=== PATIENT | female | born 2005 | race Caucasian/White ===

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

== ENCOUNTER 2023-06-29 08:00 | Outpatient (RCR) | payer OTHER, SELFPAY | END 2023-08-31 12:08 | disposition home or self-care (01) | LOC: HO.PT 08:00 | PROVIDERS: PCP Registered Nurse; Visit Provider Advanced Practice Midwife | DX: M99.05 Segmental and somatic dysfunction of pelvic region (principal) | CPT/HCPCS: 97112; 97140; 97161 ==

== ENCOUNTER 2023-06-29 10:30 | Outpatient (REF) | payer OTHER, SELFPAY ==
[2023-06-29 16:03] LABS: Appearance Urine Turbid; Color Urine Yellow; Glucose Urine UA Negative (Negative); Leukocyte Esterase Urine Small (1+) (Negative); Nitrite Urine Negative (Negative); PH 5.5 (5.0-9.0); Specific Gravity - Urine 1.025 (1.005-1.025); UMIC TRIGGER UA YES; Urine Blood Small (1+) (Negative); Urine Ketones Negative (Negative); Urine Protein Negative (Neg-Trace)
[2023-06-29 16:06] LABS: Bacteria Urine None Seen (None Seen); RBC Urine >20 /HPF (0-2); Squamous Epithelial Cell Urine 0-2 /HPF (0-2); WBC Urine 21-50 /HPF (0-5)
== END 2023-06-29 10:31 | disposition home or self-care (01) ==
LOC: HO.HMGCLDS 10:30
PROVIDERS: Visit Provider Registered Nurse
DX: R31.29 Other microscopic hematuria (principal)
CPT/HCPCS: 81001; 81003; 87086

== ENCOUNTER 2023-07-21 07:59 | Outpatient (AMB) | payer OTHER, SELFPAY ==
[2023-07-21 08:02] VITALS: BP 100/60; BMI 16.4
--- NOTE | 2023-07-21 08:02 | MHC.OFFVIS ---
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 Doing well with no concerns. Early withdrawal bleed in March. Has BV and yeast at times, used inserts and bled with the use Rx from PCP. She eats out daily. No regular exercise, walks at work. Doing well on Depo, wants to continue. She denies any contraindications to control such as: migraines with aura, history of DVT or pulmonary emboli, high blood pressure, liver disease, thrombolic disorders, Lupus, +ROD, breast cancer, or smoking. Currently is sexually active. She denies vaginal itching and irritation. STI screening offered; she accepts. Denies family history of ovarian or colon cancer. FH breast cancer. [facility] Medical History Spontaneous Surgical History Hx of dilation and curettage Family History (Updated 07/21/23 @ 08:06 by SANTANA Calix) Paternal Aunt History of breast cancer Mother Ovarian cancer Social History Household Members: Family Both parents involved: Yes Housing: House Are you a primary care management specialist to a significant other at home: No Do you presently have visiting nurse or other home services: No 75 years or older and lives alone: No Alcohol intake: never Patient Tobacco Use Status: Never used Tobacco Sexual orientation: Straight/Heterosexual Gender identity: Female Female Reproductive History Menstrual Age of Menarche: 13 control method: progesterone injection Total pregnancies: 3 Full term: 1 Number of Living Children: 1 Ab spontaneous: 2 Review of Systems Const All systems reviewed & are unremarkable except as noted in HPI and below Reports as per HPI Eyes Reports no additional complaints ENT Reports no additional complaints Card Reports no additional complaints Resp Reports no additional complaints GI Reports as per HPI and Reports no additional complaints Reports as per HPI Musc Reports no additional complaints Skin/Breast Reports as per HPI Neuro Reports no additional complaints Psych Reports no additional complaints Endo Reports no additional complaints Norberto/Lymph Reports no additional complaints Aller/Immun Reports no additional complaints Physical Exam Vital Signs: Last Vital Signs BP 100/60 07/21/23 08:02 BMI result Body Mass Index 16.4 Const General: cooperative, healthy appearing, no acute distress, well developed and alert Orientation/consciousness: patient oriented x3 HEENT Head: Yes normal to inspection Eyes General: appearance normal, both eyes and all related structures Neck Neck: Yes normal visual inspection Thyroid: Thyroid normal Chest Chest palpation & inspection: normal inspection of the chest and other (no puckering, dimpling, peau de orange, retraction, discharge, masses) Breast/axilla inspection: normal inspection of the breasts Breast/axilla palpation: normal palpation of the breasts Resp Effort & Inspection: normal respiratory effort GI Inspection: Yes normal to inspection Palpation (GI): Soft to palpation Rectal Exam - Female: deferred General: Yes bladder normal to palpation External Female Exam: normal external appearance and normal appearance of the urethra Speculum Exam - Vagina: normal appearance of the vagina, normal palpation and normal vaginal discharge Speculum Exam - Cervix: normal appearance of the cervix and normal palpation Bimanual exam- vagina & uterus: normal bimanual exam, normal palpation, uterine size normal, bladder normal to palpation, normal palpation and non-tender Bimanual Exam- Adnexa, other: no masses Skin General skin exam: no rashes or lesions noted Rashes: no rashes Neuro General: patient oriented x3 Cognition (Neuro): normal cognition Extrem General: Yes normal to inspection Psych Attitude: cooperative Thought process: Normal thought process present Results AMB Test Urine AMB Test Urine Negative Last Edit by SANTANA Calix on 07/21/23 08:18 Results Reviewed Results Reviewed: Laboratory Last Values Tst Clinic Negative 07/21/23 08:14 Assessment & Plan Assessment & Plan (1) Encounter for well woman exam with routine gynecological exam: Code(s): Z01.419 - Encounter for gynecological examination (general) (routine) without abnormal findings Plan Discussed: Current recommendations for pap smears per ASCCP guidelines. Breast awareness and periodic breast exams. Maintain a healthy lifestyle including a well balanced diet and routine exercise. Use condoms for STI and prevention. control hormone use warnings: go to ER if and loss of vision, blindness, severe headache, chest pain or difficulty breathing, severe abdominal pain, or any pain or swelling in an extremity. Patient verbalizes understanding and agrees to the plan of care. She was given opportunity to ask questions and all questions were answered to the best of my ability. RTO in one year for annual record keeper examination. This note is constructed using voice recognition software. While every effort has been made to ensure accuracy, lead enterprise architect errors may have been included. Orders: Orders CT NG by PCR Today Z20.2 - Contact with and (suspected) exposure to infections with a predominantly sexual mode of transmission AMB HCG Urine Test Today N92.6 - Irregular menstruation, unspecified Bacterial Vaginosis Panel Today Z20.2 - Contact with and (suspected) exposure to infections with a predominantly sexual mode of transmission Medications: New medroxyprogesterone (Depo-Provera) 150 mg IM [id number] 1 mL 4RF 90 days Coding Level of Care Code Est Pt Prev Care 18-39y(56014) Diagnoses Encounter for well woman exam with routine gynecological exam Z01.419
== END 2023-07-21 08:47 | disposition home or self-care (01) ==
PROVIDERS: Visit Provider Advanced Practice Midwife
DX: Z01.419 Encounter for gynecological examination (general) (routine) without abnormal findings (principal); N92.6 Irregular menstruation, unspecified
CPT/HCPCS: 99395

== ENCOUNTER 2023-07-21 07:59 | Outpatient (REF) | payer OTHER, SELFPAY | END 2023-07-21 08:00 | disposition home or self-care (01) | LOC: HO.LNP 07:59 | PROVIDERS: Visit Provider Advanced Practice Midwife | DX: Z01.419 Encounter for gynecological examination (general) (routine) without abnormal findings (principal); N92.6 Irregular menstruation, unspecified; Z20.2 Contact with and (suspected) exposure to infections with a predominantly sexual mode of transmission | CPT/HCPCS: 81025; 99395 ==

== ENCOUNTER 2023-07-21 08:45 | Outpatient (REF) | payer OTHER, SELFPAY ==
[2023-07-21 15:36] LABS: CT PCR NOT DETECTED (Not Detect.); NG PCR NOT DETECTED (Not Detect.)
[2023-07-22 16:13] LABS: BV Int Neg Control Negative (Negative); BV Int Pos Control Positive (Positive)
== END 2023-07-21 08:46 | disposition home or self-care (01) ==
LOC: HO.LAB 08:45
PROVIDERS: Visit Provider Advanced Practice Midwife
DX: N92.6 Irregular menstruation, unspecified (principal); Z20.2 Contact with and (suspected) exposure to infections with a predominantly sexual mode of transmission
CPT/HCPCS: 0353U; 87480; 87510; 87660

== ENCOUNTER 2023-12-21 16:38 | Outpatient (REF) | payer OTHER, SELFPAY ==
[2023-12-21 16:51] LABS: MANUAL DIFF FLAG NO
[2023-12-21 17:07] LABS: Basophils Percent Auto 0.2 % (0-2); Eosinophils Absolute Auto 0.1 X10*3/uL (0.0-0.4); Eosinophils Percent Auto 0.9 % (0-4); Hematocrit 41.1 % (37.0-47.0); Hemoglobin 14.4 g/dl (12.0-16.0); Imm Gran Abs Auto 0.01 X10*3/uL (0.00-0.03); Imm Gran Pct Auto 0.2 % (0.0-0.4); Lymphocytes Absolute Auto 2.6 X10*3/uL (1.2-4.9); Lymphocytes Percent Auto 40.3 % (20-40); Mean Corpuscular Volume 82.7 fL (80.0-98.0); Mean Platelet Volume 9.1 fL (9.4-12.3); Monocytes Absolute Auto 0.4 X10*3/uL (0.1-1.2); Monocytes Percent Auto 6.5 % (2-11); Neutrophils Absolute Auto 3.4 x10*3/uL (2.0-8.3); Neutrophils Percent Auto 51.9 % (45-73); Platelet Count 253 X10*3/uL (160-400); Red Blood Count 4.97 X10*6/uL (4.20-5.50); Red Cell Distribution Width 11.9 % (11.0-16.0); White Blood Count 6.5 X10*3/uL (4.8-10.8)
[2023-12-21 17:42] LABS: Alanine Aminotransferase 15 U/L (0-31); Albumin Level 4.6 g/dL (3.5-5.0); Alkaline Phosphatase 47 U/L (39-117); Anion Gap 8 (12-20); Aspartate Amino Transferase 16 U/L (5-31); Bilirubin Total 0.4 mg/dL (0.0-1.0); Blood Urea Nitrogen 7 mg/dL (9-16); Carbon Dioxide 28 mmol/L (22-29); Chloride 106 mmol/L (96-108); Estimated Glomerular Filt Rate > 60; Glucose Random 101 mg/dL (60-115); Iron 93 mcg/dL (30-160); Percent Iron Saturation 28 % (15-50); Potassium 3.8 mmol/L (3.3-5.1); Sodium 138 mmol/L (135-145); Total Iron Binding Capacity 336 mcg/dL (228-428); Total Protein 7.9 g/dL (6.5-8.0); Unsaturated Iron Binding 243 ug/dL
[2023-12-21 17:58] LABS: Vitamin D 25-OH Total 35.9 ng/mL (>30)
[2023-12-21 18:13] LABS: Folate 6.9 ng/mL (> or = 4.0); Vitamin B12 555 pg/mL (200-900)
== END 2023-12-21 16:39 | disposition home or self-care (01) ==
LOC: HO.LAB 16:38
PROVIDERS: PCP Registered Nurse; Visit Provider Registered Nurse
DX: R42 Dizziness and giddiness (principal)
CPT/HCPCS: 36415; 80053; 82306; 82607; 82746; 83540; 84443; 85025

== ENCOUNTER 2024-09-11 07:51 | Outpatient (AMB) | payer OTHER, SELFPAY ==
--- NOTE | 2024-09-11 07:51 | A.OFFVIS_ITS ---
Vital Signs 09/11/24 07:52 Height 5 ft 8 in Weight 108 lb BMI 16.4 Intake Visit Reasons: Breast issues Intake Note: pt has been noticing leaking from both breasts Professor Of Biochemistry: Professor Of Biochemistry Present (Keyanna) Allergies cats Allergy (Mild, Uncoded 09/11/24 07:52) itchy HPI Comments Details: Patient is here today due to milky discharge from her breasts in the shower, and when squeezed it out. Also noted slight bilateral breast soreness, now resolved. No previous breast surgeries or injuries. She does not report any breast stimulation herself or partner other than when she is cleaning the area. Current Depo-Provera user. She reports concerns that she had BV occurrences with her former partner but not with the 1st has a few questions regarding BV. [facility] Medical History Spontaneous Surgical History Hx of dilation and curettage Family History Paternal Aunt History of breast cancer Mother Ovarian cancer Social History Household Members: Family Both parents involved: Yes Housing: House Are you a primary director of primary care to a significant other at home: No Do you presently have visiting nurse or other home services: No 75 years or older and lives alone: No Alcohol intake: never Patient Tobacco Use Status: Never used Tobacco Sexual orientation: Straight/Heterosexual Gender identity: Female Female Reproductive History Menstrual Age of Menarche: 13 Review of Systems Const All systems reviewed & are unremarkable except as noted in HPI and below Reports no additional complaints Skin/Breast Reports system reviewed and no additional complaints, except as documented and Reports as per HPI Physical Exam Vital Signs: BMI result Body Mass Index 16.4 Const General: cooperative, healthy appearing and no acute distress Chest Other: No nipple discharge elicited Breast/axilla inspection: normal inspection of the breasts and normal inspection of the axillae Breast/axilla palpation: normal palpation of the breasts Skin General skin exam: no rashes or lesions noted Assessment & Plan Assessment & Plan (1) Nipple discharge: Code(s): N64.52 - Nipple discharge Category: Medical Plan Advised not to stimulate the breast. Await for for a few weeks to check the prolactin level, follow up pending the prolactin level results. Discussed the nature of bacterial vaginosis, pH shifts, vaginal teresa, role of women's health probiotics, use of condoms. Annual exam scheduled February 2025. The patient expressed understanding and agreement with the plan of care. All of her questions and concerns were addressed to the best of my ability. This note is constructed using voice recognition software. While every effort has been made to ensure accuracy, private mortgage banker safe errors may have been included. Orders: Orders Prolactin Today N64.52 - Nipple discharge Coding Level of Care Code Est Pt Level 3 (89885) Diagnoses Nipple discharge N64.52
[2024-09-11 07:52] VITALS: BMI 16.4
--- OUTSIDE RECORDS SUMMARY | 2024-09-11 07:55 | XMS_ITS | Data Portability ---
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 Plan of Treatment Reminders Order Date Submit Date Provider Last Modified By Organization Details Last Modified Time Details Appointments None recorded. Lab rapid influenza virus A + B and SARS CoV + SARS CoV 2 Ag panel, IA, upper respiratory specimen 2024 025 CHERYL In-Office Order, Internal Use Only DO Not Attach Compendium DO Not Attach Compendium, Do Not Delete/merge, [id number] 14:06:58 urinalysis, complete 2024 025 CHERYL [facility], [address], [place], [address], 5 08:06:54 culture, urine 2024 025 CHERYL [facility], [address], [address], [place], [address], 5 08:06:54 urinalysis, dipstick 2024 025 [email or web address] In-Office Order, Internal Use Only DO Not Attach Compendium DO Not Attach Compendium, Do Not Delete/merge, [id number] 5 13:52:54 bacterial vaginosis + vaginitis panel, vaginal 2024 025 CHERYL [facility] (Centralized Electronic Ordering - All Locations), Patient Can Go To The Location Of Their Choice, [id number] 5 08:06:53 CMP, serum or plasma 2024 025 CHERYL [facility] (Centralized Electronic Ordering - All Locations), Patient Can Go To The Location Of Their Choice, [id number] 5 14:06:18 CBC w/ auto diff 2024 025 CHERYL [facility] (Centralized Electronic Ordering - All Locations), Patient Can Go To The Location Of Their Choice, [id number] 5 14:06:17 amylase + lipase, serum 2024 025 CHERYL [facility] (Centralized Electronic Ordering - All Locations), Patient Can Go To The Location Of Their Choice, [id number] 5 14:06:19 H pylori urea breath test, co2 infrared 2024 025 CHERYL [facility] (Centralized Electronic Ordering - All Locations), Patient Can Go To The Location Of Their Choice, [id number] 5 14:06:20 test, urine 2023 024 [email or web address] In-Office Order, Internal Use Only DO Not Attach Compendium DO Not Attach Compendium, Do Not Delete/merge, [id number] 4 14:29:01 test, urine 2023 024 [email or web address] In-Office Order, Internal Use Only DO Not Attach Compendium DO Not Attach Compendium, Do Not Delete/merge, [id number] 4 12:37:05 Referral None recorded. Procedures None recorded. Surgeries None recorded. Imaging US, gallbladder - RUQ pain, worse when hungry, nausea r/o gallstones 2024 025 [email or web address] [facility], [address] , [place], [address], 5 15:12:14 Medication Orders medroxyprog esterone 150 mg/mL intramuscul ar suspension 2023 024 [email or web address] Not available 14:29:01 cetirizine 10 mg tablet 2023 024 [id number], [address] [place], [address], 4 10:52:13 triamcinolo ne acetonide 0.025 % topical ointment 2023 024 [id number], [address] [place], [address], 4 10:51:53 medroxyprog esterone 150 mg/mL intramuscul ar suspension 2023 024 [email or web address] [facility] #[id number], [address] [place], [address], 4 10:41:15 medroxyprog esterone 150 mg/mL intramuscul ar suspension 2023 024 [email or web address] Not available 12:37:05 Patient TargetsNo targets recorded. Patient Instructions Encounter Date Encounter Id Patient Instructions Last Modified By Organization Details Last Modified Time 03/27/2024 [id number] call or return for worsening or concerns. [email or web address] Not available 03/27/2024 10:36:09 06/14/2024 [id number] call or return for worsening or concerns. [email or web address] Not available 06/14/2024 14:06:46 Reason for Referral None Reported. Results Created Date Observation Date Name Description Value Unit Range Abnormal Flag Note LastModifiedBy Organization Detail LastModifiedTime 01/11/2001/11/2024 pregn april test, urine HCG negati ve Not Available In-Office Order Internal Use Only DO Not Attach Compendium DO Not Attach Compendium, Do Not Delete/merge, [id number] 01/11/2024 09:41:08 04/13/20 24 04/13/2024 pregn april test, urine HCG negati ve Not Available In-Office Order Internal Use Only DO Not Attach Compendium DO Not Attach Compendium, Do Not Delete/merge, [id number] 04/13/2024 14:10:03 06/14/19 25 06/15/2024 CBC WITH DIFFE RENTI AL/PL ATELE T WBC 7.6 x10e3 /uL 3.4-10 .8 normal Not Available [facility] ([facility]) [address], [place], [address], 06/15/2024 14:06:17 06/14/19 25 06/15/2024 CBC WITH DIFFE RENTI AL/PL ATELE T RBC 5.11 x10e6 /uL 3.77-5 .28 normal Not Available [facility] ([facility]) [address] [place], [address], 06/15/2024 14:06:17 06/14/19 25 06/15/2024 CBC WITH DIFFE RENTI AL/PL ATELE T hemoglobin 14.9 g/dL 11.1-1 5.9 normal Not Available [facility] ([facility]) [address] [facility], [place], [address], 06/15/2024 14:06:17 06/14/19 25 06/15/2024 CBC WITH DIFFE RENTI AL/PL ATELE T hematocrit 44.0 % 34.0-4 6.6 normal Not Available [facility] ([facility]) [address] [place], [address], 06/15/2024 14:06:17 06/14/1906/15/2024 CBC WITH DIFFE RENTI AL/PL ATELE T MCV 86 fL 79-97 normal Not Available [facility] ([facility]) [address] [place], [address], 06/15/2024 14:06:17 06/14/19 25 06/15/2024 CBC WITH DIFFE RENTI AL/PL ATELE T MCH 29.2 pg 26.6-3 3.0 normal Not Available [facility] ([facility]) [address] [place], [address], 06/15/2024 14:06:17 06/14/19 25 06/15/2024 CBC WITH DIFFE RENTI AL/PL ATELE T MCHC 33.9 g/dL 31.5-3 5.7 normal Not Available [facility] ([facility]) [address] [facility], [place], [address], 06/15/2024 14:06:17 06/14/19 25 06/15/2024 CBC WITH DIFFE RENTI AL/PL ATELE T RDW 12.1 % 11.7-1 5.4 Not Available [facility] ([facility]) [address] [facility], [place], [address], 06/15/2024 14:06:17 06/14/19 25 06/15/2024 CBC WITH DIFFE RENTI AL/PL ATELE T platelets 302 x10e3 /uL 150-45 0 normal Not Available [facility] ([facility]) [address] [facility], [place], [address], 06/15/2024 14:06:17 06/14/19 25 06/15/2024 CBC WITH DIFFE RENTI AL/PL ATELE T neutrophils 61 % not estab. normal Not Available [facility] ([facility]) [address] [facility], [place], [address], 06/15/2024 14:06:17 06/14/19 25 06/15/2024 CBC WITH DIFFE RENTI AL/PL ATELE T lymphs 32 % not estab. normal Not Available [facility] ([facility]) [address] [facility], [place], [address], 06/15/2024 14:06:17 06/14/19 25 06/15/2024 CBC WITH DIFFE RENTI AL/PL ATELE T monocytes 6 % not estab. normal Not Available [facility] ([facility]) [address] [facility], [place], [address], 06/15/2024 14:06:17 06/14/19 25 06/15/2024 CBC WITH DIFFE RENTI AL/PL ATELE T eos 1 % not estab. normal Not Available [facility] ([facility]) [address] [facility], [place], [address], 06/15/2024 14:06:17 06/14/19 25 06/15/2024 CBC WITH DIFFE RENTI AL/PL ATELE T basos 0 % not estab. normal Not Available [facility] ([facility]) [address] [facility], [place], [address], 06/15/2024 14:06:17 06/14/1906/15/2024 CBC WITH DIFFE RENTI AL/PL ATELE T immature cells FILER AND SANDER Not Available [facility] ([facility]) [address] [place], [address], 06/15/2024 14:06:17 06/14/19 25 06/15/2024 CBC WITH DIFFE RENTI AL/PL ATELE T neutrophils (absolute) 4.6 x10e3 /uL 1.4-7. 0 normal Not Available [facility] ([facility]) [address] [place], [address], 06/15/2024 14:06:17 06/14/19 25 06/15/2024 CBC WITH DIFFE RENTI AL/PL ATELE T lymphs (absolute) 2.4 x10e3 /uL 0.7-3. 1 normal Not Available [facility] ([facility]) [address] [place], [address], 06/15/2024 14:06:17 06/14/1906/15/2024 CBC WITH DIFFE RENTI AL/PL ATELE T monocytes(ab solute) 0.5 x10e3 /uL 0.1-0. 9 normal Not Available [facility] ([facility]) [address] [place], [address], 06/15/2024 14:06:17 06/14/19 25 06/15/2024 CBC WITH DIFFE RENTI AL/PL ATELE T eos (absolute) 0.1 x10e3 /uL 0.0-0. 4 normal Not Available [facility] ([facility]) [address] [facility], [place], [address], 06/15/2024 14:06:17 06/14/19 25 06/15/2024 CBC WITH DIFFE RENTI AL/PL ATELE T baso (absolute) 0.0 x10e3 /uL 0.0-0. 2 normal Not Available [facility] ([facility]) [address] [facility] [facility], [place], [address], 06/15/2024 14:06:17 06/14/19 25 06/15/2024 CBC WITH DIFFE RENTI AL/PL ATELE T immature granulocytes 0 % not estab. Not Available [facility] ([facility]) [address] [facility] [facility], [place], [address], 06/15/2024 14:06:17 06/14/19 25 06/15/2024 CBC WITH DIFFE RENTI AL/PL ATELE T immature grans (abs) 0.0 x10e3 /uL 0.0-0. 1 Not Available [facility] ([facility]) [address] [facility] [facility], [place], [address], 06/15/2024 14:06:17 06/14/19 25 06/15/2024 CBC WITH DIFFE RENTI AL/PL ATELE T NRBC FILER AND SANDER Not Available [facility] ([facility]) [address] [facility], [place], [address], 06/15/2024 14:06:17 06/14/19 25 06/15/2024 CBC WITH DIFFE RENTI AL/PL ATELE T hematology comments: FILER AND SANDER Not Available [facility] ([facility]) [address] [facility], [place], [address], 06/15/2024 14:06:17 06/14/19 25 06/15/2024 COMP. METAB OLIC PANEL (14) glucose 93 mg/dL 70-99 normal Not Available [facility] ([facility]) [address] [place], [address], 06/15/2024 14:06:18 06/14/19 25 06/15/2024 COMP. METAB OLIC PANEL (14) BUN 12 mg/dL 6-20 normal Not Available [facility] ([facility]) [address] [place], [address], 06/15/2024 14:06:18 06/14/19 25 06/15/2024 COMP. METAB OLIC PANEL (14) creatinine 0.78 mg/dL 0.57-1 .00 normal Not Available [facility] ([facility]) [address] [place], [address], 06/15/2024 14:06:18 06/14/19 25 06/15/2024 COMP. METAB OLIC PANEL (14) eGFR 111 mL/mi n/1.7 3 >59 normal Not Available [facility] ([facility]) [address] [place], [address], 06/15/2024 14:06:18 06/14/19 25 06/15/2024 COMP. METAB OLIC PANEL (14) BUN/creatini ne ratio 15 9-23 normal Not Available [facility] ([facility]) [address] [place], [address], 06/15/2024 14:06:18 06/14/19 25 06/15/2024 COMP. METAB OLIC PANEL (14) sodium 140 mmol/ L 134-14 4 normal Not Available [facility] ([facility]) [address] [place], [address], 06/15/2024 14:06:18 06/14/19 25 06/15/2024 COMP. METAB OLIC PANEL (14) potassium 4.1 mmol/ L 3.5-5. 2 normal Not Available [facility] ([facility]) [address] [place], [address], 06/15/2024 14:06:18 06/14/19 25 06/15/2024 COMP. METAB OLIC PANEL (14) chloride 103 mmol/ L 96-106 normal Not Available [facility] ([facility]) [address] [place], [address], 06/15/2024 14:06:18 06/14/19 25 06/15/2024 COMP. METAB OLIC PANEL (14) carbon dioxide, total 22 mmol/ L 20-29 normal Not Available [facility] ([facility]) [address] [place], [address], 06/15/2024 14:06:18 06/14/19 25 06/15/2024 COMP. METAB OLIC PANEL (14) calcium 9.6 mg/dL 8.7-10 .2 normal Not Available [facility] ([facility]) [address] [place], [address], 06/15/2024 14:06:18 06/14/19 25 06/15/2024 COMP. METAB OLIC PANEL (14) protein, total 7.9 g/dL 6.0-8. 5 normal Not Available [facility] ([facility]) [address] [place], [address], 06/15/2024 14:06:18 06/14/19 25 06/15/2024 COMP. METAB OLIC PANEL (14) albumin 4.7 g/dL 4.0-5. 0 normal Not Available [facility] ([facility]) [address] [place], [address], 06/15/2024 14:06:18 06/14/19 25 06/15/2024 COMP. METAB OLIC PANEL (14) globulin, total 3.2 g/dL 1.5-4. 5 Not Available [facility] ([facility]) [address], [place], [address], 06/15/2024 14:06:18 06/14/19 25 06/15/2024 COMP. METAB OLIC PANEL (14) bilirubin, total <0.2 mg/dL 0.0-1. 2 Not Available [facility] ([facility]) [address] [facility], [place], [address], 06/15/2024 14:06:18 06/14/19 25 06/15/2024 COMP. METAB OLIC PANEL (14) alkaline phosphatase 62 IU/L 44-121 normal Not Available [facility] ([facility]) [address], [place], [address], 06/15/2024 14:06:18 06/14/19 25 06/15/2024 COMP. METAB OLIC PANEL (14) AST (SGOT) 20 IU/L 0-40 normal Not Available [facility] ([facility]) [address] [facility], [place], [address], 06/15/2024 14:06:18 06/14/19 25 06/15/2024 COMP. METAB OLIC PANEL (14) ALT (SGPT) 14 IU/L 0-32 normal Not Available [facility] ([facility]) [address] [facility], [place], [address], 06/15/2024 14:06:18 06/14/19 25 06/15/2024 KENNETH+L IPASE amylase 79 U/L 31-110 normal Not Available [facility] ([facility]) [address] [facility], [place], [address], 06/15/2024 14:06:19 06/14/19 25 06/15/2024 KENNETH+L IPASE lipase 47 U/L 14-72 normal Not Available [facility] ([facility]) [address] [facility], [place], [address], 06/15/2024 14:06:19 06/14/19 25 06/15/2024 H PYLOR I BREAT H TEST H pylori breath test Negati ve negati ve Not Available [facility] ([facility]) [address] [facility], [place], [address], 06/15/2024 14:06:20 06/14/19 25 06/15/2024 NUSWA B BV KEYON+C AND6+ CT/GC /T... atopobium vaginae Modera te - 1 score Not Available [facility] ([facility]) [address] [facility], [place], [address], 06/17/2024 08:06:53 06/14/19 25 06/15/2024 NUSWA B BV KEYON+C AND6+ CT/GC /T... bvab 2 Low - 0 score Not Available [facility] ([facility]) [address] [facility], [place], [address], 06/17/2024 08:06:53 06/14/19 25 06/15/2024 NUSWA B BV KEYON+C AND6+ CT/GC /T... megasphaera 1 High - 2 score abnormal Calcu late total score by patricia rashid the 3 indiv idual bacte rial vagin osis (BV) marke r score s toget her. Total score is inter prete d as follo ws: Total score 0-1: Indic ates the absen ce of BV. Total score 2: Indet ermin ate for BV. Addit ional clini hair data shoul d be evalu ated to estab ann a diagn osis. Total score 3-6: Indic ates the prese nce of BV. Not Available [facility] ([facility]) [address] [facility], [place], [address], 06/17/2024 08:06:53 06/14/19 25 06/15/2024 NUSWA B BV KEYON+C AND6+ CT/GC /T... monserrat albicans, KEYON Negati ve negati ve Not Available [facility] ([facility]) [address] [place], [address], 06/17/2024 08:06:53 06/14/19 25 06/15/2024 NUSWA B BV KEYON+C AND6+ CT/GC /T... monserrat glabrata, KEYON Negati ve negati ve Not Available [facility] ([facility]) [address] [place], [address], 06/17/2024 08:06:53 06/14/19 25 06/15/2024 NUSWA B BV KEYON+C AND6+ CT/GC /T... C parapsilosis /tropicalis Negati ve negati ve This assay does not diffe renti ate C. tropi calis and C. parap el is. Not Available [facility] ([facility]) [address] [place], [address], 06/17/2024 08:06:53 06/14/19 25 06/15/2024 NUSWA B BV KEYON+C AND6+ CT/GC /T... monserrat lusitaniae, KEYON Negati ve negati ve Not Available [facility] ([facility]) [address] [place], [address], 06/17/2024 08:06:53 06/14/19 25 06/15/2024 NUSWA B BV KEYON+C AND6+ CT/GC /T... monserrat krusei, KEYON Negati ve negati ve Not Available [facility] ([facility]) [address] [place], [address], 06/17/2024 08:06:53 06/14/19 25 06/16/2024 NUSWA B BV KEYON+C AND6+ CT/GC /T... hsv 1 KEYON Negati ve negati ve Not Available [facility] ([facility]) [address] [place], [address], 06/17/2024 08:06:53 06/14/19 25 06/16/2024 NUSWA B BV KEYON+C AND6+ CT/GC /T... hsv 2 KEYON Negati ve negati ve Not Available [facility] ([facility]) [address] [place], [address], 06/17/2024 08:06:53 06/14/1906/17/2024 NUSWA B BV KEYON+C AND6+ CT/GC /T... trich vag by KEYON Negati ve negati ve Not Available [facility] ([facility]) [address] [place], [address], 06/17/2024 08:06:53 06/14/1906/17/2024 NUSWA B BV KEYON+C AND6+ CT/GC /T... chlamydia trachomatis, KEYON Negati ve negati ve Not Available [facility] ([facility]) [address] [place], [address], 06/17/2024 08:06:53 06/14/1906/17/2024 NUSWA B BV KEYON+C AND6+ CT/GC /T... neisseria gonorrhoeae, KEYON Negati ve negati ve Not Available [facility] ([facility]) [address] [place], [address], 06/17/2024 08:06:53 06/14/1906/15/2024 URINA LYSIS , COMPL ETE specific gravity 1.024 1.005- 1.030 normal Not Available [facility] ([facility]) [address] [place], [address], 06/17/2024 08:06:54 06/14/1906/15/2024 URINA LYSIS , COMPL ETE pH 7.0 5.0-7. 5 normal Not Available [facility] ([facility]) [address] [place], [address], 06/17/2024 08:06:54 06/14/19 25 06/15/2024 URINA LYSIS , COMPL ETE urine-color Yellow yellow Not Available [facility] ([facility]) [address] [facility], [place], [address], 06/17/2024 08:06:54 06/14/19 25 06/15/2024 URINA LYSIS , COMPL ETE appearance Clear clear Not Available [facility] ([facility]) [address] [place], [address], 06/17/2024 08:06:54 06/14/19 25 06/15/2024 URINA LYSIS , COMPL ETE WBC esterase Negati ve negati ve Not Available [facility] ([facility]) [address] [place], [address], 06/17/2024 08:06:54 06/14/19 25 06/15/2024 URINA LYSIS , COMPL ETE protein Negati ve negati ve/tra ce Not Available [facility] ([facility]) [address] [place], [address], 06/17/2024 08:06:54 06/14/19 25 06/15/2024 URINA LYSIS , COMPL ETE glucose Negati ve negati ve Not Available [facility] ([facility]) [address] [place], [address], 06/17/2024 08:06:54 06/14/19 25 06/15/2024 URINA LYSIS , COMPL ETE ketones Negati ve negati ve Not Available [facility] ([facility]) [address] [place], [address], 06/17/2024 08:06:54 06/14/19 25 06/15/2024 URINA LYSIS , COMPL ETE occult blood Negati ve negati ve Not Available [facility] ([facility]) [address] [place], [address], 06/17/2024 08:06:54 06/14/19 25 06/15/2024 URINA LYSIS , COMPL ETE bilirubin Negati ve negati ve Not Available [facility] ([facility]) [address] [facility], [place], [address], 06/17/2024 08:06:54 06/14/1906/15/2024 URINA LYSIS , COMPL ETE urobilinogen ,semi-qn 1.0 mg/dL 0.2-1. 0 normal Not Available [facility] ([facility]) [address] [facility], [place], [address], 06/17/2024 08:06:54 06/14/19 25 06/15/2024 URINA LYSIS , COMPL ETE nitrite, urine Negati ve negati ve Not Available [facility] ([facility]) [address] [facility], [place], [address], 06/17/2024 08:06:54 06/14/1906/15/2024 URINA LYSIS , COMPL ETE microscopic examination Commen t Micro scopi c follo ws if indic ated. Not Available [facility] ([facility]) [address] [facility], [place], [address], 06/17/2024 08:06:54 06/14/1906/15/2024 URINA LYSIS , COMPL ETE microscopic examination See below: Micro scopi c was indic ated and was perfo rmed. Not Available [facility] ([facility]) [address] [facility], [place], [address], 06/17/2024 08:06:54 06/14/1906/15/2024 URINA LYSIS , COMPL ETE WBC None seen /hpf 0 - 5 Not Available [facility] ([facility]) [address] [place], [address], 06/17/2024 08:06:54 06/14/19 25 06/15/2024 URINA LYSIS , COMPL ETE RBC None seen /hpf 0 - 2 Not Available [facility] ([facility]) [address] [facility], [place], [address], 06/17/2024 08:06:54 06/14/19 25 06/15/2024 URINA LYSIS , COMPL ETE epithelial cells (non renal) None seen /hpf 0 - 10 Not Available [facility] ([facility]) [address] [facility], [place], [address], 06/17/2024 08:06:54 06/14/19 25 06/15/2024 URINA LYSIS , COMPL ETE epithelial cells (renal) FILER AND SANDER Not Available [facility] ([facility]) [address] [facility], [place], [address], 06/17/2024 08:06:54 06/14/19 25 06/15/2024 URINA LYSIS , COMPL ETE casts None seen /lpf none seen Not Available [facility] ([facility]) [address] [facility], [place], [address], 06/17/2024 08:06:54 06/14/19 25 06/15/2024 URINA LYSIS , COMPL ETE cast type FILER AND SANDER Not Available [facility] ([facility]) [address] [facility], [place], [address], 06/17/2024 08:06:54 06/14/19 25 06/15/2024 URINA LYSIS , COMPL ETE crystals FILER AND SANDER Not Available [facility] ([facility]) [address] [facility], [place], [address], 06/17/2024 08:06:54 06/14/19 25 06/15/2024 URINA LYSIS , COMPL ETE crystal type FILER AND SANDER Not Available [facility] ([facility] [address] [facility], [place], [address], 06/17/2024 08:06:54 06/14/19 25 06/15/2024 URINA LYSIS , COMPL ETE mucus threads FILER AND SANDER Not Available [facility] ([facility]) [address] [facility], [place], [address], 06/17/2024 08:06:54 06/14/19 25 06/15/2024 URINA LYSIS , COMPL ETE bacteria None seen none seen/f ew Not Available [facility] ([facility]) [address] [facility], [place], [address], 06/17/2024 08:06:54 06/14/19 25 06/15/2024 URINA LYSIS , COMPL ETE yeast FILER AND SANDER Not Available [facility] ([facility]) [address] [facility], [place], [address], 06/17/2024 08:06:54 06/14/19 25 06/15/2024 URINA LYSIS , COMPL ETE trichomonas FILER AND SANDER Not Available [facility] ([facility]) [address] [facility], [place], [address], 06/17/2024 08:06:54 06/14/19 25 06/15/2024 URINA LYSIS , COMPL ETE comment FILER AND SANDER Not Available [facility] ([facility]) [address] [facility], [place], [address], 06/17/2024 08:06:54 06/14/19 25 06/16/2024 URINE CULTU REJENNY urine culture, routine Final report Not Available [facility] ([facility]) [address] [place], [address], 06/17/2024 08:06:54 06/14/19 25 06/16/2024 URINE CULTU JENNY ZAMORANO result 1 No growth Not Available [facility] ([facility]) [address] [place], [address], 06/17/2024 08:06:54 06/14/19 25 06/14/2024 urina lysis , dipst ick Leukocytes Negati ve Not Available In-Office Order Internal Use Only DO Not Attach Compendium DO Not Attach Compendium, Do Not Delete/merge, 06/14/2024 13:46:51 06/14/19 25 06/14/2024 urina lysis , dipst ick Nitritie negati ve Not Available In-Office Order Internal Use Only DO Not Attach Compendium DO Not Attach Compendium, Do Not Delete/merge, 06/14/2024 13:46:51 06/14/19 25 06/14/2024 urina lysis , dipst ick Urobilinogen .2 Not Available In-Of fice Order Internal Use Only DO Not Attach Compendium DO Not Attach Compendium, Do Not Delete/merge, 06/14/2024 13:46:51 06/14/19 25 06/14/2024 urina lysis , dipst ick Protein Negati ve Not Available In-Office Order Internal Use Only DO Not Attach Compendium DO Not Attach Compendium, Do Not Delete/merge, 06/14/2024 13:46:51 06/14/19 25 06/14/2024 urina lysis , dipst ick pH 6.0 Not Available In-Office Order Internal Use Only DO Not Attach Compendium DO Not Attach Compendium, Do Not Delete/merge, 06/14/2024 13:46:51 06/14/19 25 06/14/2024 urina lysis , dipst ick Blood Negati ve Not Available In-Office Order Internal Use Only DO Not Attach Compendium DO Not Attach Compendium, Do Not Delete/merge, 06/14/2024 13:46:51 06/14/19 25 06/14/2024 urina lysis , dipst ick Specific [place] 1.020 Not Available In-Off ice Order Internal Use Only DO Not Attach Compendium DO Not Attach Compendium, Do Not Delete/merge, 06/14/2024 13:46:51 06/14/19 25 06/14/2024 urina lysis , dipst ick Ketone Negati ve Not Available In-Office Order Internal Use Only DO Not Attach Compendium DO Not Attach Compendium, Do Not Delete/merge, 06/14/2024 13:46:51 06/14/19 25 06/14/2024 urina lysis , dipst ick Bilirubin Negati ve Not Available In-Office Order Internal Use Only DO Not Attach Compendium DO Not Attach Compendium, Do Not Delete/merge, 06/14/2024 13:46:51 06/14/19 25 06/14/2024 urina lysis , dipst ick Glucose Negati ve Not Available In-Office Order Internal Use Only DO Not Attach Compendium DO Not Attach Compendium, Do Not Delete/merge, 06/14/2024 13:46:51 06/14/19 25 06/14/2024 urina lysis , dipst ick Appearance Clear Not Available In-Offi ce Order Internal Use Only DO Not Attach Compendium DO Not Attach Compendium, Do Not Delete/merge, 06/14/2024 13:46:51 06/14/19 25 06/14/2024 urina lysis , dipst ick Color Yellow Not Available In-Office Order Internal Use Only DO Not Attach Compendium DO Not Attach Compendium, Do Not Delete/merge, 06/14/2024 13:46:51 07/25/19 25 07/25/2024 NUSWA B BV KEYON+C AND6+ CT/GC /T... atopobium vaginae Low - 0 score Not Available [facility] ([facility]) [address] [place], [address], 07/26/2024 22:05:47 07/25/19 25 07/25/2024 NUSWA B BV KEYON+C AND6+ CT/GC /T... bvab 2 Low - 0 score Not Available [facility] ([facility]) [address] [place], [address], 07/26/2024 22:05:47 07/25/19 25 07/25/2024 NUSWA B BV KEYON+C AND6+ CT/GC /T... megasphaera 1 Low - 0 score Calcu late total score by patricia rashid the 3 indiv idual bacte rial vagin osis (BV) marke r score s toget her. Total score is inter prete d as follo ws: Total score 0-1: Indic ates the absen ce of BV. Total score 2: Indet ermin ate for BV. Addit ional clini hair data shoul d be evalu ated to estab ann a diagn osis. Total score 3-6: Indic ates the prese nce of BV. Not Available [facility] ([facility]) [address] [place], [address], 07/26/2024 22:05:47 07/25/19 25 07/25/2024 NUSWA B BV KEYON+C AND6+ CT/GC /T... monserrat albicans, KEYON Negati ve negati ve Not Available [facility] ([facility]) [address] [place], [address], 07/26/2024 22:05:47 07/25/19 25 07/25/2024 NUSWA B BV KEYON+C AND6+ CT/GC /T... monserrat glabrata, KEYON Negati ve negati ve Not Available [facility] ([facility]) [address] [place], [address], 07/26/2024 22:05:47 07/25/19 25 07/25/2024 NUSWA B BV KEYON+C AND6+ CT/GC /T... C parapsilosis /tropicalis Negati ve negati ve This assay does not diffe renti ate C. tropi calis and C. parap el is. Not Available [facility] ([facility]) [address] [place], [address], 07/26/2024 22:05:47 07/25/19 25 07/25/2024 NUSWA B BV KEYON+C AND6+ CT/GC /T... monserrat lusitaniae, KEYON Negati ve negati ve Not Available [facility] ([facility]) [address] [place], [address], 07/26/2024 22:05:47 07/25/19 25 07/25/2024 NUSWA B BV KEYON+C AND6+ CT/GC /T... monserrat krusei, KEYON Negati ve negati ve Not Available [facility] ([facility]) [address] [place], [address], 07/26/2024 22:05:47 07/25/19 25 07/26/2024 NUSWA B BV KEYON+C AND6+ CT/GC /T... trich vag by KEYON Negati ve negati ve Not Available [facility] ([facility]) [address] [place], [address], 07/26/2024 22:05:47 07/25/19 25 07/26/2024 NUSWA B BV KEYON+C AND6+ CT/GC /T... chlamydia trachomatis, KEYON Negati ve negati ve Not Available [facility] ([facility]) [address] [place], [address], 07/26/2024 22:05:47 07/25/19 25 07/26/2024 NUSWA B BV KEYON+C AND6+ CT/GC /T... neisseria gonorrhoeae, KEYON Negati ve negati ve Not Available [facility] ([facility]) [address] [place], [address], 07/26/2024 22:05:47 07/25/19 25 07/26/2024 NUSWA B BV KEYON+C AND6+ CT/GC /T... hsv 1 KEYON Negati ve negati ve Not Available [facility] ([facility]) [address] [place], [address], 07/26/2024 22:05:47 07/25/19 25 07/26/2024 NUSWA B BV KEYON+C AND6+ CT/GC /T... hsv 2 KEYON Negati ve negati ve Not Available [facility] ([facility]) [address] [facility], [place], [address], 07/26/2024 22:05:47 07/28/19 25 07/27/2024 rapid influ zak virus A + B and SARS CoV + SARS CoV 2 Ag panel , IA, upper respi rator y speci men Unknown Analyte negati ve Not Available In-Office Order Internal Use Only DO Not Attach Compendium DO Not Attach Compendium, Do Not Delete/merge, [id number] 07/27/2024 13:20:59 07/28/19 25 07/27/2024 rapid influ zak virus A + B and SARS CoV + SARS CoV 2 Ag panel , [place], upper respi rator y speci men Unknown Analyte negati ve Not Available In-Office Order Internal Use Only DO Not Attach Compendium DO Not Attach Compendium, Do Not Delete/merge, [id number] 07/27/2024 13:20:59 07/28/19 25 07/27/2024 rapid influ zak virus A + B and SARS CoV + SARS CoV 2 Ag panel , IA, upper respi rator y speci men Unknown Analyte negati ve Not Available In-Office Order Internal Use Only DO Not Attach Compendium DO Not Attach Compendium, Do Not Delete/merge, [id number] 07/27/2024 13:20:59 07/10/19 25 07/10/2024 US, abdom en, limit ed US RUQ Reason : R10.11 RUQ PAIN COMPAR DARINEL: CT abdome n and pelvis 2015. FINDIN GS: Liver: Normal in size and echote xture. No focal lesion . Smooth hepati c contou r. Main portal vein patent with normal hepato petal direct ion of flow. Gallbl adder: No gallst ones. Normal wall thickn ess. No perich olecys tic fluid. Negati ve Cota sign. Biliar y Tree: No intrah epatic or extrah epatic bile duct dilati on is identi fied. Common duct measur es: 0.5 cm. Pancre as: No abnorm ality in the visual ized portio ns of the pancre as. Right kidney : 9.9 cm in length . Normal parenc hymal echote xture and thickn ess. No hydron ephros is, stone or mass. IMPRES FELICITAS: Normal right upper quadra nt ultras ound. I have person ally review ed the images and I agree with this report . WSN: [id number] Orderi ng Physic rin: Theresa Page Dictat ed By: Jose R Kang DO Dictkeaton ed Date/T bhavna: 10:50 a Review ed By: Harshal Pimentel MD Signed By: Harshal Pimentel MD Signed Date/T bhavna: 10:55 am Transc ribed By: MAGGIE Transc ribed Date/T bhavna: 10:31 am Patien t Class: [facility] [address] [place] [address], [address], 08/02/2024 10:54:59 Result Notes None recorded. Problems Name Problem SNOMED Code Status Onset Date Resolution Date Notes Provider Name and Address Organization Details Recorded Time Epigastr ic pain 01395147 Completed 200712/27/2013 RECORDED 03/12/20 08 3:00PM BY INEZ GALE ON/ADDEN DUM Vikash Keys, [facility] [address], [place], [address], [facility] 6 15:26:01 Acute secretor y otitis media 051882720 Completed 200812/27/2013 RECORDED 03/07/20 09 9:27AM BY EDY AGUILAR MA, INEZ ON/ADDEN DUM Vikash Keys, [facility] [address], [facility] [place], [address], [facility] 6 15:26:01 Acute pharyngi tis 452968068 Completed 201112/27/2013 RECORDED 11/30/19 12 8:26AM BY CYNTHIA TORRE PA-C, ANNOTATI ON/ADDEN DUM Vikash Keys, [facility] [address] [facility] [address], [place], [address], [facility], [place] 6 15:26:01 Streptoc occal sore throat 59677834 Completed 201112/27/2013 RECORDED 11/30/19 12 8:26AM BY CYNTHIA TORRE PA-C, ANNOTATI ON/ADDEN DUM Vikash Keys, [facility] [address] [facility] [address], [place], [address], [facility], [place] 6 15:26:01 Cellulit is and abscess of face 509591039 Completed 201112/27/2013 RECORDED 11/30/19 12 8:26AM BY CYNTHIA TORRE PA-C, ANNOTATI ON/ADDEN DUM Vikash Keys, [facility] [address] [address], [facility] [place], [address], [facility], [place] 6 15:26:01 Conjunct ivitis 9985845 Completed 200712/27/2013 RECORDED 03/12/20 08 2:59PM BY INEZ GALE ON/ADDEN ELIZABETH Keys, [facility] [address] [address], [facility] [place], [address], [facility] [place], [place] 6 15:26:01 Dysuria 68280597 Completed 200712/27/2013 RECORDED 03/12/20 08 3:00PM BY INEZ GALE ON/ADDSILAS DUM Vikash Keys, [facility] [address] [address], [place], [address], [facility], [place] 6 15:26:01 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 [address], [place], [address], [facility], [place] 6 15:26:01 Fever 241431379 Completed 200712/27/2013 RECORDED 03/12/20 08 3:00PM BY DEVAN DODGE, INEZ ON/ADDEN DUM Vikash Keys, [facility] [address] [facility] [address], [place], [address], [facility] [place], [place] 6 15:26:01 Influenz a vaccine needed 44356855420 06 Completed 200812/27/2013 DATE: 03/07/20 09; RECORDED 05/15/20 13 8:35AM BY INEZ LUND ON/ADDEN DUM Vikash Keys, [facility] [address] [facility] [address], [place], [address], [facility] [place], [place] 6 15:26:01 Administ ration of viral vaccine Completed 201212/27/2013 RECORDED 05/15/20 13 2:44PM BY MIKE DYER MD, [employer]ITS Vikash Keys, [facility] [address] [facility] [address], [place], [address], [facility] [place], [place] 6 15:26:01 Impetigo 48779961 Completed 201112/27/2013 RECORDED 11/30/19 12 9:59AM BY CYNTHIA TORRE PA-C, ANNOTATI ON/ADDEN DUM Vikash Keys, [facility] [address] [facility] [address], [place], [address], [facility] [place], [place] 6 15:26:01 Methicil jordan resistan t Staphylo coccus aureus infectio n 753333501 Completed 201212/27/2013 RECORDED 05/15/20 13 8:35AM BY ERIK LUNDATI ON/ADDEN ELIZABETH Keys, [facility] [address], [place], [address], [facility] [place], [place] 6 15:26:01 Infestat ion by Gretchen galeas [id number] Completed 201112/27/2013 RECORDED 11/30/19 12 8:26AM BY CYNTHIA TORRE PA-C, ANNOTATI ON/ADDEN DUM Vikash Keys, [facility] [address], [place], [address], [facility], [place] 6 15:26:01 Verruca plantari s 19528119 Completed 201212/27/2013 IMPRESSI ON: L HEEL; RECORDED 05/15/20 13 8:35AM BY ERIK LUNDATI ON/ADDEN ELIZABETH eKys, [facility] [address], [place], [address], [facility], [place] 6 15:26:01 Eruption 601100421 Completed 201112/27/2013 RECORDED 11/30/19 12 8:26AM BY CYNTHIA TORRE PA-C, ANNOTATI ON/ADDEN ELIZABETH Keys, [facility] [address], [place], [address], [facility], [place] 6 15:26:01 Epigastr ic pain 76899554 Completed 200712/28/2013 RECORDED 03/12/20 08 3:00PM BY DEVAN DODGE, INEZ ON/ADDSILAS Keys, [facility] [address], [facility] [place], [address], [facility] [place], [place] 6 15:26:01 Acute secretor y otitis media 161982654 Completed 200812/28/2013 RECORDED 03/07/20 09 9:27AM BY EDY AGUILAR MA, INEZ ON/ADDEN ELIZABETH Keys, [facility] [address], [facility] [place], [address], [facility] [place], [place] 6 15:26:01 Acute pharyngi tis 442019920 Completed 201112/28/2013 RECORDED 11/30/19 12 8:26AM BY CYNTHIA TORRE PA-C, INEZ ON/ADDEN ELIZABETH Keys, [facility] [address], [place], [address], [facility], [place] 6 15:26:01 Streptoc occal sore throat 11521645 Completed 201112/28/2013 RECORDED 11/30/19 12 8:26AM BY CYNTHIA TORRE PA-C, INEZ ON/ADDEN ELIZABETH Keys, [facility] [address] [address], [place], [address], [facility], [place] 6 15:26:01 Cellulit is and abscess of face 666849958 Completed 201112/28/2013 RECORDED 11/30/19 12 8:26AM BY CYNTHIA TORRE PA-C, INEZ ON/MARVIN Keys, [facility] [address] [address], [place], [address], [facility], [place] 6 15:26:01 Conjunct ivitis 8985062 Completed 200712/28/2013 RECORDED 03/12/20 08 2:59PM BY DEVAN DODGE, INEZ SALAZAR/MARVIN Keys, [facility] [address] [address], [place], [address], [facility], [place] 6 15:26:01 Dysuria 08014993 Completed 200712/28/2013 RECORDED 03/12/20 08 3:00PM BY DEVAN DODGE, ERIKATI ON/ADDEN DUM Vikash Keys, [facility] [address] [address], [facility] [place], [address], [facility], [place] 6 15:26:01 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 262778866 Completed 201112/28/2013 RECORDED 11/30/19 12 8:26AM BY CYNTHIA TORRE PA-C, ANNOTATI ON/ADDEN DUM Vikash Keys, [facility] [address] [address], [place], [address], [facility], [place] 6 15:26:01 Fever 506445418 Completed 200712/28/2013 RECORDED 03/12/20 08 3:00PM BY DEVAN DODGE, ERIKATI ON/ADDEN DUM Vikash Keys, [facility] [address] [address], [place], [address], [facility], [place] 6 15:26:01 Influenz a vaccine needed [id number] 06 Completed 200812/28/2013 DATE: 03/07/20 09; RECORDED 05/15/20 13 8:35AM BY RAMIRO VALLECILLO I, ERIKATI ON/ADDEN DUM Vikash Keys, [place] [address] [address], [place], [address], [facility], [place] 6 15:26:01 Administ ration of viral vaccine Completed 201212/28/2013 RECORDED 05/15/20 13 2:44PM BY MIKE DYER MD, [employer] Vikash Keys, [facility] [address] [address], [place], [address], [facility], [place] 6 15:26:01 Impetigo 15515789 Completed 201112/28/2013 RECORDED 11/30/19 12 9:59AM BY CYNTHIA TORRE PA-C, ANNOTNEGRITA ON/ADDEN DUM Vikash Keys, [facility] [address] [address], [place], [address], [facility], [place] 6 15:26:01 Methicil jordan resistan t Staphylo coccus aureus infectio n 393285432 Completed 201212/28/2013 RECORDED 05/15/20 13 8:35AM BY INEZ LUND ON/ADDEN DUM Vikash Keys, [facility] [address] [address], [place], [place], [address], [facility], [place] 6 15:26:01 Infestat ion by Gretchen galeas [id number] Completed 201112/28/2013 RECORDED 11/30/19 12 8:26AM BY CYNTHIA TORRE PA-C, ANNOTNEGRITA ON/ADDEN DUM Vikash Keys, [facility] [address] [address], [place], [place], [address], [facility], [place] 6 15:26:01 Verruca plantari s 23333814 Completed 201212/28/2013 IMPRESSI ON: L HEEL; RECORDED 05/15/20 13 8:35AM BY INEZ LUND ON/ADDEN DUM Vikash Keys, [facility] [address] [address], [place], [place], [address], [facility], [place] 6 15:26:01 Eruption [id number] Completed 201112/28/2013 RECORDED 11/30/19 12 8:26AM BY CYNTHIA TORRE PA-C, INEZ ON/ADDEN DUM Vikash Keys, [facility] [address] [address], [place], [address], [facility], [place] 6 15:26:01 Eczema 61774948 Active Vikash Keys, [facility] [address], [place], [address], [facility], [place] 6 15:26:01 Reduced visual acuity 32174144 Active Vikash Keys, [facility] [address], [place], [address], [facility], [place] 6 15:26:01 Wears glasses 150720583 Active 2016 Marilia Singh MA null, [facility] 7 14:06:39 Scoliosi s of thoracic spine 706414115 Active 12/08 seen at [facility] , 26 degree thoracic curve, rec followup 6 months, no bracing/ /Followu p 06/2019, no change in curve, followup prn Lakisha harper null, [facility] 0 10:36:20 Candidia sis of vagina 53047373 Active 2022 Vikash Keys, [facility] [address], [place], [address], [facility], [place] 3 15:59:41 Vaginiti s 75945139 Active 2022 Vikash Keys, [facility] [address], [place], [address], [facility], [place] 3 16:00:20 Pelvic floor dysfunct ion 213971106 Active 2022 Vikash Keys, [facility] [address], [place], [address], [facility], [place] 3 16:02:45 Third degree perineal lacerati on 32002100 Active 2022 Vikash Keys, [facility] [address], [place], [address], [facility], [place] 3 16:07:32 Acute right otitis media 485098922 Active 2022 Vikash Keys, [facility] [address], [place], [address], [facility], [place] 3 16:14:20 Bacteria l vaginosi s 907718694 Active 2022 Vikash Keys, [facility] [address] [facility] [address], [place], [address], [facility], [place] 3 15:29:52 Fatigue 91256201 Active 2022 Vikash Keys [facility] [address] [address], [place], [address], [facility], [place] 3 15:30:59 Unable to control flatus 728309073 Active 2022 Vikash Keys [facility] [address], [place], [address], [facility], [place] 3 15:32:02 Anemia due to unknown mechanis m 96410217 Active 2022 Vikash Keys [facility] [address] [address], [place], [address], [facility], [place] 3 15:35:31 Vitamin D deficien cy 59616034 Active 2022 Vikash Keys [facility] [address] [address], [place], [address], [facility], [place] 3 15:35:49 Cough 53588656 Active 2022 Vikash Keys [facility] [address] [address], [place], [address], [facility], [place] 3 15:36:35 Allergic rhinitis 28015671 Active 2022 Vikash Keys [facility] [address] [address], [place], [address], [facility], [place] 3 15:38:34 Pain in pelvis 96399560 Active 2022 Vikash Keys [facility] [address], [place], [address], [facility], [place] 3 15:46:29 Dizzines s 547471862 Active 2023 Vikash Keys [facility] [address], [place], [address], [facility], [place] 4 14:02:08 Anemia 307063299 Active 2023 Vikash Keys [facility] [address] [place] [address] [address], [place], [address], [facility], [place] 4 14:02:26 Urinary tract infectio us disease 63323110 Active 2024 Vikash Keys [facility], [place], [address], [facility], [place] 5 13:57:20 Right upper quadrant pain 641906810 Active 2024 Vikash Keys [facility] [address], [place], [address], [facility], [place] 5 13:57:37 Acute vaginiti s 34144233 Active 2024 Vikash Keys [facility] [address], [place], [address], [facility], [place] 5 12:43:16 Epigastr ic pain 00557730 Completed 200712/04/2013 RECORDED 03/12/20 08 3:00PM BY DEVAN DODGE, ANNOTATI ON/BRIGITTE Arguello [address], [place], [address], [facility], [place] 6 15:26:01 Acute secretor y otitis media 927895332 Completed 200812/04/2013 RECORDED 03/07/20 09 9:27AM BY EDY AGUILAR MA, INEZ ON/MARVIN Keys, [facility] [address], [place], [address], [facility], [place] 6 15:26:01 Acute pharyngi tis 896836532 Completed 201112/04/2013 RECORDED 11/30/19 12 8:26AM BY CYNTHIA TORRE PA-C, ERIKATI ON/MARVIN Keys, [facility] [address], [place], [address], [facility], [place] 6 15:26:01 Streptoc occal sore throat 22638545 Completed 201112/04/2013 RECORDED 11/30/19 12 8:26AM BY CYNTHIA TORRE PA-C, INEZ ON/MARVIN Keys, [facility] [address], [place], [address], [facility], [place] 6 15:26:01 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 408950073 Completed 201209/01/2016 Removal Reason[facility] 7 13:59:23 Cellulit is and abscess of face 703770004 Completed 201112/04/2013 RECORDED 11/30/19 12 8:26AM BY CYNTHIA TORRE PA-C, INEZ ON/MARVIN Keys, [facility] [address], [place], [address], [facility], [place] 6 15:26:01 Conjunct ivitis 6862932 Completed 200712/04/2013 RECORDED 03/12/20 08 2:59PM BY DEVAN DODGE, INEZ ON/ADDEN DUM Vikash Keys, [facility] [address] [address], [place], [address], [facility], [place] 6 15:26:01 Contact dermatit is 74770712 Completed 201208/31/2016 RECORDED 05/15/20 13 1:59PM BY RAMIRO VALLECILLO I, WELL CHILD VISITS Emilia Mckoy MD null, [facility] 7 11:30:54 Dysuria 91384738 Completed 200712/04/2013 RECORDED 03/12/20 08 3:00PM BY DEVAN DODGE, INEZ ON/ADDEN DUM Vikash Keys, [facility] [address] [address], [place], [address], [facility], [place] 6 15:26:01 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 312746794 Completed 201112/04/2013 RECORDED 11/30/19 12 8:26AM BY CYNTHIA TORRE PA-C, INEZ ON/ADDEN DUM Vikash Keys, [facility] [address] [address], [place], [address], [facility], [place] 6 15:26:01 Fever 413376432 Completed 200712/04/2013 RECORDED 03/12/20 08 3:00PM BY INEZ GALE ON/ADDEN DUM Vikash Keys, [facility] [address] [address], [place], [address], [facility], [place] 6 15:26:01 Influenz a vaccine needed 50605188631 06 Completed 200812/04/2013 DATE: 03/07/20 09; RECORDED 05/15/20 13 8:35AM BY RAMIRO VALLECILLO I, INEZ ON/ADDEN DUM Vikash Keys, [facility] [address] [facility] [address], [facility] [place], [address], [facility], [place] 6 15:26:01 Administ ration of viral vaccine Completed 201212/04/2013 RECORDED 05/15/20 13 2:44PM BY MIKE DYER MD, [employer] Vikash Keys, [facility] [address] [place] [address] [address], [place], [address], [facility], [place] 6 15:26:01 Impetigo 06376125 Completed 201112/04/2013 RECORDED 11/30/19 12 9:59AM BY CYNTHIA TORRE PA-C, ANNOTATI ON/ADDEN DUM Vikash Keys, [address], [facility] [place], [address], [facility] [place], [place] 6 15:26:01 Methicil jordan resistan t Staphylo coccus aureus infectio n [id number] Completed 201212/04/2013 RECORDED 05/15/20 13 8:35AM BY RAMIRO VALLECILLO I, INEZ ON/ADDEN DUM Vikash Keys, [address], [facility] [place], [address], [facility] [place], [place] 6 15:26:01 Developm ental delay [id number] Active 2012 Emilia Mckoy MA null, [facility] 7 11:30:53 Infestat ion by Gretchen galeas [id number] Completed 201112/04/2013 RECORDED 11/30/19 12 8:26AM BY CYNTHIA TORRE PA-C, ANNOTATI ON/ADDEN DUM Vikash Keys, [address], [facility] [place], [address], [facility] [place], [place] 6 15:26:01 Verruca plantari s [id number] Completed 201212/04/2013 IMPRESSI ON: L HEEL; RECORDED 05/15/20 13 8:35AM BY RAMIRO VALLECILLO I, ANNOTATI ON/ADDEN DUM Vikash Keys, PAS [address], [place], [address], [facility] [place], [place] 6 15:26:01 Eruption [id number] Completed 201112/04/2013 RECORDED 11/30/19 12 8:26AM BY CYNTHIA TORRE PA-C, ANNOTATI ON/ADDEN DUM Vikash Keys, [facility] [address], [facility] [place], [address], [facility] [place], [place] 6 15:26:01 Well child [id number] Completed 201203/30/2016 RECORDED 05/15/20 13 2:05PM BY RAMIRO VALLECILLO I, WELL CHILD VISITS DEVAN Reagan [facility] 6 14:37:10 Well child [id number] Completed 200812/04/2013 RECORDED 09/15/19 09 9:09AM BY DEVAN DODGE, INEZ ON/ADDEN DUM DEVAN Reagan [facility] 6 14:37:10 Problem Notes None recorded. Procedures Surgical History Date Name Laterality Status Provider Name and Address Organization Details Recorded Time 023 anal sphincterorrhaphy for obstetrical laceration completed Edy patel MA [facility] 03/24/2023 15:22:08 022 dilation procedure completed Nicol Cano [facility] 09/16/2021 14:53:39 017 Developmental Screening completed Marilia Singh MA [facility] 01/04/2017 14:02:57 extraction of wisdom tooth completed Edy patel MA [facility] 03/24/2023 15:16:04 Imaging Results Imaging Date Name Status LastModified by Organiz ation Details LastModified Time 07/10/2024 US, [facility], [facility] [address] , [place], [address], 08/02/2024 10:54:59 Procedure Notes None recorded. Medical Equipment None Reported. Allergies No known drug allergies Medications Name Sig Start Date Stop Date Status Note LastModified by Organization Details LastModified Time Prescript ion - Clarifica tion 03/30 completed Not Available Not Available Not Available methylphe nidate hcl er 18 mg tbcr 03/30 completed Not Available Not Available Not Available acetamino phen 325 mg tablet TAKE 2 TABLET BY MOUTH EVERY 4 HOURS, NEEDED FOR PAIN 11/12 completed Not Available Not Available Not Available Vitamin B-6 25 mg tablet TAKE 1 TABLET BY MOUTH THREE TIMES A DAY 11/12 completed Not Available Not Available Not Available Xylocaine Viscous 2 % mucosal solution Q 4HR/PRN 11/12 completed RECORDED 01/13/20 07 10:35AM BY MIGUEL GUZMAN, MEDICATI ON AUTO-NETTIE CTIVATIO N; Not Available Not Available Not Available Concerta 18 mg tablet,ex tended release Take 1 tablet every day by oral route as directed for 30 days. 11/10 completed Not Available Not Available Not Available cetirizin e 10 mg tablet TAKE 1 TABLET EVERY DAY BY ORAL ROUTE DIRECTED FOR 90 DAYS, FOR ALLERGIE S. active Not Available Not Available No t Available ibuprofen 800 mg tablet TAKE 1/2-1 TABLET BY MOUTH EVERY 8 HOURS NEEDED FOR PAIN 11/12 completed Not Available Not Available Not Available fluconazo le 150 mg tablet TAKE 1 TABLET BY MOUTH EVERY 72 HOURS DIRECTED FOR 7 DAYS 06/24 completed Not Available Not Available Not Available methylphe nidate 10 mg tablet TWO TIMES DAILY 03/30 completed Not Available Not Available Not Available metronida zole 0.75 % (37.5 mg/5 gram) vaginal gel INSERT 1 APPLICAT ORFUL EVERY DAY BY VAGINAL ROUTE DIRECTED FOR 5 DAYS. 07/27 completed Not Available Not Available Not Available metronida zole 500 mg tablet TAKE 1 TABLET BY MOUTH TWICE A DAY DIRECTED FOR 7 DAYS 07/27 completed Not Available Not Available Not Available amoxicill in 400 mg chewable tablet BID 09/24 completed RECORDED 09/28/19 09 8:56AM BY MIKE DYER MD, MEDICATI ON AUTO-NETTIE CTIVATIO N; Not Available Not Available Not Available Miconazol e-7 2 % vaginal cream APPLY 1 APPFUL VAGINALL Y BEDTIME FOR 7 DAYS 11/12 completed Not Available Not Available Not Available oxycodone -acetamin ophen 5 mg-325 mg tablet 11/10 completed Not Available Not Available Not Available amoxicill in 875 mg tablet Take 1 tablet every 12 hours by oral route as directed for 7 days. 01/28 completed Not Available Not Available Not Available ferrous sulfate 325 mg (65 mg iron) tablet TAKE 1 TABLET BY MOUTH TWICE A DAY 11/12 completed Not Available Not Available Not Available cephalexi n 250 mg/5 mL oral suspensio n EVERY 6 HOURS 12/29 completed RECORDED 01/09/20 10 8:27AM BY CYNTHIA TORRE PA-C, MEDICATI ON AUTO-NETTIE CTIVATIO N; Not Available Not Available Not Available fluoride 0.5 mg (1.1 mg sodium fluoride) chewable tablet DAILY 07/17 completed RECORDED 07/17/19 11 3:52PM BY DEVAN PINEDO, OFFICE VISIT; Not Available Not Available Not Available clotrimaz ole-betam ethasone 1 %-0.05 % topical cream Apply 1 applicat ion twice a day by topical route for 30 days. 11/12 completed Not Available Not Available Not Available polymyxin B sulfate 10,000 unit-trim ethoprim 1 mg/mL eye drops QID 07/17 completed RECORDED 07/17/19 11 3:52PM BY DEVAN PINEDO, OFFICE VISIT; Not Available Not Available Not Available triamcino lone acetonide 0.025 % topical ointment APPLY 1 APPLICAT ION NEEDED BY TOPICAL ROUTE NEEDED FOR 30 DAYS. active Not Available Not Available No t Available sulfameth oxazole 200 mg-trimet hoprim 40 mg/5 mL oral suspensio n THREE TIMES DAILY 05/18 completed Not Available Not Available Not Available docusate sodium 100 mg capsule 1 CAPSULE BY MOUTH 2 TIMES A DAY, NEEDED FOR CONSTIPA TION 11/12 completed Not Available Not Available Not Available Senna Laxative 8.6 mg tablet TAKE 2 TABLETS BY MOUTH EVERY DAY 11/12 completed Not Available Not Available Not Available budesonid e 0.5 mg/2 mL suspensio n for nebulizat ion BID 07/17 completed RECORDED 07/17/19 11 3:52PM BY DEVAN PINEDO, OFFICE VISIT; Not Available Not Available Not Available Nix Creme Rinse 1 % topical liquid TODAY AND REPEAT IN 7 DAYS 2011 active RECORDED 05/15/20 13 1:59PM BY RAMIRO VALLECILLO I, WELL CHILD VISITS;A PPLY TO HAIR, WAIT 10 MINUTES, RINSE AND COMB, REPT IN 7 DAYS, USE COMB TO REMOVE THE NITS. Not Available Not Available Not Available amoxicill in 400 mg/5 mL oral suspensio n 1.5 tsp 2 TIMES PER DAY 01/04 completed RECORDED 07/18/19 13 10:21AM BY CYNTHIA TORRE, PA-C, MEDICATI ON AUTO-NETTIE CTIVATIO N; Not Available Not Available Not Available mupirocin 2 % topical ointment PLEASE APPLY CREAM EVERY 12 HOULRS FOR FOR 5 DAYS AROUND AFFECTED AREAD 11/12 completed Not Available Not Available Not Available ibuprofen 600 mg tablet TAKE 1 TABLET BY MOUTH 4 TIMES A DAY 11/12 completed Not Available Not Available Not Available fluticaso ne propionat e 50 mcg/actua tion nasal spray,nghia pension SPRAY 2 SPRAYS INTRANAS ALLY DAILY FOR 10 DAYS 11/12 completed Not Available Not Available Not Available fludrocor tisone 0.1 mg tablet Take 1 tablet every day by oral route for 30 days. 2023 active Not Available Not Available Not Avai lable medroxypr ogesteron e 150 mg/mL intramusc ular suspensio n INJECT 1 ML INTRAMUS CULARLY EVERY 3 MONTHS DIRECTED active Not Available Not Available No t Available Vitamin 27 mg iron-0.8 mg tablet TAKE 1 TABLET BY MOUTH EVERY DAY 11/12 completed Not Available Not Available Not Available albuterol (refill) 90 mcg/actua tion aerosol inhaler Q 4HR/PRN 07/17 completed RECORDED 07/17/19 11 3:52PM BY EDVAN PINEDO, OFFICE VISIT; Not Available Not Available Not Available PediaSure TID 2013 active RECORDED 06/06/19 14 3:42PM BY MAO PHELPS MD, REFILL REQUEST; DX: FAILURE TO THRIVE Not Available Not Available Not Available Gavilax 17 gram/dose oral powder TAKE 17 GM BY MOUTH DAILY, DISSOLVE IN WATER BEFORE TAKING 11/12 completed Not Available Not Available Not Available spinosad 0.9 % topical suspensio n PRN 2011 active RECORDED 05/15/20 13 1:59PM BY RAMIRO VALLECILLO I, WELL CHILD VISITS;A PPLY TO DRY SCALP AND USE ENOUGH TO COVER THE SCALP AND HAIR. RINSE OF WITH WARM WATER AFTER 10 MINUTES. Not Available Not Available Not Available Ensure Plus 0.05 gram-1.5 kcal/mL oral liquid Take 1 mL 3 times a day by oral route for 90 days. 11/12 completed Not Available Not Available Not Available ivermecti n 0.5 % lotion 06/18 completed Not Available Not Available Not Available metronida zole 1 % topical gel with pump 11/12 completed Not Available Not Available Not Available Gummies 400 mcg-35 mg-25 mg-5 mg chewable tablet TAKE 1 TABLET BY MOUTH EVERY DAY 11/12 completed Not Available Not Available Not Available QuickVue At-Home COVID-19 Test kit TEST DIRECTED TODAY 01/28 completed Not Available Not Available Not Available Vitals Date Recorded Body height Provider Name an d Address Organization Details Last Updated DateTime 01/11/2024 172.72 cm DEVAN Shea [facility] 01/11/2024 09:40:47 Date Recorded Body height Body mass index (BMI) Body weight Heart rate Oxygen saturation Oxygen saturation in Arterial blood by Pulse oximetry Body temperature Systolic blood pressure Diastolic blood pressure Provider Name and Address Organization Details Last Updated DateTime 11/05/202 4 172.72 cm 16.3 kg/m2 80624.3 8 g 79 /min 98 % 98 % 98.1 [degF] 100 mm[Hg] 61 mm[Hg] Deborah gallego MA [facility] 4 10:30:02 Date Recorded Body height Body mass index (BMI) Body weight Heart rate Oxygen saturation Oxygen saturation in Arterial blood by Pulse oximetry Body temperature Systolic blood pressure Diastolic blood pressure Provider Name and Address Organization Details Last Updated DateTime 5 172.72 cm 17.9 kg/m2 17292.9 g 65 /min 98 % 98 % 97.9 [degF] 102 mm[Hg] 68 mm[Hg] Mariela Pinedo MA [facility] 5 13:45:57 Date Recorded Body height Body mass index (BMI) Body weight Heart rate Oxygen saturation Oxygen saturation in Arterial blood by Pulse oximetry Body temperature Systolic blood pressure Diastolic blood pressure Provider Name and Address Organization Details Last Updated DateTime 5 172.72 cm 17.4 kg/m2 27350.3 3 g 89 /min 98 % 98 % 98.1 [degF] 97 mm[Hg] 64 mm[Hg] Rekha Tapia LPN [facility] 5 13:35:22 Social History Question Answer Notes LastModified by Organizat ion Details LastModified Time Tobacco Smoking Status Never Smoker DEVAN Kumar, [facility] 06/21/2014 16:34:33 What Is Your Level Of Alcohol Consumption? None [email or web address] Information not available 06/21/2014 Animal Exposure? No No Current Pets Information not available 11/08/2014 Are You Currently Employed? Yes Information not available 03/24/2023 What Type Of Diet Are You Following? 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 Mother Information not available 11/08/2014 Live Alone Or With Others? With Others Mom, 1 Brother [email or web address] Information not available 06/21/2014 Have You Served In The ? No Information not available 03/24/2023 Have You Or Anyone In Your Household Had Any Of The Following Symptoms In The Last 14 Days: Sore Throat, Cough, Chills, Body Aches For Unknown Reasons, Shortness Of Breath For Unknown Reasons, Loss Of Smell, Loss Of Taste, Fever At Or Greater Than 100 Degrees Fahrenheit? No [email or web address] Information not available 04/07/2020 Are You Or Anyone In Your Household A Health Care Provider Or Emergency Responder? No Information not available 04/07/2020 To The Best Of Your Knowledge Have You Been In Close Proximity To Any Individual Who Tested Positive For COVID-19? No [email or web address] Information not available 04/07/2020 What Was The Date Of Your Most Recent Tobacco Screening? 03/27/2024 [email or web address] Information not available 03/27/2024 How Many Children Do You Have? 1 Margret Information not available 03/24/2023 Pool Exposure Yes Informa tion not available 11/08/2014 What Is The Name Of Your School? [employer] Information not available 03/24/2023 Do You Use Your Seat Belt Or Car Seat Routinely? Yes Information not available 11/08/2014 Seat Belts Used Routinely Yes [email or web address] Information not available 06/21/2014 Are You Sexually Active? Yes Information not available 03/24/2023 Do You Have Any Siblings? 3 1 Brother, 2 Sisters Information not available 11/08/2014 Smoke Alarm In Home Yes [email or web address] Information not available 06/21/2014 Do You Have Smoke And Carbon Monoxide Detectors In Your Home? Yes Information not available 11/08/2014 Are You Passively Exposed To Smoke? No Information not available 06/21/2014 General Stress Level Low Information not available 06/21/2014 Do You Use Any Illicit Or Recreational Drugs? No Information not available 03/24/2023 Do You Use Sunscreen Routinely? Yes [email or web address] Information not available 06/21/2014 Do You Or Have You Ever Used Any Other Forms Of Tobacco Or Nicotine? No Information not available 03/24/2023 Sex: Unknown Functional Status Question Answer Note LastModified by Organization D etails LastModified Time Are you able to walk? [email or web address] Information not available 03/24/2023 Are you able to care for yourself? Yes [email or web address] Information not available 06/21/2014 What is your exercise level? None Information not available 03/24/2023 Mental Status None recorded. Family History Relationship Description Onset Age of this Age Resolved Age Notes LastModified by Organization Details LastModified Time Brother Attention deficit hyperactivit y disorder [email or web address] Not available 06/26 15:15:13 Mother Asthma Not available 1 06/07/2019 14:27:34 Sister Asthma [email or web address] Not available 06/07/2019 14:27:45 Medical History Condition Response Coronary Artery Disease N Gout N Other N Blood Diseases N Kidney Stones N Hyperthyroidism N Breast Cancer N mrsa exposure N Lung Disease N COPD N Depression N Hypothyroidism N Defects or Inherited Disease N Developmental or Behavioral Disorders N Breast Problem N Anesthesia Complications N Headaches/Migraines N Anxiety Disorder N Varicose Veins N Muscle, Joint, or Bone Problems N Obesity N Vision or Eye Problems N Arthritis N Head Injury/Concussion N Polyps N Infertility N Mental Disorder N Congenital Anomalies N Acid Reflux (GERD) N Cancer N Stroke N ADHD Y Endometriosis N High Cholesterol N Liver Disease N Fibromyalgia N Headaches N Kidney Disease N Heart Problems N Ear or Hearing Problems N Hospitalizations N Thyroid Problems N GI Problems N Developmental Delay N Acne N Eating Disorder N Skin Problems N Anemia N Constipation N Bladder Problems N Mental Illness N Diabetes N Ovarian Cancer N Bedwetting N Blood Transfusions N Heart Problems/Murmur N Seizures/Epilepsy N Tuberculosis N AIDS/HIV N Congestive Heart Failure (CHF) N Eczema Y Abuse/Domestic Violence N Diverticulitis N Asthma Y Allergies N Reflux/GERD N Hepatitis N Heart Disease N Pulmonary Embolism N Hypertension N Chicken Pox N Autism Spectrum Disorder (ASD) N Osteoporosis N Gynecological History Statement/Question Response Menses Monthly N HPV Vaccine Y Duration of Flow (days) 7 Age at Menarche 13 Current Control Method 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 Y Obstetrics History GPAL:G 0 P 0 0 0 0 Immunizations Vaccine Type Date Status Note Provider Nam e and Address Organization Details Recorded Time Tdap 5 completed Not Available [facility] 06/09/2019 02:21:44 HPV, quadrivalent 5 completed Not Available [facility] 06/09/2019 02:21:34 COVID-19, mRNA, LNP-S, PF, 30 mcg/0.3 mL dose 1 completed DEVAN Shea, [facility] 05/18/2021 10:56:14 COVID-19, mRNA, LNP-S, PF, 30 mcg/0.3 mL dose 1 completed DEVAN Shea, [facility] 05/18/2021 10:56:14 COVID-19, mRNA, LNP-S, PF, 30 mcg/0.3 mL dose, renato-sucrose 2 completed DEVAN Chen, [facility] 09/09/2022 10:02:15 Tdap 2 completed DEVAN Chen, [facility] 09/09/2022 10:02:15 Influenza, split virus, quadrivalent, PF 2 completed DEVAN Chen, [facility] 09/09/2022 10:02:15 Hep B, adolescent or pediatric 3 completed Not Available [facility] 12/04/2013 13:31:42 pneumococcal conjugate PCV 7 4 completed Not Available [facility] 12/04/2013 13:31:42 DTaP 4 completed Not Available [facility] 12/04/2013 13:31:42 Hib (HbOC) 4 completed Not Available [facility] 12/04/2013 13:31:42 IPV 4 completed Not Available [facility] 12/04/2013 13:31:42 IPV 4 completed Not Available [facility] 12/04/2013 13:31:42 Hib (HbOC) 4 completed [facility] 12/04/2013 13:31:42 DTaP 4 completed Not Available [facility]12/04/2013 13:31:42 pneumococcal conjugate PCV 7 4 completed [facility] 13:31:42 pneumococcal conjugate PCV 7 4 completed [facility] 13:31:42 Hep B, adolescent or pediatric 4 completed Not Available [facility] 12/04/2013 13:31:43 DTaP 4 completed Not Available [facility] 12/04/2013 13:31:43 Hib (HbOC) 4 completed Not Available [facility] 12/04/2013 13:31:43 Hib (HbOC) 4 completed Not Available [facility] 12/04/2013 13:31:43 pneumococcal conjugate PCV 7 4 completed Not Available [facility] 12/04/2013 13:31:43 varicella 4 completed Not Available [facility] 12/04/2013 13:31:43 MMR 4 completed Not Available [facility] 12/04/2013 13:31:43 Hep B, adolescent or pediatric 4 completed Not Available [facility] 12/04/2013 13:31:43 IPV 4 completed Not Available [facility] 12/04/2013 13:31:43 Influenza, split virus, trivalent, preservative 4 completed Not Available [facility] 12/04/2013 13:31:43 DTaP 5 completed Not Available [facility] 12/04/2013 13:31:43 Influenza, split virus, trivalent, preservative 6 completed Not Available [facility] 12/04/2013 13:31:43 MMR 7 completed Not Available [facility] 12/04/2013 13:31:43 varicella 7 completed Not Available [facility] 12/04/2013 13:31:43 DTaP 7 completed Not Available [facility] 12/04/2013 13:31:43 IPV 7 completed Not Available [facility] 12/04/2013 13:31:43 Influenza, split virus, trivalent, preservative 7 completed Not Available [facility] 12/04/2013 13:31:43 Influenza, split virus, trivalent, preservative 8 completed Not Available [facility] 12/04/2013 13:31:43 Influenza, split virus, trivalent, preservative 9 completed Not Available [facility] 12/04/2013 13:31:43 Novel [id number], all formulations 9 completed Not Available [facility] 12/04/2013 13:31:43 Novel [id number], all formulations 0 completed Not Available [facility] 12/04/2013 13:31:43 Influenza, split virus, trivalent, preservative 0 completed Not Available [facility] 12/04/2013 13:31:43 Influenza, split virus, trivalent, preservative 1 completed Not Available [facility] 12/04/2013 13:31:43 Influenza, split virus, trivalent, preservative 2 completed Not Available [facility] 12/04/2013 13:31:43 HPV, quadrivalent 3 completed Not Available [facility] 12/04/2013 13:31:43 Influenza, split virus, quadrivalent, PF 6 completed Not Available [facility] 06/09/2019 02:22:08 meningococcal MCV4P 9 completed Not Available [facility] 06/09/2019 02:21:55 Influenza, split virus, quadrivalent, PF 0 completed DEVAN Shea, [facility] 04/07/2020 14:40:13 meningococcal MCV4P 0 completed DEVAN Rivera, [facility] 04/07/2020 15:35:41 Influenza, split virus, quadrivalent, PF 3 completed DEVAN Shea, [facility] 03/14/2023 11:34:59 Influenza, split virus, trivalent, PF 4 completed Vikash Keys, [facility] [address], [address], [facility] [place] 03/27/2024 11:11:42 Past Encounters Encounter ID Performer Location Encounter Start Date Encounter Closed Date Diagnosis/Indication Diagnosis SNOMED-CT Code Diagnosis ICD10 Code Diagnosis Note [id number] [facility] [address] [place] [address] 11/02/2006 00:00:00 [id number] auto[facility]Comm erce [address] [facility] [place] [address] 02/07/2007 00:00:00 [id number] auto[facility] [address] [facility] [place] [address] 09/12/2007 00:00:00 [id number] auto[facility] erce [address] [facility] [place] [address] 10/30/2007 00:00:00 [id number] auto[facility]Comm erce [address] [facility] [place] [address] 04/03/2008 00:00:00 [id number] auto[facility] erce [address] [facility] [place] [address] 09/14/2008 00:00:00 [id number] [facility]ce [address] [facility] [place] [address] 10/10/2009 00:00:00 [id number] auto[facility]Comm erce [address] [facility] [place] [address] 12/22/2009 00:00:00 [id number] auto[facility]Comm erce [address] [facility] [place] [address] 03/30/2010 00:00:00 [id number] auto[facility]Comm erce [address] [facility] [place] [address] 05/13/2010 00:00:00 [id number] auto[facility]Comm erce [address] [facility] [place] [address] 07/17/2010 00:00:00 [id number] auto[facility]Comm erce [address] [facility] [place] [address] 11/30/2011 00:00:00 [id number] auto[facility] erce [address] [facility] [place] [address] 05/15/2013 00:00:00 [id number] BRIGITTE Gillespie Main Office [address] [facility] [place] [address] [place] [address] 06/21/2014 16:13:41 06/21/2014 17:03:10 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 Mom would like to start on a longer acting med- her son takes concerta and she feels this works well. She will give med on school days, encourage pt to eat frequtnly, watch for adverse side effects. F/U in 1 month. 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 Age appropriat e anticipato ry guidance provided. Regular dental care and appropriat e car safety advised. Immunizati on status updated. HPV# 2 and TDAP today, Advised well balanced meals TID, she is on concerta and does not eat much, may try giving the medication after breakfast so that she has an appetite in the morning. Reduced visual acuity 17683506 [place] 20/50 and 20/100, should be evaluated for need for glasses. Child atte ntion deficit disorder [id number] Just had med refills on 11/03/14, doing well on concerta, encouraged to ensure patient is eating frequently . 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 Referred to [facility] ER and an expect called in. 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 F90.0 [id number] Lakisha Hendricks Main Office [address] [address] [place] [address] 11/10/2018 12:50:05 11/10/2018 14:01:16 Requires a meningitis vaccination 651373904 Z23 Well child 943648249 Z00 .129 Reviewed dental care, need to floss, increase calcium in the diet, pt has tried vaping - discourage d use/educat ed, not sex active, will call if need contracept ion, safe sex reviewed, BSE taught Scoliosis of thoracic spine 897882705 M41.34 referral to [facility] [id number] Lakisha Hendricks Main Office [address] [address] [place] [address] 04/07/2020 13:55:56 04/07/2020 15:37:56 Adult health examination 806956924 Z00.00 Child in good general health. Reviewed immunizati ons. Discussed diet, exercise, dental care. Discussed teen issues Needs infl uenza immunization 788920886 Z23 Scoliosis of thoracic spine 363640265 M41.34 pt states no followup needed, has been discharged from [facility] Administra tion of viral vaccine 85369274 Z23 [id number] Bronwyn Mitchell MD Main Office [address] [address] [place] [address] 06/18/2020 12:27:22 06/18/2020 13:35:46 Impetigo 40537266 L01.00 [id number] Nida Hernandez [facility] [address] [address] [place] [address] 05/18/2021 08:28:19 05/18/2021 11:28:22 Acute pharyngitis 777269370 J02.9 Pt. has sore throat and headache with mild congested . Advised on COVID PCR test or at least rapid test. Recommende d to do salt water gargles, Tylenol ES , rest and fluids. Exposure t o viral disease 9341209301 88942 Z20.828 Counseling was provided to pt. phone number given for [facility] for PCR testing. Quarantine recommenda tions discussed. [id number] Mariela Pinedo MA Main Office [address] [address] [place] [address] 08/30/2022 11:27:44 08/30/2022 12:43:12 Contraception care management 629144824 Z30.42 [id number] BRIGITTE Gillespie Main Office [address] [address] [place] [address] 11/12/2022 15:12:26 11/12/2022 16:23:31 Vaginitis 72842735 N76.0 will send for testing and tx for BV and yeast. Pelvic ankit or dysfunction 489572902 M62.9 needs to see pelvic floor PT will rfeer as she was told kristina would be 1 year wait. Third degr ee perineal laceration 30120438 O70.20 3rd degree tear repaired 5 months ago, anal sphincter had to be reattached by colorectal surgery. erythemato us friable tissue, with loose tissue noted. will send to [facility] for 2nd opinion as it appears laceration was not well approximat ed. Acute righ t otitis media 040540737 H66.91 Contracept ion care management 155781390 Z30.42 [id number] Mariela Pinedo [place] Main Office [address] [facility] [address] [place] [address] 11/16/2022 14:01:24 11/16/2022 15:19:09 Contraception care management 040696103 Z30.42 [id number] BRIGITTE Gillespie Main Office [address] [facility] [address] [place] [address] 03/24/2023 15:05:07 03/24/2023 15:53:54 Adult health examination 231697135 Z00.00 UTD. will check labs Bacterial vaginosis 4197 07052 N76.0 will tx with metronidaz ole and she notes metrogel causes bleeding Vaginitis 47539524 N76.0 Fatigue 59378109 R53.83 Unable to control flatus 615157132 R14.3 would like to see colo rectal in follow-up, she has not been to pelvic floor PT though she does have the referral. Anemia due to unknown mechanism 74122203 D64.9 Vitamin D deficiency 347 13031 E55.9 Cough 15300902 R05.9 Allergic rhinitis 488328 04 J30.9 Pain in pelvis 22006722 R10.2 sharp pelvic pain, will check US Family his tory of Cardiovascular disease 571649165 Z82.49 [id number] Mariela Pinedo MA Main Office [address] [facility] [address] [place] [address] 03/14/2023 11:10:23 03/14/2023 12:09:03 Needs influenza immunization 659533782 Z23 Contracept ion care management 943723838 Z30.42 [id number] Mariela Pinedo MA Main Office [address] [facility] [address] [place] [address] 06/08/2023 11:37:22 06/08/2023 12:17:58 [id number] Nida Hernandez Main Office [address] [facility] [address] [place] [address] 06/24/2023 08:39:35 06/24/2023 09:23:53 Syncope 150611850 R55 -had 2 known episodes of syncope; one episode while walking at work- pt experience d symptoms of light headedness and had to lay down. Was told by a co worker she was unconsciou s for 10 minutes. The next episode occurred while pt was sitting down on her phone; denies of any presyncopa l symptoms, unwitnesse d and pt unaware of how long she was unconsciou s for-had an EKG on 06/21 which was unremarkab le-hx of anxiety; not on medication and is not speaking with a therapist- pt notes of having increased levels of stress related to her work-discu ssed with pt how anxiety could be a contributi ng factor or trigger Orthostati c hypotension 50647095 I95.1 -orthostat ic BP readings were completed in the office-tova roximate 25bpm increase and 10 mmHg diastolic decrease when transition ing from supine to standing Ammendment by SB: after discussion of case ordered patient a tilt-table testing [id number] Mariela Pinedo MA Main Office [address] [facility] [address] [place] [address] 07/29/2023 13:09:22 07/29/2023 13:41:12 Contraception care management 585220792 Z30.42 [id number] Mariela Pinedo MA Main Office [address] [facility] [address] [place] [address] 10/13/2023 12:59:12 10/13/2023 13:11:57 Contraception care management 445518554 Z30.42 [id number] Mariela Pinedo [place] Main Office [address] [facility] [address] [place] [address] 01/11/2024 09:37:55 01/11/2024 09:38:39 Contraception care management 761770009 Z30.42 [id number] BRIGITTE Gillespie Main Office [address] [facility] [address] [place] [address] 03/27/2024 09:44:46 03/27/2024 10:56:58 Adult health examination 846640015 Z00.00 UTD. had labs in November, no concerns. Needs infl uenza immunization 661879333 Z23 19 YEARS AND OLDER ONLY Contracept ion care management 170017310 Z30.42 refill provided, last depo 01/11/24 Eczema 62613451 L30.9 refilled Allergic rhinitis 200353 04 J30.9 start zyrtec daily for allergy sx. [id number] Mariela Pinedo [place] Main Office [address] [facility] [address] [place] [address] 04/13/2024 14:09:16 04/13/2024 14:11:14 Contraception care management 816574077 Z30.42 [id number] BRIGITTE Gillespie Main Office [address] [facility] [address] [place] [address] 06/14/2024 13:33:11 06/14/2024 14:10:14 Pain in pelvis 25595002 R10.2 will check Urine and vaginitis swab. Urinary tr act infectious disease 24715328 N39.0 urine dip negative, will send out to lab Right uppe r quadrant pain 525540428 R10.11 will check labs and US, may try tums as needed, hydration, ensure she is eating regularly, avoid trigger foods. [id number] JUSTINE DUARTE MD Main Office [address] [facility] [address] [place] [address] 07/27/2024 13:27:32 07/27/2024 14:38:35 Fatigue 79716619 R53.83 Viral uppe r respiratory tract infection 517310863 J06.9 - pt has tested negative for covid and flu- patient likely having viral respirator y injection- c/w supportive treatment at this time- Tylenol OTC, not to exceed package insert for pain or fever q4-6h advised prn. Counselled on not exceeding more than 3g/day. - Throat Lozenges otc prn for sore throat - saltwater gargle - adequate hydration enforced - saline sprays - humidifier use enforced. 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 Health Concerns Section Related Observation LastModified by Organization Detai ls LastModified Time None Recorded Concern Status LastModified by Organization Details LastModified Time None Recorded Advance Directives Directive None Recorded Payers Encounter Date Sequence Insurance Name Policy Number Policy Zee Covered Member ID Zee Member ID Guarantor Name 01/11/2024 1 [facility] [employer] - TOGETHER (MEDICAID HMO) [id number] Eloisa Ribera [id number] Eloisa Ribera 01/11/2024 1 [place] Eloisa Ribera [id number] Eloisa Ribera 03/27/2024 1 [facility] [employer] - TOGETHER (MEDICAID HMO) [id number] Eloisa Ribera [id number] Eloisa Ribera 03/27/2024 1 [place] Eloisa Ribera [id number] Eloisa Ribera 04/13/2024 1 [facility] [email or web address] - TOGETHER (MEDICAID HMO) [id number] Eloisa Irbera [id number] Eloisa Ribera 04/13/2024 1 [place] Eloisa Ribera [id number] Eloisa Ribera 06/14/2024 1 [facility] [email or web address] - TOGETHER (MEDICAID HMO) [id number] Eloisa Ribera [id number] Eloisa Ribera 06/14/2024 1 [place] Eloisa Ribera [id number] Eloisa Ribera 07/27/2024 1 [facility] [employer] - TOGETHER (MEDICAID HMO) [id number] Eloisa Ribera [id number] Eloisa Ribera 07/27/2024 1 [place] Eloisa Ribera [id number] Eloisa Ribera Notes Date Note Type Note Provider Name and Address Organization Details Recorded Time 03/27/2024 text/html Generic HPI TemplateReported bypatient.Notes:Marcy tenorio for PE, 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 Is eating well.Some anxiety that is getting worse but managing ok for now. BRIGITTE Gillespie [address] [address], [place], [address], [facility] [place], [place] 03/27/2024 11:12:41 06/14/2024 text/html Generic HPI TemplateReported bypatient.Notes:Abd pain for a few months, RUQ and LLQ worse recently, + nausea but thinks due to control. no V/D/C. Last BM yesterday.LMP- on depo has not had it for a while.no vaginal bleeding + discharge but this has been presents- more clear. no odor.Has urinary urgency but no frequency or burning.+ pain with intercourse with only this partner.No fever/ chills. 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 Associated Symptoms:no rash; no lethargyUpper Respiratory SymptomsReported bypatient.Location:[facility] Quality:sharp throat pain;congested Severity:moderate Duration:started on 07/27/2024 Onset/Timing:sudden Context:no sick contacts;foreign travel 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 Pt has been taking advil and tylenol with good relief. Pt last fever was this AM at 101 with a Tmax of 102. Denies any sick contacts. 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 JUSTINE DUARTE MD [address] [address], [place], [address], [facility] [place], [place] 07/27/2024 14:28:49 OBGyn Episode No OBEpisode recorded.
== END 2024-09-11 12:53 | disposition home or self-care (01) ==
PROVIDERS: PCP Registered Nurse; Visit Provider Advanced Practice Midwife
DX: N64.52 Nipple discharge (principal)
CPT/HCPCS: 99213

== ENCOUNTER → 2024-09-11 07:51 | Outpatient (BNVA) | payer OTHER, SELFPAY | PROVIDERS: PCP Registered Nurse; Visit Provider Advanced Practice Midwife | DX: N64.52 Nipple discharge (principal) | CPT/HCPCS: 99212 ==

== ENCOUNTER 2024-09-27 16:31 | Outpatient (REF) | payer OTHER, SELFPAY ==
[2024-09-27 17:58] LABS: HCG Quantitative < 2 mIU/mL
== END 2024-09-27 16:32 | disposition home or self-care (01) ==
LOC: HO.LAB 16:31
PROVIDERS: Visit Provider Advanced Practice Midwife
DX: Z32.01 Encounter for pregnancy test, result positive (principal)
CPT/HCPCS: 36415; 84702

== ENCOUNTER 2024-10-03 07:08 | Outpatient (REF) | payer OTHER, SELFPAY ==
--- OUTSIDE RECORDS SUMMARY | 2024-10-03 07:11 | XMS_ITS | Data Portability ---
Author Organization [facility], Main Office Address [address] [place] [address] Care Team Providers Care Health Diagnostics Teacher Name Role Phone VIKASH KEYS Primary Care Provider PORSCHE MARSHALL Orthopedic Surgeon [phone] TRIP PADILLA [facility] V[employer] Worker Assessment No assessment recorded. Plan of Treatment [...] DO Not Attach Compendium, Do Not Delete/merge, [id number] 14:06:58 urinalysis, complete 2024 025 CHERYL [facility], [address], [address], [place], [address], 5 08:06:54 culture, urine 2024 025 CHERYL [facility], [address], [address], [place], [address], 5 08:06:54 urinalysis, dipstick 2024 025 [email or web address] In-Office Order, Internal Use Only DO Not Attach Compendium DO Not Attach Compendium, Do Not Delete/merge, [id number] 5 13:52:54 bacterial vaginosis + vaginitis panel, vaginal 2024 025 CHERYL [facility] (Centralized Electronic Ordering - All Locations), Patient Can Go To The Location Of Their Choice, [id number] 5 08:06:53 CMP, serum or plasma 2024 025 CHERYL [facility] ([facility]ized [facility] Ordering - All Locations), Patient Can Go To The Location Of Their Choice, [id number] 5 14:06:18 CBC w/ auto diff 2024 025 CHERYL [facility] ([facility]ized [facility] Ordering - All Locations), Patient Can Go To The Location Of Their Choice, [id number] 5 14:06:17 amylase + lipase, serum 2024 025 CHERYL [facility] ([facility] Ordering - All Locations), Patient Can Go To The Location Of Their Choice, [id number] 5 14:06:19 H pylori urea breath test, co2 infrared 2024 025 CHERYL [facility] ([facility] Ordering - All Locations), Patient Can Go To The Location Of Their Choice, [id number] 5 14:06:20 test, urine 2023 024 [email or web address] In-Office Order, Internal Use Only DO Not Attach Compendium DO Not Attach Compendium, Do Not Delete/merge, [id number] 4 14:29:01 test, urine 2023 024 [email or web address] In-Office Order, Internal Use Only DO Not Attach Compendium DO Not Attach Compendium, Do Not Delete/merge, [id number] 4 12:37:05 Referral None recorded. Procedures None recorded. Surgeries None recorded. Imaging US, gallbladder - RUQ pain, worse when hungry, nausea r/o gallstones 2024 025 [email or web address] [facility], [address] , [place], [address], 5 15:12:14 Medication Orders medroxyprog esterone 150 mg/mL intramuscul ar suspension 2023 024 [email or web address] Not available 14:29:01 cetirizine 10 mg tablet 2023 024 [id number], [address] [place], [address], 4 10:52:13 triamcinolo ne acetonide 0.025 % topical ointment 2023 024 [id number], [address] [place], [address], 4 10:51:53 medroxyprog esterone 150 mg/mL intramuscul ar suspension 2023 024 [email or web address] [id number], [address] [place], [address], 4 10:41:15 medroxyprog esterone 150 mg/mL intramuscul ar suspension 2023 024 [email or web address] Not available 12:37:05 Patient TargetsNo targets recorded. Patient Instructions Encounter Date Encounter Id Patient Instructions Last Modified By Organization Details Last Modified Time 03/27/2024 [id number] call or return for worsening or concerns. [email or web address] Not available 03/27/2024 10:36:09 06/14/2024 [id number] call or return for worsening or concerns. [email or web address] Not available 06/14/2024 14:06:46 Reason for Referral None Reported. Results Created Date Observation Date Name Description Value Unit Range Abnormal Flag Note LastModifiedBy Organization Detail LastModifiedTime 01/11/2001/11/2024 pregn april test, urine HCG negati ve Not Available In-Office Order Internal Use Only DO Not Attach Compendium DO Not Attach Compendium, Do Not Delete/merge, [id number] 01/11/2024 09:41:08 04/13/20 24 04/13/2024 pregn april test, urine HCG negati ve Not Available In-Office Order Internal Use Only DO Not Attach Compendium DO Not Attach Compendium, Do Not Delete/merge, [id number] 04/13/2024 14:10:03 06/14/19 25 06/15/2024 CBC WITH DIFFE RENTI AL/PL ATELE T WBC 7.6 x10e3 /uL 3.4-10 .8 normal Not Available [facility] ([facility]) [address] [facility] [address], [place], [address], 06/15/2024 14:06:17 06/14/19 25 06/15/2024 CBC WITH DIFFE RENTI AL/PL ATELE T RBC 5.11 x10e6 /uL 3.77-5 .28 normal Not Available [facility] ([facility]) [address] [place], [address], 06/15/2024 14:06:17 06/14/19 25 06/15/2024 CBC WITH DIFFE RENTI AL/PL ATELE T hemoglobin 14.9 g/dL 11.1-1 5.9 normal Not Available [facility] ([facility]) [address] [facility], [place], [address], 06/15/2024 14:06:17 06/14/19 25 06/15/2024 CBC WITH DIFFE RENTI AL/PL ATELE T hematocrit 44.0 % 34.0-4 6.6 normal Not Available [facility] ([facility]) [address] [place], [address], 06/15/2024 14:06:17 06/14/1906/15/2024 CBC WITH DIFFE RENTI AL/PL ATELE T MCV 86 fL 79-97 normal Not Available [facility] ([facility]) [address] [place], [address], 06/15/2024 14:06:17 06/14/19 25 06/15/2024 CBC WITH DIFFE RENTI AL/PL ATELE T MCH 29.2 pg 26.6-3 3.0 normal Not Available [facility] ([facility]) [address] [place], [address], 06/15/2024 14:06:17 06/14/19 25 06/15/2024 CBC WITH DIFFE RENTI AL/PL ATELE T MCHC 33.9 g/dL 31.5-3 5.7 normal Not Available [facility] ([facility]) [address] [facility], [place], [address], 06/15/2024 14:06:17 06/14/19 25 06/15/2024 CBC WITH DIFFE RENTI AL/PL ATELE T RDW 12.1 % 11.7-1 5.4 Not Available [facility] ([facility]) [address] [facility], [place], [address], 06/15/2024 14:06:17 06/14/19 25 06/15/2024 CBC WITH DIFFE RENTI AL/PL ATELE T platelets 302 x10e3 /uL 150-45 0 normal Not Available [facility] ([facility]) [address] [facility], [place], [address], 06/15/2024 14:06:17 06/14/19 25 06/15/2024 CBC WITH DIFFE RENTI AL/PL ATELE T neutrophils 61 % not estab. normal Not Available [facility] ([facility]) [address] [facility], [place], [address], 06/15/2024 14:06:17 06/14/19 25 06/15/2024 CBC WITH DIFFE RENTI AL/PL ATELE T lymphs 32 % not estab. normal Not Available [facility] ([facility]) [address] [facility], [place], [address], 06/15/2024 14:06:17 06/14/19 25 06/15/2024 CBC WITH DIFFE RENTI AL/PL ATELE T monocytes 6 % not estab. normal Not Available [facility] ([facility]) [address] [facility], [place], [address], 06/15/2024 14:06:17 06/14/19 25 06/15/2024 CBC WITH DIFFE RENTI AL/PL ATELE T eos 1 % not estab. normal Not Available [facility] ([facility]) [address] [facility], [place], [address], 06/15/2024 14:06:17 06/14/19 25 06/15/2024 CBC WITH DIFFE RENTI AL/PL ATELE T basos 0 % not estab. normal Not Available [facility] ([facility]) [address] [facility], [place], [address], 06/15/2024 14:06:17 06/14/1906/15/2024 CBC WITH DIFFE RENTI AL/PL ATELE T immature cells CONCERT PROMOTER Not Available [facility] ([facility]) [address] [place], [address], 06/15/2024 14:06:17 06/14/19 25 06/15/2024 CBC WITH DIFFE RENTI AL/PL ATELE T neutrophils (absolute) 4.6 x10e3 /uL 1.4-7. 0 normal Not Available [facility] ([facility]) [address] [place], [address], 06/15/2024 14:06:17 06/14/19 25 06/15/2024 CBC WITH DIFFE RENTI AL/PL ATELE T lymphs (absolute) 2.4 x10e3 /uL 0.7-3. 1 normal Not Available [facility] ([facility]) [address] [place], [address], 06/15/2024 14:06:17 06/14/1906/15/2024 CBC WITH DIFFE RENTI AL/PL ATELE T monocytes(ab solute) 0.5 x10e3 /uL 0.1-0. 9 normal Not Available [facility] ([facility]) [address] [place], [address], 06/15/2024 14:06:17 06/14/19 25 06/15/2024 CBC WITH DIFFE RENTI AL/PL ATELE T eos (absolute) 0.1 x10e3 /uL 0.0-0. 4 normal Not Available [facility] ([facility]) [address] [facility], [place], [address], 06/15/2024 14:06:17 06/14/19 25 06/15/2024 CBC WITH DIFFE RENTI AL/PL ATELE T baso (absolute) 0.0 x10e3 /uL 0.0-0. 2 normal Not Available [facility] ([facility]) [address] [facility], [place], [address], 06/15/2024 14:06:17 06/14/19 25 06/15/2024 CBC WITH DIFFE RENTI AL/PL ATELE T immature granulocytes 0 % not estab. Not Available [facility] ([facility]) [address] [facility], [place], [address], 06/15/2024 14:06:17 06/14/19 25 06/15/2024 CBC WITH DIFFE RENTI AL/PL ATELE T immature grans (abs) 0.0 x10e3 /uL 0.0-0. 1 Not Available [facility] ([facility]) [address] [facility], [place], [address], 06/15/2024 14:06:17 06/14/19 25 06/15/2024 CBC WITH DIFFE RENTI AL/PL ATELE T NRBC CONCERT PROMOTER Not Available [facility] ([facility]) [address] [facility] [address], [place], [address], 06/15/2024 14:06:17 06/14/19 25 06/15/2024 CBC WITH DIFFE RENTI AL/PL ATELE T hematology comments: CONCERT PROMOTER Not Available [facility] ([facility]) [address] [facility] [address], [place], [address], 06/15/2024 14:06:17 06/14/19 25 06/15/2024 COMP. METAB OLIC PANEL (14) glucose 93 mg/dL 70-99 normal Not Available [facility] ([facility]) [address] [place], [address], 06/15/2024 14:06:18 06/14/19 25 06/15/2024 COMP. METAB OLIC PANEL (14) BUN 12 mg/dL 6-20 normal Not Available [facility] ([facility]) [address] [place], [address], 06/15/2024 14:06:18 06/14/19 25 06/15/2024 COMP. METAB OLIC PANEL (14) creatinine 0.78 mg/dL 0.57-1 .00 normal Not Available [facility] ([facility]) [address] [place], [address], 06/15/2024 14:06:18 06/14/19 25 06/15/2024 COMP. METAB OLIC PANEL (14) eGFR 111 mL/mi n/1.7 3 >59 normal Not Available [facility] ([facility]) [address] [place], [address], 06/15/2024 14:06:18 06/14/19 25 06/15/2024 COMP. METAB OLIC PANEL (14) BUN/creatini ne ratio 15 9-23 normal Not Available [facility] ([facility]) [address] [place], [address], 06/15/2024 14:06:18 06/14/19 25 06/15/2024 COMP. METAB OLIC PANEL (14) sodium 140 mmol/ L 134-14 4 normal Not Available [facility] ([facility]) [address] [place], [address], 06/15/2024 14:06:18 06/14/19 25 06/15/2024 COMP. METAB OLIC PANEL (14) potassium 4.1 mmol/ L 3.5-5. 2 normal Not Available [facility] ([facility]) [address] [place], [address], 06/15/2024 14:06:18 06/14/19 25 06/15/2024 COMP. METAB OLIC PANEL (14) chloride 103 mmol/ L 96-106 normal Not Available [facility] ([facility]) [address] [place], [address], 06/15/2024 14:06:18 06/14/19 25 06/15/2024 COMP. METAB OLIC PANEL (14) carbon dioxide, total 22 mmol/ L 20-29 normal Not Available [facility] ([facility]) [address] [place], [address], 06/15/2024 14:06:18 06/14/19 25 06/15/2024 COMP. METAB OLIC PANEL (14) calcium 9.6 mg/dL 8.7-10 .2 normal Not Available [facility] ([facility]) [address] [place], [address], 06/15/2024 14:06:18 06/14/19 25 06/15/2024 COMP. METAB OLIC PANEL (14) protein, total 7.9 g/dL 6.0-8. 5 normal Not Available [facility] ([facility]) [address] [place], [address], 06/15/2024 14:06:18 06/14/19 25 06/15/2024 COMP. METAB OLIC PANEL (14) albumin 4.7 g/dL 4.0-5. 0 normal Not Available [facility] ([facility]) [address] [place], [address], 06/15/2024 14:06:18 06/14/19 25 06/15/2024 COMP. METAB OLIC PANEL (14) globulin, total 3.2 g/dL 1.5-4. 5 Not Available [facility] ([facility]) [address], [place], [address], 06/15/2024 14:06:18 06/14/19 25 06/15/2024 COMP. METAB OLIC PANEL (14) bilirubin, total <0.2 mg/dL 0.0-1. 2 Not Available [facility] ([facility]) [address] [facility], [place], [address], 06/15/2024 14:06:18 06/14/19 25 06/15/2024 COMP. METAB OLIC PANEL (14) alkaline phosphatase 62 IU/L 44-121 normal Not Available [facility] ([facility]) [address] [facility], [place], [address], 06/15/2024 14:06:18 06/14/19 25 06/15/2024 COMP. METAB OLIC PANEL (14) AST (SGOT) 20 IU/L 0-40 normal Not Available [facility] ([facility]) [address] [facility], [place], [address], 06/15/2024 14:06:18 06/14/19 25 06/15/2024 COMP. METAB OLIC PANEL (14) ALT (SGPT) 14 IU/L 0-32 normal Not Available [facility] ([facility]) [address] [facility], [place], [address], 06/15/2024 14:06:18 06/14/19 25 06/15/2024 KENNETH+L IPASE amylase 79 U/L 31-110 normal Not Available [facility] ([facility]) [address] [facility], [place], [address], 06/15/2024 14:06:19 06/14/19 25 06/15/2024 KENNETH+L IPASE lipase 47 U/L 14-72 normal Not Available [facility] ([facility]) [address] [facility], [place], [address], 06/15/2024 14:06:19 06/14/19 25 06/15/2024 H PYLOR I BREAT H TEST H pylori breath test Negati ve negati ve Not Available [facility] ([facility]) [address] [facility], [place], [address], 06/15/2024 14:06:20 06/14/19 25 06/15/2024 NUSWA B BV KEYON+C AND6+ CT/GC /T... atopobium vaginae Modera te - 1 score Not Available [facility] ([facility]) [address] [facility], [place], [address], 06/17/2024 08:06:53 06/14/19 25 06/15/2024 NUSWA B BV KEYON+C AND6+ CT/GC /T... bvab 2 Low - 0 score Not Available [facility] ([facility]) [address] [facility], [place], [address], 06/17/2024 08:06:53 06/14/19 25 06/15/2024 NUSWA B [...] prese nce of BV. Not Available [facility] ([facility]) [address] [facility], [place], [address], 06/17/2024 08:06:53 06/14/19 25 06/15/2024 NUSWA B BV KEYON+C AND6+ CT/GC /T... monserrat albicans, KEYON Negati ve negati ve Not Available [facility] ([facility]) [address] [place], [address], 06/17/2024 08:06:53 06/14/19 25 06/15/2024 NUSWA B BV KEYON+C AND6+ CT/GC /T... monserrat glabrata, KEYON Negati ve negati ve Not Available [facility] ([facility]) [address] [place], [address], 06/17/2024 08:06:53 06/14/19 25 06/15/2024 NUSWA B BV KEYON+C AND6+ CT/GC /T... C parapsilosis /tropicalis Negati ve negati ve This assay does not diffe renti ate C. tropi calis and C. parap el is. Not Available [facility] ([facility]) [address] [place], [address], 06/17/2024 08:06:53 06/14/19 25 06/15/2024 NUSWA B BV KEYON+C AND6+ CT/GC /T... monserrat lusitaniae, KEYON Negati ve negati ve Not Available [facility] ([facility]) [address] [place], [address], 06/17/2024 08:06:53 06/14/19 25 06/15/2024 NUSWA B BV KEYON+C AND6+ CT/GC /T... monserrat krusei, KEYON Negati ve negati ve Not Available [facility] ([facility]) [address] [place], [address], 06/17/2024 08:06:53 06/14/19 25 06/16/2024 NUSWA B BV KEYON+C AND6+ CT/GC /T... hsv 1 KEYON Negati ve negati ve Not Available [facility] ([facility]) [address] [place], [address], 06/17/2024 08:06:53 06/14/19 25 06/16/2024 NUSWA B BV KEYON+C AND6+ CT/GC /T... hsv 2 KEYON Negati ve negati ve Not Available [facility] ([facility]) [address] [place], [address], 06/17/2024 08:06:53 06/14/1906/17/2024 NUSWA B BV KEYON+C AND6+ CT/GC /T... trich vag by KEYON Negati ve negati ve Not Available [facility] ([facility]) [address] [place], [address], 06/17/2024 08:06:53 06/14/1906/17/2024 NUSWA B BV KEYON+C AND6+ CT/GC /T... chlamydia trachomatis, KEYON Negati ve negati ve Not Available [facility] ([facility]) [address] [place], [address], 06/17/2024 08:06:53 06/14/1906/17/2024 NUSWA B BV KEYON+C AND6+ CT/GC /T... neisseria gonorrhoeae, KEYON Negati ve negati ve Not Available [facility] ([facility]) [address] [place], [address], 06/17/2024 08:06:53 06/14/1906/15/2024 URINA LYSIS , COMPL ETE specific gravity 1.024 1.005- 1.030 normal Not Available [facility] ([facility]) [address] [place], [address], 06/17/2024 08:06:54 06/14/1906/15/2024 URINA LYSIS , COMPL ETE pH 7.0 5.0-7. 5 normal Not Available [facility] ([facility]) [address] [place], [address], 06/17/2024 08:06:54 06/14/19 25 06/15/2024 URINA LYSIS , COMPL ETE urine-color Yellow yellow Not Available [facility] ([facility]) [address] [facility], [place], [address], 06/17/2024 08:06:54 06/14/19 25 06/15/2024 URINA LYSIS , COMPL ETE appearance Clear clear Not Available [facility] ([facility]) [address] [place], [address], 06/17/2024 08:06:54 06/14/19 25 06/15/2024 URINA LYSIS , COMPL ETE WBC esterase Negati ve negati ve Not Available [facility] ([facility]) [address] [place], [address], 06/17/2024 08:06:54 06/14/19 25 06/15/2024 URINA LYSIS , COMPL ETE protein Negati ve negati ve/tra ce Not Available [facility] ([facility]) [address] [place], [address], 06/17/2024 08:06:54 06/14/19 25 06/15/2024 URINA LYSIS , COMPL ETE glucose Negati ve negati ve Not Available [facility] ([facility]) [address] [place], [address], 06/17/2024 08:06:54 06/14/19 25 06/15/2024 URINA LYSIS , COMPL ETE ketones Negati ve negati ve Not Available [facility] ([facility]) [address] [place], [address], 06/17/2024 08:06:54 06/14/19 25 06/15/2024 URINA LYSIS , COMPL ETE occult blood Negati ve negati ve Not Available [facility] ([facility]) [address] [place], [address], 06/17/2024 08:06:54 06/14/19 25 06/15/2024 URINA LYSIS , COMPL ETE bilirubin Negati ve negati ve Not Available [facility] ([facility]) [address] [facility], [place], [address], 06/17/2024 08:06:54 06/14/1906/15/2024 URINA LYSIS , COMPL ETE urobilinogen ,semi-qn 1.0 mg/dL 0.2-1. 0 normal Not Available [facility] ([facility]) [address] [facility], [place], [address], 06/17/2024 08:06:54 06/14/19 25 06/15/2024 URINA LYSIS , COMPL ETE nitrite, urine Negati ve negati ve Not Available [facility] ([facility]) [address] [facility], [place], [address], 06/17/2024 08:06:54 06/14/1906/15/2024 URINA LYSIS , COMPL ETE microscopic examination Commen t Micro scopi c follo ws if indic ated. Not Available [facility] ([facility]) [address] [facility], [place], [address], 06/17/2024 08:06:54 06/14/1906/15/2024 URINA LYSIS , COMPL ETE microscopic examination See below: Micro scopi c was indic ated and was perfo rmed. Not Available [facility] ([facility]) [address] [facility], [place], [address], 06/17/2024 08:06:54 06/14/1906/15/2024 URINA LYSIS , COMPL ETE WBC None seen /hpf 0 - 5 Not Available [facility] ([facility]) [address] [place], [address], 06/17/2024 08:06:54 06/14/19 25 06/15/2024 URINA LYSIS , COMPL ETE RBC None seen /hpf 0 - 2 Not Available [facility] ([facility]) [address] [facility], [place], [address], 06/17/2024 08:06:54 06/14/19 25 06/15/2024 URINA LYSIS , COMPL ETE epithelial cells (non renal) None seen /hpf 0 - 10 Not Available [facility] ([facility]) [address] [facility], [place], [address], 06/17/2024 08:06:54 06/14/19 25 06/15/2024 URINA LYSIS , COMPL ETE epithelial cells (renal) CONCERT PROMOTER Not Available [facility] ([facility]) [address] [facility], [place], [address], 06/17/2024 08:06:54 06/14/19 25 06/15/2024 URINA LYSIS , COMPL ETE casts None seen /lpf none seen Not Available [facility] ([facility]) [address] [facility], [place], [address], 06/17/2024 08:06:54 06/14/19 25 06/15/2024 URINA LYSIS , COMPL ETE cast type CONCERT PROMOTER Not Available [facility] ([facility]) [address] [facility], [place], [address], 06/17/2024 08:06:54 06/14/19 25 06/15/2024 URINA LYSIS , COMPL ETE crystals CONCERT PROMOTER Not Available [facility] ([facility]) [address] [facility], [place], [address], 06/17/2024 08:06:54 06/14/19 25 06/15/2024 URINA LYSIS , COMPL ETE crystal type CONCERT PROMOTER Not Available [facility] ([facility]) [address] [facility], [place], [address], 06/17/2024 08:06:54 06/14/19 25 06/15/2024 URINA LYSIS , COMPL ETE mucus threads CONCERT PROMOTER Not Available [facility] ([facility]) [address] [facility], [place], [address], 06/17/2024 08:06:54 06/14/19 25 06/15/2024 URINA LYSIS , COMPL ETE bacteria None seen none seen/f ew Not Available [facility] ([facility]) [address] [facility], [place], [address], 06/17/2024 08:06:54 06/14/19 25 06/15/2024 URINA LYSIS , COMPL ETE yeast CONCERT PROMOTER Not Available [facility] ([facility]) [address] [facility], [place], [address], 06/17/2024 08:06:54 06/14/19 25 06/15/2024 URINA LYSIS , COMPL ETE trichomonas CONCERT PROMOTER Not Available [facility] ([facility]) [address] [facility], [place], [address], 06/17/2024 08:06:54 06/14/19 25 06/15/2024 URINA LYSIS , COMPL ETE comment CONCERT PROMOTER Not Available [facility] ([facility]) [address] [facility], [place], [address], 06/17/2024 08:06:54 06/14/19 25 06/16/2024 URINE CULTU REJENNY urine culture, routine Final report Not Available [facility] ([facility]) [address] [place], [address], 06/17/2024 08:06:54 06/14/19 25 06/16/2024 URINE CULTU JENNY ZAMORANO result 1 No growth Not Available [facility] ([facility]) [address] [place], [address], 06/17/2024 08:06:54 06/14/19 25 06/14/2024 urina lysis [...] 06/14/2024 urina lysis , dipst ick Specific [place]ola 1.020 Not Available In-Off ice Order Internal [...] Low - 0 score Not Available [facility] ([facility]) [address] [place], [address], 07/26/2024 22:05:47 07/25/19 25 07/25/2024 NUSWA B BV KEYON+C AND6+ CT/GC /T... bvab 2 Low - 0 score Not Available [facility] ([facility]) [address] [place], [address], 07/26/2024 22:05:47 07/25/19 25 07/25/2024 NUSWA B [...] prese nce of BV. Not Available [facility] ([facility]) [address] [place], [address], 07/26/2024 22:05:47 07/25/19 25 07/25/2024 NUSWA B BV KEYON+C AND6+ CT/GC /T... monserrat albicans, KEYON Negati ve negati ve Not Available [facility] ([facility]) [address] [place], [address], 07/26/2024 22:05:47 07/25/19 25 07/25/2024 NUSWA B BV KEYON+C AND6+ CT/GC /T... monserrat glabrata, KEYON Negati ve negati ve Not Available [facility] ([facility]) [address] [place], [address], 07/26/2024 22:05:47 07/25/19 25 07/25/2024 NUSWA B BV KEYON+C AND6+ CT/GC /T... C parapsilosis /tropicalis Negati ve negati ve This assay does not diffe renti ate C. tropi calis and C. parap el is. Not Available [facility] ([facility]) [address] [place], [address], 07/26/2024 22:05:47 07/25/19 25 07/25/2024 NUSWA B BV KEYON+C AND6+ CT/GC /T... monserrat lusitaniae, KEYON Negati ve negati ve Not Available [facility] ([facility]) [address] [place], [address], 07/26/2024 22:05:47 07/25/19 25 07/25/2024 NUSWA B BV KEYON+C AND6+ CT/GC /T... monserrat krusei, KEYON Negati ve negati ve Not Available [facility] ([facility]) [address] [place], [address], 07/26/2024 22:05:47 07/25/19 25 07/26/2024 NUSWA B BV KEYON+C AND6+ CT/GC /T... trich vag by KEYON Negati ve negati ve Not Available [facility] ([facility]) [address] [place], [address], 07/26/2024 22:05:47 07/25/19 25 07/26/2024 NUSWA B BV KEYON+C AND6+ CT/GC /T... chlamydia trachomatis, KEYON Negati ve negati ve Not Available [facility] ([facility]) [address] [place], [address], 07/26/2024 22:05:47 07/25/19 25 07/26/2024 NUSWA B BV KEYON+C AND6+ CT/GC /T... neisseria gonorrhoeae, KEYON Negati ve negati ve Not Available [facility] ([facility]) [address] [place], [address], 07/26/2024 22:05:47 07/25/19 25 07/26/2024 NUSWA B BV KEYON+C AND6+ CT/GC /T... hsv 1 KEYON Negati ve negati ve Not Available [facility] ([facility]) [address] [place], [address], 07/26/2024 22:05:47 07/25/19 25 07/26/2024 NUSWA B BV KEYON+C AND6+ CT/GC /T... hsv 2 KEYON Negati ve negati ve Not Available [facility] ([facility]) [address] [facility], [place], [address], 07/26/2024 22:05:47 07/28/19 25 07/27/2024 rapid influ zak virus A + B and SARS CoV + SARS CoV 2 Ag panel , [place], upper respi rator y speci men Unknown Analyte negati ve Not Available In-Office Order Internal Use Only DO Not Attach Compendium DO Not Attach Compendium, Do Not Delete/merge, [id number] 07/27/2024 13:20:59 07/28/19 25 07/27/2024 rapid influ zak virus A + B and SARS CoV + SARS CoV 2 Ag panel , [place], upper respi rator y speci men Unknown Analyte negati ve Not Available In-Office Order Internal Use Only DO Not Attach Compendium DO Not Attach Compendium, Do Not Delete/merge, [id number] 07/27/2024 13:20:59 07/28/19 25 07/27/2024 rapid influ zak virus A + B and SARS CoV + SARS CoV 2 Ag panel , [place], upper respi rator y speci men Unknown Analyte negati ve Not Available In-Office Order Internal Use Only DO Not Attach Compendium DO Not Attach Compendium, Do Not Delete/merge, [id number] 07/27/2024 13:20:59 07/10/19 25 07/10/2024 US, abdom [...] I agree with this report . WSN: [id number] Orderi ng Physic rin: Theresa Page Dictat ed By: Jose R Kang DO Dictkeaton ed Date/T bhavna: 10:50 a Review ed By: Harshal Pimentel MD Signed By: Harshal Pimentel MD Signed Date/T bhavna: 10:55 am Transc ribed By: MAGGIE Transc ribed Date/T bhavna: 10:31 am Patien t Class: [email or web address] [address] [place] [address], [address], 08/02/2024 10:54:59 Result Notes None recorded. Problems Name Problem SNOMED Code Status Onset Date Resolution Date Notes Provider Name and Address Organization Details Recorded Time Epigastr ic pain 34240502 Completed 200712/27/2013 RECORDED 03/12/20 08 3:00PM BY INEZ GALE ON/ADDEN DUM Vikash Keys, [facility] [address] [facility] [address], [place], [address], [facility] 6 15:26:01 Acute secretor y otitis media 400437647 Completed 200812/27/2013 RECORDED 03/07/20 09 9:27AM BY EDY AGUILAR MA, INEZ ON/ADDEN DUM Vikash Keys, [facility] [address] [facility] [address], [place], [address], [facility] 6 15:26:01 Acute pharyngi tis 159842972 Completed 201112/27/2013 RECORDED 11/30/19 12 8:26AM BY CYNTHIA TORRE PA-C, ANNOTATI ON/ADDEN DUM Vikash Keys, [facility] [address] [facility] [address], [place], [address], [facility] 6 15:26:01 Streptoc occal sore throat 38879536 Completed 201112/27/2013 RECORDED 11/30/19 12 8:26AM BY CYNTHIA TORRE PA-C, ANNOTATI ON/ADDEN DUM Vikash Keys, [facility] [address] [facility] [address], [place], [address], [facility] 6 15:26:01 Cellulit is and abscess of face 160228024 Completed 201112/27/2013 RECORDED 11/30/19 12 8:26AM BY CYNTHIA TORRE PA-C, ANNOTATI ON/ADDEN DUM Vikash Keys, [facility] [address] [address], [facility] [place], [address], [facility] 6 15:26:01 Conjunct ivitis 4783687 Completed 200712/27/2013 RECORDED 03/12/20 08 2:59PM BY INEZ GALE ON/ADDEN ELIZABETH Keys, [facility] [address] [address], [facility] [place], [address], [facility] 6 15:26:01 Dysuria 49824426 Completed 200712/27/2013 RECORDED 03/12/20 08 3:00PM BY INEZ GALE ON/ADDSILSA DUM Vikash Keys, [facility] [address] [address], [place], [address], [facility] 6 15:26:01 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 565418096 Completed 201112/27/2013 RECORDED 11/30/19 12 8:26AM BY CYNTHIA TORRE PA-C, ANNOTATI ON/ADDEN DUM Vikash Keys, [facility] [address] [facility] [address], [place], [address], [facility] 6 15:26:01 Fever 177783465 Completed 200712/27/2013 RECORDED 03/12/20 08 3:00PM BY DEVAN DODGE, INEZ ON/ADDEN DUM Vikash Keys, [facility] [address] [facility] [address], [place], [address], [facility] 6 15:26:01 Influenz a vaccine needed 56433595531 06 Completed 200812/27/2013 DATE: 03/07/20 09; RECORDED 05/15/20 13 8:35AM BY INEZ LUND ON/ADDEN DUM Vikash Keys, [facility] [address] [facility] [address], [place], [address], [facility] 6 15:26:01 Administ ration of viral vaccine Completed 201212/27/2013 RECORDED 05/15/20 13 2:44PM BY MIKE DYER MD, WELL CHILD VISITS Vikash Keys, [facility] [address] [facility] [address], [place], [address], [facility] 6 15:26:01 Impetigo 10566820 Completed 201112/27/2013 RECORDED 11/30/19 12 9:59AM BY CYNTHIA TORRE PA-C, ANNOTATI ON/ADDEN DUM Vikash Keys, [facility] [address] [facility] [address], [place], [address], [facility] 6 15:26:01 Methicil jordan resistan t Staphylo coccus aureus infectio n 153403656 Completed 201212/27/2013 RECORDED 05/15/20 13 8:35AM BY ERIK LUNDATI ON/ADDEN ELIZABETH Keys, [facility] [address] [facility] [address], [place], [address], [facility] 6 15:26:01 Infestat ion by Gretchen galeas 04767665 Completed 201112/27/2013 RECORDED 11/30/19 12 8:26AM BY CYNTHIA TORRE PA-C, ANNOTATI ON/ADDEN DUM Vikash Keys, [facility] [address] [facility] [address], [place], [address], [facility] 6 15:26:01 Verruca plantari s 30502356 Completed 201212/27/2013 IMPRESSI ON: L HEEL; RECORDED 05/15/20 13 8:35AM BY ERIK LUNDATI ON/ADDEN ELIZABETH Keys, [facility] [address] [facility] [address], [place], [address], [facility] 6 15:26:01 Eruption 335926021 Completed 201112/27/2013 RECORDED 11/30/19 12 8:26AM BY CYNTHIA TORRE PA-C, ANNOTATI ON/ADDEN ELIZABETH Keys, [facility] [address] [facility] [address], [place], [address], [facility] 6 15:26:01 Epigastr ic pain 36352608 Completed 200712/28/2013 RECORDED 03/12/20 08 3:00PM BY DEVAN DODGE, INEZ ON/ADDSILAS Keys, [facility] [address] [facility] [address], [facility] [place], [address], [facility] 6 15:26:01 Acute secretor y otitis media 205394318 Completed 200812/28/2013 RECORDED 03/07/20 09 9:27AM BY EDY AGUILAR MA, INEZ ON/ADDEN ELIZABETH Keys, [facility] [address] [facility] [address], [place], [address], [facility] 6 15:26:01 Acute pharyngi tis 208092369 Completed 201112/28/2013 RECORDED 11/30/19 12 8:26AM BY CYNTHIA TORRE PA-C, INEZ ON/ADDEN ELIZABETH Keys, [facility] [address] [facility] [address], [place], [address], [facility] 6 15:26:01 Streptoc occal sore throat 51998858 Completed 201112/28/2013 RECORDED 11/30/19 12 8:26AM BY CYNTHIA TORRE PA-C, INEZ ON/ADDEN ELIZABETH Keys, [facility] [address] [address], [place], [address], [facility] 6 15:26:01 Cellulit is and abscess of face 064725218 Completed 201112/28/2013 RECORDED 11/30/19 12 8:26AM BY CYNTHIA TORRE PA-C, INEZ ON/MARVIN Keys, [facility] [address] [address], [place], [address], [facility] 6 15:26:01 Conjunct ivitis 5893653 Completed 200712/28/2013 RECORDED 03/12/20 08 2:59PM BY DEVAN DODGE, INEZ SALAZAR/MARVIN Keys, [facility] [address] [address], [place], [address], [facility] 6 15:26:01 Dysuria 62941187 Completed 200712/28/2013 RECORDED 03/12/20 08 3:00PM BY DEVAN DODGE, ERIKATI ON/ADDEN DUM Vikash Keys, [facility] [address] [address], [place], [address], [facility] 6 15:26:01 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 908968296 Completed 201112/28/2013 RECORDED 11/30/19 12 8:26AM BY CYNTHIA TORRE PA-C, ANNOTATI ON/ADDEN DUM Vikash Keys, [facility] [address] [address], [place], [address], [facility] 6 15:26:01 Fever 736043859 Completed 200712/28/2013 RECORDED 03/12/20 08 3:00PM BY DEVAN DODGE, ERIKATI ON/ADDEN DUM Vikash Keys, [facility] [address] [address], [place], [address], [facility] 6 15:26:01 Influenz a vaccine needed [id number] 06 Completed 200812/28/2013 DATE: 03/07/20 09; RECORDED 05/15/20 13 8:35AM BY RAMIRO VALLECILLO I, ERIKATI ON/ADDEN DUM Vikash Keys, [place] [address] [address], [place], [address], [facility] 6 15:26:01 Administ ration of viral vaccine Completed 201212/28/2013 RECORDED 05/15/20 13 2:44PM BY MIKE DYER MD, WELL CHILD VISITS Vikash Keys, [facility] [address] [address], [place], [address], [facility] 6 15:26:01 Impetigo 45239441 Completed 201112/28/2013 RECORDED 11/30/19 12 9:59AM BY CYNTHIA TORRE PA-C, ANNOTNEGRITA ON/ADDEN DUM Vikash Keys, [facility] [address] [address], [place], [address], [facility] 6 15:26:01 Methicil jordan resistan t Staphylo coccus aureus infectio n 663874552 Completed 201212/28/2013 RECORDED 05/15/20 13 8:35AM BY INEZ LUND ON/ADDEN DUM Vikash Keys, [facility] [address] [address], [place], 9, [facility] 6 15:26:01 Infestat ion by Gretchen galeas 26568833 Completed 201112/28/2013 RECORDED 11/30/19 12 8:26AM BY CYNTHIA TORRE PA-C, ANNOTNEGRITA ON/ADDEN DUM Vikash Keys, [facility] [address] [address], [place], 9, [facility] 6 15:26:01 Verruca plantari s 20494375 Completed 201212/28/2013 IMPRESSI ON: L HEEL; RECORDED 05/15/20 13 8:35AM BY INEZ LUND ON/ADDEN DUM Vikash Keys, [facility] [address] [address], [place], 9, [facility] 6 15:26:01 Eruption 482251969 Completed 201112/28/2013 RECORDED 11/30/19 12 8:26AM BY CYNTHIA TORRE PA-C, INEZ ON/ADDEN DUM Vikash Keys, [facility] [address] [address], [place], [address], [facility] 6 15:26:01 Eczema 18158680 Active Vikash Keys, [facility] [address], [place], [address], [facility] 6 15:26:01 Reduced visual acuity 73608648 Active Vikash Keys, [facility] [address] [facility] [address], [place], [address], [facility] 6 15:26:01 Wears glasses 204916519 Active 2016 Marilia Singh [place] null, [facility] 7 14:06:39 Scoliosi s of thoracic spine 578144062 Active 12/08 seen at [facility] , 26 degree thoracic curve, rec followup 6 months, no bracing/ /Followu p 06/2019, no change in curve, followup prn Lakisha harper null, [facility] 0 10:36:20 Candidia sis of vagina 41031738 Active 2022 Vikash Keys, [facility] [address] [facility] [address], [place], [address], [facility] 3 15:59:41 Vaginiti s 54438377 Active 2022 Vikash Keys, [facility] [address] [facility] [address], [place], [address], [facility] 3 16:00:20 Pelvic floor dysfunct ion 758984473 Active 2022 Vikash Keys, [facility] [address] [facility] [address], [place], [address], [facility] 3 16:02:45 Third degree perineal lacerati on 65252114 Active 2022 Vikash Keys, [facility] [address] [facility] [address], [place], [address], [facility] 3 16:07:32 Acute right otitis media 639028992 Active 2022 Vikash Keys, [facility] [address] [facility] [address], [place], [address], [facility] 3 16:14:20 Bacteria l vaginosi s 407207859 Active 2022 Vikash Keys, [facility] [address] [facility] [address], [place], [address], [facility] 3 15:29:52 Fatigue 76082935 Active [address] [facility] [address] [address], [place], [address], [facility] 3 15:30:59 Unable to control flatus 763109994 Active 2022 Vikash [facility] [address] [address], [place], [address], [facility] 3 15:32:02 Anemia due to unknown mechanis m 53408590 Active 2022 Vikash Keys [facility] [address] [address], [place], [address], [facility] 3 15:35:31 Vitamin D deficien cy 28800291 Active 2022 Vikash Keys [facility] [address] [address], [place], [address], [facility] 3 15:35:49 Cough 72838078 Active 2022 Vikash Keys [facility] [address] [address], [place], [address], [facility] 3 15:36:35 Allergic rhinitis 75048338 Active 2022 Vikash Keys [facility] [address] [address], [place], [address], [facility] 3 15:38:34 Pain in pelvis 41131968 Active 2022 Vikash Keys [facility] [address] [facility] [address], [place], [address], [facility] 3 15:46:29 Dizzines s 481587360 Active 2023 Vikash Keys [facility] [address] [facility] [address], [place], [address], [facility] 4 14:02:08 Anemia 999028209 Active 2023 Vikash Keys [facility] [address] [place] [address] [address], [place], [address], [facility] 4 14:02:26 Urinary tract infectio us disease 48272220 Active 2024 Vikash Keys [facility] [address], [place], [address], [facility] 5 13:57:20 Right upper quadrant pain 028612088 Active 2024 Vikash Keys [facility] [address] [facility] [address], [place], [address], [facility] 5 13:57:37 Acute vaginiti s 43245268 Active 2024 Vikash Keys [facility] [address] [facility] [address], [place], [address], [facility] 5 12:43:16 Epigastr ic pain 14980544 Completed 200712/04/2013 RECORDED 03/12/20 08 3:00PM BY DEVAN DODGE, ANNOTATI ON/BRIGITTE Arguello 364[address] [facility] [address], [place], [address], [facility] 6 15:26:01 Acute secretor y otitis media 527553306 Completed 200812/04/2013 RECORDED 03/07/20 09 9:27AM BY EDY AGUILAR MA, INEZ ON/MARVIN Keys, [facility] [address] [facility] [address], [place], [address], [facility] 6 15:26:01 Acute pharyngi tis 272360307 Completed 201112/04/2013 RECORDED 11/30/19 12 8:26AM BY CYNTHIA TORRE PA-C, ERIKATI ON/MARVIN Keys, [facility] [address] [facility] [address], [place], [address], [facility] 6 15:26:01 Streptoc occal sore throat 58834617 Completed 201112/04/2013 RECORDED 11/30/19 12 8:26AM BY CYNTHIA TORRE PA-C, INEZ ON/MARVIN Keys, [facility] [address] [facility] [address], [place], [address], [facility] 6 15:26:01 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 513079797 Completed 201209/01/2016 Removal Reason: not specific [facility] 7 13:59:23 Cellulit is and abscess of face 950659234 Completed 201112/04/2013 RECORDED 11/30/19 12 8:26AM BY CYNTHIA TORRE PA-C, INEZ ON/MARVIN Keys, [facility] [address] [facility] [address], [place], [address], [facility] 6 15:26:01 Conjunct ivitis 2649025 Completed 200712/04/2013 RECORDED 03/12/20 08 2:59PM BY DEVAN DODGE, INEZ ON/ADDEN DUM Vikash Keys, [facility] [address] [address], [place], [address], [facility] 6 15:26:01 Contact dermatit is 95861296 Completed [address]/31/2016 RECORDED 05/15/20 13 1:59PM BY RAMIRO VALLECILLO I, WELL CHILD VISITS Emilia Mckoy [place] null, [facility] 7 11:30:54 Dysuria 67355137 Completed 200712/04/2013 RECORDED 03/12/20 08 3:00PM BY DEVAN DODGE, INEZ ON/ADDEN DUM Vikash Keys, [facility] [address] [address], [place], [address], [facility] 6 15:26:01 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 025706864 Completed 201112/04/2013 RECORDED 11/30/19 12 8:26AM BY CYNTHIA TORRE PA-C, INEZ ON/ADDEN DUM Vikash Keys, [facility] [address] [address], [place], [address], [facility] 6 15:26:01 Fever 350072416 Completed 200712/04/2013 RECORDED 03/12/20 08 3:00PM BY INEZ GALE ON/ADDEN DUM Vikash Keys, [facility] [address] [address], [place], [address], [facility] 6 15:26:01 Influenz a vaccine needed 06727793577 06 Completed 200812/04/2013 DATE: 03/07/20 09; RECORDED 05/15/20 13 8:35AM BY RAMIRO VALLECILLO I, INEZ ON/ADDEN DUM Vikash Keys, [facility] [address] [facility] [address], [facility] [place], [address], [facility] 6 15:26:01 Administ ration of viral vaccine Completed 201212/04/2013 RECORDED 05/15/20 13 2:44PM BY MIKE DYER MD, WELL CHILD VISITS Vikash Keys, [facility] [address] [place] [address], [place], [address], [facility] 6 15:26:01 Impetigo 62136980 Completed 201112/04/2013 RECORDED 11/30/19 12 9:59AM BY CYNTHIA TORRE PA-C, ANNOTATI ON/ADDEN DUM Vikash Keys, [address], [facility] [place], [address], [facility] 6 15:26:01 Methicil jordan resistan t Staphylo coccus aureus infectio n 218333480 Completed 201212/04/2013 RECORDED 05/15/20 13 8:35AM BY RAMIRO VALLECILLO I, INEZ ON/ADDEN DUM Vikash Keys, [address], [facility] [place], [address], [facility] 6 15:26:01 Developm ental delay 539273732 Active 2012 Emilia Mckoy [place] null, [facility] 7 11:30:53 Infestat ion by Gretchen galeas 60492203 Completed 201112/04/2013 RECORDED 11/30/19 12 8:26AM BY CYNTHIA TORRE PA-C, ANNOTATI ON/ADDEN DUM Vikash Keys, [address], [facility] [place], [address], [facility] 6 15:26:01 Verruca plantari s 52043404 Completed 201212/04/2013 IMPRESSI ON: L HEEL; RECORDED 05/15/20 13 8:35AM BY RAMIRO VALLECILLO I, ANNOTATI ON/ADDEN DUM Vikash Keys, [facility] [address], [place], [address], [facility] 6 15:26:01 Eruption 395051048 Completed 201112/04/2013 RECORDED 11/30/19 12 8:26AM BY CYNTHIA TORRE PA-C, ANNOTATI ON/ADDEN DUM Vikash Keys, [facility] [address], [facility] [place], [address], [facility] 6 15:26:01 Well child 095728596 Completed [address]/30/2016 RECORDED 05/15/20 13 2:05PM BY RAMIRO VALLECILLO I, WELL CHILD VISITS DEVAN Reagan [facility] 6 14:37:10 Well child 811827925 Completed 200812/04/2013 RECORDED 09/15/19 09 9:09AM BY DEVAN DODGE, INEZ ON/ADDEN DUM DEVAN Reagan [facility] 6 14:37:10 Problem Notes None recorded. Procedures Surgical History Date Name Laterality Status Provider Name and Address Organization Details Recorded Time 023 anal sphincterorrhaphy for obstetrical laceration completed Edy patel MA [facility] 03/24/2023 15:22:08 022 dilation procedure completed Nicol Cano [facility] 09/16/2021 14:53:39 017 Developmental Screening completed Marilia Singh MA [facility] 01/04/2017 14:02:57 extraction of wisdom tooth completed Edy patel MA [facility] 03/24/2023 15:16:04 Imaging Results Imaging Date Name Status LastModified by Organiz ation Details LastModified Time 07/10/2024 [facility], [facility], [email or web address] [address] , [place], [address], 08/02/2024 10:54:59 Procedure Notes None recorded. Medical [...] 172.72 cm DEVAN Shea [facility] 01/11/2024 09:40:47 Date Recorded Body height Body mass index (BMI) Body weight Heart rate Oxygen saturation Oxygen saturation in Arterial blood by Pulse oximetry Body temperature Systolic blood pressure Diastolic blood pressure Provider Name and Address Organization Details Last Updated DateTime 11/05/202 4 172.72 cm 16.3 kg/m2 86316.3 8 g 79 /min 98 % 98 % 98.1 [degF] 100 mm[Hg] 61 mm[Hg] Deborah gallego MA [facility] 4 10:30:02 Date Recorded Body height Body mass index (BMI) Body weight Heart rate Oxygen saturation Oxygen saturation in Arterial blood by Pulse oximetry Body temperature Systolic blood pressure Diastolic blood pressure Provider Name and Address Organization Details Last Updated DateTime 5 172.72 cm 17.9 kg/m2 72615.9 g 65 /min 98 % 98 % 97.9 [degF] 102 mm[Hg] 68 mm[Hg] Mariela Pinedo MA [facility] 5 13:45:57 Date Recorded Body height Body mass index (BMI) Body weight Heart rate Oxygen saturation Oxygen saturation in Arterial blood by Pulse oximetry Body temperature Systolic blood pressure Diastolic blood pressure Provider Name and Address Organization Details Last Updated DateTime 5 172.72 cm 17.4 kg/m2 28921.3 3 g 89 /min 98 % 98 % 98.1 [degF] 97 mm[Hg] 64 mm[Hg] Rekha Tapia LPN [facility] 5 13:35:22 Social History Question Answer Notes LastModified by Organizat ion Details LastModified Time Tobacco Smoking Status Never Smoker DEVAN Kumar, [facility] 06/21/2014 16:34:33 Animal Exposure? No No Current Pets Information not available 11/08/2014 What Type Of Diet Are You Following? REGULAR [email or web address] Information not available 06/21/2014 What Is Your Home Situation? Mother Information not available 11/08/2014 Live Alone Or With Others? With Others Mom, 1 Brother [email or web address] Information not available 06/21/2014 Have You Served In The ? No Information not available 03/24/2023 Have You Or Anyone In Your Household Had Any Of The Following Symptoms In The Last 14 Days: Sore Throat, Cough, Chills, Body Aches For Unknown Reasons, Shortness Of Breath For Unknown Reasons, Loss Of Smell, Loss Of Taste, Fever At Or Greater Than 100 Degrees Fahrenheit? No [email or web address] Information not available 04/07/2020 Are You Or Anyone In Your Household A Health Care Provider Or Emergency Responder? No Information not available 04/07/2020 To The Best Of Your Knowledge Have You Been In Close Proximity To Any Individual Who Tested Positive For COVID-19? No [email or web address] Information not available 04/07/2020 What Was The Date Of Your Most Recent Tobacco Screening? 03/27/2024 [email or web address] Information not available 03/27/2024 How Many Children Do You Have? 1 Margret Information not available 03/24/2023 Pool Exposure Yes Informa tion not available 11/08/2014 What Is The Name Of Your School? [employer] Information not available 03/24/2023 Do You Use Your Seat Belt Or Car Seat Routinely? Yes Information not available 11/08/2014 Seat Belts Used Routinely Yes [email or web address] Information not available 06/21/2014 Are You Sexually Active? Yes Information not available 03/24/2023 Do You Have Any Siblings? 3 1 Brother, 2 Sisters Information not available 11/08/2014 Smoke Alarm In Home Yes [email or web address] Information not available 06/21/2014 Do You Have Smoke And Carbon Monoxide Detectors In Your Home? Yes Information not available 11/08/2014 Are You Passively Exposed To Smoke? No [email or web address] Information not available 06/21/2014 General Stress Level Low [email or web address] Information not available 06/21/2014 Do You Use Sunscreen Routinely? Yes [email or web address] Information not available 06/21/2014 Sex: Unknown Functional Status Question Answer Note LastModified by Organizat ion Details LastModified Time Do you use any illicit or recreational drugs? No Information not available 03/24/2023 Do you or have you ever used any other forms of tobacco or nicotine? No Information not available 03/24/2023 What is your level of alcohol consumption? None [email or web address] Information not available 06/21/2014 Are you currently employed? Yes Information not available 03/24/2023 Are you able to walk? [email or web address] Information not available 03/24/2023 Are you able to care for yourself? 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 None Information not available 03/24/2023 Mental Status None recorded. Family History Relationship Description Onset Age of this Age Resolved Age Notes LastModified by Organization Details LastModified Time Brother Attention deficit hyperactivit y disorder [email or web address] Not available 06/26 15:15:13 Mother Asthma [email or web address] Not available 1 06/07/2019 14:27:34 Sister Asthma [email or web address] Not available 06/07/2019 14:27:45 Medical History Condition Response Coronary Artery Disease N Other N Gout N Kidney Stones N Blood Diseases N Hyperthyroidism N Breast Cancer N mrsa exposure N COPD N Depression N Lung Disease N Hypothyroidism N Defects or Inherited Disease N Developmental or Behavioral Disorders N Breast Problem N Anesthesia Complications N Headaches/Migraines N Varicose Veins N Anxiety Disorder N Muscle, Joint, or Bone Problems N [...] Problems N Developmental Delay N Acne N Skin Problems N Eating Disorder N Anemia N Constipation N Bladder Problems N Mental Illness N Ovarian Cancer N Diabetes N Bedwetting N Blood Transfusions N Seizures/Epilepsy N Heart Problems/Murmur N Tuberculosis N AIDS/HIV N Congestive Heart Failure (CHF) N Eczema Y Diverticulitis N Abuse/Domestic Violence N Asthma Y Allergies N Reflux/GERD N Hepatitis N Heart Disease N Pulmonary Embolism N Hypertension N Osteoporosis N Chicken Pox N Autism Spectrum Disorder (ASD) N Gynecological History Statement/Question Response Menses Monthly N HPV Vaccine Y Duration of Flow (days) 7 Age at Menarche 13 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 Y Obstetrics History GPAL:G 0 P 0 0 0 0 Immunizations Vaccine Type Date Status Note Provider Nam emma and Address Organization Details Recorded Time Tdap 5 completed Not Available [facility] 06/09/2019 02:21:44 HPV, quadrivalent 5 completed Not Available [facility] 06/09/2019 02:21:34 COVID-19, mRNA, LNP-S, PF, 30 mcg/0.3 mL dose 1 completed DEVAN Shea, [facility] 05/18/2021 10:56:14 COVID-19, mRNA, LNP-S, PF, 30 mcg/0.3 mL dose 1 completed DEVAN Shea, [facility] 05/18/2021 10:56:14 COVID-19, mRNA, LNP-S, PF, 30 mcg/0.3 mL dose, renato-sucrose 2 completed DEVAN Chen, [facility] 09/09/2022 10:02:15 Tdap 2 completed DEVAN Chen, [facility] 09/09/2022 10:02:15 Influenza, split virus, quadrivalent, PF 2 completed DEVAN Chen, [facility] 09/09/2022 10:02:15 Hep B, adolescent or pediatric 3 completed Not Available [facility] 12/04/2013 13:31:42 pneumococcal conjugate PCV 7 4 completed Not Available [facility] 12/04/2013 13:31:42 DTaP 4 completed Not Available [facility] 12/04/2013 13:31:42 Hib (HbOC) 4 completed Not Available [facility] 12/04/2013 13:31:42 IPV 4 completed Not Available [facility] 12/04/2013 13:31:42 IPV 4 completed Not Available [facility] 12/04/2013 13:31:42 Hib (HbOC) 4 completed Not Available [facility] 12/04/2013 13:31:42 DTaP 4 completed Not Available [facility] 12/04/2013 13:31:42 pneumococcal conjugate PCV 7 4 completed Not Available [facility] 12/04/2013 13:31:42 pneumococcal conjugate PCV 7 4 completed Not Available [facility] 12/04/2013 13:31:42 Hep B, adolescent or pediatric 4 completed Not Available [facility] 12/04/2013 13:31:43 DTaP 4 completed Not Available [facility] 12/04/2013 13:31:43 Hib (HbOC) 4 completed Not Available [facility] 12/04/2013 13:31:43 Hib (HbOC) 4 completed Not Available [facility] 12/04/2013 13:31:43 pneumococcal conjugate PCV 7 4 completed Not Available [facility] 12/04/2013 13:31:43 varicella 4 completed Not Available [facility] 12/04/2013 13:31:43 MMR 4 completed Not Available [facility] 12/04/2013 13:31:43 Hep B, adolescent or pediatric 4 completed Not Available [facility] 12/04/2013 13:31:43 IPV 4 completed Not Available [facility] 12/04/2013 13:31:43 Influenza, split virus, trivalent, preservative 4 completed Not Available [facility] 12/04/2013 13:31:43 DTaP 5 completed Not Available [facility] 12/04/2013 13:31:43 Influenza, split virus, trivalent, preservative 6 completed Not Available [facility] 12/04/2013 13:31:43 MMR 7 completed Not Available [facility] 12/04/2013 13:31:43 varicella 7 completed Not Available [facility] 12/04/2013 13:31:43 DTaP 7 completed Not Available [facility] 12/04/2013 13:31:43 IPV 7 completed Not Available [facility] 12/04/2013 13:31:43 Influenza, split virus, trivalent, preservative 7 completed Not Available [facility] 12/04/2013 13:31:43 Influenza, split virus, trivalent, preservative 8 completed Not Available [facility] 12/04/2013 13:31:43 Influenza, split virus, trivalent, preservative 9 completed Not Available [facility] 12/04/2013 13:31:43 Novel [id number]-[id number], all formulations 9 completed Not Available [facility] 12/04/2013 13:31:43 Novel [id number]-[id number], all formulations 0 completed Not Available [facility] 12/04/2013 13:31:43 Influenza, split virus, trivalent, preservative 0 completed Not Available [facility] 12/04/2013 13:31:43 Influenza, split virus, trivalent, preservative 1 completed Not Available [facility] 12/04/2013 13:31:43 Influenza, split virus, trivalent, preservative 2 completed Not Available [facility] 12/04/2013 13:31:43 HPV, quadrivalent 3 completed Not Available [facility] 12/04/2013 13:31:43 Influenza, split virus, quadrivalent, PF 6 completed Not Available [facility] 06/09/2019 02:22:08 meningococcal MCV4P 9 completed Not Available [facility] 06/09/2019 02:21:55 Influenza, split virus, quadrivalent, PF 0 completed DEVAN Shea, [facility] 04/07/2020 14:40:13 meningococcal MCV4P 0 completed DEVAN Rivera, [facility] 04/07/2020 15:35:41 Influenza, split virus, quadrivalent, PF 3 completed DEVAN Shea, [facility] 03/14/2023 11:34:59 Influenza, split virus, trivalent, PF 4 completed Vikash Keys, [facility] [address], [address], [facility] [place] 03/27/2024 11:11:42 Past Encounters Encounter ID Performer Location Encounter Start Date Encounter Closed Date Diagnosis/Indication Diagnosis SNOMED-CT Code Diagnosis ICD10 Code Diagnosis Note [id number] [facility] [address] [place] [address] 11/02/2006 00:00:00 [id number] auto[facility]Comm erce [address] [facility] [place] [address] 02/07/2007 00:00:00 [id number] auto[facility]Comm erce [address] [facility],[address] [place] [address] 09/12/2007 00:00:00 [id number] auto[facility]Comm erce [address] [facility],[address] [place] [address] 10/30/2007 00:00:00 [id number] auto[facility]Comm erce [address] [facility],[address] [place] [address] 04/03/2008 00:00:00 [id number] auto[facility] erce [address] [facility],[address] [place] [address] 09/14/2008 00:00:00 [id number] [facility] erce [address] [facility],[address] [place] [address] 10/10/2009 00:00:00 [id number] auto[facility] erce [address] [facility],[address] [place] [address] 12/22/2009 00:00:00 [id number] auto[facility] erce [address] [facility],[address] [place] [address] 03/30/2010 00:00:00 [id number] auto[facility]Comm erce [address] [facility] [place] [address] 05/13/2010 00:00:00 [id number] auto[facility]Comm erce [address] [facility],[address] [place] [address] 07/17/2010 00:00:00 [id number] auto[facility]Comm erce [address] [facility] [place] [address] 11/30/2011 00:00:00 [id number] auto[facility]Comm erce [address] [facility] [place] [address] 05/15/2013 00:00:00 [id number] BRIGITTE Gillespie Main Office [address] [facility] [address] [place] [address] 06/21/2014 16:13:41 06/21/2014 17:03:10 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 Mom would like to start on a longer acting med- her son takes concerta and she feels this works well. She will give med on school days, encourage pt to eat frequtnly, watch for adverse side effects. F/U in 1 month. 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 Age appropriat e anticipato ry guidance provided. Regular dental care and appropriat e car safety advised. Immunizati on status updated. HPV# 2 and TDAP today, Advised well balanced meals TID, she is on concerta and does not eat much, may try giving the medication after breakfast so that she has an appetite in the morning. Reduced visual acuity 74869072 VA 20/50 and 20/100, should be evaluated for need for glasses. Child atte ntion deficit disorder 989675466 Just had med refills on 11/03/14, doing well on concerta, encouraged to ensure patient is eating frequently . 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 Referred to [facility] ER and an expect called in. 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 [id number] Nelson Toribio MD Main Office [address] [address] [place] [address] 11/10/2018 12:50:05 11/10/2018 14:01:16 Requires a meningitis vaccination 505872740 Z23 Well child 620326211 Z00 .129 Reviewed dental care, need to floss, increase calcium in the diet, pt has tried vaping - discourage d use/educat ed, not sex active, will call if need contracept ion, safe sex reviewed, BSE taught Scoliosis of thoracic spine 799241674 M41.34 referral to [facility] [id number] Cherelle martinez MD Main Office [address] [address] [place] [address] 04/07/2020 13:55:56 04/07/2020 15:37:56 Adult health examination 797260156 Z00.00 Child in good general health. Reviewed immunizati ons. Discussed diet, exercise, dental care. Discussed teen issues Needs infl uenza immunization 792860076 Z23 Scoliosis of thoracic spine 085206072 M41.34 pt states no followup needed, has been discharged from [facility] Administra tion of viral vaccine 79985034 Z23 [id number] Bronwyn Mitchell MD Main Office [address] [address] [place] [address] 06/18/2020 12:27:22 06/18/2020 13:35:46 Impetigo 78999595 L01.00 [id number] Mike Ontiveros MD [facility] [address] [address] [place] [address] 05/18/2021 08:28:19 05/18/2021 11:28:22 Acute pharyngitis 807091294 J02.9 Pt. has sore throat and headache with mild congested . Advised on COVID PCR test or at least rapid test. Recommende d to do salt water gargles, Tylenol ES , rest and fluids. Exposure t o viral disease 7616433614 62239 Z20.828 Counseling was provided to pt. phone number given for [facility] for PCR testing. Quarantine recommenda tions discussed. [id number] Mike Ontiveros MD Main Office [address] [address] [place] [address] 08/30/2022 11:27:44 08/30/2022 12:43:12 Contraception care management 129875606 Z30.42 [id number] Mike Ontiveros MD Main Office [address] [address] [place] [address] 11/12/2022 15:12:26 11/12/2022 16:23:31 Vaginitis 84877301 N76.0 will send for testing and tx for BV and yeast. Pelvic ankit or dysfunction 195492158 M62.9 needs to see pelvic floor PT will rfeer as she was told kristina would be 1 year wait. Third degr ee perineal laceration 64935395 O70.20 3rd degree tear repaired 5 months ago, anal sphincter had to be reattached by colorectal surgery. erythemato us friable tissue, with loose tissue noted. will send to [facility] for 2nd opinion as it appears laceration was not well approximat ed. Acute righ t otitis media 940474748 H66.91 Contracept ion care management 050517640 Z30.42 [id number] JUSTINE DUARTE MD Main Office [address] [facility] [address] [place] [address] 11/16/2022 14:01:24 11/16/2022 15:19:09 Contraception care management 502431775 Z30.42 [id number] Mike Ontiveros MD Main Office [address] [facility] [address] [place] [address] 03/24/2023 15:05:07 03/24/2023 15:53:54 Adult health examination 648589896 Z00.00 UTD. will check labs Bacterial vaginosis 4197 87247 N76.0 will tx with metronidaz ole and she notes metrogel causes bleeding Vaginitis 93992091 N76.0 Fatigue 04575062 R53.83 Unable to control flatus 381591976 R14.3 would like to see colo rectal in follow-up, she has not been to pelvic floor PT though she does have the referral. Anemia due to unknown mechanism 71720131 D64.9 Vitamin D deficiency 347 74024 E55.9 Cough 42116461 R05.9 Allergic rhinitis 553627 04 J30.9 Pain in pelvis 46159975 R10.2 sharp pelvic pain, will check US Family his tory of Cardiovascular disease 927107839 Z82.49 [id number] Nelson Toribio MD Main Office [address] [facility] [address] [place] [address] 03/14/2023 11:10:23 03/14/2023 12:09:03 Needs influenza immunization 438130538 Z23 Contracept ion care management 217272009 Z30.42 [id number] Bronwyn Mitchell MD Main Office [address] [facility] [address] [place] [address] 06/08/2023 11:37:22 06/08/2023 12:17:58 [id number] STEVEN AHUMADA Main Office [address] [facility] [address] [place] [address] 06/24/2023 08:39:35 06/24/2023 09:23:53 Syncope 525597239 R55 -had 2 known episodes of syncope; [...] ng factor or trigger Orthostati c hypotension 90258281 I95.1 -orthostat ic BP readings were completed in the office-tova roximate 25bpm increase and 10 mmHg diastolic decrease when transition ing from supine to standing Ammendment by SB: after discussion of case ordered patient a tilt-table testing [id number] JUSTINE DUARTE MD Main Office [address] [address] [place] [address] 07/29/2023 13:09:22 07/29/2023 13:41:12 Contraception care management 958478125 Z30.42 [id number] Nelson Toribio MD Main Office [address] [address] [place] [address] 10/13/2023 12:59:12 10/13/2023 13:11:57 Contraception care management 794095117 Z30.42 [id number] Bronwyn Mitchell MD Main Office [address] [address] [place] [address] 01/11/2024 09:37:55 01/11/2024 09:38:39 Contraception care management 808547891 Z30.42 [id number] Mike Ontiveros MD Main Office [address] [address] [place] [address] 03/27/2024 09:44:46 03/27/2024 10:56:58 Adult health examination 139221439 Z00.00 HM UTD. had labs in November, no concerns. Needs infl uenza immunization 915950494 Z23 19 YEARS AND OLDER ONLY Contracept ion care management 255921519 Z30.42 refill provided, last depo 01/11/24 Eczema 44449499 L30.9 refilled Allergic rhinitis 880270 04 J30.9 start zyrtec daily for allergy sx. [id number] Nelson Toribio MD Main Office [address] [address] [place] [address] 04/13/2024 14:09:16 04/13/2024 14:11:14 Contraception care management 649693784 Z30.42 [id number] Mike Ontiveros MD Main Office [address] [place] [address] 06/14/2024 13:33:11 06/14/2024 14:10:14 Pain in pelvis 18546866 R10.2 will check Urine and vaginitis swab. Urinary tr act infectious disease 29928786 N39.0 urine dip negative, will send out to lab Right uppe r quadrant pain 268995152 R10.11 will check labs and US, may try tums as needed, hydration, ensure she is eating regularly, avoid trigger foods. [id number] JUSTINE DUARTE MD Main Office [address] [address] 07/27/2024 13:27:32 07/27/2024 14:38:35 Fatigue 29200436 R53.83 Viral uppe r respiratory tract infection 819181091 J06.9 - pt has tested negative for [...] use a teaspoon honey for cough Fever 359681585 R50.9 - Tmax of 102 on 07/26/2024- [...] Zee Member ID Guarantor Name 01/11/2024 1 [facility] [employer] - TOGETHER (MEDICAID HMO) [id number] Eloisa Ribera [id number] Eloisa Ribera 01/11/2024 1 [place] Eloisa Ribera [id number] Eloisa Ribera 03/27/2024 1 [facility] [employer] - TOGETHER (MEDICAID HMO) [id number] Eloisa Ribera [id number] Eloisa Ribera 03/27/2024 1 [place] Eolisa Ribera [id number] Eloisa Ribera 04/13/2024 1 [facility] [employer] TOGET[employer] (MEDICAID HMO) [id number] Eloisa Ribera [id number] Eloisa Ribera 04/13/2024 1 [place] Eloisa Ribera [id number] Eloisa Ribera 06/14/2024 1 [facility] [employer] TOGETHER (MEDICAID HMO) [id number] Eloisa Ribera [id number] Eloisa Ribera 06/14/2024 1 [place] Eloisa Ribera [id number] Eloisa Ribera 07/27/2024 1 [facility] [employer] TO[employer] (MEDICAID HMO) [id number] Eloisa Ribera [id number] Eloisa Ribera 07/27/2024 1 [place] Eloisa Ribera [id number] Eloisa Ribera Notes Date Note Type Note Provider Name and Address Organization Details Recorded Time 03/27/2024 text/html Generic HPI TemplateReported bypatient.Notes:Presen ts for PE, 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 Is eating well.Some anxiety that is getting worse but managing ok for now. Vikash Keys, [facility] [address] [address], [place], [address], [facility] 03/27/2024 11:12:41 06/14/2024 text/html Generic HPI TemplateReported [...] with only this partner.No fever/ chills. 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 JUSTINE DUARTE MD [address], [address], [facility] 07/27/2024 14:28:49 OBGyn Episode No OBEpisode recorded.
[2024-10-04 06:33] LABS: Prolactin 9.3 ng/mL
== END 2024-10-03 07:09 | disposition home or self-care (01) ==
LOC: HO.LAB 07:08
PROVIDERS: Visit Provider Advanced Practice Midwife
DX: N64.52 Nipple discharge (principal)
CPT/HCPCS: 36415; 84146

== ENCOUNTER 2025-03-06 14:05 | Outpatient (AMB) | payer MEDICAID, SELFPAY ==
--- NOTE | 2025-03-06 14:06 | A.OFFVIS_ITS ---
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 She normally sees Yina. She is not having any problems she thought she had a Pap smear at the last visit but I can not find any in the system documented. She delivered her baby to +years ago at [facility] 8 lb plus and said she had a third-degree tear. 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 She is sexually active she is on Depo-Provera and has been so since she delivered and likes it and feels it works well for her she does notice a little bit of a nipple discharge when she is in the shower. She says she had it when she was last seen by Yina and Yina did check her and ordered a test and said it was okay and told her not to squeeze her nipples. She knows she is coming up on 2 years being on Depo-Provera and wonders about using it roasterman. And we did discuss this as well. She gets her Depo-Provera ordered via her primary care provider in [place] and gets the injection there because it is easy to schedule because her mother works there. [facility] Medical History (Updated 03/06/25 @ 15:15 by Brandee Danielle CNM) Nipple discharge Spontaneous Surgical History Hx of dilation and curettage Family History Paternal Aunt History of breast cancer Mother Ovarian cancer Social History Household Members: Family Both parents involved: Yes Housing: House Are you a primary customer care coordinator to a significant other at home: No Do you presently have visiting nurse or other home services: No 75 years or older and lives alone: No Alcohol intake: never Patient Tobacco Use Status: Never used Tobacco Sexual orientation: Straight/Heterosexual Gender identity: Female Female Reproductive History Menstrual Age of Menarche: 13 control method: progesterone injection (Depo) Total pregnancies: 3 Full term: 1 Physical Exam Vital Signs: Last Vital Signs BP 104/70 03/06/25 14:09 BMI result Body Mass Index 23.4 Const General: healthy appearing, comfortable, no acute distress, well developed and alert Nutritional Appearance: average body habitus Orientation/consciousness: patient oriented x3 Limitations: no limitations HEENT Head: Yes normocephalic Neck Neck: Yes normal visual inspection Chest Other: Patient has small breasts with her thin frame nipples are slightly inverted but due carlos and with gentle checking of nipples to carlos the nipple there is a small amount of whitish creamy discharge right at the very tip of the nipple Chest palpation & inspection: normal inspection of the chest Breast/axilla inspection: normal inspection of the breasts and normal inspection of the axillae Breast/axilla palpation: normal palpation of the breasts and normal palpation of the axillae Resp Effort & Inspection: normal respiratory effort GI Inspection: Yes normal to inspection, No Abdominal wall edema and No distended Palpation (GI): Soft to palpation and nontender Other: Perineum shows evidence of third-degree right laceration and smaller laceration on left-hand side both are well epithelialized at this stage though there is evidence of the tears. Speculum exam vagina pink and moist cervix multiparous pink well healed long close thick mobile nontender uterus small anteverted mobile nontender fair tone with Kegel patient coached in increasing contractile strength and elevating muscles with each practice try. She still declines another referral but will wo rk on it herself. General: Yes bladder normal to palpation External Female Exam: normal external appearance and normal appearance of the urethra Speculum Exam - Vagina: normal appearance of the vagina, normal palpation and normal vaginal discharge Speculum Exam - Cervix: normal appearance of the cervix, normal palpation and nontender Bimanual exam- vagina & uterus: normal bimanual exam, normal palpation, uterine size normal, bladder normal to palpation, consistency normal, normal palpation, uterine mobility normal, uterine shape normal, No Cervical tenderness present, non-tender and no cervical motion tenderness Bimanual Exam- Adnexa, other: normal adnexae, no masses, normal and No adnexal tenderness Neuro General: patient oriented x3 Results Reviewed Results Reviewed: Name: Eloisa Ribera Age/Sex: 19/F : 2005 Unit#: [id number] Attend Dr: Yina Johnson CNM Re10/03/24 Status: DEP [facility] SPEC : [id number] LIANG: 10/03/24 STATUS: COMP REQ : [id number] RECD: 10/03/[address]: Yina Johnson CNM COMP: 10/04/24 ENTERED: 10/03/[address]: ORDERED: Prol Test Result Flag Reference Prolactin 9.3 ng/mL Reference Range Females Non- 3.0-30.0 10.0-209.0 Postmenopausal 2.0-20.0 THIS TEST WAS PERFORMED AT: [facility] [address] [place] [id number] JORJE UGARTE MD Assessment & Plan Assessment & Plan (1) Nipple discharge: Comment: Prolactin level September 2024=9.5 Code(s): N64.52 - Nipple discharge Category: Medical (2) Well woman exam with routine gynecological exam: Code(s): Z01.419 - Encounter for gynecological examination (general) (routine) without abnormal findings Category: Medical (3) Encounter for screening examination for sexually transmitted disease: Code(s): Z11.3 - Encounter for screening for infections with a predominantly sexual mode of transmission Category: Medical (4) Screening for malignant neoplasm of cervix: Code(s): Z12.4 - Encounter for screening for malignant neoplasm of cervix Category: Medical (5) Uses Depo-Provera as primary control method: Comment: Gets it every 3 months through her primary care office in [place] where her mother works Code(s): Z78.9 - Other specified health status Category: Social Hx Plan Please see HPI for all the details discussed in this visit and please see the physical for additional discussion about Kegel teaching patient again was offered another referral to PT for pelvic floor therapy but declines it for now urged to practice during the day herself and discussed ways of remembering For now she wants to stay on the Depo-Provera and she says she keeps up with the appointments at her primary care provider discussed the importance of making sure she gets weight-bearing exercise which she does running after 2-year-old toddlers and enough calcium and vitamin-D in her diet as this is the time of her life to build bone. She may continue or have further discussions with her prescribing provider about more long-term methods I asked her when she might want to have another baby in she thinks about when her child is 3. Pap smear was done as well as testing for gonorrhea chlamydia trichomoniasis bacterial vaginosis and yeast. Orders: Orders Bacterial Vaginosis Panel Today Z01.419 - Encounter for gynecological examination (general) (routine) without abnormal findings Pap Smear Today Z01.419 - Encounter for gynecological examination (general) (routine) without abnormal findings CT NG by PCR Vag/Cerv Today Z01.419 - Encounter for gynecological examination (general) (routine) without abnormal findings Coding Level of Care Code Est Pt Prev Care [id number]([id number]) Diagnoses Nipple discharge N64.52 Well woman exam with routine gynecological exam Z01.419 Encounter for screening examination for sexually transmitted disease Z11.3 Screening for malignant neoplasm of cervix Z12.4 Uses Depo-Provera as primary control method Z78.9
[2025-03-06 14:09] VITALS: BP 104/70; BMI 23.4
--- OUTSIDE RECORDS SUMMARY | 2025-03-06 17:51 | XMS_ITS | Data Portability ---
Author Organization 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 Plan of Treatment Reminders Order Date Submit Date Provider Last Modified By Organization Details Last Modified Time Details Appointments PE EST 2024 08:45A STEVEN NEVAREZ Not available Not available Not available Lab pregnanc y test, urine 2024 025 [email or web address] In-Office Order, Internal Use Only DO Not Attach Compendium DO Not Attach Compendium, Do Not Delete/merge, 01/11/2025 09:26:01 strep group A, DNA, swab 2024 025 [email or web address] In-Office Order, Internal Use Only DO Not Attach Compendium DO Not Attach Compendium, Do Not Delete/merge, 11/09/2024 10:25:05 rapid influenz a virus A + B and SARS CoV + SARS CoV 2 Ag panel, IA, upper respirat ory specimen 2024 025 CHERYL In-Office Order, Internal Use Only DO Not Attach Compendium DO Not Attach Compendium, Do Not Delete/merge, 07/27/2024 14:06:58 urinalys is, complete 2024 025 CHERYL [facility], [address], [place] , [place], [address], 06/17/2024 08:06:54 culture, urine 2024 025 CHERYL [facility], [address], [place] , [place], [address], 06/17/2024 08:06:54 urinalys is, dipstick 2024 025 [email or web address] In-Office Order, Internal Use Only DO Not Attach Compendium DO Not Attach Compendium, Do Not Delete/merge, [id number] 06/14/2024 13:52:54 bacteria l vaginosi s + vaginiti s panel, vaginal 2024 025 CHERYL [facility] (Centralized Electronic Ordering - All Locations), Patient Can Go To The Location Of Their Choice, 06/17/2024 08:06:53 CMP, serum or plasma 2024 025 CHERYL [facility] (Centralized Electronic Ordering - All Locations), Patient Can Go To The Location Of Their Choice, 06/15/2024 14:06:18 CBC w/ auto diff 2024 025 CHERYL [facility] (Centralized Electronic Ordering - All Locations), Patient Can Go To The Location Of Their Choice, 06/15/2024 14:06:17 amylase + lipase, serum 2024 025 CHERYL [facility] (Centralized Electronic Ordering - All Locations), Patient Can Go To The Location Of Their Choice, 06/15/2024 14:06:19 H pylori urea breath test, co2 infrared 2024 025 CHERYL [facility] (Centralized Electronic Ordering - All Locations), Patient Can Go To The Location Of Their Choice, 06/15/2024 14:06:20 pregnanc y test, urine 2023 024 [email or web address] In-Office Order, Internal Use Only DO Not Attach Compendium DO Not Attach Compendium, Do Not Delete/merge, [id number] 04/13/2024 14:29:01 Referral None recorded . Procedures None recorded . Surgeries None recorded . Imaging US, gallblad haja - RUQ pain, worse when hungry, nausea r/o gallston es 2024 025 [email or web address] [facility], [address] [place], [address], 07/03/2024 15:12:14 Medication Orders medroxyp rogester one 150 mg/mL intramus cular suspensi on 2024 025 [email or web address] Not available 01/11/2025 09:26:01 MAGIC MOUTHWAS H 2024 025 [facility]acy #[id number], [address] [place], [address], 11/09/2024 10:16:50 valacycl ovir 1 gram tablet 2024 025 [facility] #[id number], [address] [place], [address], 11/26/2024 05:01:38 MAGIC MOUTHWAS H 2024 025 [facility] #[id number], [address] [place], [address], 11/09/2024 10:16:50 medroxyp rogester one 150 mg/mL intramus cular suspensi on 2023 024 [email or web address] Not available 04/13/2024 14:29:01 Patient TargetsNo targets recorded. Patient Instructions Encounter Date Encounter Id Patient Instructions Last Modified By Organization Details Last Modified Time 06/14/2024 [id number] call or return for worsening or concerns. [email or web address] Not available 06/14/2024 14:06:46 11/09/2024 [id number] sore throat: car e instructions [email or web address] Not available 11/09/2024 10:16:48 Reason for Referral None Reported. Results Created Date Observation Date Name Description Value Unit Range Abnormal Flag Note LastModifiedBy Organization Detail LastModifiedTime 04/13/20 24 04/13/2024 pregn april test, urine HCG negati ve Not Available In-Office Order Internal Use Only DO Not Attach Compendium DO Not Attach Compendium, Do Not Delete/merge, [id number] 04/13/2024 14:10:03 06/14/19 25 06/15/2024 CBC WITH DIFFE RENTI AL/PL ATELE T WBC 7.6 x10e3 /uL 3.4-10 .8 normal Not Available [facility] ([facility]) [address] [facility], [place], [address], 06/15/2024 14:06:17 06/14/19 25 06/15/2024 CBC WITH DIFFE RENTI AL/PL ATELE T RBC 5.11 x10e6 /uL 3.77-5 .28 normal Not Available [facility] ([facility]) [address] [facility], [place], [address], 06/15/2024 14:06:17 06/14/19 25 06/15/2024 CBC WITH DIFFE RENTI AL/PL ATELE T hemoglobin 14.9 g/dL 11.1-1 5.9 normal Not Available [facility] ([facility]) [address] [place], [address], 06/15/2024 14:06:17 06/14/19 25 06/15/2024 CBC WITH DIFFE RENTI AL/PL ATELE T hematocrit 44.0 % 34.0-4 6.6 normal Not Available [facility] ([facility]) [address] [facility], [place], [address], 06/15/2024 14:06:17 06/14/19 25 06/15/2024 CBC WITH DIFFE RENTI AL/PL ATELE T MCV 86 fL 79-97 normal Not Available [facility] ([facility]) [address] [place], [address], 06/15/2024 14:06:17 06/14/19 25 06/15/2024 CBC WITH DIFFE RENTI AL/PL ATELE T MCH 29.2 pg 26.6-3 3.0 normal Not Available [facility] ([facility]) [address] [facility], [place], [address], 06/15/2024 14:06:17 06/14/19 25 06/15/2024 CBC WITH DIFFE RENTI AL/PL ATELE T MCHC 33.9 g/dL 31.5-3 5.7 normal Not Available [facility] ([facility]) [address] [facility], [place], [address], 06/15/2024 14:06:17 06/14/19 25 06/15/2024 CBC WITH DIFFE RENTI AL/PL ATELE T RDW 12.1 % 11.7-1 5.4 Not Available [facility] ([facility]) [address] [facility], [place], [address], 06/15/2024 14:06:17 06/14/19 25 06/15/2024 CBC WITH DIFFE RENTI AL/PL ATELE T platelets 302 x10e3 /uL 150-45 0 normal Not Available [facility] ([facility]) [address] [facility], [place], [address], 06/15/2024 14:06:17 06/14/19 25 06/15/2024 CBC WITH DIFFE RENTI AL/PL ATELE T neutrophils 61 % not estab. normal Not Available [facility] ([facility]) [address] [place], [address], 06/15/2024 14:06:17 06/14/19 25 06/15/2024 CBC WITH DIFFE RENTI AL/PL ATELE T lymphs 32 % not estab. normal Not Available [facility] ([facility]) [address] [place], [address], 06/15/2024 14:06:17 06/14/19 25 06/15/2024 CBC WITH DIFFE RENTI AL/PL ATELE T monocytes 6 % not estab. normal Not Available [facility] ([facility]) [address] [place], [address], 06/15/2024 14:06:17 06/14/19 25 06/15/2024 CBC WITH DIFFE RENTI AL/PL ATELE T eos 1 % not estab. normal Not Available [facility] ([facility]) [address] [place], [address], 06/15/2024 14:06:17 06/14/19 25 06/15/2024 CBC WITH DIFFE RENTI AL/PL ATELE T basos 0 % not estab. normal Not Available [facility] ([facility]) [address] [place], [address], 06/15/2024 14:06:17 06/14/19 25 06/15/2024 CBC WITH DIFFE RENTI AL/PL ATELE T immature cells RETURN TO SERVICE INSPECTOR Not Available [facility] ([facility]) [address] [place], [address], 06/15/2024 14:06:17 06/14/19 25 06/15/2024 CBC WITH DIFFE RENTI AL/PL ATELE T neutrophils (absolute) 4.6 x10e3 /uL 1.4-7. 0 normal Not Available [facility] ([facility]) [address] [place], [address], 06/15/2024 14:06:17 06/14/19 25 06/15/2024 CBC WITH DIFFE RENTI AL/PL ATELE T lymphs (absolute) 2.4 x10e3 /uL 0.7-3. 1 normal Not Available [facility] ([facility]) [address] [place], [address], 06/15/2024 14:06:17 06/14/19 25 06/15/2024 CBC WITH DIFFE RENTI AL/PL ATELE T monocytes(ab solute) 0.5 x10e3 /uL 0.1-0. 9 normal Not Available [facility] ([facility]) [address] [place], [address], 06/15/2024 14:06:17 06/14/19 25 06/15/2024 CBC WITH DIFFE RENTI AL/PL ATELE T eos (absolute) 0.1 x10e3 /uL 0.0-0. 4 normal Not Available [facility] ([facility]) [address] [facility], [place], [address], 06/15/2024 14:06:17 06/14/19 25 06/15/2024 CBC WITH DIFFE RENTI AL/PL ATELE T baso (absolute) 0.0 x10e3 /uL 0.0-0. 2 normal Not Available [facility] ([facility]) [address] [facility], [place], [address], 06/15/2024 14:06:17 06/14/19 25 06/15/2024 CBC WITH DIFFE RENTI AL/PL ATELE T immature granulocytes 0 % not estab. Not Available [facility] ([facility]) [address] [facility], [place], [address], 06/15/2024 14:06:17 06/14/1906/15/2024 CBC WITH DIFFE RENTI AL/PL ATELE T immature grans (abs) 0.0 x10e3 /uL 0.0-0. 1 Not Available [facility] ([facility]) [address] [place], [address], 06/15/2024 14:06:17 06/14/1906/15/2024 CBC WITH DIFFE RENTI AL/PL ATELE T NRBC RETURN TO SERVICE INSPECTOR Not Available [facility] ([facility]) [address] [place], [address], 06/15/2024 14:06:17 06/14/19 25 06/15/2024 CBC WITH DIFFE RENTI AL/PL ATELE T hematology comments: RETURN TO SERVICE INSPECTOR Not Available [facility] ([facility]) [address] [facility], [place], [address], 06/15/2024 14:06:17 06/14/19 25 06/15/2024 COMP. METAB OLIC PANEL (14) glucose 93 mg/dL 70-99 normal Not Available [facility] ([facility]) [address] [facility], [place], [address], 06/15/2024 14:06:18 06/14/19 25 06/15/2024 COMP. METAB OLIC PANEL (14) BUN 12 mg/dL 6-20 normal Not Available [facility] ([facility]) [address] [facility], [place], [address], 06/15/2024 14:06:18 06/14/19 25 06/15/2024 COMP. METAB OLIC PANEL (14) creatinine 0.78 mg/dL 0.57-1 .00 normal Not Available [facility] ([facility]) [address] [facility], [place], [address], 06/15/2024 14:06:18 06/14/19 25 06/15/2024 COMP. METAB OLIC PANEL (14) eGFR 111 mL/mi n/1.7 3 >59 normal Not Available [facility] ([facility]) [address] [facility], [place], [address], 06/15/2024 14:06:18 06/14/19 25 06/15/2024 COMP. METAB OLIC PANEL (14) BUN/creatini ne ratio 15 9-23 normal Not Available [facility] ([facility]) [address] [facility], [place], [address], 06/15/2024 14:06:18 06/14/19 25 06/15/2024 COMP. METAB OLIC PANEL (14) sodium 140 mmol/ L 134-14 4 normal Not Available [facility] ([facility]) [address] [facility], [place], [address], 06/15/2024 14:06:18 06/14/19 25 06/15/2024 COMP. METAB OLIC PANEL (14) potassium 4.1 mmol/ L 3.5-5. 2 normal Not Available [facility] ([facility]) [address] [facility] [place], [address], 06/15/2024 14:06:18 06/14/19 25 06/15/2024 COMP. METAB OLIC PANEL (14) chloride 103 mmol/ L 96-106 normal Not Available [facility] ([facility]) [address] [facility], [place], [address], 06/15/2024 14:06:18 06/14/19 25 06/15/2024 COMP. METAB OLIC PANEL (14) carbon dioxide, total 22 mmol/ L 20-29 normal Not Available [facility] ([facility]) [address] [facility], [place], [address], 06/15/2024 14:06:18 06/14/19 25 06/15/2024 COMP. METAB OLIC PANEL (14) calcium 9.6 mg/dL 8.7-10 .2 normal Not Available [facility] ([facility]) [address] [facility], [place], [address], 06/15/2024 14:06:18 06/14/19 25 06/15/2024 COMP. METAB OLIC PANEL (14) protein, total 7.9 g/dL 6.0-8. 5 normal Not Available [facility] ([facility]) [address] [facility], [place], [address], 06/15/2024 14:06:18 06/14/19 25 06/15/2024 COMP. METAB OLIC PANEL (14) albumin 4.7 g/dL 4.0-5. 0 normal Not Available [facility] ([facility]) [address] [facility] [place], [address], 06/15/2024 14:06:18 06/14/19 25 06/15/2024 COMP. METAB OLIC PANEL (14) globulin, total 3.2 g/dL 1.5-4. 5 Not Available [facility] ([facility]) [address] [facility] [place], [address], 06/15/2024 14:06:18 06/14/19 25 06/15/2024 COMP. METAB OLIC PANEL (14) bilirubin, total <0.2 mg/dL 0.0-1. 2 Not Available [facility] ([facility]) [address] [facility] [place], [address], 06/15/2024 14:06:18 06/14/19 25 06/15/2024 COMP. METAB OLIC PANEL (14) alkaline phosphatase 62 IU/L 44-121 normal Not Available [facility] ([facility]) [address] [facility] [place], [address], 06/15/2024 14:06:18 06/14/19 25 06/15/2024 COMP. METAB OLIC PANEL (14) AST (SGOT) 20 IU/L 0-40 normal Not Available [facility] ([facility]) [address] [facility] [place], [address], 06/15/2024 14:06:18 06/14/19 25 06/15/2024 COMP. METAB OLIC PANEL (14) ALT (SGPT) 14 IU/L 0-32 normal Not Available [facility] ([facility]) [address] [facility] [place], [address], 06/15/2024 14:06:18 06/14/19 25 06/15/2024 KENNETH+L IPASE amylase 79 U/L 31-110 normal Not Available [facility] ([facility]) [address] [facility] [place], [address], 06/15/2024 14:06:19 06/14/19 25 06/15/2024 KENNETH+L IPASE lipase 47 U/L 14-72 normal Not Available [facility] ([facility]) [address] [facility], [place], [address], 06/15/2024 14:06:19 06/14/1906/15/2024 H PYLOR I BREAT H TEST H pylori breath test Negati ve negati ve Not Available [facility] ([facility]) [address] [facility], [place], [address], 06/15/2024 14:06:20 06/14/19 25 06/15/2024 NUSWA B BV KEYON+C AND6+ CT/GC /T... atopobium vaginae Modera te - 1 score Not Available [facility] ([facility]) [address] [facility], [place], [address], 06/17/2024 08:06:53 06/14/19 25 06/15/2024 NUSWA B BV KEYON+C AND6+ CT/GC /T... bvab 2 Low - 0 score Not Available [facility] ([facility]) [address] [facility], [place], [address], 06/17/2024 08:06:53 06/14/1906/15/2024 NUSWA B BV KEYON+C AND6+ CT/GC /T... megasphaera 1 High - 2 score abnormal Calcu late total score by patricia g the 3 indiv idual bacte rial vagin [...] prese nce of BV. Not Available [facility] ([facility]) [address] [place], [address], 06/17/2024 08:06:53 06/14/19 25 06/15/2024 NUSWA B BV KEYON+C AND6+ CT/GC /T... monserrat albicans, KEYON Negati ve negati ve Not Available [facility] ([facility]) [address] [place], [address], 06/17/2024 08:06:53 06/14/19 25 06/15/2024 NUSWA B BV KEYON+C AND6+ CT/GC /T... monserrat glabrata, KEYON Negati ve negati ve Not Available [facility] ([facility]) [address] [place], [address], 06/17/2024 08:06:53 06/14/19 25 06/15/2024 NUA B BV KEYON+C AND6+ CT/GC /T... C parapsilosis /tropicalis Negati ve negati ve This assay does not diffe renti ate C. tropi calis and C. parap el is. Not Available [facility] ([facility]) [address] [place], [address], 06/17/2024 08:06:53 06/14/19 25 06/15/2024 NUA B BV KEYON+C AND6+ CT/GC /T... monserrat lusitaniae, KEYON Negati ve negati ve Not Available [facility] ([facility]) [address] [place], [address], 06/17/2024 08:06:53 06/14/19 25 06/15/2024 NUSWA B BV KEYON+C AND6+ CT/GC /T... monserrat krusei, KEYON Negati ve negati ve Not Available [facility] ([facility]) [address] [place], [address], 06/17/2024 08:06:53 06/14/19 25 06/16/2024 NUSWA B BV KEYON+C AND6+ CT/GC /T... hsv 1 KEYON Negati ve negati ve Not Available [facility] ([facility]) [address] [facility], [place], [address], 06/17/2024 08:06:53 06/14/1906/16/2024 NUSWA B BV KEYON+C AND6+ CT/GC /T... hsv 2 KEYON Negati ve negati ve Not Available [facility] ([facility]) [address] [facility], [place], [address], 06/17/2024 08:06:53 06/14/19 25 06/17/2024 NUSWA B BV KEYON+C AND6+ CT/GC /T... trich vag by KEYON Negati ve negati ve Not Available [facility] ([facility]) [address] [facility], [place], [address], 06/17/2024 08:06:53 06/14/1906/17/2024 NUSWA B BV KEYON+C AND6+ CT/GC /T... chlamydia trachomatis, KEYON Negati ve negati ve Not Available [facility] ([facility]) [address] [facility], [place], [address], 06/17/2024 08:06:53 06/14/1906/17/2024 NUSWA B BV KEYON+C AND6+ CT/GC /T... neisseria gonorrhoeae, KEYON Negati ve negati ve Not Available [facility] ([facility]) [address] [place], [address], 06/17/2024 08:06:53 06/14/19 25 06/15/2024 URINA LYSIS , COMPL ETE specific gravity 1.024 1.005- 1.030 normal Not Available [facility] ([facility]) [address] [place], [address], 06/17/2024 08:06:54 06/14/19 25 06/15/2024 URINA LYSIS , COMPL ETE pH 7.0 5.0-7. 5 normal Not Available [facility] ([facility]) [address] [facility], [place], [address], 06/17/2024 08:06:54 06/14/19 25 06/15/2024 URINA LYSIS , COMPL ETE urine-color Yellow yellow Not Available [facility] ([facility]) [address] [facility], [place], [address], 06/17/2024 08:06:54 06/14/19 25 06/15/2024 URINA LYSIS , COMPL ETE appearance Clear clear Not Available [facility] ([facility]) [address] [place], [address], 06/17/2024 08:06:54 06/14/19 25 06/15/2024 URINA LYSIS , COMPL ETE WBC esterase Negati ve negati ve Not Available [facility] ([facility]) [address] [place], [address], 06/17/2024 08:06:54 06/14/19 25 06/15/2024 URINA LYSIS , COMPL ETE protein Negati ve negati ve/tra ce Not Available [facility] ([facility]) [address] [place], [address], 06/17/2024 08:06:54 06/14/19 25 06/15/2024 URINA LYSIS , COMPL ETE glucose Negati ve negati ve Not Available [facility] ([facility]) [address] [place], [address], 06/17/2024 08:06:54 06/14/19 25 06/15/2024 URINA LYSIS , COMPL ETE ketones Negati ve negati ve Not Available [facility] ([facility]) [address] [place], [address], 06/17/2024 08:06:54 06/14/19 25 06/15/2024 URINA LYSIS , COMPL ETE occult blood Negati ve negati ve Not Available [facility] ([facility]) [address] [facility], [place], [address], 06/17/2024 08:06:54 06/14/1906/15/2024 URINA LYSIS , COMPL ETE bilirubin Negati ve negati ve Not Available [facility] ([facility]) [address] [facility], [place], [address], 06/17/2024 08:06:54 06/14/19 25 06/15/2024 URINA LYSIS , COMPL ETE urobilinogen ,semi-qn 1.0 mg/dL 0.2-1. 0 normal Not Available [facility] ([facility]) [address] [place], [address], 06/17/2024 08:06:54 06/14/19 25 06/15/2024 URINA LYSIS , COMPL ETE nitrite, urine Negati ve negati ve Not Available [facility] ([facility]) [address] [place], [address], 06/17/2024 08:06:54 06/14/1906/15/2024 URINA LYSIS , COMPL ETE microscopic examination Commen t Micro scopi c follo ws if indic ated. Not Available [facility] ([facility]) [address] [facility], [place], [address], 06/17/2024 08:06:54 06/14/19 25 06/15/2024 URINA LYSIS , COMPL ETE microscopic examination See below: Micro scopi c was indic ated and was perfo rmed. Not Available [facility] ([facility]) [address] [place], [address], 06/17/2024 08:06:54 06/14/19 25 06/15/2024 URINA LYSIS , COMPL ETE WBC None seen /hpf 0 - 5 Not Available [facility] ([facility]) [address] [place], [address], 06/17/2024 08:06:54 06/14/19 25 06/15/2024 URINA LYSIS , COMPL ETE RBC None seen /hpf 0 - 2 Not Available [facility] ([facility]) [address] [facility], [place], [address], 06/17/2024 08:06:54 06/14/19 25 06/15/2024 URINA LYSIS , COMPL ETE epithelial cells (non renal) None seen /hpf 0 - 10 Not Available [facility] ([facility]) [address] [facility], [place], [address], 06/17/2024 08:06:54 06/14/19 25 06/15/2024 URINA LYSIS , COMPL ETE epithelial cells (renal) RETURN TO SERVICE INSPECTOR Not Available [facility] ([facility]) [address] [facility], [place], [address], 06/17/2024 08:06:54 06/14/19 25 06/15/2024 URINA LYSIS , COMPL ETE casts None seen /lpf none seen Not Available [facility] ([facility]) [address] [facility], [place], [address], 06/17/2024 08:06:54 06/14/19 25 06/15/2024 URINA LYSIS , COMPL ETE cast type RETURN TO SERVICE INSPECTOR Not Available [facility] ([facility]) [address] [facility], [place], [address], 06/17/2024 08:06:54 06/14/19 25 06/15/2024 URINA LYSIS , COMPL ETE crystals RETURN TO SERVICE INSPECTOR Not Available [facility] ([facility]) [address] [place], [address], 06/17/2024 08:06:54 06/14/19 25 06/15/2024 URINA LYSIS , COMPL ETE crystal type RETURN TO SERVICE INSPECTOR Not Available [facility]) [address] [facility], [place], [address], 06/17/2024 08:06:54 06/14/19 25 06/15/2024 URINA LYSIS , COMPL ETE mucus threads RETURN TO SERVICE INSPECTOR Not Available [facility] ([facility]) [address] [facility], [place], [address], 06/17/2024 08:06:54 06/14/1906/15/2024 URINA LYSIS , COMPL ETE bacteria None seen none seen/f ew Not Available [facility] ([facility]) [address] [facility], [place], [address], 06/17/2024 08:06:54 06/14/1906/15/2024 URINA LYSIS , COMPL ETE yeast RETURN TO SERVICE INSPECTOR Not Available [facility] ([facility]) [address] [facility], [place], [address], 06/17/2024 08:06:54 06/14/1906/15/2024 URINA LYSIS , COMPL ETE trichomonas RETURN TO SERVICE INSPECTOR Not Available [facility] ([facility]) [address] [facility], [place], [address], 06/17/2024 08:06:54 06/14/1906/15/2024 URINA LYSIS , COMPL ETE comment RETURN TO SERVICE INSPECTOR Not Available [facility] ([facility]) [address] [facility], [place], [address], 06/17/2024 08:06:54 06/14/1906/16/2024 URINE CULTU REJENNY NE urine culture, routine Final report Not Available [facility] ([facility]) [address] [facility], [place], [address], 06/17/2024 08:06:54 06/14/1906/16/2024 URINE CULTU REJENNY NE result 1 No growth Not Available [facility] ([facility]) [address] [facility], [place], [address], 06/17/2024 08:06:54 06/14/19 25 06/14/2024 urina lysis , dipst ick Leukocytes Negati ve Not Available In-Office Order Internal Use Only DO Not Attach Compendium DO Not Attach Compendium, Do Not Delete/merge, [facility] 06/14/2024 13:46:51 06/14/19 25 06/14/2024 urina lysis , dipst ick Nitritie negati ve Not Available In-Office Order Internal Use Only DO Not Attach Compendium DO Not Attach Compendium, Do Not Delete/merge, [facility] 06/14/2024 13:46:51 06/14/19 25 06/14/2024 urina lysis , dipst ick Urobilinogen .2 Not Available In-Of fice Order Internal Use Only DO Not Attach Compendium DO Not Attach Compendium, Do Not Delete/merge, Formerly [facility] 06/14/2024 13:46:51 06/14/19 25 06/14/2024 urina lysis , dipst ick Protein Negati ve Not Available In-Office Order Internal Use Only DO Not Attach Compendium DO Not Attach Compendium, Do Not Delete/merge, Formerly [facility] 06/14/2024 13:46:51 06/14/19 25 06/14/2024 urina lysis , dipst ick pH 6.0 Not Available In-Office Order Internal Use Only DO Not Attach Compendium DO Not Attach Compendium, Do Not Delete/merge, Formerly [facility] 06/14/2024 13:46:51 06/14/19 25 06/14/2024 urina lysis , dipst ick Blood Negati ve Not Available In-Office Order Internal Use Only DO Not Attach Compendium DO Not Attach Compendium, Do Not Delete/merge, Formerly [facility] 06/14/2024 13:46:51 06/14/19 25 06/14/2024 urina lysis , dipst ick Specific [place] 1.020 Not Available In-Off ice Order Internal Use Only DO Not Attach Compendium DO Not Attach Compendium, Do Not Delete/merge, Formerly [facility] 06/14/2024 13:46:51 06/14/19 25 06/14/2024 urina lysis , dipst ick Ketone Negati ve Not Available In-Office Order Internal Use Only DO Not Attach Compendium DO Not Attach Compendium, Do Not Delete/merge, [id number] 06/14/2024 13:46:51 06/14/1906/14/2024 urina lysis , dipst ick Bilirubin Negati ve Not Available In-Office Order Internal Use Only DO Not Attach Compendium DO Not Attach Compendium, Do Not Delete/merge, [id number] 06/14/2024 13:46:51 06/14/19 25 06/14/2024 urina lysis , dipst ick Glucose Negati ve Not Available In-Office Order Internal Use Only DO Not Attach Compendium DO Not Attach Compendium, Do Not Delete/merge, [id number] 06/14/2024 13:46:51 06/14/1906/14/2024 urina lysis , dipst ick Appearance Clear Not Available In-Offi ce Order Internal Use Only DO Not Attach Compendium DO Not Attach Compendium, Do Not Delete/merge, Formerly [facility] 06/14/2024 13:46:51 06/14/1906/14/2024 urina lysis , dipst ick Color Yellow Not Available In-Office Order Internal Use Only DO Not Attach Compendium DO Not Attach Compendium, Do Not Delete/merge, Formerly [facility] 06/14/2024 13:46:51 07/25/19 25 07/25/2024 NUSWA B BV KEYON+C AND6+ CT/GC /T... atopobium vaginae Low - 0 score Not Available [facility] ([facility]) [address] [place], [address], 07/26/2024 22:05:47 07/25/19 25 07/25/2024 NUSWA B BV KEYON+C AND6+ CT/GC /T... bvab 2 Low - 0 score Not Available [facility] ([facility]) [address] [place], [address], 07/26/2024 22:05:47 07/25/19 25 07/25/2024 NUSWA B [...] prese nce of BV. Not Available [facility] ([facility]) [address] [place], [address], 07/26/2024 22:05:47 07/25/19 25 07/25/2024 NUSWA B BV KEYON+C AND6+ CT/GC /T... monserrat albicans, KEYON Negati ve negati ve Not Available [facility] ([facility]) [address] [place], [address], 07/26/2024 22:05:47 07/25/19 25 07/25/2024 NUSWA B BV KEYON+C AND6+ CT/GC /T... monserrat glabrata, KEYON Negati ve negati ve Not Available [facility] ([facility]) [address] [place], [address], 07/26/2024 22:05:47 07/25/19 25 07/25/2024 NUSWA B BV KEYON+C AND6+ CT/GC /T... C parapsilosis /tropicalis Negati ve negati ve This assay does not diffe renti ate C. tropi calis and C. parap el is. Not Available [facility] ([facility]) [address] [place], [address], 07/26/2024 22:05:47 07/25/19 25 07/25/2024 NUSWA B BV KEYON+C AND6+ CT/GC /T... monserrat lusitaniae, KEYON Negati ve negati ve Not Available [facility] ([facility]) [address] [place], [address], 07/26/2024 22:05:47 07/25/19 25 07/25/2024 NUSWA B BV KEYON+C AND6+ CT/GC /T... monserrat krusei, KEYON Negati ve negati ve Not Available [facility] ([facility]) [address] [place], [address], 07/26/2024 22:05:47 07/25/19 25 07/26/2024 NUSWA B BV KEYON+C AND6+ CT/GC /T... trich vag by KEYON Negati ve negati ve Not Available [facility] ([facility]) [address] [place], [address], 07/26/2024 22:05:47 07/25/19 25 07/26/2024 NUSWA B BV KEYON+C AND6+ CT/GC /T... chlamydia trachomatis, KEYON Negati ve negati ve Not Available [facility] ([facility]) [address] [place], [address], 07/26/2024 22:05:47 07/25/19 25 07/26/2024 NUSWA B BV KEYON+C AND6+ CT/GC /T... neisseria gonorrhoeae, KEYON Negati ve negati ve Not Available [facility] ([facility]) [address] [place], [address], 07/26/2024 22:05:47 07/25/19 25 07/26/2024 NUSWA B BV KEYON+C AND6+ CT/GC /T... hsv 1 KEYON Negati ve negati ve Not Available [facility] ([facility]) [address] [place], [address], 07/26/2024 22:05:47 07/25/19 25 07/26/2024 NUSWA B BV KEYON+C AND6+ CT/GC /T... hsv 2 KEYON Negati ve negati ve Not Available [facility] ([facility]) [address] [facility], [place], [address], 07/26/2024 22:05:47 07/28/19 25 07/27/2024 rapid influ zak virus A + B and SARS CoV + SARS CoV 2 Ag panel , IA, upper respi rator y speci men Unknown Analyte negati ve Not Available In-Office Order Internal Use Only DO Not Attach Compendium DO Not Attach Compendium, Do Not Delete/merge, 07/27/2024 13:20:59 07/28/19 25 07/27/2024 rapid influ zak virus A + B and SARS CoV + SARS CoV 2 Ag panel , [place], upper respi rator y speci men Unknown Analyte negati ve Not Available In-Office Order Internal Use Only DO Not Attach Compendium DO Not Attach Compendium, Do Not Delete/merge, [id number] 07/27/2024 13:20:59 07/28/19 25 07/27/2024 rapid influ zak virus A + B and SARS CoV + SARS CoV 2 Ag panel , [place], upper respi rator y speci men Unknown Analyte negati ve Not Available In-Office Order Internal Use Only DO Not Attach Compendium DO Not Attach Compendium, Do Not Delete/merge, [id number] 07/27/2024 13:20:59 11/10/19 25 11/09/2024 strep group A, DNA, swab ID NOW Strep A 2 (rapid molecular test) negati ve Not Available In-Office Order Internal Use Only DO Not Attach Compendium DO Not Attach Compendium, Do Not Delete/merge, 11/09/2024 09:47:12 01/12/20 25 01/11/2025 pregn april test, urine HCG negati ve Not Available In-Office Order Internal Use Only DO Not Attach Compendium DO Not Attach Compendium, Do Not Delete/merge, [id number] 01/11/2025 08:24:27 07/10/19 25 07/10/2024 US, abdom en, limit [...] I agree with this report . WSN: [id number] Orderi ng Physic rin: Theresa Page Dictat ed By: Jose R Kang DO Dictkeaton ed Date/T bhavna: 10:50 a Review ed By: Harshal Pimentel MD Signed By: Harshal Pimentel MD Signed Date/T bhavna: 10:55 am Transc ribed By: MAGGIE Transc ribed Date/T bhavna: 10:31 am Patien t Class: Outpat ient [facility] (Outpt Imaging) [address] [place] [address], [address], 08/02/2024 10:54:59 Result Notes None recorded. Problems Name Problem SNOMED Code Status Onset Date Resolution Date Notes Provider Name and Address Organization Details Recorded Time Eczema 93821246 Active BRIGITTE Gillespie [address] [address], [place], [address], [facility] 6 15:26:01 Reduced visual acuity 92870881 Active BRIGITTE Gillespie [address], [place], [address], [facility] 6 15:26:01 Epigastr ic pain 64546178 Completed 200712/27/2013 RECORDED 03/12/20 08 3:00PM BY INEZ GALE ON/ADDSILAS Keys, [facility] [address], [place], [address], [facility] 6 15:26:01 Conjunct ivitis 0166841 Completed 200712/27/2013 RECORDED 03/12/20 08 2:59PM BY INEZ GALE ON/MARVIN Keys, [facility] [address] [facility] [address], [place], [address], [facility] 6 15:26:01 Dysuria 22205160 Completed 200712/27/2013 RECORDED 03/12/20 08 3:00PM BY INEZ GALE ON/MARVIN Keys, [facility] [address] [facility] [address], [place], [address], [facility] 6 15:26:01 Fever [id number] Completed 200712/27/2013 RECORDED 03/12/20 08 3:00PM BY INEZ GALE ON/MARVIN Keys, [facility] [address], [place], [address], [facility] 6 15:26:01 Epigastr ic pain 85329866 Completed 200712/28/2013 RECORDED 03/12/20 08 3:00PM BY INEZ GALE ON/MARVIN Keys, [facility] [address], [place], [address], [facility] 6 15:26:01 Conjunct ivitis 4602714 Completed 200712/28/2013 RECORDED 03/12/20 08 2:59PM BY INEZ GALE ON/ADDEN ELIZABETH Keys, [facility] [address], [place], [address], [facility] 6 15:26:01 Dysuria 59594591 Completed 200712/28/2013 RECORDED 03/12/20 08 3:00PM BY INEZ GALE ON/MARVIN Keys, [facility] [address], [place], [address], [facility] 6 15:26:01 Fever [id number] Completed 200712/28/2013 RECORDED 03/12/20 08 3:00PM BY INEZ GALE ON/ADDEN ELIZABETH Keys, [facility] [address], [place], [address], [facility] 6 15:26:01 Epigastr ic pain 66037481 Completed 200712/04/2013 RECORDED 03/12/20 08 3:00PM BY INEZ GALE ON/MARVIN Keys, [facility] [address], [place], [address], [facility] 6 15:26:01 Conjunct ivitis 8805611 Completed 200712/04/2013 RECORDED 03/12/20 08 2:59PM BY INEZ GALE ON/ADDEN ELIZABETH Keys, [facility] [address], [place], [address], [facility] 6 15:26:01 Dysuria 25723687 Completed 200712/04/2013 RECORDED 03/12/20 08 3:00PM BY INEZ GALE ON/ADDEN DUM Jim Keys, [facility] [address] [facility] [address], [facility] [place], [address], [facility] 6 15:26:01 Fever [id number] Completed 200712/04/2013 RECORDED 03/12/20 08 3:00PM BY INEZ GALE ON/ADDEN DUM Jim Keys, [facility] [address] [facility] [address], [facility] [place], [address], [facility] 6 15:26:01 Well child 868076996 Completed 200812/04/2013 RECORDED 09/15/19 09 9:09AM BY INEZ GALE ON/ADDEN DUM Edy john [place] null, [facility] 6 14:37:10 Acute secretor y otitis media 790305789 Completed 200812/27/2013 RECORDED 03/07/20 09 9:27AM BY EDY AGUILAR MA, INEZ ON/ADDEN DUM Jim Keys, [facility] [address] [facility] [address], [place], [address], [facility] 6 15:26:01 Influenz a vaccine needed 53265619984 06 Completed 200812/27/2013 DATE: 03/07/20 09; RECORDED 05/15/20 13 8:35AM BY INEZ LUND ON/ADDEN DUM Jim Keys, [facility] [address] [facility] [address], [place], [address], [facility] 6 15:26:01 Acute secretor y otitis media 523185478 Completed 200812/28/2013 RECORDED 03/07/20 09 9:27AM BY EDY AGUILAR MA, INEZ ON/ADDEN DUM Jim Keys, [facility] [address] [facility] [address], [place], [address], [facility] 6 15:26:01 Influenz a vaccine needed 19035467949 06 Completed 200812/28/2013 DATE: 03/07/20 09; RECORDED 05/15/20 13 8:35AM BY INEZ LUND ON/ADDEN DUM Jim Keys, [facility] [address] [facility] [address], [facility] [place], [address], [facility] 6 15:26:01 Acute secretor y otitis media 145769844 Completed 200812/04/2013 RECORDED 03/07/20 09 9:27AM BY EDY AGUILAR MA, INEZ ON/ADDEN DUM Jim Keys, [facility] [address] [facility] [address], [place], [address], [facility] 6 15:26:01 Influenz a vaccine needed 46387855436 06 Completed 200812/04/2013 DATE: 03/07/20 09; RECORDED 05/15/20 13 8:35AM BY INEZ LUND ON/ADDEN DUM Jim Keys, [facility] [address] [facility] [address], [facility] [place], [address], [facility] 6 15:26:01 Acute pharyngi tis 635893422 Completed 201112/27/2013 RECORDED 11/30/19 12 8:26AM BY CYNTHIA TORRE PA-C, ERIKATI ON/ADDEN DUM Tammie Perse [facility] 5 09:57:47 Streptoc occal sore throat 99724781 Completed 201112/27/2013 RECORDED 11/30/19 12 8:26AM BY CYNTHIA TORRE PA-C, ANNOTATI ON/ADDEN DUM Jim Keys, [facility] [address] [facility] [address], [place], [address], [facility] 6 15:26:01 Cellulit is and abscess of face 840179080 Completed 201112/27/2013 RECORDED 11/30/19 12 8:26AM BY CYNTHIA TORRE PA-C, ANNOTATI ON/ADDEN DUM Jim Keys, [facility] [address] [facility] [address], [place], [address], [facility] 6 15:26:01 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 502107248 Completed 201112/27/2013 RECORDED 11/30/19 12 8:26AM BY CYNTHIA TORRE PA-C, ANNOTNEGRITA ON/ADDEN DUM Jim Keys, [facility] [address] [facility] [address], [place], [address], [facility] 6 15:26:01 Impetigo 91902702 Completed 201112/27/2013 RECORDED 11/30/19 12 9:59AM BY CYNTHIA TORRE PA-C, ANNOTNEGRITA ON/ADDEN DUM Jim Keys, [facility] [address] [facility] [address], [place], [address], [facility] 6 15:26:01 Infestat ion by Gretchen galeas 22399057 Completed 201112/27/2013 RECORDED 11/30/19 12 8:26AM BY CYNTHIA TORRE PA-C, INEZ ON/ADDEN DUM Jim Keys, [facility] [address] [facility] [address], [place], [address], [facility] 6 15:26:01 Eruption [id number] Completed 201112/27/2013 RECORDED 11/30/19 12 8:26AM BY CYNTHIA TORRE PA-C, ANNOTATI ON/ADDEN DUM Jim Kesy, [facility] [address] [facility] [address], [place], [address], [facility] 6 15:26:01 Acute pharyngi tis 853877138 Completed 201112/28/2013 RECORDED 11/30/19 12 8:26AM BY CYNTHIA TORRE PA-C, ANNOTATI ON/ADDEN DUM Tammie Peres [facility] 5 09:57:47 Streptoc occal sore throat 32210361 Completed 201112/28/2013 RECORDED 11/30/19 12 8:26AM BY CYNTHIA TORRE PA-C, ANNOTATI ON/ADDEN DUM Jim Keys, [facility] [address] [address], [place], [address], [facility] 6 15:26:01 Cellulit is and abscess of face 377667130 Completed 201112/28/2013 RECORDED 11/30/19 12 8:26AM BY CYNTHIA TORRE PA-C, ANNOTATI ON/ADDEN DUM Jim Keys, [facility] [address] [address], [place], [address], [facility] 6 15:26:01 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 040134288 Completed 201112/28/2013 RECORDED 11/30/19 12 8:26AM BY CYNTHIA TORRE PA-C, ANNOTATI ON/ADDEN DUM Jim Keys, [facility] [address] [address], [place], [address], [facility] 6 15:26:01 Impetigo 07637158 Completed 201112/28/2013 RECORDED 11/30/19 12 9:59AM BY CYNTHIA TORRE PA-C, ANNOTATI ON/ADDEN DUM Jim Keys, [facility] [address] [address], [place], [address], [facility] 6 15:26:01 Infestat ion by Gretchen galeas 04824072 Completed 201112/28/2013 RECORDED 11/30/19 12 8:26AM BY CYNTHIA TORRE PA-C, ANNOTATI ON/ADDEN DUM Jim Keys, [facility] [address] [address], [place], [address], [facility] 6 15:26:01 Eruption 940647335 Completed 201112/28/2013 RECORDED 11/30/19 12 8:26AM BY CYNTHIA TORRE PA-C, ANNOTATI ON/ADDEN DUM Jim Keys, [facility] [address] [address], [place], [address], [facility] 6 15:26:01 Acute pharyngi tis 589739733 Completed 201112/04/2013 RECORDED 11/30/19 12 8:26AM BY CYNTHIA TORRE PA-C, ANNOTATI ON/ADDEN DUM Tammie Peres [facility] 5 09:57:47 Streptoc occal sore throat 44581822 Completed 201112/04/2013 RECORDED 11/30/19 12 8:26AM BY CYNTHIA TORRE PA-C, ANNOTATI ON/ADDEN DUM Jim Keys, [facility] [address] [address], [place], [address], [facility] 6 15:26:01 Cellulit is and abscess of face 089311077 Completed 201112/04/2013 RECORDED 11/30/19 12 8:26AM BY CYNTHIA TORRE PA-C, ANNOTATI ON/ADDEN DUM Jim Keys, [facility] [address] [facility] [address], [place], [address], [facility] 6 15:26:01 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 407760701 Completed 201112/04/2013 RECORDED 11/30/19 12 8:26AM BY CYNTHIA TORRE PA-C, ANNOTATI ON/ADDEN DUM Jim Keys, [facility] [address] [facility] [address], [place], [address], [facility] 6 15:26:01 Impetigo 45756711 Completed 201112/04/2013 RECORDED 11/30/19 12 9:59AM BY CYNTHIA TORRE PA-C, ANNOTATI ON/ADDEN DUM Jim Keys, [address], [place], [address], [facility] 6 15:26:01 Infestat ion by Gretchen galeas 26403809 Completed 201112/04/2013 RECORDED 11/30/19 12 8:26AM BY CYNTHIA TORRE PA-C, ANNOTATI ON/ADDEN DUM Jim Keys, [facility] [address] [place] [address] [address], [place], [address], [facility] 6 15:26:01 Eruption 419520369 Completed 201112/04/2013 RECORDED 11/30/19 12 8:26AM BY CYNTHIA TORRE PA-C, INEZ ON/ADDEN DUM Jim Keys, [facility] [address] [facility] [address], [place], [address], [facility] 6 15:26:01 Administ ration of viral vaccine Completed 201212/27/2013 RECORDED 05/15/20 13 2:44PM BY MIKE DYER MD, WELL CHILD VISITS Jim Keys, [facility] [address] [facility] [address], [place], [address], [facility] 6 15:26:01 Methicil jordan resistan t Staphylo coccus aureus infectio n 558957766 Completed 201212/27/2013 RECORDED 05/15/20 13 8:35AM BY INEZ LUND ON/ADDEN DUM Jim Keys, [facility] [address] [facility] [address], [place], [address], [facility] 6 15:26:01 Verruca plantari s 56107415 Completed 201212/27/2013 IMPRESSI ON: L HEEL; RECORDED 05/15/20 13 8:35AM BY INEZ LUND ON/ADDEN DUM Jim Keys, [address] [address], [place], [address], [facility] 6 15:26:01 Administ ration of viral vaccine Completed 201212/28/2013 RECORDED 05/15/20 13 2:44PM BY MIKE DYER MD, WELL CHILD VISITS Jim Keys, [address] [address], [place], [address], [facility] 6 15:26:01 Methicil jordan resistan t Staphylo coccus aureus infectio n 861229011 Completed 201212/28/2013 RECORDED 05/15/20 13 8:35AM BY INEZ LUDN ON/ADDEN DUM Jim Keys, [facility] [address] [facility] [address], [place], [address], [facility] 6 15:26:01 Verruca plantari s 43312593 Completed 201212/28/2013 IMPRESSI ON: L HEEL; RECORDED 05/15/20 13 8:35AM BY ERIK LUNDATI ON/ADDEN DUM Jim Keys, [facility] [address] [address], [place], [address], [facility] 6 15:26:01 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 177726724 Completed 201209/01/2016 Removal Reason: not specific [facility] 13:59[facility]23 Contact dermatit is 40615913 Completed 201208/31/2016 RECORDED 05/15/20 13 1:59PM BY RAMIRO VALLECILLO I, WELL CHILD VISITS [facility] 7 11:30:54 Administ ration of viral vaccine Completed 201212/04/2013 RECORDED 05/15/20 13 2:44PM BY MIKE DYER MD, WELL CHILD VISITS Jim Keys, [facility] [address] [address], [place], [address], [facility] 6 15:26:01 Methicil jordan resistan t Staphylo coccus aureus infectio n 126223002 Completed 201212/04/2013 RECORDED 05/15/20 13 8:35AM BY INEZ LUND ON/ADDEN DUM Jim Keys, [facility] [address] [address], [place], [address], [facility] 6 15:26:01 Developm ental delay 674330999 Active [address] [facility] 7 11:30:53 Verruca plantari s 89727601 Completed 201212/04/2013 IMPRESSI ON: L HEEL; RECORDED 05/15/20 13 8:35AM BY RAMIRO VALLECILLO I ANNOTATI ON/ADDEN DUM Jim Keys, [facility] [address] [facility] [address], [place], [address], [facility] 6 15:26:01 Well child 123694101 Completed 201203/30/2016 RECORDED 05/15/20 13 2:05PM BY RAMIRO VALLECILLO I, WELL CHILD VISITS Edy john MA null, [facility] 6 14:37:10 Wears glasses 096546964 Active 2016 Marilia Singh MA null, [facility] 7 14:06:39 Scoliosi s of thoracic spine 043400480 Active 12/08 seen at [facility] , 26 degree thoracic curve, rec followup 6 months, no bracing/ /Followu p 06/2019, no change in curve, followup prn Lakisha harper null, [facility] 0 10:36:20 Candidia sis of vagina 82446373 Active 2022 Jim Keys, [facility] [address] [facility] [address], [place], [address], [facility] 3 15:59:41 Vaginiti s 37696967 Active 2022 Jim Keys, [facility] [address] [facility] [address], [place], [address], [facility] 3 16:00:20 Pelvic floor dysfunct ion 907912814 Active 2022 Jim Keys, [facility] [address], [place], [address], [facility] 3 16:02:45 Third degree perineal lacerati on 11244618 Active 2022 Jim Keys, [facility] [address] [facility] [address], [place], [address], [facility] 3 16:07:32 Acute right otitis media 385075814 Active 2022 Jim Keys [facility] [address] [address], [place], [address], [facility] 3 16:14:20 Bacteria l vaginosi s 249337417 Active 2022 Jim Keys [facility] [address] [place] [address], [place], [address], [facility] 3 15:29:52 Fatigue 00277281 Active 2022 Jim Keys [facility] [address] [place] [address], [place], [address], [facility] 3 15:30:59 Unable to control flatus 634708994 Active 2022 Jim Keys [facility] [address] [place] [address], [place], [address], [facility] 3 15:32:02 Anemia due to unknown mechanis m 87483166 Active 2022 Jim Keys [facility] [address] [place] [address], [place], [address], [facility] 3 15:35:31 Vitamin D deficien cy 30165242 Active 2022 Jim Keys [facility] [address] [place] [address], [place], [address], [facility] 3 15:35:49 Cough 37877150 Active 2022 Jim Keys [address] [address], [place], [address], [facility] 3 15:36:35 Allergic rhinitis 14315686 Active 2022 Jim Keys [facility] [address] [place] [address], [place], [address], [facility] 3 15:38:34 Pain in pelvis 06806370 Active 2022 Jim Keys, [facility] [address] [facility] [address], [place], [address], [facility] 3 15:46:29 Dizzines s 692255551 Active 2023 Jim Keys, [facility] [address] [facility] [address], [place], [address], [facility] 4 14:02:08 Anemia 245285101 Active 2023 Jim Keys, [facility] [address] [facility] [address], [place], [address], [facility] 4 14:02:26 Urinary tract infectio us disease [id number] Active 2024 Jim Keys, [facility] [address] [facility] [address], [place], [address], [facility] 5 13:57:20 Right upper quadrant pain [id number] Active 2024 Jim Keys, [facility] [address] [facility] [address], [place], [address], [facility] 5 13:57:37 Acute vaginiti s [id number] Active 2024 Jim Keys, [facility] [facility] [id number] [facility] [address], [place], [address], [facility] 5 12:43:16 Acute pharyngi tis 543394144 Active 2024 RECORDED 11/30/19 12 8:26AM BY CYNTHIA TORRE PA-C, ANNOTATI ON/ADDEN [facility] 5 09:57:47 Ulcerati ve pharyngi tis 13564040 Active 2024 Tammie wheeler, 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 5 10:47:19 Problem Notes None recorded. Procedures Surgical History Date Name Laterality Status Provider Name and Address Organization Details Recorded Time 023 anal sphincterorrhaphy for obstetrical laceration completed Edy patel [facility] 03/24/2023 15:22:08 022 dilation procedure completed Nicol Cano [facility] 09/16/2021 14:53:39 017 Developmental Screening completed Marilia Singh [facility] 01/04/2017 14:02:57 extraction of wisdom tooth completed Edy patel [facility] 03/24/2023 15:16:04 Imaging Results None recorded. Procedure Notes None recorded. Medical Equipment None Reported. Allergies No known drug allergies Medications Name Sig Start Date Stop Date Status Note LastModified by Organization Details LastModified Time MAGIC MOUTHWASH Shake bottle well. Swish, gargle and spit out 1-2 tsp (5-10mL) every 4-6 hours, as needed 2024 active Not Available Not Available Not Avai lable Prescript ion - Clarifica tion 03/30 completed Not Available Not Available Not Available MAGIC MOUTHWASH Swich and spit 1-2 teaspoon s 30 minutes before eating. 2024 active Not Available Not Available Not Avai lable methylphe nidate hcl er 18 mg tbcr [...] DIRECTED FOR 90 DAYS, FOR ALLERGIE S. 11/09 completed Not Available Not Available Not Available ibuprofen 800 mg tablet TAKE 1/2-1 [...] completed Not Available Not Available Not Available valacyclo vir 1 gram tablet Take 1 tablet every 12 hours by oral route for 10 days. 11/26 completed Not Available Not Available Not Available [...] active RECORDED 05/15/20 13 1:59PM BY RAMIRO SCHULTZK I, WELL CHILD VISITS;A PPLY TO HAIR, WAIT 10 MINUTES, RINSE AND COMB, REPT IN 7 DAYS, USE COMB TO REMOVE THE NITS. Not Available Not Available Not Available amoxicill in 400 mg/5 mL oral suspensio n 1.5 tsp 2 TIMES PER DAY 01/04 completed RECORDED 07/18/19 13 10:21AM BY CYNTHIA TORRE, [facility], MEDICATI ON AUTO-NETTIE CTIVATIO N; Not Available [...] Not Available fludrocor tisone 0.1 mg tablet TAKE 1 TABLET BY MOUTH EVERY DAY FOR 30 DAYS 03/27 completed Not Available Not Available Not Available medroxypr ogesteron e 150 mg/mL intramusc ular suspensio n Inject 1 mL every 3 months by intramus cular route. 2024 active Not Available Not Available Not Avai lable Dermoplas t (with menthol) 20 %-0.5 % topical aerosol Apply 2 sprays 3 times a day by topical route as directed for 5 days. 01/28 completed Not Available Not Available Not Available Vitamin 27 mg iron-0.8 mg tablet [...] Not Available Vitals Date Recorded Body height Body mass index (BMI) Body weight Heart rate Oxygen saturation Oxygen saturation in Arterial blood by Pulse oximetry Body temperature Systolic And Diastolic Provider Name and Address Organization Details Last Updated DateTime 5 172.72 cm 17.9 kg/m2 63358.9 g 65 /min 98 % 98 % 97.9 [degF] 102/68 mm[Hg] Mariela Pinedo MA [facility] 5 13:45:57 Date Recorded Body height Body mass index (BMI) Body weight Heart rate Oxygen saturation Oxygen saturation in Arterial blood by Pulse oximetry Body temperature Systolic And Diastolic Provider Name and Address Organization Details Last Updated DateTime 5 172.72 cm 17.4 kg/m2 37600.3 3 g 89 /min 98 % 98 % 98.1 [degF] 97/64 mm[Hg] Rekha Tapia LPN [facility] 5 13:35:22 Date Recorded Body height Body mass index (BMI) Body weight Heart rate Oxygen saturation Oxygen saturation in Arterial blood by Pulse oximetry Body temperature Systolic And Diastolic Provider Name and Address Organization Details Last Updated DateTime 5 172.72 cm 18.2 kg/m2 23138.2 9 g 94 /min 97 % 97 % 98.7 [degF] 100/66 mm[Hg] Rekha Tapia LPN [facility] 5 09:45:25 Social History Question Answer Notes LastModified by Organizat ion Details LastModified Time Tobacco Smoking Status Never Smoker DEVAN Kumar, [facility] 06/21/2014 16:34:33 Animal Exposure? No No Current Pets Information not available 11/08/2014 What Type Of Diet Are You Following? REGULAR [email or web address] Information not available 06/21/2014 What Is Your Home Situation? Mother Information not available 11/08/2014 Live Alone Or With Others? With Others Mom, 1 Brother [email or web address] Information not available 06/21/2014 Have You Served In The ? No Information not available 03/24/2023 Have You Or Anyone In Your Household Had Any Of The Following Symptoms In The Last 14 Days: Sore Throat, Cough, Chills, Body Aches For Unknown Reasons, Shortness Of Breath For Unknown Reasons, Loss Of Smell, Loss Of Taste, Fever At Or Greater Than 100 Degrees Fahrenheit? No [email or web address] Information not available 04/07/2020 Are You Or Anyone In Your Household A Health Care Provider Or Emergency Responder? No [email or web address] Information not available 04/07/2020 To The Best Of Your Knowledge Have You Been In Close Proximity To Any Individual Who Tested Positive For COVID-19? No [email or web address] Information not available 04/07/2020 What Was The Date Of Your Most Recent Tobacco Screening? 03/27/2024 [email or web address] Information not available 03/27/2024 How Many Children Do You Have? 1 Margret Information not available 03/24/2023 Pool Exposure Yes Informa tion not available 11/08/2014 What Is The Name Of Your School? [employer] Information not available 03/24/2023 Do You Use Your Seat Belt Or Car Seat Routinely? Yes Information not available 11/08/2014 Seat Belts Used Routinely Yes [email or web address] Information not available 06/21/2014 Are You Sexually Active? Yes Information not available 03/24/2023 Do You Have Any Siblings? 3 1 Brother, 2 Sisters Information not available 11/08/2014 Smoke Alarm In Home Yes [email or web address] Information not available 06/21/2014 Do You Have Smoke And Carbon Monoxide Detectors In Your Home? Yes Information not available 11/08/2014 Are You Passively Exposed To Smoke? No Information not available 06/21/2014 General Stress Level Low [email or web address] Information not available 06/21/2014 Do You Use Sunscreen Routinely? Yes [email or web address] Information not available 06/21/2014 Sex: Unknown Functional Status Question Answer Note LastModified by Organizat ion Details LastModified Time Do you use any illicit or recreational drugs? No Information not available 03/24/2023 Do you or have you ever used any other forms of tobacco or nicotine? No Information not available 03/24/2023 What is your level of alcohol consumption? None [email or web address] Information not available 06/21/2014 Are you currently employed? Yes Information not available 03/24/2023 Are you able to walk independently without assistance or assistive devices? [email or web address] Information not available 03/24/2023 Are you able to care for yourself independently? 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 None Information not available 03/24/2023 Mental Status None recorded. Family History Relationship Description Onset Age of this Age Resolved Age Notes LastModified by Organization Details LastModified Time Brother Attention deficit hyperactivit y disorder [email or web address] Not available 06/26 15:15:13 Mother Asthma Not available 1 06/07/2019 14:27:34 Sister Asthma [email or web address] Not available 1 06/07/2019 14:27:45 Medical History Condition Response Coronary Artery Disease N Other N Gout N Kidney Stones N Blood Diseases N Hyperthyroidism N Breast Cancer N mrsa exposure N Hypothyroidism N Depression N COPD N Lung Disease N Developmental or Behavioral Disorders N Defects or Inherited Disease N Breast Problem N Anesthesia Complications N Headaches/Migraines N Varicose Veins N Anxiety Disorder N Muscle, Joint, or Bone Problems N Obesity N Vision or Eye Problems N Arthritis N Head Injury/Concussion N Polyps N Infertility N Mental Disorder N Congenital Anomalies N Acid Reflux (GERD) N Cancer N Stroke N ADHD Y Endometriosis N High Cholesterol N Liver Disease N Headaches N Fibromyalgia N Kidney Disease N Heart Problems N [...] Age at Menarche 13 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 Y Obstetrics History GPAL:G 0 P 0 0 0 0 Immunizations Vaccine Type Date Status Note Provider Nam e and Address Organization Details Recorded Time Tdap 5 completed Not Available [facility] 06/09/2019 02:21:44 HPV, quadrivalent 5 completed Not Available [facility] 06/09/2019 02:21:34 COVID-19, mRNA, LNP-S, PF, 30 mcg/0.3 mL dose 1 [facility] 10:56:14 COVID-19, mRNA, LNP-S, PF, 30 mcg/0.3 mL dose [address] [facility] 05/18/2021 10:56:14 COVID-19, mRNA, LNP-S, PF, 30 mcg/0.3 mL dose, renato-sucrose 2 completed DEVAN Chen, [facility] 09/09/2022 10:02:15 Tdap 2 completed DEVAN Chen, [facility] 09/09/2022 10:02:15 Influenza, split virus, quadrivalent, PF 2 completed DEVAN Chen, [facility] 09/09/2022 10:02:15 Hep B, adolescent or pediatric 3 completed Not Available [facility] 12/04/2013 13:31:42 pneumococcal conjugate PCV 7 4 completed Not Available [facility] 12/04/2013 13:31:42 DTaP 4 completed Not Available [facility] 12/04/2013 13:31:42 Hib (HbOC) 4 completed Not Available [facility] 12/04/2013 13:31:42 IPV 4 completed Not Available [facility] 12/04/2013 13:31:42 IPV 4 completed Not Available [facility] 12/04/2013 13:31:42 Hib (HbOC) 4 completed Not Available [facility] 12/04/2013 13:31:42 DTaP 4 completed Not Available [facility] 12/04/2013 13:31:42 pneumococcal conjugate PCV 7 4 completed Not Available [facility] 12/04/2013 13:31:42 pneumococcal conjugate PCV 7 4 completed Not Available [facility] 12/04/2013 13:31:42 Hep B, adolescent or pediatric 4 completed Not Available [facility] 12/04/2013 13:31:43 DTaP 4 completed Not Available [facility] 12/04/2013 13:31:43 Hib (HbOC) 4 completed Not Available [facility] 12/04/2013 13:31:43 Hib (HbOC) 4 completed Not Available [facility] 12/04/2013 13:31:43 pneumococcal conjugate PCV 7 4 completed Not Available [facility] 12/04/2013 13:31:43 varicella 4 completed Not Available [facility] 12/04/2013 13:31:43 MMR 4 completed Not Available [facility] 12/04/2013 13:31:43 Hep B, adolescent or pediatric 4 completed Not Available [facility] 12/04/2013 13:31:43 IPV 4 completed Not Available [facility] 12/04/2013 13:31:43 Influenza, split virus, trivalent, preservative 4 completed Not Available [facility] 12/04/2013 13:31:43 DTaP 5 completed Not Available [facility] 12/04/2013 13:31:43 Influenza, split virus, trivalent, preservative 6 completed Not Available [facility] 12/04/2013 13:31:43 MMR 7 completed Not Available [facility] 12/04/2013 13:31:43 varicella 7 completed Not Available [facility] 12/04/2013 13:31:43 DTaP 7 completed Not Available [facility] 12/04/2013 13:31:43 IPV 7 completed Not Available [facility] 12/04/2013 13:31:43 Influenza, split virus, trivalent, preservative 7 completed Not Available [facility] 12/04/2013 13:31:43 Influenza, split virus, trivalent, preservative 8 completed Not Available [facility] 12/04/2013 13:31:43 Influenza, split virus, trivalent, preservative 9 completed Not Available [facility] 12/04/2013 13:31:43 Novel Ulfarlxam-[id number], all formulations 9 completed Not Available [facility] 12/04/2013 13:31:43 Novel Yewlbenma-[id number], all formulations 0 completed Not Available [facility] 12/04/2013 13:31:43 Influenza, split virus, trivalent, preservative 0 completed Not Available [facility] 12/04/2013 13:31:43 Influenza, split virus, trivalent, preservative 1 completed Not Available [facility] 12/04/2013 13:31:43 Influenza, split virus, trivalent, preservative 2 completed Not Available [facility] 12/04/2013 13:31:43 HPV, quadrivalent 3 completed Not Available [facility] 12/04/2013 13:31:43 Influenza, split virus, quadrivalent, PF 6 completed Not Available [facility] 06/09/2019 02:22:08 meningococcal MCV4P 9 completed Not Available [facility] 06/09/2019 02:21:55 Influenza, split virus, quadrivalent, PF 0 completed DEVAN Shea, [facility] 04/07/2020 14:40:13 meningococcal MCV4P 0 completed DEVAN Rivera, [facility] 04/07/2020 15:35:41 Influenza, split virus, quadrivalent, PF 3 completed [facility], [facility] 03/14/2023 11:34:59 Influenza, split virus, trivalent, PF 4 completed SHREYA Gillespie [address] [place] [address], [address], [facility] 03/27/2024 11:11:42 Past Encounters Encounter ID Performer Location Encounter Start Date Encounter Closed Date Diagnosis/Indication Diagnosis SNOMED-CT Code Diagnosis ICD10 Code Diagnosis IMO Codes Diagnosis Note [id number] [facility] [id number] [facility] [place] [address] 11/02/2006 00:00:00 [id number] [facility] er[facility] [id number] [facility] [place] [address] 02/07/2007 00:00:00 [id number] [facility] er[facility] [address] [facility] [place] [address] 09/12/2007 00:00:00 [id number] [facility] er[facility] [address] [facility] [place] [address] 10/30/2007 00:00:00 [id number] auto[facility] erce [address] [facility] [place] [address] 04/03/2008 00:00:00 [id number] [facility] [address] [facility] [place] [address] 09/14/2008 00:00:00 [id number] [facility] [address] [facility] [place] [address] 10/10/2009 00:00:00 [id number] [facility] erce [address] [facility] [place] [address] 12/22/2009 00:00:00 [id number] [facility] [address] [facility] [place] [address] 03/30/2010 00:00:00 [id number] [facility] [address] [facility] [place] [address] 05/13/2010 00:00:00 [id number] [facility] er[facility] [address] [facility] [place] [address] 07/17/2010 00:00:00 [id number] auto[facility] erce [address] [facility] [place] [address] 11/30/2011 00:00:00 [id number] [address] [address] [place] [address],[address] [place] [address] 05/15/2013 00:00:00 [id number] Jim Keys [facility] Main Office [id number] [facility] [address] [place] [address] 06/21/2014 16:13:41 06/21/2014 17:03:10 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 Mom would like to start on a longer acting med- her son takes concerta and she feels this works well. She will give med on school days, encourage pt to eat frequtnly, watch for adverse side effects. F/U in 1 month. 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 Age appropriat e anticipato ry guidance provided. Regular dental care and appropriat e car safety advised. Immunizati on status updated. HPV# 2 and TDAP today, Advised well balanced meals TID, she is on concerta and does not eat much, may try giving the medication after breakfast so that she has an appetite in the morning. Reduced visual acuity 54825540 VA 20/50 and 20/100, should be evaluated for need for glasses. Child atte ntion deficit disorder 353300026 Just had med refills on 11/03/14, doing well on concerta, encouraged to ensure patient is eating frequently . 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 Referred to [facility] and an expect called in. [id number] Mao valerio MD Main Office [address] [address] [place] [address] 08/31/2016 11:21:32 08/31/2016 12:19:09 Acute pharyngitis 987708912 J02.9 Child atte ntion deficit disorder 442531221 F90.9 [id number] Mao valerio MD Main Office [address] [address] [place] [address] 01/04/2017 13:58:14 01/04/2017 15:51:25 Requires a meningitis vaccination 283679547 Z23 Well child 288248326 Z00 .129 Attention deficit hyperactivity disorder, predominantly inattentive type 28489387 F90.0 [id number] Nelson Toribio MD Main Office [address] [address] [place] [address] 11/10/2018 12:50:05 11/10/2018 14:01:16 Requires a meningitis vaccination 868482163 Z23 Well child 773119837 Z00 .129 Reviewed dental care, need to floss, increase calcium in the diet, pt has tried vaping - discourage d use/educat ed, not sex active, will call if need contracept ion, safe sex reviewed, BSE taught Scoliosis of thoracic spine 889789965 M41.34 referral to [facility] [id number] Cherelle martinez MD Main Office [address] [address] [place] [address] 04/07/2020 13:55:56 04/07/2020 15:37:56 Adult health examination 604936888 Z00.00 Child in good general health. Reviewed immunizati ons. Discussed diet, exercise, dental care. Discussed teen issues Needs infl uenza immunization 311056502 Z23 Scoliosis of thoracic spine 290082303 M41.34 pt states no followup needed, has been discharged from [facility] Administra tion of viral vaccine 54802386 Z23 [id number] Bronwyn Mitchell MD Main Office [address] [address] [place] [address] 06/18/2020 12:27:22 06/18/2020 13:35:46 Impetigo 93343974 L01.00 [id number] [facility] [address] [address] [place] [address] 05/18/2021 08:28:19 05/18/2021 11:28:22 Acute pharyngitis 327542122 J02.9 Pt. has sore throat and headache with mild congested . Advised on COVID PCR test or at least rapid test. Recommende d to do salt water gargles, Tylenol ES , rest and fluids. Exposure t o viral disease 0619417133 13195 Z20.828 Counseling was provided to pt. phone number given for [facility] for PCR testing. Quarantine recommenda tions discussed. [id number] Mike Ontiveros MD Main Office [address] [address] [place] [address] 08/30/2022 11:27:44 08/30/2022 12:43:12 Contraception care management 308148386 Z30.42 [id number] Mike Ontiveros MD Main Office [address] [address] [place] [address] 11/12/2022 15:12:26 11/12/2022 16:23:31 Vaginitis 70624423 N76.0 will send for testing and tx for BV and yeast. Pelvic ankit or dysfunction 107785506 M62.9 needs to see pelvic floor PT will rfeer as she was told kristina would be 1 year wait. Third degr ee perineal laceration 01980087 O70.20 3rd degree tear repaired 5 months ago, anal sphincter had to be reattached by colorectal surgery. erythemato us friable tissue, with loose tissue noted. will send to [facility] for 2nd opinion as it appears laceration was not well approximat ed. Acute righ t otitis media 987569991 H66.91 Contracept ion care management 005804797 Z30.42 [id number] JUSTINE DUARTE MD Main Office [address] [address] [place] [address] 11/16/2022 14:01:24 11/16/2022 15:19:09 Contraception care management 088987011 Z30.42 [id number] Mike Ontiveros MD Main Office [address] [address] [place] [address] 03/24/2023 15:05:07 03/24/2023 15:53:54 Adult health examination 311697894 Z00.00 HM UTD. will check labs Bacterial vaginosis 4197 78980 N76.0 will tx with metronidaz ole and she notes metrogel causes bleeding Vaginitis 33681086 N76.0 Fatigue 54036590 R53.83 Unable to control flatus 554085165 R14.3 would like to see colo rectal in follow-up, she has not been to pelvic floor PT though she does have the referral. Anemia due to unknown mechanism 52779439 D64.9 Vitamin D deficiency 347 71454 E55.9 Cough 57199607 R05.9 Allergic rhinitis 011338 04 J30.9 Pain in pelvis 81598181 R10.2 sharp pelvic pain, will check US Family his tory of Cardiovascular disease 704106933 Z82.49 [id number] Nelson Toribio MD Main Office [address] [address] [place] [address] 03/14/2023 11:10:23 03/14/2023 12:09:03 Needs influenza immunization 991025656 Z23 Contracept ion care management 409177925 Z30.42 [id number] Bronwyn Mitchell MD Main Office [address] [address] [place] [address] 06/08/2023 11:37:22 06/08/2023 12:17:58 [id number] STEVEN AHUMADA Main Office [address] [address] [place] [address] 06/24/2023 08:39:35 06/24/2023 09:23:53 Syncope 254330222 R55 -had 2 known episodes of syncope; [...] ng factor or trigger Orthostati c hypotension 18214967 I95.1 -orthostat ic BP readings were completed in the office-tova roximate 25bpm increase and 10 mmHg diastolic decrease when transition ing from supine to standing Ammendment by SB: after discussion of case ordered patient a tilt-table testing [id number] JUSTINE DUARTE MD Main Office [address] [place] [address] 07/29/2023 13:09:22 07/29/2023 13:41:12 Contraception care management 561331698 Z30.42 [id number] Nelson Toribio MD Main Office [address] [place] [address] 10/13/2023 12:59:12 10/13/2023 13:11:57 Contraception care management 510950559 Z30.42 [id number] Bronwyn Mitchell MD Main Office [address] [place] [address] 01/11/2024 09:37:55 01/11/2024 09:38:39 Contraception care management 133591081 Z30.42 [id number] Mike Ontiveros MD Main Office [address] [place] [address] 03/27/2024 09:44:46 03/27/2024 10:56:58 Adult health examination 997076807 Z00.00 HM UTD. had labs in November, no concerns. Needs infl uenza immunization 272182232 Z23 19 YEARS AND OLDER ONLY Contracept ion care management 258388322 Z30.42 refill provided, last depo 01/11/24 Eczema 05214318 L30.9 refilled Allergic rhinitis 379513 04 J30.9 start zyrtec daily for allergy sx. [id number] Nelson Toribio MD Main Office [address] [address] [place] [address] 04/13/2024 14:09:16 04/13/2024 14:11:14 Contraception care management [id number] Z30.42 [id number] Mike Ontiveros MD Main Office [address] [address] [place] [address] 06/14/2024 13:33:11 06/14/2024 14:10:14 Pain in pelvis [id number] R10.2 will check Urine and vaginitis swab. Urinary tr act infectious disease [id number] N39.0 urine dip negative, will send out to lab Right uppe r quadrant pain [id number] R10.11 will check labs and US, may try tums as needed, hydration, ensure she is eating regularly, avoid trigger foods. 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 Take Valacyclov ir 1 g by mouth every 12 hours for 1 day at the first sign of tingling, pain, or lesion. 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 [id number] Nelson Toribio MD Main Office [address] [facility] [address] [place] [address] 01/11/2025 08:23:40 01/11/2025 08:26:09 Contraception care management [id number] Z30.42 Health Concerns Section Related Observation LastModified by Organization Detai ls LastModified Time None Recorded Concern Status LastModified by Organization Details LastModified Time None Recorded Advance Directives Directive None Recorded Payers Insurance Date Sequence Insurance Name Policy Number Policy Zee Covered Member ID Zee Member ID Guarantor Name 01/11/2025 1 [facility] [employer] [facility] [employer] (MEDICAID HMO) [id number] Eloisa Ribera [id number] Eloisa Ribera 05/10/2014 1 [facility] (HMO) [id number] Mariela Pinedo [id number] Eloisa Ribera 08/19/2014 1 [facility] (PPO) [id number] Mariela Pinedo [id number] Eloisa Ribera 01/28/2025 1 [place] [facility] Eolisa Ribera [id number] Eloisa Ribera 01/11/2025 1 [facility] MEDICAID ESSENTIAL (MEDICAID HMO) [id number] Eloisa Ribera [id number] Eloisa Ribera Notes Date Note Type Note Provider Name and Address Organization Details Recorded Time 06/14/2024 text/html Generic HPI TemplateReported by PatientAbd pain for a few months, RUQ and LLQ worse recently, + nausea but thinks due to control. no V/D/C. Last BM yesterday.LMP- on depo has not had it for a while.no vaginal bleeding + discharge but this has been presents- more clear. no odor.Has urinary urgency but no frequency or burning.+ pain with intercourse with only this partner.No fever/ chills. BRIGITTE Gillespie [address] [address], [place], [address], [facility] 06/14/2024 14:14:11 07/27/2024 text/html FeverReported by PatientHPIFor severity, patient reportsimproving (but with medication). For duration, patient reportsintermittent. For onset/timing, patient reportsfirst recorded: (07/26/2024). For context, patient reportsno recent travel,no tick/insect bites, andno new medications. For modifying factors, patient reportsotc medication. For associated symptoms, patient reportsno rashandno lethargy. Upper Respiratory SymptomsReported by PatientUpper Respiratory SymptomsFor quality, patient reportssharp throat painandcongested. For context, patient reportsforeign travelbut reportsno sick contacts. For associated symptoms, patient reportsfeveranddiarrhe a (one episode)but reportsno sputum production,no shortness of breath,no wheezing,no change in number of pillows needed to sleep at night,no sweats,no significant weight gain,no significant weight loss,no vomiting,no rash, andno nausea. For location, patient reportshead. For severity, patient reportsmoderate. For onset/timing, patient reportssudden. For modifying factors, patient reportsotc medication(tylenol and ibuprofen). For duration, (started on 07/27/2024).ROS as noted in the HPI Eileen Ribera is a 19 year old F who presents to the clinic with complaints of fever, headaches, congestion, ear pain and body aches starting on 07/26/2024. Pt has been taking advil and tylenol with good relief. Pt last fever was this AM at 101 with a Tmax of 102. Denies any sick contacts. 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 JUSTINE DUARTE MD [address] [address], [place], [address], [facility] [place] 07/27/2024 14:28:49 11/09/2024 text/html Throat PainRepor waldemar by [id number] presents with sore throat and ulcer on R side of tonsils for 2 days. Pain worsens with swallowing. History of cold sores on lip and on inside of mouth, but never on tonsils. Has tried salt water for cold sores in the past. Has not tried anything for this episode of pharyngitis. No enlarged lymph nodes. No fever, chills, cough, or nasal congestion. Reports recurrent cold sores every other month.ROS as noted in the HPI Juliane Mittal PA-C [address] [address], [place], [address], [facility] 11/09/2024 13:12:17 OBGyn Episode No OBEpisode recorded.
== END 2025-03-06 16:17 | disposition home or self-care (01) ==
LOC: HO.HWSM 14:06
PROVIDERS: Visit Provider Advanced Practice Midwife
DX: Z01.419 Encounter for gynecological examination (general) (routine) without abnormal findings (principal); N64.52 Nipple discharge; Z11.3 Encounter for screening for infections with a predominantly sexual mode of transmission; Z12.4 Encounter for screening for malignant neoplasm of cervix; Z78.9 Other specified health status
CPT/HCPCS: 99395; 99459

== ENCOUNTER 2025-03-06 14:05 | Outpatient (REF) | payer MEDICAID, SELFPAY ==
[2025-03-07 04:52] LABS: Bacterial Vaginosis PCR POSITIVE (Negative); Candida Group PCR NOT DETECTED (Not Detect); Candida glab krusei PCR NOT DETECTED (Not Detect); Trichomonas vaginalis PCR NOT DETECTED (Not Detect)
[2025-03-07 05:23] LABS: CT PCR NOT DETECTED (Not Detect.); NG PCR NOT DETECTED (Not Detect.)
== END 2025-03-06 14:06 | disposition home or self-care (01) ==
LOC: HO.LNP 14:05
PROVIDERS: Visit Provider Advanced Practice Midwife
DX: Z01.419 Encounter for gynecological examination (general) (routine) without abnormal findings (principal); N64.52 Nipple discharge; Z20.2 Contact with and (suspected) exposure to infections with a predominantly sexual mode of transmission; Z78.9 Other specified health status
CPT/HCPCS: 81515; 87491; 87591; 88175; 99395; 99459

== ENCOUNTER 2025-04-16 08:35 | Outpatient (AMB) | payer OTHER, SELFPAY ==
[2025-04-16 08:50] VITALS: BMI 23.4
--- NOTE | 2025-04-16 08:50 | MHC.OFFVIS ---
Vital Signs 04/16/25 08:50 Height 5 ft Weight 120 lb BMI 23.4 Intake Visit Reasons: ED f/u left elbow injury, DOI 04/04/25 Intake Note: Eloisa is a 20 year old right hand dominant female, new patient, who presents today for an ED Follow Up status post Left Elbow Injury, DOI: 04/04/25. 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 She presented to [facility] ED but left before she was seen. A CT scan done 04/05/25 revealed a displaced osteochondral lesion of the capitellum. Patient complains of pain on the medial and posterior aspect of the elbow, mainly with extension. She was paced in a splint while at the ED but removed it as it was uncomfortable. She also complains of right wrist pain on the dorsal aspect of the wrist. She states the swelling has subsided. She is taking Tylenol and Motrin for pain with minimal relief. She denies any numbness, tingling, finger locking. She denies any previous injuries or surgeries to the hands. Allergies cats Allergy (Mild, Uncoded 04/16/25 08:55) itchy HPI HPI ED f/u left elbow injury, DOI 04/04/25: Details: Eloisa is a 20 year old right hand dominant female, new patient, who presents today for an ED Follow Up status post Left Elbow Injury, DOI: 04/04/25. 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 She presented to [facility] ED but left before she was seen. A CT scan done 04/05/25 revealed a displaced osteochondral lesion of the capitellum. Patient complains of pain on the medial and posterior aspect of the elbow, mainly with extension. She was paced in a splint while at the ED but removed it as it was uncomfortable. She also complains of right wrist pain on the dorsal aspect of the wrist. Patient states that this pain is what is bothering her today, and her left elbow is not causing her any discomfort at this time. She states the swelling has subsided. She is taking Tylenol and Motrin for pain with minimal relief. She denies any numbness, tingling, finger locking. She denies any previous injuries or surgeries to the hands. [facility] Medical History (Updated 04/16/25 @ 14:18 by STEVEN Henriquez) Nipple discharge Spontaneous Surgical History Hx of dilation and curettage Family History Paternal Aunt History of breast cancer Mother Ovarian cancer Social History (Updated 04/16/25 @ 08:56 by SANTANA Neal) Household Members: Family Both parents involved: Yes Housing: House Are you a primary pharmacy customer care specialist to a significant other at home: No Do you presently have visiting nurse or other home services: No 75 years or older and lives alone: No Alcohol intake: never Patient Tobacco Use Status: Never used Tobacco Current occupational status: employed Current occupation: [employer] w/ children, right handed Sexual orientation: Straight/Heterosexual Gender identity: Female Female Reproductive History Menstrual Age of Menarche: 13 Review of Systems Const All systems reviewed & are unremarkable except as noted in HPI and below Physical Exam Vital Signs: BMI result Body Mass Index 23.4 Extrem Other: Patient is alert, oriented, and in no acute distress. Neuro: Normal sensation of the tips of all digits of the bilateral hand at this time Vascular: Cap refill brisk Pain: No tenderness to palpation of radial head, medial condyle, lateral condyle, olecranon process, or elsewhere in the left elbow Tenderness to palpation of right distal radius Discomfort with range of motion of the right wrist No pain with range of motion of the left elbow ROM: Flexion, extension, pronation, supination of the left elbow full and intact Full and intact flexion and extension of the right wrist, but with pain with the extreme of flexion Skin: No lacerations or abrasions. General: No ecchymosis, erythema, or evidence of infection. Psych: Appears grossly normal Affect normal Attitude cooperative Office Procedures AMB Fracture Care Fracture Billing Code: Fracture Billing Code Results Reviewed Results Reviewed: X-rays obtained in the office today and independently reviewed by me, Amilcar Jamil PA-C, demonstrate joint effusion of the left elbow as well as small cortical irregularity on the right distal radius concerning for physeal scar versus nondisplaced fracture. Assessment & Plan Assessment & Plan (1) Osteochondral defect: Code(s): M95.8 - Other specified acquired deformities of musculoskeletal system Category: Medical (2) Nondisplaced fracture of distal end of right radius: Code(s): S52.501A - Unspecified fracture of the lower end of right radius, initial encounter for closed fracture Category: Medical Plan 1. Nondisplaced fracture of right distal radius Date of injury 04/04/2025 Patient is educated about this condition Patient is educated about the typical recovery course At this time, patient is provided with a Velcro wrist splint to be worn with daytime activities Patient may remove this Velcro wrist splint to work on gentle range of motion of the right wrist Should wear like a cast otherwise 2 lb weight limit in right hand Patient understands this and is amenable to this plan 2. Osteochondral defect of left elbow Revealed on CT scan at [facility] Patient is educated about this condition Patient is educated about the typical treatment course At this time, no further splinting necessary Patient is educated that she will be referred to OT to work on gentle range of motion of the left elbow 5 lb weight limit in left hand Patient understands this in his amenable to this plan Patient may return to work light duty with a 2 lb weight limit Follow-up in 2-3 weeks with repeat right wrist x-rays for reassessment, sooner with any acute concerns Orders: Orders OT Evaluation and Treatment Today M95.8 - Other specified acquired deformities of musculoskeletal system XR elbow LT min 3V Today M25.522 - Pain in left elbow XR wrist RT w scaphoid Today M79.641 - Pain in right hand Coding Level of Care Code New Pt Level 3 (04669) Diagnoses Osteochondral defect M95.8 Nondisplaced fracture of distal end of right radius S52.501A CPT Codes Fracture Care - Fracture Billing Code: Fracture Billing Code ([id number])
--- OUTSIDE RECORDS SUMMARY | 2025-04-16 08:54 | XMS_ITS | Data Portability ---
Author Organization [facility], Main Office Address [address] [facility] [address] [place] [id number] Care Team Providers Care Independent Consultant Name Role Phone PORSCHE MARSHALL Orthopedic Surgeon TRIP PADILLA Cloud Solutions Architect CARLY SCHWARZ Primary Care Provider Unavailabl e Assessment Encounter Date Assessment Date Assessment LastModified by Organization Details LastModified Time 04/12/2025 04/12/2025 Discussed with patient the signs/symptom s warranted for a return to office visit and/or an ER visit. Patient understood and agreed with the plan. [email or web address] Not available 04/12/2025 14:37:01 Plan of Treatment Reminders Order Date Submit Date Provider Last Modified By Organization Details Last Modified Time Details Appointments None recorded. Lab test, urine 2024 025 [email or web address] In-Office Order, Internal Use Only DO Not Attach Compendium DO Not Attach Compendium, Do Not Delete/merge, [id number] 5 14:45:28 test, urine 2024 025 [email or web address] In-Office Order, Internal Use Only DO Not Attach Compendium DO Not Attach Compendium, Do Not Delete/merge, [id number] 5 09:26:01 strep group A, DNA, swab 2024 025 [email or web address] In-Office Order, Internal Use Only DO Not Attach Compendium DO Not Attach Compendium, Do Not Delete/merge, [id number] 5 10:25:05 rapid influenza virus A + B and SARS CoV + SARS CoV 2 Ag panel, IA, upper respirato ry specimen 2024 025 CHERYL In-Office Order, Internal Use Only DO Not Attach Compendium DO Not Attach Compendium, Do Not Delete/merge, [id number] 14:06:58 urinalysi s, complete 2024 025 CHERYL [facility], [address], [address], [place], [address], 5 08:06:54 culture, urine 2024 025 CHERYL [facility], [address], [address], [place], [address], 5 08:06:54 urinalysi s, dipstick 2024 025 [email or web address] In-Office Order, Internal Use Only DO Not Attach Compendium DO Not Attach Compendium, Do Not Delete/merge, [id number] 13:52:54 bacterial vaginosis + vaginitis panel, vaginal 2024 025 CHERYL [facility] (Centralized Electronic Ordering - All Locations), Patient Can Go To The Location Of Their Choice, 08:06:53 CMP, serum or plasma 2024 025 CHERYL [facility] (Centralized Electronic Ordering - All Locations), Patient Can Go To The Location Of Their Choice, 14:06:18 CBC w/ auto diff 2024 025 CHERYL [facility] (Centralized Electronic Ordering - All Locations), Patient Can Go To The Location Of Their Choice, 14:06:17 amylase + lipase, serum 2024 025 CHERYL [facility] (Centralized Electronic Ordering - All Locations), Patient Can Go To The Location Of Their Choice, 14:06:19 H pylori urea breath test, co2 infrared 2024 025 CHERYL [facility] (Centralized Electronic Ordering - All Locations), Patient Can Go To The Location Of Their Choice, [id number] 14:06:20 Referral None recorded. Procedures None recorded. Surgeries None recorded. Imaging US, gallbladd er - RUQ pain, worse when hungry, nausea r/o gallstone s 2024 025 [email or web address] [facility], [address], [place], [address], 15:12:14 Medication Orders medroxypr ogesteron e 150 mg/mL intramusc ular suspensio n 2024 025 [id number] [address] [place], [address], 14:45:48 medroxypr ogesteron e 150 mg/mL intramusc ular suspensio n 2024 025 [email or web address] Not available 09:26:01 MAGIC MOUTHWASH 2024 025 [id number] [address] [facility], [place], [address], 5 14:33:45 valacyclo vir 1 gram tablet 2024 025 [id number] [address] [place], [address], 5 05:01:38 MAGIC MOUTHWASH 2024 025 [email or web address] [facility]acy #[id number], [address] [place], [address], 5 14:33:40 Patient TargetsNo targets recorded. Patient Instructions Encounter Date Encounter Id Patient Instructions Last Modified By Organization Details Last Modified Time 06/14/2024 [id number] call or return for worsening or concerns. [email or web address] Not available 06/14/2024 14:06:46 11/09/2024 [id number] sore throat: car e instructions [email or web address] Not available 11/09/2024 10:16:48 Reason for Referral None Reported. Results Created Date Observation Date Name Description Value Unit Range Abnormal Flag Note LastModifiedBy Organization Detail LastModifiedTime 06/14/1906/15/2024 CBC WITH DIFFE RENTI AL/PL ATELE T WBC 7.6 x10e3 /uL 3.4-10 .8 normal Not Available [facility] ([facility]) [address] [place], [address], 06/15/2024 14:06:17 06/14/19 25 06/15/2024 CBC WITH DIFFE RENTI AL/PL ATELE T RBC 5.11 x10e6 /uL 3.77-5 .28 normal Not Available [facility] ([facility]) [address] [place], [address], 06/15/2024 14:06:17 06/14/19 25 06/15/2024 CBC WITH DIFFE RENTI AL/PL ATELE T hemoglobin 14.9 g/dL 11.1-1 5.9 normal Not Available [facility] ([facility]) [address] [place], [address], 06/15/2024 14:06:17 06/14/19 25 06/15/2024 CBC WITH DIFFE RENTI AL/PL ATELE T hematocrit 44.0 % 34.0-4 6.6 normal Not Available [facility] ([facility]) [address] [place], [address], 06/15/2024 14:06:17 06/14/19 25 06/15/2024 CBC WITH DIFFE RENTI AL/PL ATELE T MCV 86 fL 79-97 normal Not Available [facility] ([facility]) [address] [place], [address], 06/15/2024 14:06:17 06/14/19 25 06/15/2024 CBC WITH DIFFE RENTI AL/PL ATELE T MCH 29.2 pg 26.6-3 3.0 normal Not Available [facility] ([facility]) [address] [facility], [place], [address], 06/15/2024 14:06:17 06/14/19 25 06/15/2024 CBC WITH DIFFE RENTI AL/PL ATELE T MCHC 33.9 g/dL 31.5-3 5.7 normal Not Available [facility] ([facility]) [address] [facility], [place], [address], 06/15/2024 14:06:17 06/14/19 25 06/15/2024 CBC WITH DIFFE RENTI AL/PL ATELE T RDW 12.1 % 11.7-1 5.4 Not Available [facility] ([facility]) [address] [facility], [place], [address], 06/15/2024 14:06:17 06/14/19 25 06/15/2024 CBC WITH DIFFE RENTI AL/PL ATELE T platelets 302 x10e3 /uL 150-45 0 normal Not Available [facility] ([facility]) [address] [facility], [place], [address], 06/15/2024 14:06:17 06/14/19 25 06/15/2024 CBC WITH DIFFE RENTI AL/PL ATELE T neutrophils 61 % not estab. normal Not Available [facility] ([facility]) [address] [facility], [place], [address], 06/15/2024 14:06:17 06/14/19 25 06/15/2024 CBC WITH DIFFE RENTI AL/PL ATELE T lymphs 32 % not estab. normal Not Available [facility] ([facility]) [address] [place], [address], 06/15/2024 14:06:17 06/14/19 25 06/15/2024 CBC WITH DIFFE RENTI AL/PL ATELE T monocytes 6 % not estab. normal Not Available [facility] ([facility]) [address] [facility], [place], [address], 06/15/2024 14:06:17 06/14/19 25 06/15/2024 CBC WITH DIFFE RENTI AL/PL ATELE T eos 1 % not estab. normal Not Available [facility] ([facility]) [address] [facility], [place], [address], 06/15/2024 14:06:17 06/14/19 25 06/15/2024 CBC WITH DIFFE RENTI AL/PL ATELE T basos 0 % not estab. 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 0 normal Not Available [facility] ([facility]) [address] [place], [address], 06/15/2024 14:06:17 06/14/19 25 06/15/2024 CBC WITH DIFFE RENTI AL/PL ATELE T lymphs (absolute) 2.4 x10e3 /uL 0.7-3. 1 normal Not Available [facility] ([facility]) [address] [place], [address], 06/15/2024 14:06:17 06/14/19 25 06/15/2024 CBC WITH DIFFE RENTI AL/PL ATELE T monocytes(ab solute) 0.5 x10e3 /uL 0.1-0. 9 normal Not Available [facility] ([facility]) [address] [facility], [place], [address], 06/15/2024 14:06:17 06/14/19 25 06/15/2024 CBC WITH DIFFE RENTI AL/PL ATELE T eos (absolute) 0.1 x10e3 /uL 0.0-0. 4 normal Not Available [facility] ([facility]) [address] [facility], [place], [address], 06/15/2024 14:06:17 06/14/19 25 06/15/2024 CBC WITH DIFFE RENTI AL/PL ATELE T baso (absolute) 0.0 x10e3 /uL 0.0-0. 2 normal Not Available [facility] ([facility]) [address] [facility], [place], [address], 06/15/2024 14:06:17 06/14/19 25 06/15/2024 CBC WITH DIFFE RENTI AL/PL ATELE T immature granulocytes 0 % not estab. Not Available [facility] ([facility]) [address] [facility], [place], [address], 06/15/2024 14:06:17 06/14/19 25 06/15/2024 CBC WITH DIFFE RENTI AL/PL ATELE T immature grans (abs) 0.0 x10e3 /uL 0.0-0. 1 Not Available [facility] ([facility]) [address] [facility], [place], [address], 06/15/2024 14:06:17 06/14/19 25 06/15/2024 CBC WITH DIFFE RENTI AL/PL ATELE T NRBC TOLL COLLECTOR SUPERVISOR Not Available [facility] ([facility]) [address] [place], [address], 06/15/2024 14:06:17 06/14/19 25 06/15/2024 CBC WITH DIFFE RENTI AL/PL ATELE T hematology comments: TOLL COLLECTOR SUPERVISOR Not Available [facility] ([facility] [address] [facility], [address], 06/15/2024 14:06:17 06/14/19 25 06/15/2024 COMP. METAB OLIC PANEL (14) glucose 93 mg/dL 70-99 normal Not Available [facility] ([facility]) [address] [place], [address], 06/15/2024 14:06:18 06/14/19 25 06/15/2024 COMP. METAB OLIC PANEL (14) BUN 12 mg/dL 6-20 normal Not Available [facility] ([facility]) [address] [place], [address], 06/15/2024 14:06:18 06/14/19 25 06/15/2024 COMP. METAB OLIC PANEL (14) creatinine 0.78 mg/dL 0.57-1 .00 normal Not Available [facility] ([facility]) [address] [facility] [place], [address], 06/15/2024 14:06:18 06/14/19 25 06/15/2024 COMP. METAB OLIC PANEL (14) eGFR 111 mL/mi n/1.7 3 >59 normal Not Available [facility] ([facility]) [address] [facility] [place], [address], 06/15/2024 14:06:18 06/14/19 25 06/15/2024 COMP. METAB OLIC PANEL (14) BUN/creatini ne ratio 15 9-23 normal Not Available [facility] ([facility]) [address] [facility] [place], [address], 06/15/2024 14:06:18 06/14/19 25 06/15/2024 COMP. METAB OLIC PANEL (14) sodium 140 mmol/ L 134-14 4 normal Not Available [facility] ([facility]) [address] [facility] [place], [address], 06/15/2024 14:06:18 06/14/19 25 06/15/2024 COMP. METAB OLIC PANEL (14) potassium 4.1 mmol/ L 3.5-5. 2 normal Not Available [facility] ([facility]) [address] [facility], [place], [address], 06/15/2024 14:06:18 06/14/19 25 06/15/2024 COMP. METAB OLIC PANEL (14) chloride 103 mmol/ L 96-106 normal Not Available [facility] ([facility]) [address] [facility], [place], [address], 06/15/2024 14:06:18 06/14/19 25 06/15/2024 COMP. METAB OLIC PANEL (14) carbon dioxide, total 22 mmol/ L 20-29 normal Not Available [facility] ([facility]) [address] [facility], [place], [address], 06/15/2024 14:06:18 06/14/19 25 06/15/2024 COMP. METAB OLIC PANEL (14) calcium 9.6 mg/dL 8.7-10 .2 normal Not Available [facility] ([facility]) [address] [facility], [place], [address], 06/15/2024 14:06:18 06/14/19 25 06/15/2024 COMP. METAB OLIC PANEL (14) protein, total 7.9 g/dL 6.0-8. 5 normal Not Available [facility] ([facility]) [address] [facility], [place], [address], 06/15/2024 14:06:18 06/14/19 25 06/15/2024 COMP. METAB OLIC PANEL (14) albumin 4.7 g/dL 4.0-5. 0 normal Not Available [facility] ([facility]) [address] [facility], [place], [address], 06/15/2024 14:06:18 06/14/19 25 06/15/2024 COMP. METAB OLIC PANEL (14) globulin, total 3.2 g/dL 1.5-4. 5 Not Available [facility] ([facility]) [address] [facility] [place], [address], 06/15/2024 14:06:18 06/14/19 25 06/15/2024 COMP. METAB OLIC PANEL (14) bilirubin, total <0.2 mg/dL 0.0-1. 2 Not Available [facility] ([facility]) [address] [place], [address], 06/15/2024 14:06:18 06/14/19 25 06/15/2024 COMP. METAB OLIC PANEL (14) alkaline phosphatase 62 IU/L 44-121 normal Not Available [facility] ([facility]) [address] [place], [address], 06/15/2024 14:06:18 06/14/19 25 06/15/2024 COMP. METAB OLIC PANEL (14) AST (SGOT) 20 IU/L 0-40 normal Not Available [facility] ([facility]) [address] [place], [address], 06/15/2024 14:06:18 06/14/19 25 06/15/2024 COMP. METAB OLIC PANEL (14) ALT (SGPT) 14 IU/L 0-32 normal Not Available [facility] ([facility]) [address] [place], [address], 06/15/2024 14:06:18 06/14/19 25 06/15/2024 KENNETH+L IPASE amylase 79 U/L 31-110 normal Not Available [facility] ([facility]) [address] [place], [address], 06/15/2024 14:06:19 06/14/19 25 06/15/2024 KENNETH+L IPASE lipase 47 U/L 14-72 normal Not Available [facility] ([facility]) [address] [facility], [place], [address], 06/15/2024 14:06:19 06/14/19 25 06/15/2024 H PYLOR I BREAT H TEST H pylori breath test Negati ve negati ve Not Available [facility] ([facility]) [address] [facility], [place], [address], 06/15/2024 14:06:20 06/14/19 25 06/15/2024 NUSWA B BV KEYON+C AND6+ CT/GC /T... atopobium vaginae Modera te - 1 score Not Available [facility] ([facility]) [address] [facility], [place], [address], 06/17/2024 08:06:53 06/14/19 25 06/15/2024 NUSWA B BV KEYON+C AND6+ CT/GC /T... bvab 2 Low - 0 score Not Available [facility] ([facility]) [address] [facility], [place], [address], 06/17/2024 08:06:53 06/14/1906/15/2024 NUSWA B BV KEYON+C [...] prese nce of BV. Not Available [facility] ([facility]) [address] [facility], [place], [address], 06/17/2024 08:06:53 06/14/19 25 06/15/2024 NUSWA B BV KEYON+C AND6+ CT/GC /T... monserrat albicans, KEYON Negati ve negati ve Not Available [facility] ([facility]) [address] [place], [address], 06/17/2024 08:06:53 06/14/19 25 06/15/2024 NUSWA B BV KEYON+C AND6+ CT/GC /T... monserrat glabrata, KEYON Negati ve negati ve Not Available [facility] ([facility]) [address] [place], [address], 06/17/2024 08:06:53 06/14/1906/15/2024 NUA B BV EKYON+C AND6+ CT/GC /T... C parapsilosis /tropicalis Negati ve negati ve This assay does not diffe renti ate C. tropi calis and C. parap el is. Not Available [facility] ([facility]) [address] [facility], [place], [address], 06/17/2024 08:06:53 06/14/19 25 06/15/2024 NUSWA B BV KEYON+C AND6+ CT/GC /T... monserrat lusitaniae, KEYON Negati ve negati ve Not Available [facility] ([facility]) [address] [place], [address], 06/17/2024 08:06:53 06/14/19 25 06/15/2024 NUSWA B BV KEYON+C AND6+ CT/GC /T... monserrat krusei, KEYON Negati ve negati ve Not Available [facility] ([facility]) [address] [place], [address], 06/17/2024 08:06:53 06/14/19 25 06/16/2024 NUSWA B BV KEYON+C AND6+ CT/GC /T... hsv 1 KEYON Negati ve negati ve Not Available [facility] ([facility]) [address] [facility], [place], [address], 06/17/2024 08:06:53 06/14/1906/16/2024 NUSWA B BV KEYON+C AND6+ CT/GC /T... hsv 2 KEYON Negati ve negati ve Not Available [facility] ([facility]) [address] [facility], [place], [address], 06/17/2024 08:06:53 06/14/1906/17/2024 NUSWA B BV KEYON+C AND6+ CT/GC /T... trich vag by KEYON Negati ve negati ve Not Available [facility] ([facility]) [address] [facility], [place], [address], 06/17/2024 08:06:53 06/14/1906/17/2024 NUSWA B BV KEYON+C AND6+ CT/GC /T... chlamydia trachomatis, KEYON Negati ve negati ve Not Available [facility] ([facility]) [address] [place], [address], 06/17/2024 08:06:53 06/14/1906/17/2024 NUSWA B BV KEYON+C AND6+ CT/GC /T... neisseria gonorrhoeae, KEYON Negati ve negati ve Not Available [facility] ([facility]) [address] [place], [address], 06/17/2024 08:06:53 06/14/1906/15/2024 URINA LYSIS , COMPL ETE specific gravity 1.024 1.005- 1.030 normal Not Available [facility] ([facility]) [address] [place], [address], 06/17/2024 08:06:54 06/14/19 25 06/15/2024 URINA LYSIS , COMPL ETE pH 7.0 5.0-7. 5 normal Not Available [facility] ([facility]) [address] [facility], [place], [address], 06/17/2024 08:06:54 06/14/19 25 06/15/2024 URINA LYSIS , COMPL ETE urine-color Yellow yellow Not Available [facility] ([facility]) [address] [facility], [place], [address], 06/17/2024 08:06:54 06/14/19 25 06/15/2024 URINA LYSIS , COMPL ETE appearance Clear clear Not Available [facility] ([facility]) [address] [place], [address], 06/17/2024 08:06:54 06/14/19 25 06/15/2024 URINA LYSIS , COMPL ETE WBC esterase Negati ve negati ve Not Available [facility] ([facility]) [address] [place], [address], 06/17/2024 08:06:54 06/14/19 25 06/15/2024 URINA LYSIS , COMPL ETE protein Negati ve negati ve/tra ce Not Available [facility] ([facility]) [address] [facility], [place], [address], 06/17/2024 08:06:54 06/14/19 25 06/15/2024 URINA LYSIS , COMPL ETE glucose Negati ve negati ve Not Available [facility] ([facility]) [address] [place], [address], 06/17/2024 08:06:54 06/14/19 25 06/15/2024 URINA LYSIS , COMPL ETE ketones Negati ve negati ve Not Available [facility] ([facility]) [address] [place], [address], 06/17/2024 08:06:54 06/14/19 25 06/15/2024 URINA LYSIS , COMPL ETE occult blood Negati ve negati ve Not Available [facility] ([facility]) [address] [facility], [place], [address], 06/17/2024 08:06:54 06/14/19 25 06/15/2024 URINA LYSIS , COMPL ETE bilirubin Negati ve negati ve Not Available [facility] ([facility]) [address] [facility], [place], [address], 06/17/2024 08:06:54 06/14/19 25 06/15/2024 URINA LYSIS , COMPL ETE urobilinogen ,semi-qn 1.0 mg/dL 0.2-1. 0 normal Not Available [facility] ([facility]) [address] [facility], [place], [address], 06/17/2024 08:06:54 06/14/1906/15/2024 URINA LYSIS , COMPL ETE nitrite, urine Negati ve negati ve Not Available [facility] ([facility]) [address] [facility], [place], [address], 06/17/2024 08:06:54 06/14/1906/15/2024 URINA LYSIS , COMPL ETE microscopic examination Commen t Micro scopi c follo ws if indic ated. Not Available [facility] ([facility]) [address] [place], [address], 06/17/2024 08:06:54 06/14/19 25 06/15/2024 URINA LYSIS , COMPL ETE microscopic examination See below: Micro scopi c was indic ated and was perfo rmed. Not Available [facility] ([facility]) [address] [place], [address], 06/17/2024 08:06:54 06/14/19 25 06/15/2024 URINA LYSIS , COMPL ETE WBC None seen /hpf 0 - 5 Not Available [facility] ([facility]) [address] [place], [address], 06/17/2024 08:06:54 06/14/19 25 06/15/2024 URINA LYSIS , COMPL ETE RBC None seen /hpf 0 - 2 Not Available [facility] ([facility]) [address], [place], [address], 06/17/2024 08:06:54 06/14/19 25 06/15/2024 URINA LYSIS , COMPL ETE epithelial cells (non renal) None seen /hpf 0 - 10 Not Available [facility] ([facility]) [address], [place], [address], 06/17/2024 08:06:54 06/14/19 25 06/15/2024 URINA LYSIS , COMPL ETE epithelial cells (renal) TOLL COLLECTOR SUPERVISOR Not Available [facility] ([facility]) [address], [place], [address], 06/17/2024 08:06:54 06/14/19 25 06/15/2024 URINA LYSIS , COMPL ETE casts None seen /lpf none seen Not Available [facility] ([facility]) [address], [place], [address], 06/17/2024 08:06:54 06/14/19 25 06/15/2024 URINA LYSIS , COMPL ETE cast type TOLL COLLECTOR SUPERVISOR Not Available [facility] ([facility]) [address], [place], [address], 06/17/2024 08:06:54 06/14/19 25 06/15/2024 URINA LYSIS , COMPL ETE crystals TOLL COLLECTOR SUPERVISOR Not Available [facility] ([facility]) [address] [place], [address], 06/17/2024 08:06:54 06/14/19 25 06/15/2024 URINA LYSIS , COMPL ETE crystal type TOLL COLLECTOR SUPERVISOR Not Available [facility] ([facility]) [address] [place], [address], 06/17/2024 08:06:54 06/14/19 25 06/15/2024 URINA LYSIS , COMPL ETE mucus threads TOLL COLLECTOR SUPERVISOR Not Available [facility] ([facility]) [address] [facility], [place], [address], 06/17/2024 08:06:54 06/14/1906/15/2024 URINA LYSIS , COMPL ETE bacteria None seen none seen/f ew Not Available [facility] ([facility]) [address] [facility], [place], [address], 06/17/2024 08:06:54 06/14/1906/15/2024 URINA LYSIS , COMPL ETE yeast TOLL COLLECTOR SUPERVISOR Not Available [facility] ([facility]) [address] [facility], [place], [address], 06/17/2024 08:06:54 06/14/19 25 06/15/2024 URINA LYSIS , COMPL ETE trichomonas TOLL COLLECTOR SUPERVISOR Not Available [facility] ([facility]) [address] [facility], [place], [address], 06/17/2024 08:06:54 06/14/19 25 06/15/2024 URINA LYSIS , COMPL ETE comment TOLL COLLECTOR SUPERVISOR Not Available [facility] ([facility]) [address] [facility], [place], [address], 06/17/2024 08:06:54 06/14/1906/16/2024 URINE CULTU REJENNY NE urine culture, routine Final report Not Available [facility] ([facility]) [address] [facility], [place], [address], 06/17/2024 08:06:54 06/14/19 25 06/16/2024 URINE CULTU REHEIDYI NE result 1 No growth Not Available [facility] ([facility]) [address] [facility], [place], [address], 06/17/2024 08:06:54 06/14/19 25 06/14/2024 urina lysis , dipst ick Leukocytes Negati ve Not Available In-Office Order Internal Use Only DO Not Attach Compendium DO Not Attach Compendium, Do Not Delete/merge, [facility] 06/14/2024 13:46:51 06/14/19 25 06/14/2024 urina lysis , dipst ick Nitritie negati ve Not Available In-Office Order Internal Use Only DO Not Attach Compendium DO Not Attach Compendium, Do Not Delete/merge, [facility] 06/14/2024 13:46:51 06/14/19 25 06/14/2024 urina lysis , dipst ick Urobilinogen .2 Not Available In-Of fice Order Internal Use Only DO Not Attach Compendium DO Not Attach Compendium, Do Not Delete/merge, [facility] 06/14/2024 13:46:51 06/14/1906/14/2024 urina lysis , dipst ick Protein Negati ve Not Available In-Office Order Internal Use Only DO Not Attach Compendium DO Not Attach Compendium, Do Not Delete/merge, [facility] 06/14/2024 13:46:51 06/14/1906/14/2024 urina lysis , dipst ick pH 6.0 Not Available In-Office Order Internal Use Only DO Not Attach Compendium DO Not Attach Compendium, Do Not Delete/merge, [facility] 06/14/2024 13:46:51 06/14/19 25 06/14/2024 urina lysis , dipst ick Blood Negati ve Not Available In-Office Order Internal Use Only DO Not Attach Compendium DO Not Attach Compendium, Do Not Delete/merge, [facility] 06/14/2024 13:46:51 06/14/19 25 06/14/2024 urina lysis , dipst ick Specific Cyril 1.020 Not Available In-Off ice Order Internal Use Only DO Not Attach Compendium DO Not Attach Compendium, Do Not Delete/merge, [facility] 06/14/2024 13:46:51 06/14/19 25 06/14/2024 urina lysis , dipst ick Ketone Negati ve Not Available In-Office Order Internal Use Only DO Not Attach Compendium DO Not Attach Compendium, Do Not Delete/merge, [facility] 06/14/2024 13:46:51 06/14/19 25 06/14/2024 urina lysis , dipst ick Bilirubin Negati ve Not Available In-Office Order Internal Use Only DO Not Attach Compendium DO Not Attach Compendium, Do Not Delete/merge, [facility] 06/14/2024 13:46:51 06/14/19 25 06/14/2024 urina lysis , dipst ick Glucose Negati ve Not Available In-Office Order Internal Use Only DO Not Attach Compendium DO Not Attach Compendium, Do Not Delete/merge, [facility] 06/14/2024 13:46:51 06/14/19 25 06/14/2024 urina lysis , dipst ick Appearance Clear Not Available In-Offi ce Order Internal Use Only DO Not Attach Compendium DO Not Attach Compendium, Do Not Delete/merge, [facility] 06/14/2024 13:46:51 06/14/19 25 06/14/2024 urina lysis , dipst ick Color Yellow Not Available In-Office Order Internal Use Only DO Not Attach Compendium DO Not Attach Compendium, Do Not Delete/merge, [facility] 06/14/2024 13:46:51 07/25/19 25 07/25/2024 NUSWA B BV KEYON+C AND6+ CT/GC /T... atopobium vaginae Low - 0 score Not Available [facility] ([facility]) [address] [place], [address], 07/26/2024 22:05:47 07/25/19 25 07/25/2024 NUSWA B BV KEYON+C AND6+ CT/GC /T... bvab 2 Low - 0 score Not Available [facility] ([facility]) [address] [facility], [place], [address], 07/26/2024 22:05:47 07/25/19 25 07/25/2024 NUSWA B [...] prese nce of BV. Not Available [facility] ([facility]) [address] [place], [address], 07/26/2024 22:05:47 07/25/19 25 07/25/2024 NUA B BV KEYON+C AND6+ CT/GC /T... monserrat albicans, KEYON Negati ve negati ve Not Available [facility] ([facility]) [address] [place], [address], 07/26/2024 22:05:47 07/25/19 25 07/25/2024 NUA B BV KEYON+C AND6+ CT/GC /T... monserrat glabrata, KEYON Negati ve negati ve Not Available [facility] ([facility]) [address] [place], [address], 07/26/2024 22:05:47 07/25/19 25 07/25/2024 NUSWA B BV KEYON+C AND6+ CT/GC /T... C parapsilosis /tropicalis Negati ve negati ve This assay does not diffe renti ate C. tropi calis and C. parap el is. Not Available [facility] ([facility]) [address] [place], [address], 07/26/2024 22:05:47 07/25/19 25 07/25/2024 NUSWA B BV KEYON+C AND6+ CT/GC /T... monserrat lusitaniae, KEYON Negati ve negati ve Not Available [facility] ([facility]) [address] [facility], [place], [address], 07/26/2024 22:05:47 07/25/19 25 07/25/2024 NUSWA B BV KEYON+C AND6+ CT/GC /T... monserrat krusei, KEYON Negati ve negati ve Not Available [facility] ([facility]) [address] [facility], [place], [address], 07/26/2024 22:05:47 07/25/19 25 07/26/2024 NUSWA B BV KEYON+C AND6+ CT/GC /T... trich vag by KEYON Negati ve negati ve Not Available [facility] ([facility]) [address] [place], [address], 07/26/2024 22:05:47 07/25/19 25 07/26/2024 NUSWA B BV KEYON+C AND6+ CT/GC /T... chlamydia trachomatis, KEYON Negati ve negati ve Not Available [facility] ([facility]) [address] [place], [address], 07/26/2024 22:05:47 07/25/19 25 07/26/2024 NUSWA B BV KEYON+C AND6+ CT/GC /T... neisseria gonorrhoeae, KEYON Negati ve negati ve Not Available [facility] ([facility]) [address] [place], [address], 07/26/2024 22:05:47 07/25/19 25 07/26/2024 NUSWA B BV KEYON+C AND6+ CT/GC /T... hsv 1 KEYON Negati ve negati ve Not Available [facility] ([facility]) [address] [place], [address], 07/26/2024 22:05:47 07/25/19 25 07/26/2024 NUSWA B BV KEYON+C AND6+ CT/GC /T... hsv 2 KEYON Negati ve negati ve Not Available [facility] ([facility]) [address] [facility], [place], [address], 07/26/2024 22:05:47 07/28/19 25 07/27/2024 rapid influ [...] DO Not Attach Compendium, Do Not Delete/merge, [id number] 07/27/2024 13:20:59 07/28/19 25 07/27/2024 rapid influ zak virus A + B and SARS CoV + SARS CoV 2 Ag panel , [place], upper respi rator y speci men Unknown Analyte negati ve Not Available In-Office Order Internal Use Only DO Not Attach Compendium DO Not Attach Compendium, Do Not Delete/merge, 07/27/2024 13:20:59 11/10/19 25 11/09/2024 strep group [...] Not Attach Compendium, Do Not Delete/merge, 01/11/2025 08:24:27 04/12/20 25 04/12/2025 pregn april test, urine HCG negati ve Not Available In-Office Order Internal Use Only DO Not Attach Compendium DO Not Attach Compendium, Do Not Delete/merge, [id number] 04/12/2025 14:37:12 07/10/1907/10/2024 US, abdom en, limit ed US RUQ [...] I agree with this report . WSN: [id number] Orderi ng Physic rin: Theresa Page Dictat ed By: Jose R Kang DO Dictat ed Date/T bhavna: 10:50 a Review ed By: Harshal Pimentel MD Signed By: Harshal Pimentel MD Signed Date/T bhavna: 10:55 am Transc ribed By: MAGGIE Transc ribed Date/T bhavna: 10:31 am Patien t Class: Outpat ient [email or web address] (Outpt Imaging) [address] [place], [address], 08/02/2024 10:54:59 04/05/20 XR, wrist No observ ation record ed. Not Available 2024 08:53:39 11/14/20 25 XR, elbow No observ ation record ed. [email or web address] Not Available 2024 08:54:28 04/05/20 25 XR, wrist No observ ation record ed. CHERYL Not Available 2024 11:05:56 04/05/20 25 XR, elbow No observ ation record ed. CHERYL Not Available 2024 11:05:57 04/08/[address], upper extre mity, w/o contr ast No observ ation record ed. zoraida Not Available 2024 09:42:37 Result Notes None recorded. Problems Name Problem SNOMED Code Status Onset Date Resolution Date Notes Provider Name and Address Organization Details Recorded Time Eczema 50043323 Active Jim Keys [facility] [address], [place], [address], [facility] 6 15:26:01 Reduced visual acuity 97270858 Active [facility] [address], [place], [address], [facility] 6 15:26:01 Epigastr ic pain 17874827 Completed 200712/27/2013 RECORDED 03/12/20 08 3:00PM BY INEZ GALE ON/MARVIN Keys [facility] [address], [place], [address], [facility] 6 15:26:01 Conjunct ivitis 5686293 Completed 200712/27/2013 RECORDED 03/12/20 08 2:59PM BY INEZ GALE ON/MARVIN Keys [facility] [address], [place], [address], [facility] 6 15:26:01 Dysuria 24084934 Completed 200712/27/2013 RECORDED 03/12/20 08 3:00PM BY INEZ GALE ON/ADDEN ELIZABETH Keys, [facility] [address], [place], [address], [facility] 6 15:26:01 Fever 140561675 Completed 200712/27/2013 RECORDED 03/12/20 08 3:00PM BY INEZ GALE ON/ADDEN ELIZABETH Keys, [facility] [address], [facility] [place], [address], [facility] 6 15:26:01 Epigastr ic pain 14011170 Completed 200712/28/2013 RECORDED 03/12/20 08 3:00PM BY INEZ GALE ON/MARVIN Keys, [facility] [address], [facility] [place], [address], [facility] 6 15:26:01 Conjunct ivitis 9704570 Completed 200712/28/2013 RECORDED 03/12/20 08 2:59PM BY INEZ GALE ON/MARVIN Keys, [facility] [address], [place], [address], [facility] 6 15:26:01 Dysuria 69065118 Completed 200712/28/2013 RECORDED 03/12/20 08 3:00PM BY INEZ GALE ON/MARVIN Keys, [facility] [address], [place], [address], [facility] 6 15:26:01 Fever 870189601 Completed 200712/28/2013 RECORDED 03/12/20 08 3:00PM BY INEZ GALE ON/ADDEN ELIZABETH Keys, [facility] [address], [place], [address], [facility] 6 15:26:01 Epigastr ic pain 64494114 Completed 200712/04/2013 RECORDED 03/12/20 08 3:00PM BY INEZ GALE ON/ADDEN ELIZABETH Keys, [facility] [address], [place], [address], [facility] 6 15:26:01 Conjunct ivitis 8146547 Completed 200712/04/2013 RECORDED 03/12/20 08 2:59PM BY INEZ GALE ON/ADDEN ELIZABETH Keys, [facility] [address], [place], [address], [facility] 6 15:26:01 Dysuria 62457318 Completed 200712/04/2013 RECORDED 03/12/20 08 3:00PM BY INEZ AGLE ON/ADDEN ELIZABETH Keys, [facility] [address], [place], [address], [facility] 6 15:26:01 Fever 141715009 Completed 200712/04/2013 RECORDED 03/12/20 08 3:00PM BY INEZ GALE ON/ADDEN ELIZABETH Keys, [facility] [address], [facility] [place], [address], [facility] 6 15:26:01 Well child 964176249 Completed 200812/04/2013 RECORDED 09/15/19 09 9:09AM BY INEZ GALE ON/ADDEN DUM Edy john [place] null, [facility] 6 14:37:10 Acute secretor y otitis media 795059151 Completed 200812/27/2013 RECORDED 03/07/20 09 9:27AM BY EDY AGUILAR MA, INEZ ON/ADDEN ELIZABETH Keys, [facility] [address], [facility] [place], [address], [facility] [place] 6 15:26:01 Influenz a vaccine needed 40455808702 06 Completed 200812/27/2013 DATE: 03/07/20 09; RECORDED 05/15/20 13 8:35AM BY INEZ LUND/MARVIN Keys, [facility] [address], [facility] [place], [address], [facility] 6 15:26:01 Acute secretor y otitis media 200583331 Completed 200812/28/2013 RECORDED 03/07/20 09 9:27AM BY EDY AGUILAR MA, INEZ ON/MARVIN Keys, [facility] [address], [place], [address], [facility] 6 15:26:01 Influenz a vaccine needed 36591817406 06 Completed 200812/28/2013 DATE: 03/07/20 09; RECORDED 05/15/20 13 8:35AM BY INEZ LUND ON/MARVIN Keys, [facility] [address], [facility] [place], [address], [facility] [place] 6 15:26:01 Acute secretor y otitis media 285101410 Completed 200812/04/2013 RECORDED 03/07/20 09 9:27AM BY EDY AGUILAR MA, INEZ ON/MARVIN Keys, [facility] [address], [place], [address], [facility] 6 15:26:01 Influenz a vaccine needed 91354276236 06 Completed 200812/04/2013 DATE: 03/07/20 09; RECORDED 05/15/20 13 8:35AM BY INEZ LUND ON/ADDEN DUM Jim Keys, [facility] [address], [facility] [place], [address], [facility] 6 15:26:01 Acute pharyngi tis 617766628 Completed 201112/27/2013 RECORDED 11/30/19 12 8:26AM BY CYNTHIA TORRE PA-C, ERIKATI ON/ADDEN DUM Tammie Peres [facility] 5 09:57:47 Streptoc occal sore throat 48029517 Completed 201112/27/2013 RECORDED 11/30/19 12 8:26AM BY CYNTHIA TORRE PA-C, ERIKATI ON/ADDEN DUM Jim Keys, [facility] [address], [facility] [place], [address], [facility] 6 15:26:01 Cellulit is and abscess of face 998364599 Completed 201112/27/2013 RECORDED 11/30/19 12 8:26AM BY CYNTHIA TORRE PA-C, INEZ ON/ADDEN DUM Jim Keys, [facility] [address], [facility] [place], [address], [facility] 6 15:26:01 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 348449999 Completed 201112/27/2013 RECORDED 11/30/19 12 8:26AM BY CYNTHIA TORRE PA-C, ANNOTATI ON/ADDEN DUM Jim Keys, [facility] [address] [address], [facility] [place], [address], [facility] 6 15:26:01 Impetigo 32337896 Completed 201112/27/2013 RECORDED 11/30/19 12 9:59AM BY CYNTHIA TORRE PA-C, ANNOTATI ON/ADDEN DUM Jim Keys, [facility] [address], [place], [place], [address], [facility] 6 15:26:01 Infestat ion by Gretchen galeas 39841144 Completed 201112/27/2013 RECORDED 11/30/19 12 8:26AM BY CYNTHIA TORRE PA-C, ERIKATI ON/ADDEN DUM Jim Keys, [facility] [address] [address], [place], [address], [facility] 6 15:26:01 Eruption 423331176 Completed 201112/27/2013 RECORDED 11/30/19 12 8:26AM BY CYNTHIA TORRE PA-C, ERIKATI ON/ADDEN DUM Jim Keys, [facility] [address] [address], [place], [address], [facility] 6 15:26:01 Acute pharyngi tis 838089395 Completed 201112/28/2013 RECORDED 11/30/19 12 8:26AM BY CYNTHIA TORRE PA-C, ERIKATI ON/ADDEN DUM Tammie Peres [facility] 5 09:57:47 Streptoc occal sore throat 77427618 Completed 201112/28/2013 RECORDED 11/30/19 12 8:26AM BY CYNTHIA TORRE PA-C, ANNOTATI ON/ADDEN DUM Jim Keys, [facility] [address], [place], [address], [facility] 6 15:26:01 Cellulit is and abscess of face 280998709 Completed 201112/28/2013 RECORDED 11/30/19 12 8:26AM BY CYNTHIA TORRE PA-C, ANNOTATI ON/ADDEN DUM Jim Keys, [facility] [address], [place], [address], [facility] 6 15:26:01 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 423607706 Completed 201112/28/2013 RECORDED 11/30/19 12 8:26AM BY CYNTHIA TORRE PA-C, ANNOTATI ON/ADDEN DUM Jim Keys, [facility] [address], [place], [address], [facility] 6 15:26:01 Impetigo 36455849 Completed 201112/28/2013 RECORDED 11/30/19 12 9:59AM BY CYNTHIA TORRE PA-C, ANNOTATI ON/ADDEN DUM Jim Keys, [facility] [address], [place], [address], [facility] 6 15:26:01 Infestat ion by Gretchen galeas [id number] Completed 201112/28/2013 RECORDED 11/30/19 12 8:26AM BY CYNTHIA TORRE PA-C, ERIKATI ON/ADDEN DUM Jim Keys, [facility] [address], [place], [address], [facility] 6 15:26:01 Eruption 421729747 Completed 201112/28/2013 RECORDED 11/30/19 12 8:26AM BY CYNTHIA TORRE PA-C, ANNOTATI ON/ADDEN DUM Jim Keys, [facility] [address], [place], [address], [facility] 6 15:26:01 Acute pharyngi tis 373203507 Completed 201112/04/2013 RECORDED 11/30/19 12 8:26AM BY CYNTHIA TORRE PA-C, ANNOTATI ON/ADDEN DUM Tammie Peres [facility] 5 09:57:47 Streptoc occal sore throat 36725727 Completed 201112/04/2013 RECORDED 11/30/19 12 8:26AM BY CYNTHIA TORRE PA-C, ANNOTATI ON/ADDEN DUM Jim Keys, [facility] [address], [place], [address], [facility] 6 15:26:01 Cellulit is and abscess of face 326370771 Completed 201112/04/2013 RECORDED 11/30/19 12 8:26AM BY CYNTHIA TORRE PA-C, ANNOTATI ON/ADDEN DUM Jim Keys, [facility] [address], [place], [address], [facility] 6 15:26:01 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 117686325 Completed 201112/04/2013 RECORDED 11/30/19 12 8:26AM BY CYNTHIA TORRE PA-C, ANNOTATI ON/ADDEN DUM Jim Keys, [facility] [address], [place], [address], [facility] 6 15:26:01 Impetigo 56231009 Completed 201112/04/2013 RECORDED 11/30/19 12 9:59AM BY CYNTHIA TORRE PA-C, ANNOTATI ON/ADDEN DUM Jim Keys, [facility] [address], [place], [address], [facility] 6 15:26:01 Infestat ion by Kelbycasie s 47030647 Completed 201112/04/2013 RECORDED 11/30/19 12 8:26AM BY CYNTHIA TORRE PA-C, ANNOTATI ON/ADDEN DUM Jim Keys, [facility] [address], [place], [address], [facility] 6 15:26:01 Eruption 190381716 Completed 201112/04/2013 RECORDED 11/30/19 12 8:26AM BY CYNTHIA TORRE PA-C, ANNOTATI ON/ADDEN DUM Jim Keys, [facility] [address] [place] [address] [address], [place], [address], [facility] 6 15:26:01 Administ ration of viral vaccine Completed 201212/27/2013 RECORDED 05/15/20 13 2:44PM BY MIKE DYER MD, WELL CHILD VISITS Jim Keys, [facility] [address] [place] [address] [address], [place], [address], [facility] 6 15:26:01 Methicil jordan resistan t Staphylo coccus aureus infectio n 365249389 Completed 201212/27/2013 RECORDED 05/15/20 13 8:35AM BY INEZ LUND ON/ADDEN DUM Jim Keys, [address], [place], [address], [facility] 6 15:26:01 Verruca plantari s 35929531 Completed 201212/27/2013 IMPRESSI ON: L HEEL; RECORDED 05/15/20 13 8:35AM BY INEZ LUND ON/ADDEN DUM Jim Keys, [facility] [address], [place], [address], [facility] 6 15:26:01 Administ ration of viral vaccine Completed 201212/28/2013 RECORDED 05/15/20 13 2:44PM BY MIKE DYER MD, WELL CHILD VISITS Jim Keys, [facility] [address], [place], [address], [facility] 6 15:26:01 Methicil jordan resistan t Staphylo coccus aureus infectio n 529461657 Completed 201212/28/2013 RECORDED 05/15/20 13 8:35AM BY RAMIRO VALLECILLO I ANNOTATI ON/ADDEN DUM Jim Keys, [address] [address], [facility] [place], [address], [facility] 6 15:26:01 Verruca plantari s 18333444 Completed 201212/28/2013 IMPRESSI ON: L HEEL; RECORDED 05/15/20 13 8:35AM BY RAMIRO VALLECILLO I ANNOTATI ON/ADDEN DUM Jim Keys, [address] [address], [place], [address], [facility] 6 15:26:01 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 511254340 Completed 201209/01/2016 Removal Reason: not specific [facility] 13:59:23 Contact dermatit is 22855681 Completed 201208/31/2016 RECORDED 05/15/20 13 1:59PM BY RAMIRO VALLECILLO I, WELL CHILD VISITS [facility] 7 11:30:54 Administ ration of viral vaccine Completed 201212/04/2013 RECORDED 05/15/20 13 2:44PM BY MIKE DYER MD, WELL CHILD VISITS Jim Keys, [address] [address], [facility] [place], [address], [facility] 6 15:26:01 Methicil jordan resistan t Staphylo coccus aureus infectio n 450693876 Completed 201212/04/2013 RECORDED 05/15/20 13 8:35AM BY RAMIRO VALLECILLO I, ANNOTATI ON/ADDEN BRIGITTE Denton [address], [facility] [place], [address], [facility] 6 15:26:01 Developm ental delay 733533056 Active 2012 Emilia wheeler, [facility] 7 11:30:53 Verruca plantari s 91680538 Completed 201212/04/2013 IMPRESSI ON: L HEEL; RECORDED 05/15/20 13 8:35AM BY RAMIRO VALLECILLO I, ANNOTATI ON/ADDEN DUM Jim Keys [facility] [address], [facility] [place], [address], [facility] 6 15:26:01 Well child 385829237 Completed 201203/30/2016 RECORDED 05/15/20 13 2:05PM BY RAMIRO VALLECILLO I, WELL CHILD VISITS DEVAN Reagan, [facility] 6 14:37:10 Wears glasses 347148784 Active 2016 DEVAN Kumar, [facility] 7 14:06:39 Scoliosi s of thoracic spine 852236772 Active 12/08 seen at [facility] , 26 degree thoracic curve, rec followup 6 months, no bracing/ /Followu p 06/2019, no change in curve, followup prn Lakisha harper null, [facility] 0 10:36:20 Candidia sis of vagina 06112963 Active 2022 Janitza C. Thabet, [facility] [address], [place], [address], [facility] 3 15:59:41 Vaginiti s 55626229 Active 2022 Jim Keys, [facility] [address], [place], [address], [facility] 3 16:00:20 Pelvic floor dysfunct ion 404359887 Active 2022 Jim Keys, [facility] [address], [place], [address], [facility] 3 16:02:45 Third degree perineal lacerati on 29039230 Active 2022 Jim Keys, [facility] [address], [place], [address], [facility] 3 16:07:32 Acute right otitis media 049221180 Active 2022 Jim Keys, [facility] [address], [place], [address], [facility] 3 16:14:20 Bacteria l vaginosi s 508782892 Active 2022 Jim Keys, [facility] [address], [place], [address], [facility] 3 15:29:52 Fatigue 95228315 Active 2022 Jim Keys, [facility] [address], [place], [address], [facility] 3 15:30:59 Unable to control flatus 686950435 Active 2022 Jim Keys, [facility] [address], [place], [address], [facility] 3 15:32:02 Anemia due to unknown mechanis m 96238128 Active 2022 Jim Keys [facility] [address] [address], [place], [address], [facility] 3 15:35:31 Vitamin D deficien cy 71092435 Active 2022 Jim Keys [facility] [address] [place] [address], [place], [address], [facility] 3 15:35:49 Cough 99274377 Active 2022 Jim Keys [facility] [address] [place] [address], [place], [address], [facility] [place] 3 15:36:35 Allergic rhinitis 44265333 Active 2022 Jim Keys [facility] [address] [place] [address], [place], [address], [facility] [place] 3 15:38:34 Pain in pelvis 62781998 Active 2022 Jim Keys [facility] [address] [place] [address], [place], [address], [facility] [place] 3 15:46:29 Dizzines s 321985849 Active 2023 BRIGITTE Gillespie [address] [place] [address], [place], [address], [facility] [place] 4 14:02:08 Anemia 389656228 Active 2023 Jim Keys [facility] [address] [place] [address], [place], [address], [facility] [place] 4 14:02:26 Urinary tract infectio us disease 17973515 Active 2024 BRIGITTE Gillespie [address] [place] [address], [place], [address], [facility] [place] 5 13:57:20 Right upper quadrant pain 559319435 Active 2024 Jim Keys, [facility] [address] [facility] [address], [facility] [place], [address], [facility] [place] 5 13:57:37 Acute vaginiti s 73953355 Active 2024 Jim Keys, [facility] [address] [facility] [address], [facility] [place], [address], [facility] [place] 5 12:43:16 Acute pharyngi tis 647395585 Active 2024 RECORDED 11/30/19 12 8:26AM BY CYNTHIA TORRE PA-C, ANNOTATI ON/ADDEN DUM Tammie wheeler [facility] 5 09:57:47 Ulcerati ve pharyngi tis 80686523 Active 2024 Tammie wheeler [facility] 5 10:47:18 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 Procedures Surgical History Date Name Laterality Status Provider Name and Address Organization Details Recorded Time 023 anal sphincterorrhaphy for obstetrical laceration completed Edy patel MA [facility] 03/24/2023 15:22:08 022 dilation procedure completed Nicol Cano [facility] 09/16/2021 14:53:39 017 Developmental Screening completed Marilia Singh MA [facility] 01/04/2017 14:02:57 extraction of wisdom tooth completed Edy patel MA [facility] 03/24/2023 15:16:04 Imaging Results None recorded. Procedure [...] 1-2 teaspoon s 30 minutes before eating. 04/12 completed Not Available Not Available Not Available [...] 11/12 completed RECORDED 01/13/20 07 10:35AM BY SCOTTIE PIPER, MIGUEL, MEDICATI ON AUTO-NETTIE CTIVATIO N; Not Available [...] mL every 3 months by intramus cular route as directed for 90 days. 2024 active Not Available Not Available Not [...] (BMI) Body weight Heart rate Oxygen saturation Body temperature Systolic And Diastolic Provider Name and Address Organization Details Last Updated DateTime 5 172.72 cm 17.9 kg/m2 47704.9 g 65 /min 98 % 97.9 [degF] 102/68 mm[Hg] Mariela Pinedo MA [facility] 5 13:45:57 Date Recorded Body height Body mass index (BMI) Body weight Heart rate Oxygen saturation Body temperature Systolic And Diastolic Provider Name and Address Organization Details Last Updated DateTime 5 172.72 cm 17.4 kg/m2 82454.3 3 g 89 /min 98 % 98.1 [degF] 97/64 mm[Hg] Rekha Tapia LPN [facility] 5 13:35:22 Date Recorded Body height Body mass index (BMI) Body weight Heart rate Oxygen saturation Body temperature Systolic And Diastolic Provider Name and Address Organization Details Last Updated DateTime 5 172.72 cm 18.2 kg/m2 65308.2 9 g 94 /min 97 % 98.7 [degF] 100/66 mm[Hg] Rekha Tapia LPN [facility] 5 09:45:25 Date Recorded Body height Body mass index (BMI) Body weight Heart rate Oxygen saturation Body temperature Systolic And Diastolic Provider Name and Address Organization Details Last Updated DateTime 5 172.72 cm 18.5 kg/m2 41309.2 7 g 100 /min 96 % 97.9 [degF] 120/82 mm[Hg] Shahnaz Jo [facility] 5 14:33:06 Social History Question Answer Notes LastModified by Organizat ion Details LastModified Time Tobacco Smoking Status Never Smoker DEVAN Kumar, [facility] 06/21/2014 16:34:33 Animal Exposure? No No Current Pets Information not available 11/08/2014 What Type Of Diet Are You Following? REGULAR [email or web address] Information not available 06/21/2014 What Is Your Home Situation? Mother Information not available 11/08/2014 Live Alone Or With Others? With Others Mom, 1 Brother Information not available 06/21/2014 Have You Served In The ? No Information not available 03/24/2023 Have You Or Anyone In Your Household Had Any Of The Following Symptoms In The Last 14 Days: Sore Throat, Cough, Chills, Body Aches For Unknown Reasons, Shortness Of Breath For Unknown Reasons, Loss Of Smell, Loss Of Taste, Fever At Or Greater Than 100 Degrees Fahrenheit? No [email or web address] Information not available 04/07/2020 Are You Or Anyone In Your Household A Health Care Provider Or Emergency Responder? No Information not available 04/07/2020 To The Best Of Your Knowledge Have You Been In Close Proximity To Any Individual Who Tested Positive For COVID-19? No [email or web address] Information not available 04/07/2020 What Was The Date Of Your Most Recent Tobacco Screening? 03/27/2024 [email or web address] Information not available 03/27/2024 How Many Children Do You Have? 1 Margret Information not available 03/24/2023 Pool Exposure Yes Informa tion not available 11/08/2014 What Is The Name Of Your School? [employer] Information not available 03/24/2023 Do You Use Your Seat Belt Or Car Seat Routinely? Yes Information not available 11/08/2014 Seat Belts Used Routinely Yes [email or web address] Information not available 06/21/2014 Are You Sexually Active? Yes Information not available 03/24/2023 Do You Have Any Siblings? 3 1 Brother, 2 Sisters Information not available 11/08/2014 Smoke Alarm In Home Yes [email or web address] Information not available 06/21/2014 Do You Have Smoke And Carbon Monoxide Detectors In Your Home? Yes Information not available 11/08/2014 Are You Passively Exposed To Smoke? No [email or web address] Information not available 06/21/2014 General Stress Level Low [email or web address] Information not available 06/21/2014 Do You Use Sunscreen Routinely? Yes [email or web address] Information not available 06/21/2014 Sex: Unknown Functional Status Question Answer Note LastModified by Organizat ion Details LastModified Time Do you use any illicit or recreational drugs? No Information not available 03/24/2023 Do you or have you ever used any other forms of tobacco or nicotine? No Information not available 03/24/2023 What is your level of alcohol consumption? None [email or web address] Information not available 06/21/2014 Are you currently employed? Yes Information not available 03/24/2023 Are you able to walk independently without assistance or assistive devices? [email or web address] Information not available 03/24/2023 Are you able to care for yourself independently? 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 None Information not available 03/24/2023 Mental Status None recorded. Family History Relationship Description Onset Age of this Age Resolved Age Notes LastModified by Organization Details LastModified Time Brother Attention deficit hyperactivit y disorder [email or web address] Not available 06/26 15:15:13 Mother Asthma [email or web address] Not available 06/07/2019 14:27:34 Sister Asthma [email or web address] Not available 06/07/2019 14:27:45 Medical History Condition Response Coronary Artery Disease N Gout N Other N Blood Diseases N Kidney Stones N Hyperthyroidism N Breast Cancer N mrsa exposure N Lung Disease N Hypothyroidism N Depression N COPD N Defects or Inherited Disease N Developmental or Behavioral Disorders N Breast Problem N Anesthesia Complications N Headaches/Migraines N Varicose Veins N Anxiety Disorder N Muscle, Joint, or Bone Problems N Obesity N Vision or Eye Problems N Arthritis N Head Injury/Concussion N Infertility N Polyps N Mental Disorder N Congenital Anomalies N [...] Age at Menarche 13 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 Y Obstetrics History GPAL:G 0 P 0 0 0 0 Immunizations Vaccine Type Date Status Note Provider Nam e and Address Organization Details Recorded Time Tdap 5 completed Not Available [facility] 06/09/2019 02:21:44 HPV, quadrivalent 5 completed Not Available [facility] 06/09/2019 02:21:34 COVID-19, mRNA, LNP-S, PF, 30 mcg/0.3 mL dose 1 completed DEVAN Shea, [facility] 05/18/2021 10:56:14 COVID-19, mRNA, LNP-S, PF, 30 mcg/0.3 mL dose 1 completed DEVAN Shea, [facility] 05/18/2021 10:56:14 COVID-19, mRNA, LNP-S, PF, 30 mcg/0.3 mL dose, renato-sucrose 2 completed DEVAN Chen, [facility] 09/09/2022 10:02:15 Tdap 2 completed DEVAN Chen, [facility] 09/09/2022 10:02:15 Influenza, split virus, quadrivalent, PF 2 completed DEVAN Chen, [facility] 09/09/2022 10:02:15 Hep B, adolescent or pediatric 3 completed Not Available [facility] 12/04/2013 13:31:42 pneumococcal conjugate PCV 7 4 completed Not Available [facility] 12/04/2013 13:31:42 DTaP 4 completed Not Available [facility] 12/04/2013 13:31:42 Hib (HbOC) 4 completed Not Available [facility] 12/04/2013 13:31:42 IPV 4 completed Not Available [facility] 12/04/2013 13:31:42 IPV 4 completed Not Available [facility] 12/04/2013 13:31:42 Hib (HbOC) 4 completed Not Available [facility] 12/04/2013 13:31:42 DTaP 4 completed Not Available [facility] 12/04/2013 13:31:42 pneumococcal conjugate PCV 7 4 completed Not Available [facility] 12/04/2013 13:31:42 pneumococcal conjugate PCV 7 4 completed Not Available [facility] 12/04/2013 13:31:42 Hep B, adolescent or pediatric 4 completed Not Available [facility] 12/04/2013 13:31:43 DTaP 4 completed Not Available [facility] 12/04/2013 13:31:43 Hib (HbOC) 4 completed Not Available [facility] 12/04/2013 13:31:43 Hib (HbOC) 4 completed Not Available [facility] 12/04/2013 13:31:43 pneumococcal conjugate PCV 7 4 completed Not Available [facility] 12/04/2013 13:31:43 varicella 4 completed Not Available [facility] 12/04/2013 13:31:43 MMR 4 completed Not Available [facility] 12/04/2013 13:31:43 Hep B, adolescent or pediatric 4 completed Not Available [facility] 12/04/2013 13:31:43 IPV 4 completed Not Available [facility] 12/04/2013 13:31:43 Influenza, split virus, trivalent, preservative 4 completed Not Available [facility] 12/04/2013 13:31:43 DTaP 5 completed Not Available [facility] 12/04/2013 13:31:43 Influenza, split virus, trivalent, preservative 6 completed Not Available [facility] 12/04/2013 13:31:43 MMR 7 completed Not Available [facility] 12/04/2013 13:31:43 varicella 7 completed Not Available [facility] 12/04/2013 13:31:43 DTaP 7 completed Not Available [facility] 12/04/2013 13:31:43 IPV 7 completed Not Available [facility] 12/04/2013 13:31:43 Influenza, split virus, trivalent, preservative 7 completed Not Available [facility] 12/04/2013 13:31:43 Influenza, split virus, trivalent, preservative 8 completed Not Available [facility] 12/04/2013 13:31:43 Influenza, split virus, trivalent, preservative 9 completed Not Available [facility] 12/04/2013 13:31:43 Novel [id number], all formulations 9 completed Not Available [facility] 12/04/2013 13:31:43 Novel [id number], all formulations 0 completed Not Available [facility] 12/04/2013 13:31:43 Influenza, split virus, trivalent, preservative 0 completed Not Available [facility] 12/04/2013 13:31:43 Influenza, split virus, trivalent, preservative 1 completed Not Available [facility] 12/04/2013 13:31:43 Influenza, split virus, trivalent, preservative 2 completed Not Available [facility] 12/04/2013 13:31:43 HPV, quadrivalent 3 completed Not Available [facility] 12/04/2013 13:31:43 Influenza, split virus, quadrivalent, PF 6 completed Not Available [facility] 06/09/2019 02:22:08 meningococcal MCV4P 9 completed Not Available [facility] 06/09/2019 02:21:55 Influenza, split virus, quadrivalent, PF 0 completed Mariela Pinedo MA [facility] 04/07/2020 14:40:13 meningococcal MCV4P 0 completed Dee Cortez [facility] null, [facility] 04/07/2020 15:35:41 Influenza, split virus, quadrivalent, PF 3 completed DEVAN Shea, [facility] 03/14/2023 11:34:59 Influenza, split virus, trivalent, PF 4 completed Jim Keys [facility] [address], [address], [facility] [place] 03/27/2024 11:11:42 Past Encounters Encounter ID Performer Location Encounter Start Date Encounter Closed Date Diagnosis/Indication Diagnosis SNOMED-CT Code Diagnosis ICD10 Code Diagnosis IMO Codes Diagnosis Note [id number] [facility] [id number] [place] [address] 11/02/2006 00:00:00 [id number] [facility] [address] [place] [address] 02/07/2007 00:00:00 [id number] [facility] [address] [place] [address] 09/12/2007 00:00:00 [id number] [facility] [address] [place] [address] 10/30/2007 00:00:00 [id number] [facility] [address] [place] [address] 04/03/2008 00:00:00 [id number] [facility] [address] [place] [address] 09/14/2008 00:00:00 [id number] [facility] [address] [place] [address] 10/10/2009 00:00:00 [id number] [facility] [address] [place] [address] 12/22/2009 00:00:00 [id number] [facility] [address] [place], [place] [address] 03/30/2010 00:00:00 [id number] [facility] [address] [place], [place] [address] 05/13/2010 00:00:00 [id number] [facility] [address] [place], [place] [address] 07/17/2010 00:00:00 [id number] [address] [place] [address],[address] [place], [place] [address] 11/30/2011 00:00:00 [id number] [address] [place] [address],[address] [place], [place] [address] 05/15/2013 00:00:00 [id number] Jim Keys [facility] Main Office [address] [address] [place], [place] [address] 06/21/2014 16:13:41 06/21/2014 17:03:10 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 Mom would like to start on a longer acting med- her son takes concerta and she feels this works well. She will give med on school days, encourage pt to eat frequtnly, watch for adverse side effects. F/U in 1 month. 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 Age appropriat e anticipato ry guidance provided. Regular dental care and appropriat e car safety advised. Immunizati on status updated. HPV# 2 and TDAP today, Advised well balanced meals TID, she is on concerta and does not eat much, may try giving the medication after breakfast so that she has an appetite in the morning. Reduced visual acuity 13733522 VA 20/50 and 20/100, should be evaluated for need for glasses. Child atte ntion deficit disorder 431527573 Just had med refills on 11/03/14, doing well on concerta, encouraged to ensure patient is eating frequently . 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 Referred to [facility] ER and an expect called in. 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 [id number] Nelson Toribio MD Main Office [address] [address] 11/10/2018 12:50:05 11/10/2018 14:01:16 Requires a meningitis vaccination 920806311 Z23 Well child 338579986 Z00 .129 Reviewed dental care, need to floss, increase calcium in the diet, pt has tried vaping - discourage d use/educat ed, not sex active, will call if need contracept ion, safe sex reviewed, BSE taught Scoliosis of thoracic spine 297576957 M41.34 referral to [facility] [id number] Cherelle martinez MD Main Office [address] [address] 04/07/2020 13:55:56 04/07/2020 15:37:56 Adult health examination 113623176 Z00.00 Child in good general health. Reviewed immunizati ons. Discussed diet, exercise, dental care. Discussed teen issues Needs infl uenza immunization 644024465 Z23 Scoliosis of thoracic spine 804153128 M41.34 pt states no followup needed, has been discharged from [facility] Administra tion of viral vaccine 40977289 Z23 [id number] Bronwyn Mitchell MD Main Office [address] [address] 06/18/2020 12:27:22 06/18/2020 13:35:46 Impetigo 59431096 L01.00 [id number] Mike Ontiveros MD [facility] [address] [address] 05/18/2021 08:28:19 05/18/2021 11:28:22 Acute pharyngitis 842342285 J02.9 Pt. has sore throat and headache with mild congested . Advised on COVID PCR test or at least rapid test. Recommende d to do salt water gargles, Tylenol ES , rest and fluids. Exposure t o viral disease 6501772889 14246 Z20.828 Counseling was provided to pt. phone number given for [facility] for PCR testing. Quarantine recommenda tions discussed. [id number] Mike Ontiveros MD Main Office [address] [facility] [address] [place] [address] 08/30/2022 11:27:44 08/30/2022 12:43:12 Contraception care management 774482568 Z30.42 [id number] Mike Ontiveros MD Main Office [address] [facility] [address] [place] [address] 11/12/2022 15:12:26 11/12/2022 16:23:31 Vaginitis 68260932 N76.0 will send for testing and tx for BV and yeast. Pelvic ankit or dysfunction 560744330 M62.9 needs to see pelvic floor PT will rfeer as she was told kristina would be 1 year wait. Third degr ee perineal laceration 97701814 O70.20 3rd degree tear repaired 5 months ago, anal sphincter had to be reattached by colorectal surgery. erythemato us friable tissue, with loose tissue noted. will send to [facility] for 2nd opinion as it appears laceration was not well approximat ed. Acute righ t otitis media 093406565 H66.91 Contracept ion care management 754046525 Z30.42 [id number] JUSTINE DUARTE MD Main Office [address] [facility] [address] [place] [address] 11/16/2022 14:01:24 11/16/2022 15:19:09 Contraception care management 878827157 Z30.42 [id number] Mike Ontiveros MD Main Office [address] [facility] [address] [place] [address] 03/24/2023 15:05:07 03/24/2023 15:53:54 Adult health examination 931822308 Z00.00 UTD. will check labs Bacterial vaginosis 4197 50609 N76.0 will tx with metronidaz ole and she notes metrogel causes bleeding Vaginitis 44660477 N76.0 Fatigue 52093307 R53.83 Unable to control flatus 796333908 R14.3 would like to see colo rectal in follow-up, she has not been to pelvic floor PT though she does have the referral. Anemia due to unknown mechanism 06720946 D64.9 Vitamin D deficiency 347 38634 E55.9 Cough 67592913 R05.9 Allergic rhinitis 559132 04 J30.9 Pain in pelvis 14806469 R10.2 sharp pelvic pain, will check US Family his tory of Cardiovascular disease 253338584 Z82.49 [id number] Nelson Toribio MD Main Office [address] [facility] [address] [place] [address] 03/14/2023 11:10:23 03/14/2023 12:09:03 Needs influenza immunization 896843853 Z23 Contracept ion care management 541780764 Z30.42 [id number] Bronwyn Mitchell MD Main Office [address] [facility] [address] [place] [address] 06/08/2023 11:37:22 06/08/2023 12:17:58 [id number] STEVEN AHUMADA Main Office [address] [address] [place] [address] 06/24/2023 08:39:35 06/24/2023 09:23:53 Syncope 427342549 R55 -had 2 known episodes of syncope; [...] ng factor or trigger Orthostati c hypotension 08264726 I95.1 -orthostat ic BP readings were completed in the office-tova roximate 25bpm increase and 10 mmHg diastolic decrease when transition ing from supine to standing Ammendment by SB: after discussion of case ordered patient a tilt-table testing [id number] JUSTINE DUARTE MD Main Office [address] [facility] [address] [place] [address] 07/29/2023 13:09:22 07/29/2023 13:41:12 Contraception care management 792798772 Z30.42 [id number] Nelson Toribio MD Main Office [address] [address] [place] [address] 10/13/2023 12:59:12 10/13/2023 13:11:57 Contraception care management 631440356 Z30.42 [id number] Bronwyn Mitchell MD Main Office [address] [address] [place] [address] 01/11/2024 09:37:55 01/11/2024 09:38:39 Contraception care management 046437539 Z30.42 [id number] Mike Ontiveros MD Main Office [address] [address] [place] [address] 03/27/2024 09:44:46 03/27/2024 10:56:58 Adult health examination 732028586 Z00.00 HM UTD. had labs in November, no concerns. Needs infl uenza immunization 301211831 Z23 19 YEARS AND OLDER ONLY Contracept ion care management 084453775 Z30.42 refill provided, last depo 01/11/24 Eczema 61164603 L30.9 refilled Allergic rhinitis 517290 04 J30.9 start zyrtec daily for allergy sx. [id number] Nelson Toribio MD Main Office [address] [address] [place] [address] 04/13/2024 14:09:16 04/13/2024 14:11:14 Contraception care management 952141631 Z30.42 [id number] Mike Ontiveros MD Main Office [address] [address] [place] [address] 06/14/2024 13:33:11 06/14/2024 14:10:14 Pain in pelvis 51636846 R10.2 will check Urine and vaginitis swab. Urinary tr act infectious disease 93301869 N39.0 urine dip negative, will send out to lab Right uppe r quadrant pain 892444785 R10.11 will check labs and US, may try tums as needed, hydration, ensure she is eating regularly, avoid trigger foods. 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 Take Valacyclov ir 1 g by mouth every 12 hours for 1 day at the first sign of tingling, pain, or lesion. 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 [id number] Nelson Toribio MD Main Office [address] [address] [place] [address] 01/11/2025 08:23:40 01/11/2025 08:26:09 Contraception care management [id number] Z30.42 [id number] STEVEN AHUMADA Main Office [address] [address] [place] [address] 04/12/2025 14:23:26 04/12/2025 15:05:32 Contraception care management [id number] Z30.42 urine test is negative. provided refill, pt will return for administra tion.last depo 01/11/25. Health Concerns Section Related Observation LastModified by Organization Detai ls LastModified Time None Recorded Concern Status LastModified by Organization Details LastModified Time None Recorded Advance Directives Directive None Recorded Payers Insurance Date Sequence Insurance Name Policy Number Policy Zee Covered Member ID Zee Member ID Guarantor Name 04/12/2025 1 [facility] [employer] - [employer]GETHER (MEDICAID HMO) [id number] Eloisa Ribera [id number] Eloisa Ribera 05/10/2014 1 [facility] (HMO) [id number] Mariela Pinedo [id number] Eloisa Ribera 08/19/2014 1 [facility] (PPO) [id number] Mariela Pinedo [id number] Eloisa Ribera 04/12/2025 1 [facility] [facility] [id number] Eloisa Ribera 04/12/2025 1 [facility] MEDICAID ESSENTIAL (MEDICAID HMO) [id number] Eloisa Ribera [id number] Eloisa Ribera Notes Date Note Type Note [...] this partner.No fever/ chills. 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 JUSTINE DUARTE MD [address] [address], [place], [address], [facility] 07/27/2024 14:28:49 11/09/2024 text/html Throat PainRepor waldemar by [email or web address] presents with sore throat and ulcer on [...] noted in the HPI Juliane Mittal PA-C [address], [place], [address], [facility] 11/09/2024 13:12:17 04/12/2025 text/html ROS as noted in the HPI Eloisa is a 20yr old F who presents for contraceptive management f/u. Doing well on the depo shot. No concerns. STEVEN AHUMADA [address], [place], [address], [facility] 04/12/2025 14:47:48 OBGyn Episode No OBEpisode recorded.
--- OUTSIDE RECORDS SUMMARY | 2025-04-16 08:54 | XMS_ITS | Continuity of Care Document ---
Author Organization [facility], Main Office Address [address] [facility] [address] [place] [address] Care Team Providers Care Humanities Division Chair Name Role Phone PORSCHE MARSHALL Orthopedic Surgeon [phone] TRIP PADILLA Academic Administrator CARLY SCHWARZ Primary Care Provider Unavailabl e [...] DO Not Attach Compendium, Do Not Delete/merge, [id number] 14:45:28 Referral None recorded. Procedures None recorded. Surgeries None recorded. Imaging None recorded. Medication Orders medroxyprog esterone 150 mg/mL intramuscul ar suspension 2024 025 [facility]/Pharmacy #[id number], [address] [facility], [place], [address], 14:45:48 Patient TargetsNo targets recorded. Patient InstructionsNo instructions recorded. Reason for Referral None Reported. Results Created Date Observation Date Name Description Value Unit Range Abnormal Flag Note LastModifiedBy Organization Detail LastModifiedTime 04/12/2004/12/2025 pregn april test, urine HCG negati ve Not Available In-Office Order Internal Use Only DO Not Attach Compendium DO Not Attach Compendium, Do Not Delete/merge, [id number] 04/12/2025 14:37:12 04/05/20 25 XR, wrist No observ ation record ed. [email or web address] Not Available 2024 08:53:39 04/05/20 25 XR, elbow No observ ation [...] and Address Organization Details Recorded Time Eczema 34225034 Active BRIGITTE Gillespie [address] [address], [place], [address], [facility] 6 15:26:01 Reduced visual acuity 80531780 Active [facility] [address] [facility] [address], [place], [address], [facility] 6 15:26:01 Epigastr ic pain 36507931 Completed 200712/27/2013 RECORDED 03/12/20 08 3:00PM BY INEZ GALE ON/MARVIN Keys [facility] [address] [facility] [address], [place], [address], [facility] 6 15:26:01 Conjunct ivitis 8733769 Completed 200712/27/2013 RECORDED 03/12/20 08 2:59PM BY INEZ GALE ON/MARVIN Keys, [facility] [address], [place], [place], [address], [facility] 6 15:26:01 Dysuria 76610696 Completed 200712/27/2013 RECORDED 03/12/20 08 3:00PM BY INEZ GALE ON/MARVIN Keys, [facility] [address], [place], [address], [facility] 6 15:26:01 Fever [id number] Completed 200712/27/2013 RECORDED 03/12/20 08 3:00PM BY INEZ GALE ON/MARVIN Keys, [facility] [address] [facility] [address], [place], [address], [facility] 6 15:26:01 Epigastr ic pain 95892058 Completed 200712/28/2013 RECORDED 03/12/20 08 3:00PM BY INEZ GALE ON/MARVIN Keys, [facility] [address] [facility] [address], [place], [address], [facility] 6 15:26:01 Conjunct ivitis 3679049 Completed 200712/28/2013 RECORDED 03/12/20 08 2:59PM BY INEZ GALE ON/MARVIN Keys, [facility] [address], [place], [address], [facility] 6 15:26:01 Dysuria 21888416 Completed 200712/28/2013 RECORDED 03/12/20 08 3:00PM BY INEZ GALE ON/MARVIN Keys, [facility] [address], [place], [address], [facility] 6 15:26:01 Fever 073926031 Completed 200712/28/2013 RECORDED 03/12/20 08 3:00PM BY INEZ GALE ON/MARVIN Keys, [facility] [address] [facility] [address], [place], [address], [facility] 6 15:26:01 Epigastr ic pain 23613218 Completed 200712/04/2013 RECORDED 03/12/20 08 3:00PM BY INEZ GALE ON/MARVIN Keys, [facility] [address] [facility] [address], [place], [address], [facility] 6 15:26:01 Conjunct ivitis 4137189 Completed 200712/04/2013 RECORDED 03/12/20 08 2:59PM BY INEZ GALE ON/MARVIN Keys, [facility] [address] [facility] [address], [place], [address], [facility] 6 15:26:01 Dysuria 91664081 Completed 200712/04/2013 RECORDED 03/12/20 08 3:00PM BY INEZ GALE ON/MARVIN Keys, [facility] [address] [facility] [address], [place], [address], [facility] 6 15:26:01 Fever [id number] Completed 200712/04/2013 RECORDED 03/12/20 08 3:00PM BY INEZ GALE ON/MARVIN Keys, [facility] [address] [facility] [address], [place], [address], [facility] 6 15:26:01 Well child 625742831 Completed 200812/04/2013 RECORDED 09/15/19 09 9:09AM BY ERIK GALEATI ON/ADDEN DUM Megan john MA [facility] 6 14:37:10 Acute secretor y otitis media 011743780 Completed 200812/27/2013 RECORDED 03/07/20 09 9:27AM BY MEGAN AGUILAR MA, INEZ ON/ADDEN DUM Jim Keys, [facility] [address] [facility] [address], [place], [address], [facility] 6 15:26:01 Influenz a vaccine needed [id number] 06 Completed 200812/27/2013 DATE: 03/07/20; RECORDED 05/15/20 13 8:35AM BY INEZ LUND ON/ADDEN DUM Jim Keys, [facility] [address] [facility] [address], [place], [address], [facility] 6 15:26:01 Acute secretor y otitis media 567715680 Completed 200812/28/2013 RECORDED 03/07/20 09 9:27AM BY MEGAN AGUILAR MA, INEZ ON/ADDEN DUM Jim Keys, [facility] [address] [facility] [address], [place], [address], [facility] 6 15:26:01 Influenz a vaccine needed 97805139807 06 Completed 200812/28/2013 DATE: 03/07/20; RECORDED 05/15/20 13 8:35AM BY INEZ LUND ON/ADDEN DUM Jim Keys, [facility] [address] [facility] [address], [place], [address], [facility] 6 15:26:01 Acute secretor y otitis media 553966834 Completed 200812/04/2013 RECORDED 03/07/20 09 9:27AM BY MEGAN AGUILAR MA, INEZ ON/ADDEN DUM Jim Keys, [facility] [address] [facility] [address], [place], [address], [facility] 6 15:26:01 Influenz a vaccine needed [id number] 06 Completed 200812/04/2013 DATE: 03/07/20 09; RECORDED 05/15/20 13 8:35AM BY INEZ LUND ON/ADDEN DUM Jim Keys, [facility] [address] [address], [place], [address], [facility] 6 15:26:01 Acute pharyngi tis 101754679 Completed 201112/27/2013 RECORDED 11/30/19 12 8:26AM BY CYNTHIA TORRE PA-C, INEZ ON/ADDEN DUM Tammie Peres [facility] 5 09:57:47 Streptoc occal sore throat 32710973 Completed 201112/27/2013 RECORDED 11/30/19 12 8:26AM BY CYNTHIA TORRE PA-C, INEZ ON/ADDEN DUM Jim Keys, [facility] [address] [address], [place], [address], [facility] 6 15:26:01 Cellulit is and abscess of face 609017984 Completed 201112/27/2013 RECORDED 11/30/19 12 8:26AM BY CYNTHIA TORRE PA-C, ANNOTATI ON/ADDEN DUM Jim Keys, [facility] [address] [address], [place], [address], [facility] 6 15:26:01 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 857221483 Completed 201112/27/2013 RECORDED 11/30/19 12 8:26AM BY CYNTHIA TORRE PA-C, ANNOTATI ON/ADDEN DUM Jim Keys, [facility] [address] [facility] [address], [place], [address], [facility] 6 15:26:01 Impetigo 86985566 Completed 201112/27/2013 RECORDED 11/30/19 12 9:59AM BY CYNTHIA TORRE PA-C, ANNOTATI ON/ADDEN DUM Jim Keys, [facility] [address] [address], [place], [address], [facility] 6 15:26:01 Infestat ion by Gretchen galeas [id number] Completed 201112/27/2013 RECORDED 11/30/19 12 8:26AM BY CYNTHIA TORRE PA-C, ANNOTATI ON/ADDEN DUM Jim Keys, [facility] [address] [address], [place], [address], [facility] 6 15:26:01 Eruption 913685636 Completed 201112/27/2013 RECORDED 11/30/19 12 8:26AM BY CYNTHIA TORRE PA-C, ANNOTATI ON/ADDEN DUM Jim Keys, [address] [address], [place], [address], [facility] 6 15:26:01 Acute pharyngi tis 289477237 Completed 201112/28/2013 RECORDED 11/30/19 12 8:26AM BY CYNTHIA TORRE PA-C, ANNOTATI ON/ADDEN DUM Tammie Peres [facility] 5 09:57:47 Streptoc occal sore throat 18986999 Completed 201112/28/2013 RECORDED 11/30/19 12 8:26AM BY CYNTHIA TORRE PA-C, ANNOTATI ON/ADDEN DUM Jim Keys, [facility] [address] [facility] [address], [place], [address], [facility] 6 15:26:01 Cellulit is and abscess of face 135450226 Completed 201112/28/2013 RECORDED 11/30/19 12 8:26AM BY CYNTHIA TORRE PA-C, ANNOTATI ON/ADDEN DUM Jim Keys, [facility] [address] [facility] [address], [place], [address], [facility] 6 15:26:01 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 443644127 Completed 201112/28/2013 RECORDED 11/30/19 12 8:26AM BY CYNTHIA TORRE PA-C, ANNOTATI ON/ADDEN DUM Jim Keys, [facility] [address] [facility] [address], [place], [address], [facility] 6 15:26:01 Impetigo 41865259 Completed 201112/28/2013 RECORDED 11/30/19 12 9:59AM BY CYNTHIA TORRE PA-C, INEZ ON/ADDEN DUM Jim Keys, [facility] [address] [facility] [address], [place], [address], [facility] 6 15:26:01 Infestat ion by Gretchen galeas [id number] Completed 201112/28/2013 RECORDED 11/30/19 12 8:26AM BY CYNTHIA TORRE PA-C, ANNOTATI ON/ADDEN DUM Jim Keys, [facility] [address] [facility] [address], [place], [address], [facility] 6 15:26:01 Eruption 265755093 Completed 201112/28/2013 RECORDED 11/30/19 12 8:26AM BY CYNTHIA TORRE PA-C, ANNOTATI ON/ADDEN DUM Jim Keys, [facility] [address] [facility] [address], [place], [address], [facility] 6 15:26:01 Acute pharyngi tis 249248345 Completed 201112/04/2013 RECORDED 11/30/19 12 8:26AM BY CYNTHIA TORRE PA-C, ERIKATI ON/ADDEN DUM Tammie Peres [facility] 5 09:57:47 Streptoc occal sore throat 83347146 Completed 201112/04/2013 RECORDED 11/30/19 12 8:26AM BY CYNTHIA TORRE PA-C, ERIKATI ON/ADDEN DUM Jim Keys, [facility] [address] [facility] [address] [facility], [place], [address], [facility] 6 15:26:01 Cellulit is and abscess of face 807168599 Completed 201112/04/2013 RECORDED 11/30/19 12 8:26AM BY CYNTHIA TORRE PA-C, INEZ ON/ADDEN DUM Jim Keys, [facility] [address] [address], [place], [address], [facility] 6 15:26:01 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 757574419 Completed 201112/04/2013 RECORDED 11/30/19 12 8:26AM BY CYNTHIA TORRE PA-C, ERIKATI ON/ADDEN DUM Jim Keys, [facility] [address] [address], [place], [address], [facility] 6 15:26:01 Impetigo 18575795 Completed 201112/04/2013 RECORDED 11/30/19 12 9:59AM BY CYNTHIA TORRE PA-C, ANNOTATI ON/ADDEN DUM Jim Keys, [facility] [address] [facility] [address], [place], [address], [facility] 6 15:26:01 Infestat ion by Gretchen galeas [id number] Completed 201112/04/2013 RECORDED 11/30/19 12 8:26AM BY CYNTHIA TORRE PA-C, ANNOTATI ON/ADDEN DUM Jim Keys, [facility] [address] [facility] [address], [place], [address], [facility] 6 15:26:01 Eruption 776137722 Completed 201112/04/2013 RECORDED 11/30/19 12 8:26AM BY CYNTHIA TORRE PA-C, ANNOTATI ON/ADDEN DUM Jim Keys, [facility] [address] [facility] [address], [place], [address], [facility] 6 15:26:01 Administ ration of viral vaccine Completed 201212/27/2013 RECORDED 05/15/20 13 2:44PM BY MIKE DYER MD, WELL CHILD VISITS Jim Keys, [facility] [address] [facility] [address], [place], [address], [facility] 6 15:26:01 Methicil jordan resistan t Staphylo coccus aureus infectio n 420934243 Completed 201212/27/2013 RECORDED 05/15/20 13 8:35AM BY ERIK LUNDATI ON/ADDEN DUM Jim Keys, [facility] [address] [facility] [address], [place], [address], [facility] 6 15:26:01 Verruca plantari s 33954439 Completed 201212/27/2013 IMPRESSI ON: L HEEL; RECORDED 05/15/20 13 8:35AM BY INEZ LUND ON/ADDEN DUM Jim Keys, [facility] [address] [facility] [address], [place], [address], [facility] 6 15:26:01 Administ ration of viral vaccine Completed 201212/28/2013 RECORDED 05/15/20 13 2:44PM BY MIKE DYER MD, WELL CHILD VISITS Jim Keys, [facility] [address] [address], [place], [address], [facility] 6 15:26:01 Methicil jordan resistan t Staphylo coccus aureus infectio n 955675238 Completed 201212/28/2013 RECORDED 05/15/20 13 8:35AM BY INEZ LUND ON/ADDEN ELIZABETH Keys, [facility] [address] [facility] [address], [place], [address], [facility] 6 15:26:01 Verruca plantari s 50143540 Completed 201212/28/2013 IMPRESSI ON: L HEEL; RECORDED 05/15/20 13 8:35AM BY INEZ LUND ON/ADD ELIZABETH Keys, [facility] [address] [facility] [address], [place], [address], [facility] 6 15:26:01 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 785500678 Completed 201209/01/2016 Removal Reason: not specific Nida wheeler [facility] 7 13:59:23 Contact dermatit is 47700320 Completed 201208/31/2016 RECORDED 05/15/20 13 1:59PM BY RAMIRO VALLECILLO I, WELL CHILD VISITS Emilia wheeler [facility] 7 11:30:54 Administ ration of viral vaccine Completed 201212/04/2013 RECORDED 05/15/20 13 2:44PM BY MIKE DYER MD, WELL CHILD VISITS Jim Keys, [facility] [address] [address], [place], [address], [facility] 6 15:26:01 Methicil jordan resistan t Staphylo coccus aureus infectio n 569049299 Completed 201212/04/2013 RECORDED 05/15/20 13 8:35AM BY RAMIRO VALLECILLO I, ANNOTATI ON/ADDEN DUM Jim Keys, [facility] [address] [address], [place], [address], [facility] 6 15:26:01 Developm ental delay 148359517 Active 2012 Emilia wheeler, [facility] 7 11:30:53 Verruca plantari s 99590802 Completed 201212/04/2013 IMPRESSI ON: L HEEL; RECORDED 05/15/20 13 8:35AM BY RAMIRO VALLECILLO I, ANNOTATI ON/ADDEN DUM Jim Keys, [facility] [address] [address], [place], [address], [facility] 6 15:26:01 Well child 722354968 Completed 201203/30/2016 RECORDED 05/15/20 13 2:05PM BY RAMIRO VALLECILLO I, WELL CHILD VISITS DEVAN Reagan, [facility] 6 14:37:10 Wears glasses 990671898 Active 2016 DEVAN Kumar, [facility] 7 14:06:39 Scoliosi s of thoracic spine 922726488 Active 12/08 seen at [facility] , 26 degree thoracic curve, rec followup 6 months, no bracing/ /Followu p 06/2019, no change in curve, followup prn Lakisha wheeler, [facility] 0 10:36:20 Candidia sis of vagina 24919545 Active 2022 [facility] [address] [address], [place], [address], [facility] 3 15:59:41 Vaginiti s 20397759 Active 2022 Jim Keys [facility] [address] [address], [place], [address], [facility] 3 16:00:20 Pelvic floor dysfunct ion 833085460 Active 2022 Jim [facility] [address] [address], [place], [address], [facility] 3 16:02:45 Third degree perineal lacerati on 40698105 Active 2022 BRIGITTE Gillespie [address] [address], [place], [address], [facility] 3 16:07:32 Acute right otitis media 521693756 Active 2022 Jim Keys [facility] [address] [address], [place], [address], [facility] 3 16:14:20 Bacteria l vaginosi s 604575850 Active 2022 Jim Keys [facility] [address] [address], [place], [address], [facility] 3 15:29:52 Fatigue 22299788 Active 2022 BRIGITTE Gillespie [address] [address], [place], [address], [facility] 3 15:30:59 Unable to control flatus 960958282 Active 2022 Jim Keys [facility] [address] [facility] [address], [place], [place], [address], [facility] 3 15:32:02 Anemia due to unknown mechanis m 96306118 Active 2022 Jim Keys [address] [facility] [address], [place], [place], [address], [facility] 3 15:35:31 Vitamin D deficien cy 98979687 Active 2022 Jim Keys [address], [place], [place], [address], [facility] 3 15:35:49 Cough 09299494 Active 2022 Jim Keys [address], [place], [address], [facility] 3 15:36:35 Allergic rhinitis 40293955 Active 2022 Jim Keys [address], [place], [place], [address], [facility] 3 15:38:34 Pain in pelvis 48778646 Active 2022 Jmi Keys [facility] [address], [place], [address], [facility] 3 15:46:29 Dizzines s 822525213 Active 2023 Jim Keys [address], [place], [address], [facility] 4 14:02:08 Anemia 258155932 Active 2023 Jim Keys [address] [address] [address], [place], [address], [facility] 4 14:02:26 Urinary tract infectio us disease 04752598 Active 2024 Jim Keys, [facility] [address] [facility] [address], [place], [address], [facility] 5 13:57:20 Right upper quadrant pain 597849692 Active 2024 Jim Keys, [facility] [address] [facility] [address], [place], [address], [facility] 5 13:57:37 Acute vaginiti s 89546849 Active 2024 Jim Keys, [facility] [address] [facility] [address], [place], [address], [facility] 5 12:43:16 Acute pharyngi tis 507590052 Active 2024 RECORDED 11/30/19 12 8:26AM BY CYNTHIA TORRE PA-C, ANNOTATI ON/ADDEN DUM Tammie wheeler [facility] 5 09:57:47 Ulcerati ve pharyngi tis 16630160 Active 2024 Tammie wheeler [facility] 5 10:47:18 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 Procedures Surgical History Date Name Laterality Status Provider Name and Address Organization Details Recorded Time 023 anal sphincterorrhaphy for obstetrical laceration completed Megan patel MA [facility] 03/24/2023 15:22:08 022 dilation procedure completed Nicol Cano [facility] 09/16/2021 14:53:39 017 Developmental Screening completed Marilia Singh MA [facility] 01/04/2017 14:02:57 extraction of wisdom tooth completed Megan patel MA [facility] 03/24/2023 15:16:04 Imaging Results None recorded. Procedure Notes None recorded. Medical Equipment None Reported. Allergies No known drug allergies Medications Name Sig Start Date Stop Date Status Note LastModified by Organization Details LastModified Time Prescript ion - Clarifica tion 03/30 completed Not Available Not Available Not Available MAGIC MOUTHWASH Shake bottle well. Swish, gargle and spit out 1-2 tsp (5-10mL) every 4-6 hours, as needed 2024 active Not Available Not Available Not Avai lable MAGIC MOUTHWASH Swich and spit 1-2 teaspoon [...] completed RECORDED 01/09/20 10 8:27AM BY CYNTHIA TORRE, [facility], MEDICATI ON AUTO-NETTIE [...] completed RECORDED 07/18/19 13 10:21AM BY CYNTHIA TORRE PA-C, MEDICATI ON AUTO-NETTIE [...] 2011 active RECORDED 05/15/20 13 1:59PM BY RAMIOR VALLECILLO I, WELL CHILD VISITS;A PPLY TO [...] Updated DateTime 5 172.72 cm 18.5 kg/m2 36735.2 7 g 100 /min 96 % 97.9 [degF] 120/82 mm[Hg] Shahnaz Jo [facility] 5 14:33:06 Social History Question Answer Notes LastModified by Organizat ion Details LastModified Time Tobacco Smoking Status Never Smoker DEVAN Kumar, [facility] 06/21/2014 16:34:33 Animal Exposure? No No Current Pets Information not available 11/08/2014 What Type Of Diet Are You Following? REGULAR [email or web address] Information not available 06/21/2014 What Is Your Home Situation? Mother Information not available 11/08/2014 Live Alone Or With Others? With Others Mom, 1 Brother [email or web address] Information not available 06/21/2014 Have You Served In The ? No Information not available 03/24/2023 Have You Or Anyone In Your Household Had Any Of The Following Symptoms In The Last 14 Days: Sore Throat, Cough, Chills, Body Aches For Unknown Reasons, Shortness Of Breath For Unknown Reasons, Loss Of Smell, Loss Of Taste, Fever At Or Greater Than 100 Degrees Fahrenheit? No [email or web address] Information not available 04/07/2020 Are You Or Anyone In Your Household A Health Care Provider Or Emergency Responder? No [email or web address] Information not available 04/07/2020 To The Best Of Your Knowledge Have You Been In Close Proximity To Any Individual Who Tested Positive For COVID-19? No [email or web address] Information not available 04/07/2020 What Was The Date Of Your Most Recent Tobacco Screening? 03/27/2024 [email or web address] Information not available 03/27/2024 How Many Children Do You Have? 1 Margret Information not available 03/24/2023 Pool Exposure Yes Informa tion not available 11/08/2014 What Is The Name Of Your School? [employer] Information not available 03/24/2023 Do You Use Your Seat Belt Or Car Seat Routinely? Yes Information not available 11/08/2014 Seat Belts Used Routinely Yes [email or web address] Information not available 06/21/2014 Are You Sexually Active? Yes Information not available 03/24/2023 Do You Have Any Siblings? 3 1 Brother, 2 Sisters Information not available 11/08/2014 Smoke Alarm In Home Yes [email or web address] Information not available 06/21/2014 Do You Have Smoke And Carbon Monoxide Detectors In Your Home? Yes Information not available 11/08/2014 Are You Passively Exposed To Smoke? No [email or web address] Information not available 06/21/2014 General Stress Level Low Information not available 06/21/2014 Do You Use Sunscreen Routinely? Yes [email or web address] Information not available 06/21/2014 Sex: Unknown Functional Status Question Answer Note LastModified by Organizat ion Details LastModified Time Do you use any illicit or recreational drugs? No Information not available 03/24/2023 Do you or have you ever used any other forms of tobacco or nicotine? No Information not available 03/24/2023 What is your level of alcohol consumption? None [email or web address] Information not available 06/21/2014 Are you currently employed? Yes Information not available 03/24/2023 Are you able to walk independently without assistance or assistive devices? YESWOREST Information not available 03/24/2023 Are you able to care for yourself independently? 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 None Information not available 03/24/2023 Mental Status None recorded. Family History Relationship Description Onset Age of this Age Resolved Age Notes LastModified by Organization Details LastModified Time Brother Attention deficit hyperactivit y disorder [email or web address] Not available 06/26 15:15:13 Mother Asthma Not available 06/07/2019 14:27:34 Sister Asthma [email or web address] Not available 06/07/2019 14:27:45 Medical History Condition [...] Age at Menarche 13 Current Control Method Dep[employer] As[employer]er a LMP Unknown Sexually Active? Y Obstetrics History GPAL:G 0 P 0 0 0 0 Immunizations Vaccine Type Date Status Note Provider Nam e and Address Organization Details Recorded Time Tdap 5 completed Not Available [facility] 06/09/2019 02:21:44 HPV, quadrivalent 5 completed Not Available [facility] 06/09/2019 02:21:34 COVID-19, mRNA, LNP-S, PF, 30 mcg/0.3 mL dose 1 completed DEVAN Shea, [facility] 05/18/2021 10:56:14 COVID-19, mRNA, LNP-S, PF, 30 mcg/0.3 mL dose 1 completed DEVAN Shea, [facility] 05/18/2021 10:56:14 COVID-19, mRNA, LNP-S, PF, 30 mcg/0.3 mL dose, renato-sucrose 2 completed DEVAN Chen, [facility] 09/09/2022 10:02:15 Tdap 2 completed DEVAN Chen, [facility] 09/09/2022 10:02:15 Influenza, split virus, quadrivalent, PF 2 completed DEVAN Chen, [facility] 09/09/2022 10:02:15 Hep B, adolescent or pediatric 3 completed Not Available [facility] 12/04/2013 13:31:42 pneumococcal conjugate PCV 7 4 completed Not Available [facility] 12/04/2013 13:31:42 DTaP 4 completed Not Available [facility] 12/04/2013 13:31:42 Hib (HbOC) 4 completed Not Available [facility] 12/04/2013 13:31:42 IPV 4 completed Not Available [facility] 12/04/2013 13:31:42 IPV 4 completed Not Available [facility] 12/04/2013 13:31:42 Hib (HbOC) 4 completed Not Available [facility] 12/04/2013 13:31:42 DTaP 4 completed Not Available [facility] 12/04/2013 13:31:42 pneumococcal conjugate PCV 7 4 completed Not Available [facility] 12/04/2013 13:31:42 pneumococcal conjugate PCV 7 4 completed Not Available [facility] 12/04/2013 13:31:42 Hep B, adolescent or pediatric 4 completed Not Available [facility] 12/04/2013 13:31:43 DTaP 4 completed Not Available [facility] 12/04/2013 13:31:43 Hib (HbOC) 4 completed Not Available [facility] 13:31:43 Hib (HbOC) 4 completed Not Available [facility] 12/04/2013 13:31:43 pneumococcal conjugate PCV 7 4 completed Not Available [facility] 12/04/2013 13:31:43 varicella 4 completed Not Available [facility] 12/04/2013 13:31:43 MMR 4 completed Not Available [facility] 12/04/2013 13:31:43 Hep B, adolescent or pediatric 4 completed Not Available [facility] 12/04/2013 13:31:43 IPV 4 completed Not Available [facility] 12/04/2013 13:31:43 Influenza, split virus, trivalent, preservative 4 completed Not Available [facility] 12/04/2013 13:31:43 DTaP 5 completed Not Available [facility] 12/04/2013 13:31:43 Influenza, split virus, trivalent, preservative 6 completed Not Available [facility] 12/04/2013 13:31:43 MMR 7 completed Not Available [facility] 12/04/2013 13:31:43 varicella 7 completed Not Available [facility] 12/04/2013 13:31:43 DTaP 7 completed Not Available [facility] 12/04/2013 13:31:43 IPV 7 completed Not Available [facility] 12/04/2013 13:31:43 Influenza, split virus, trivalent, preservative 7 completed Not Available [facility] 12/04/2013 13:31:43 Influenza, split virus, trivalent, preservative 8 completed Not Available [facility] 12/04/2013 13:31:43 Influenza, split virus, trivalent, preservative 9 completed Not Available [facility] 12/04/2013 13:31:43 Novel [id number], all formulations 9 completed Not Available [facility] 12/04/2013 13:31:43 Novel [id number], all formulations 0 completed Not Available [facility] 12/04/2013 13:31:43 Influenza, split virus, trivalent, preservative 0 completed Not Available [facility] 12/04/2013 13:31:43 Influenza, split virus, trivalent, preservative 1 completed Not Available [facility] 12/04/2013 13:31:43 Influenza, split virus, trivalent, preservative 2 completed Not Available [facility] 12/04/2013 13:31:43 HPV, quadrivalent 3 completed Not Available [facility] 12/04/2013 13:31:43 Influenza, split virus, quadrivalent, PF 6 completed Not Available [facility] 06/09/2019 02:22:08 meningococcal MCV4P 9 completed Not Available [facility] 06/09/2019 02:21:55 Influenza, split virus, quadrivalent, PF 0 completed DEVAN Shea [facility] 04/07/2020 14:40:13 meningococcal MCV4P 0 completed DEVAN Rivera [facility] 04/07/2020 15:35:41 Influenza, split virus, quadrivalent, PF 3 completed DEVAN Shea, [facility] 03/14/2023 11:34:59 Influenza, split virus, trivalent, PF 4 completed SHREYA Gillespie [address], [address], [facility] 03/27/2024 11:11:42 Past Encounters Encounter ID Performer Location Encounter Start Date Encounter Closed Date Diagnosis/Indication Diagnosis SNOMED-CT Code Diagnosis ICD10 Code Diagnosis IMO Codes Diagnosis Note [id number] STEVEN AHUMADA Main Office [address] [id number] 04/12/2025 14:23:26 04/12/2025 15:05:32 Contraception care management [id number] Z30.42 urine test is negative. provided refill, pt will return for administra tion.last depo 01/11/25. Health Concerns Section Related Observation LastModified by Organization Detai ls LastModified Time None Recorded Concern Status LastModified by Organization Details LastModified Time None Recorded Payers Encounter Date Sequence Insurance Name Policy Number Policy Zee Covered Member ID Zee Member ID Guarantor Name 04/12/2025 1 [place] [facility] Eloisa Ribera [id number] Eloisa [facility] Notes Date Note Type Note Provider Name and Address Organization Details Recorded Time 04/12/2025 text/html ROS as noted in the HPI Eloisa is a 20yr old F who presents for contraceptive management f/u. Doing well on the depo shot. No concerns. STEVEN AHUMADA [address] [address], [place], [address], [facility] 04/12/2025 14:47:48 OBGyn Episode No OBEpisode recorded.
== END 2025-04-16 09:44 | disposition home or self-care (01) ==
LOC: HO.HOS 08:36
DX: M95.8 Other specified acquired deformities of musculoskeletal system (principal); S52.501A Unspecified fracture of the lower end of right radius, initial encounter for closed fracture
CPT/HCPCS: 99203

== ENCOUNTER → 2025-04-16 08:37 | Outpatient (BNV) | payer OTHER, SELFPAY | PROVIDERS: Visit Provider Radiology Diagnostic Radiology | DX: M79.641 Pain in right hand (principal); M25.422 Effusion, left elbow | CPT/HCPCS: 73080; 73110 ==

== ENCOUNTER 2025-04-16 09:05 | Outpatient (REF) | payer OTHER, MEDICAID, SELFPAY ==
--- NOTE | ~2025-04-16 | XR_ITS ---
EXAMINATION: XR ELBOW, LEFT CLINICAL INFORMATION: M25.522 - Pain in left elbow COMPARISON: None available. TECHNIQUE: AP, lateral, and oblique views of the left elbow. FINDINGS: There is a subtle joint effusion as manifested by an anterior spinnaker sign. No detectable fracture or dislocation is evident. There is normal alignment. Joint spaces appear normal. Soft tissues appear normal. XR/XR elbow LT min 3V IMPRESSION: 1. Joint effusion present. In the setting of trauma this likely indicates a radio-occult radial head fracture. Electronically signed by: Apolinar Jha MD 04/16/2025 08:50 AM EKATERINA
--- NOTE | ~2025-04-16 | XR_ITS ---
EXAMINATION: XR WRIST, RIGHT CLINICAL INFORMATION: M79.641 - Pain in right hand COMPARISON: None available. TECHNIQUE: PA, lateral, oblique, and scaphoid views of the right wrist. FINDINGS: The bones and soft tissues are normal. No fracture. Alignment is anatomic with normal joint spaces. No erosions or abnormal soft tissue calcifications. XR/XR wrist RT w scaphoid IMPRESSION: Normal right wrist. Electronically signed by: Apolinar Jha MD 04/16/2025 09:17 AM EK[facility]INA GEORGE
== END 2025-04-16 09:06 | disposition home or self-care (01) ==
LOC: HO.HOSX 09:05
DX: S52.501A Unspecified fracture of the lower end of right radius, initial encounter for closed fracture (principal); M95.8 Other specified acquired deformities of musculoskeletal system; W18.39XA Other fall on same level, initial encounter; Y93.89 Activity, other specified
CPT/HCPCS: 73080; 73110; 99202

== ENCOUNTER 2025-04-26 12:41 | Outpatient (RCR) | payer OTHER, MEDICAID, SELFPAY ==
--- NOTE | 2025-04-26 13:51 | MHC.OT.EP ---
[facility] Office [address] [facility] [phone] F: [phone] F: [phone] Occupational Therapy Plan of Care Patient Name: Eloisa Ribera Date of Evaluation: 04/26/25 Diagnosis: l ELBOW Pain Location: L elbow ; intermittent gotten better over the past few days 0/10 pain at most 2/10 about a week ago Pain Score: 0 Pain Scale Used: Numeric (0 - 10) Aggravating Factors: Alleviating Factors: Assessment: Pt is a 20 yr old R hand dominant female who injured her L UE while at work. 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 Pt then went to [facility] for [place]-rays but left and went to [place] for a follow up. She then ended up following up w/ortho at [facility]; diagnosed w/ L UE and decreased ROM; which she reports has significantly improved since her follow up w/ ortho. Pt presents today w/ full L UE ROM a 45 lb. 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 Pt does not believe OT therapy is warranted and she reports she has RPLOF (L UE). Frequency and Duration: The patient will be seen Short Term Goals: Orthopedic Assistant Goals: Pt will RPLOF Treatment Plan: Patient Education Electronically Signed By: Verito Perry OTR/L Please Sign and return to therapist. Thank you once again for your referral.
== END 2025-04-26 13:52 | disposition home or self-care (01) ==
LOC: HO.OT 12:41
PROVIDERS: PCP Student in an Organized Health Care Education/Training Program
DX: M95.8 Other specified acquired deformities of musculoskeletal system (principal)
CPT/HCPCS: 97165; 97535

== ENCOUNTER 2025-05-06 08:01 | Outpatient (REF) | payer OTHER, MEDICAID, SELFPAY ==
--- NOTE | ~2025-05-06 | XR_ITS ---
EXAMINATION: XR WRIST, RIGHT CLINICAL INFORMATION: M25.531 - Pain in right wrist COMPARISON: 04/16/2025 TECHNIQUE: PA, lateral, and oblique views of the right wrist. FINDINGS: No fracture line is demonstrated. There is subtle sclerosis transversely across the distal radial metaphysis. No other abnormalities demonstrated. XR/XR wrist RT min 3V IMPRESSION: There is new subtle sclerosis transversely across the distal radial metaphysis that could represent a healing nondisplaced fracture. There is no obvious fracture of the prior examination, however, in retrospect, there may have been subtle cortical buckling. Electronically signed by: Olaf Schmitz MD 05/06/2025 02:44 PM EST
== END 2025-05-06 08:02 | disposition home or self-care (01) ==
LOC: HO.HOSX 08:01
DX: S52.501D Unspecified fracture of the lower end of right radius, subsequent encounter for closed fracture with routine healing (principal); M95.8 Other specified acquired deformities of musculoskeletal system; X58.XXXD Exposure to other specified factors, subsequent encounter
CPT/HCPCS: 73110; 99212

== ENCOUNTER 2025-05-06 13:57 | Outpatient (AMB) | payer OTHER, SELFPAY ==
--- NOTE | 2025-05-06 14:45 | A.OFFVIS_ITS ---
Vital Signs 05/06/25 14:52 Height 5 ft Weight 120 lb BMI 23.4 Intake Visit Reasons: f/u left elbow injury, DOI 04/04/25 Intake Note: Eloisa is a 20 year old right hand dominant female who presents today for Follow Up status post Right Distal Radius Fracture & Left Elbow Osteochondral Defect, DOI: 04/04/25. At her last visit she was referred to Occupational Therapy for ROM of the left elbow. Patient was placed in a Velcro wrist brace to be worn like a cast. She was given a work note to return back to work with 2 lbs until follow up. At today's visit she states that the left elbow pain is still active even after OT, she noted that now that her Elbow OT ended she would like to be sent for her right wrist OT. She states that last week her left elbow was stuck in an extended position and she could not bend. Patient noted that she has not gone back to work until she can lift over 30lbs. Allergies cats Allergy (Mild, Uncoded 04/16/25 08:55) itchy HPI HPI f/u left elbow injury, DOI 04/04/25: Details: Eloisa is a 20 year old right hand dominant female who presents today for Follow Up status post Right Distal Radius Fracture & Left Elbow Osteochondral Defect, DOI: 04/04/25. At her last visit she was referred to Occupational Therapy for ROM of the left elbow. Patient was placed in a Velcro wrist brace to be worn like a cast. She was given a work note to return back to work with 2 lbs until follow up. At today's visit she states that the left elbow pain is still active even after OT, she noted that now that her Elbow OT ended she would like to be sent for her right wrist OT. She states that last week her left elbow was stuck in an extended position and she could not bend, however this did resolve spontaneously and patient now has full range of motion of the left elbow.. Patient noted that she has not gone back to work until she can lift over 30lbs. ON LICENSE OF [facility] Medical History (Updated 04/16/25 @ 14:18 by STEVEN Henriquez) Nipple discharge Spontaneous Surgical History Hx of dilation and curettage Family History Paternal Aunt History of breast cancer Mother Ovarian cancer Social History (Updated 04/16/25 @ 08:56 by SANTANA Neal) Household Members: Family Both parents involved: Yes Housing: House Are you a primary clinical care coordinator to a significant other at home: No Do you presently have visiting nurse or other home services: No 75 years or older and lives alone: No Alcohol intake: never Patient Tobacco Use Status: Never used Tobacco Current occupational status: employed Current occupation: [employer] w/ children, right handed Sexual orientation: Straight/Heterosexual Gender identity: Female Female Reproductive History Menstrual Age of Menarche: 13 Review of Systems Const All systems reviewed & are unremarkable except as noted in HPI and below Physical Exam Vital Signs: BMI result Body Mass Index 23.4 Extrem Other: Patient is alert, oriented, and in no acute distress. Neuro: Normal sensation of the tips of all digits of the bilateral hand at this time Vascular: Cap refill brisk Pain: No tenderness to palpation of radial head, medial condyle, lateral condyle, olecranon process, or elsewhere in the left elbow Tenderness to palpation of right distal radius Discomfort with range of motion of the right wrist Some pain with range of motion of the left elbow ROM: Flexion, extension, pronation, supination of the left elbow full and intact Full and intact flexion and extension of the right wrist, but with pain with the extreme of flexion Skin: No lacerations or abrasions. General: No ecchymosis, erythema, or evidence of infection. Psych: Appears grossly normal Affect normal Attitude cooperative Results Reviewed Results Reviewed: X-rays obtained in the office today and independently reviewed by me, Amilcar Jamil PA-C, demonstrate interval bony healing in the right distal radius that confirms presence of nondisplaced fracture. Assessment & Plan Assessment & Plan (1) Osteochondral defect: Code(s): M95.8 - Other specified acquired deformities of musculoskeletal system Category: Medical (2) Nondisplaced fracture of distal end of right radius: Code(s): S52.501A - Unspecified fracture of the lower end of right radius, initial encounter for closed fracture Category: Medical Plan 1. Nondisplaced fracture of right distal radius Date of injury 04/04/2025 Patient is educated about this condition Patient is educated about the typical recovery course At this time, patient is provided with a Velcro wrist splint to be worn with daytime activities Patient may remove this Velcro wrist splint to work on gentle range of motion of the right wrist May also remove to bathe and while sleeping 2 lb weight limit in right hand Patient understands this and is amenable to this plan 2. Osteochondral defect of left elbow Revealed on CT scan at [facility] Patient is educated about this condition Patient is educated about the typical treatment course At this time, no further splinting necessary Patient is educated that she should continue OT exercises to work on gentle range of motion of the left elbow 5 lb weight limit in left hand Patient understands this in his amenable to this plan Out of work until follow-up due to inability to accommodate weight limit Follow-up in 4 weeks with repeat right wrist x-rays for reassessment, sooner with any acute concerns Orders: Orders XR wrist RT min 3V 05/06/25 M25.531 - Pain in right wrist Coding Level of Care Code Est Pt Level 3 (70418) Diagnoses Osteochondral defect M95.8 Nondisplaced fracture of distal end of right radius S52.501A
[2025-05-06 14:52] VITALS: BMI 23.4
--- OUTSIDE RECORDS SUMMARY | 2025-05-06 20:21 | XMS_ITS | Continuity of Care Document ---
Author Organization [facility], Main Office Address [address] [facility] [address] [place] [id number] Care Team Providers Care Pelt Inspector Name Role Phone PORSCHE MARSHALL Orthopedic Surgeon TRIP PADILLA Reading Instructor CARLY SCHWARZ Primary Care Provider Unavailabl e [...] DO Not Attach Compendium, Do Not Delete/merge, [id number] 14:45:28 Referral None recorded. Procedures None recorded. Surgeries None recorded. Imaging None recorded. Medication Orders medroxyprog esterone 150 mg/mL intramuscul ar suspension 2024 025 [facility]/Pharmacy #[id number], [address] [facility], [place], [address], 14:45:48 Patient TargetsNo targets recorded. Patient InstructionsNo instructions recorded. Reason for Referral None Reported. Results Created Date Observation Date Name Description Value Unit Range Abnormal Flag Note LastModifiedBy Organization Detail LastModifiedTime 04/12/2004/12/2025 pregn april test, urine HCG negati ve Not Available In-Office Order Internal Use Only DO Not Attach Compendium DO Not Attach Compendium, Do Not Delete/merge, [id number] 04/12/2025 14:37:12 04/05/20 25 XR, wrist No observ ation record ed. [email or web address] Not Available 2024 08:53:39 04/05/20 25 XR, elbow No observ ation record ed. [email or web address] Not Available 2024 08:54:28 04/05/20 25 XR, wrist No observ ation record ed. [email or web address] Not Available 07/2024 13:16:30 04/05/20 25 XR, elbow No observ ation record ed. [email or web address] Not Available 07/2024 13:16:30 04/08/[address], upper extre mity, w/o contr ast No observ ation record ed. [email or web address] Not Available 2024 09:42:37 Result Notes None recorded. Problems Name Problem SNOMED Code Status Onset Date Resolution Date Notes Provider Name and Address Organization Details Recorded Time Eczema 18672239 Active [facility] [address] [address], [place], [address], [facility] 6 15:26:01 Reduced visual acuity 92704484 Active Jim Keys [facility] [address] [facility] [address], [place], [address], [facility] 6 15:26:01 Epigastr ic pain 58272393 Completed 200712/27/2013 RECORDED 03/12/20 08 3:00PM BY INEZ GALE ON/MARVIN Keys [facility] [address] [facility] [address], [place], [address], [facility] 6 15:26:01 Conjunct ivitis 8493451 Completed 200712/27/2013 RECORDED 03/12/20 08 2:59PM BY INEZ GALE ON/ADDEN ELIZABETH Keys, [facility] [address], [place], [address], [facility] 6 15:26:01 Dysuria 38332094 Completed 200712/27/2013 RECORDED 03/12/20 08 3:00PM BY DEVAN DODGE, INEZ ON/ADDEN ELIZABETH Keys, [facility] [address], [place], [address], [facility] 6 15:26:01 Fever [id number] Completed 200712/27/2013 RECORDED 03/12/20 08 3:00PM BY INEZ GALE ON/ADDEN ELIZABETH Keys, [facility] [address] [facility] [address], [place], [address], [facility] 6 15:26:01 Epigastr ic pain 08432380 Completed 200712/28/2013 RECORDED 03/12/20 08 3:00PM BY INEZ GALE ON/MARVIN Keys, [facility] [address] [facility] [address], [place], [address], [facility] 6 15:26:01 Conjunct ivitis 7168005 Completed 200712/28/2013 RECORDED 03/12/20 08 2:59PM BY INEZ GALE ON/MARVIN Keys, [facility] [address] [facility] [address], [place], [address], [facility] 6 15:26:01 Dysuria 20850429 Completed 200712/28/2013 RECORDED 03/12/20 08 3:00PM BY INEZ GALE ON/MARVIN Keys, [facility] [address], [place], [address], [facility] 6 15:26:01 Fever 368838694 Completed 200712/28/2013 RECORDED 03/12/20 08 3:00PM BY INEZ GALE ON/ADDSILAS Keys, [facility] [address], [place], [address], [facility] 6 15:26:01 Epigastr ic pain 60920018 Completed 200712/04/2013 RECORDED 03/12/20 08 3:00PM BY INEZ GALE ON/MARVIN Keys, [facility] [address], [place], [address], [facility] 6 15:26:01 Conjunct ivitis 6603172 Completed 200712/04/2013 RECORDED 03/12/20 08 2:59PM BY INEZ GALE ON/MARVIN Keys, [facility] [address] [facility] [address], [place], [address], [facility] 6 15:26:01 Dysuria 04475757 Completed 200712/04/2013 RECORDED 03/12/20 08 3:00PM BY INEZ GALE ON/MARVIN Keys, [facility] [address], [place], [address], [facility] 6 15:26:01 Fever 212429804 Completed 200712/04/2013 RECORDED 03/12/20 08 3:00PM BY INEZ GALE ON/MARVIN Keys, [facility] [address], [place], [address], [facility] 6 15:26:01 Well child 152739173 Completed 200812/04/2013 RECORDED 09/15/19 09 9:09AM BY DEVAN DODGE, ERIKATI ON/ADDEN DUM [facility] 6 14:37:10 Acute secretor y otitis media 468126420 Completed 200812/27/2013 RECORDED 03/07/20 09 9:27AM BY MEGAN AGUILAR MA, INEZ ON/ADDEN DUM Jim Keys, [facility] [address] [facility] [address], [place], [address], [facility] 6 15:26:01 Influenz a vaccine needed 95413310418 06 Completed 200812/27/2013 DATE: 03/07/20; RECORDED 05/15/20 13 8:35AM BY INEZ LUND ON/ADDEN DUM Jim Keys, [facility] [address] [facility] [address], [place], [address], [facility] 6 15:26:01 Acute secretor y otitis media 545799909 Completed 200812/28/2013 RECORDED 03/07/20 09 9:27AM BY MEGAN AGUILAR MA, INEZ ON/ADDEN DUM Jim Keys, [facility] [address] [facility] [address], [place], [address], [facility] 6 15:26:01 Influenz a vaccine needed 67115378733 06 Completed 200812/28/2013 DATE: 03/07/20 09; RECORDED 05/15/20 13 8:35AM BY INEZ LUND ON/ADDEN DUM Jim Keys, [facility] [address] [facility] [address], [place], [address], [facility] 6 15:26:01 Acute secretor y otitis media 099769384 Completed 200812/04/2013 RECORDED 03/07/20 09 9:27AM BY MEGAN AGUILAR MA, INEZ ON/ADDEN DUM Jim Keys, [facility] [address] [facility] [address], [place], [address], [facility] 6 15:26:01 Influenz a vaccine needed [id number] 06 Completed 200812/04/2013 DATE: 03/07/20 09; RECORDED 05/15/20 13 8:35AM BY INEZ LUND ON/ADDEN DUM Jim Keys, [facility] [address] [address], [place], [address], [facility] 6 15:26:01 Acute pharyngi tis 032863400 Completed 201112/27/2013 RECORDED 11/30/19 12 8:26AM BY CYNTHIA TORRE PA-C, INEZ ON/ADDEN DUM Tammie Peres [facility] 5 09:57:47 Streptoc occal sore throat 24531793 Completed 201112/27/2013 RECORDED 11/30/19 12 8:26AM BY CYNTHIA TORRE PA-C, INEZ ON/ADDEN DUM Jim Keys, [facility] [address] [facility] [address], [place], [address], [facility] 6 15:26:01 Cellulit is and abscess of face 995708619 Completed 201112/27/2013 RECORDED 11/30/19 12 8:26AM BY CYNTHIA TORRE PA-C, INEZ ON/ADDEN DUM Jim Keys, [facility] [address] [address], [place], [address], [facility] 6 15:26:01 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 104408210 Completed 201112/27/2013 RECORDED 11/30/19 12 8:26AM BY CYNTHIA TORRE PA-C, ANNOTATI ON/ADDEN DUM Jim Keys, [facility] [address] [address], [place], [address], [facility] 6 15:26:01 Impetigo 41502877 Completed 201112/27/2013 RECORDED 11/30/19 12 9:59AM BY CYNTHIA TORRE PA-C, ANNOTATI ON/ADDEN DUM Jim Keys, [facility] [address] [address], [place], [address], [facility] 6 15:26:01 Infestat ion by Gretchen galeas 10753889 Completed 201112/27/2013 RECORDED 11/30/19 12 8:26AM BY CYNTHIA TORRE PA-C, ANNOTATI ON/ADDEN DUM Jim Keys, [facility] [address] [address], [place], [address], [facility] 6 15:26:01 Eruption 749059001 Completed 201112/27/2013 RECORDED 11/30/19 12 8:26AM BY CYNTHIA TORRE PA-C, ANNOTATI ON/ADDEN DUM Jim Keys, [facility] [address] [address], [place], [address], [facility] 6 15:26:01 Acute pharyngi tis 177516111 Completed 201112/28/2013 RECORDED 11/30/19 12 8:26AM BY CYNTHIA TORRE PA-C, ANNOTATI ON/ADDEN DUM Tammie Peres [facility] 5 09:57:47 Streptoc occal sore throat 92687639 Completed 201112/28/2013 RECORDED 11/30/19 12 8:26AM BY CYNTHIA TORRE PA-C, ANNOTATI ON/ADDEN DUM Jim Keys, [facility] [address], [place], [address], [facility] 6 15:26:01 Cellulit is and abscess of face 928521924 Completed 201112/28/2013 RECORDED 11/30/19 12 8:26AM BY CYNTHIA TORRE PA-C, ANNOTATI ON/ADDEN DUM Jim Keys, [facility] [address] [facility] [address], [place], [address], [facility] 6 15:26:01 Delay in physiolo gical develop ent 990585121 Completed 201112/28/2013 RECORDED 11/30/19 12 8:26AM BY CYNTHIA TORRE PA-C, INEZ ON/ADDEN DUM Jim Keys, [facility] [address] [facility] [address], [place], [address], [facility] 6 15:26:01 Impetigo 74907722 Completed 201112/28/2013 RECORDED 11/30/19 12 9:59AM BY CYNTHIA TORRE PA-C, INEZ ON/ADDEN DUM Jim Keys, [facility] [address] [facility] [address], [place], [address], [facility] 6 15:26:01 Infestat ion by Gretchen galeas 89579942 Completed 201112/28/2013 RECORDED 11/30/19 12 8:26AM BY CYNTHIA TORRE PA-C, ANNOTATI ON/ADDEN DUM Jim Keys, [facility] [address] [facility] [address], [place], [address], [facility] 6 15:26:01 Eruption 757989399 Completed 201112/28/2013 RECORDED 11/30/19 12 8:26AM BY CYNTHIA TORRE PA-C, ANNOTATI ON/ADDEN DUM Jim Keys, [facility] [address] [facility] [address], [place], [address], [facility] 6 15:26:01 Acute pharyngi tis 702677731 Completed 201112/04/2013 RECORDED 11/30/19 12 8:26AM BY CYNTHIA TORRE PA-C, ERIKATI ON/ADDEN DUM Tammie Peres [facility] 5 09:57:47 Streptoc occal sore throat 46392758 Completed 201112/04/2013 RECORDED 11/30/19 12 8:26AM BY CYNTHIA TORRE PA-C, ANNOTATI ON/ADDEN DUM Jim Keys, [facility] [address] [facility] [address], [facility] [place], [address], [facility] 6 15:26:01 Cellulit is and abscess of face 417923161 Completed 201112/04/2013 RECORDED 11/30/19 12 8:26AM BY CYNTHIA TORRE PA-C, INEZ ON/ADDEN DUM Jim Keys, [facility] [address] [facility] [address], [place], [address], [facility] 6 15:26:01 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 670844236 Completed 201112/04/2013 RECORDED 11/30/19 12 8:26AM BY CYNTHIA TORRE PA-C, ANNOTATI ON/ADDEN DUM Jim Keys, [facility] [address] [facility] [address], [facility] [place], [address], [facility] 6 15:26:01 Impetigo 69923823 Completed 201112/04/2013 RECORDED 11/30/19 12 9:59AM BY CYNTHIA TORRE PA-C, ANNOTATI ON/ADDEN DUM Jim Keys, [facility] [address] [facility] [address], [place], [address], [facility] 6 15:26:01 Infestat ion by Gretchen galeas 01372144 Completed 201112/04/2013 RECORDED 11/30/19 12 8:26AM BY CYNTHIA TORRE PA-C, ANNOTATI ON/ADDEN DUM Jim Keys, [facility] [address] [address], [place], [address], [facility] 6 15:26:01 Eruption 680522893 Completed 201112/04/2013 RECORDED 11/30/19 12 8:26AM BY CYNTHIA TORRE PA-C, ANNOTATI ON/ADDEN DUM Jim Keys, [facility] [address] [facility] [address] [facility], [place], [address], [facility] 6 15:26:01 Administ ration of viral vaccine Completed 201212/27/2013 RECORDED 05/15/20 13 2:44PM BY MIKE DYER MD, WELL CHILD VISITS Jim Keys, [facility] [address] [address], [place], [address], [facility] 6 15:26:01 Methicil jordan resistan t Staphylo coccus aureus infectio n 735800096 Completed 201212/27/2013 RECORDED 05/15/20 13 8:35AM BY RAMIRO VALLECILLO I, ERIKATI ON/ADDEN DUM Jim Keys, [facility] [address] [facility] [address], [place], [address], [facility] 6 15:26:01 Verruca plantari s 79971410 Completed 201212/27/2013 IMPRESSI ON: L HEEL; RECORDED 05/15/20 13 8:35AM BY INEZ LUND ON/ADDEN DUM Jim Keys, [facility] [address] [facility] [address], [place], [address], [facility] 6 15:26:01 Administ ration of viral vaccine Completed 201212/28/2013 RECORDED 05/15/20 13 2:44PM BY MIKE DYER MD, WELL CHILD VISITS Jim Keys, [facility] [address] [address], [place], [address], [facility] 6 15:26:01 Methicil jordan resistan t Staphylo coccus aureus infectio n 453851068 Completed 201212/28/2013 RECORDED 05/15/20 13 8:35AM BY INEZ LUND ON/ADDEN DUM Jim Keys, [facility] [address] [facility] [address] [facility], [place], [address], [facility] 6 15:26:01 Nathaly plantari s 25560552 Completed 201212/28/2013 IMPRESSI ON: L HEEL; RECORDED 05/15/20 13 8:35AM BY INEZ LUND ON/ADDEN [facility] Jim Keys, [facility] [address] [address], [place], [address], [facility] 6 15:26:01 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 642157602 Completed 201209/01/2016 Removal Reason: not specific [facility] 7 13:59:23 Contact dermatit is 72459523 Completed 201208/31/2016 RECORDED 05/15/20 13 1:59PM BY RAMIRO VALLECILLO I, WELL CHILD VISITS Emilia wheeler, [facility] 7 11:30:54 Administ ration of viral vaccine Completed 201212/04/2013 RECORDED 05/15/20 13 2:44PM BY MIKE DYER MD, WELL CHILD VISITS Jim Keys, [facility] [address] [facility] [address], [place], [address], [facility] 6 15:26:01 Methicil jordan resistan t Staphylo coccus aureus infectio n 136591394 Completed 201212/04/2013 RECORDED 05/15/20 13 8:35AM BY RAMIRO VALLECILLO I, ANNOTATI ON/ADDEN DUM Jim Keys, [facility] [address] [address], [place], [address], [facility] 6 15:26:01 Developm ental delay 517956737 Active 2012 Emilia wheeler, [facility] 7 11:30:53 Verruca plantari s 67068697 Completed 201212/04/2013 IMPRESSI ON: L HEEL; RECORDED 05/15/20 13 8:35AM BY RAMIRO VALLECILLO I, ANNOTATI ON/ADDEN DUM Jim Keys, [facility] [address] [address], [place], [address], [facility] 6 15:26:01 Well child 596399298 Completed 201203/30/2016 RECORDED 05/15/20 13 2:05PM BY RAMIRO VALLECILLO I, WELL CHILD VISITS DEVAN Reagan, [facility] 6 14:37:10 Wears glasses 341404405 Active 2016 DEVAN Kumar, [facility] 7 14:06:39 Scoliosi s of thoracic spine 562618258 Active 12/08 seen at [facility] , 26 degree thoracic curve, rec followup 6 months, no bracing/ /Followu p 06/2019, no change in curve, followup prn Lakisha wheeler, [facility] 0 10:36:20 Candidia sis of vagina 31606102 Active 2022 Jim Keys [facility] [address] [address], [place], [address], [facility] 3 15:59:41 Vaginiti s 53454695 Active 2022 Jim Keys, [facility] [address] [address], [place], [address], [facility] 3 16:00:20 Pelvic floor dysfunct ion 239726411 Active 2022 BRIGITTE Gillespie [facility] [address], [place], [address], [facility] 3 16:02:45 Third degree perineal lacerati on 96656921 Active 2022 Jim [facility] [address] [address], [place], [address], [facility] 3 16:07:32 Acute right otitis media 608045634 Active 2022 BRIGITTE Gillespie [address] [address], [place], [address], [facility] 3 16:14:20 Bacteria l vaginosi s 594713093 Active 2022 Jim Keys [facility] [address] [address], [place], [address], [facility] 3 15:29:52 Fatigue 68692152 Active 2022 Jim Keys [facility] [address] [address], [place], [address], [facility] 3 15:30:59 Unable to control flatus 304726459 Active 2022 Jim Keys, [facility] [address] [facility] [address], [place], [address], [facility] 3 15:32:02 Anemia due to unknown mechanis m 24771168 Active 2022 Jim Keys, [facility] [address] [facility] [address], [place], [address], [facility] 3 15:35:31 Vitamin D deficien cy 26507458 Active 2022 Jim Keys, [address] [facility] [address], [place], [address], [facility] 3 15:35:49 Cough 80786727 Active 2022 Jim Keys, [address] [facility] [address], [place], [address], [facility] 3 15:36:35 Allergic rhinitis 25653848 Active 2022 Jim Keys, [address] [facility] [address], [place], [address], [facility] 3 15:38:34 Pain in pelvis 36505840 Active 2022 Jim Keys, [facility] [address] [facility] [address], [place], [address], [facility] 3 15:46:29 Dizzines s 461913085 Active 2023 Jim Keys, [facility] [address] [facility] [address], [place], [address], [facility] 4 14:02:08 Anemia 829648962 Active 2023 Janitza C. Thabet, [facility] [address], [place], [address], [facility] 4 14:02:26 Urinary tract infectio us disease 41249189 Active 2024 Jim Keys, [facility] [address], [place], [address], [facility] 5 13:57:20 Right upper quadrant pain 406371271 Active 2024 Jim Keys, [facility] [address], [place], [address], [facility] 5 13:57:37 Acute vaginiti s 00794994 Active 2024 Jim Keys, [facility] [address] [facility] [address], [place], [address], [facility] 5 12:43:16 Acute pharyngi tis 940300201 Active 2024 RECORDED 11/30/19 12 8:26AM BY CYNTHIA TORRE PA-C, ANNOTATI ON/ADDEN DUM Tammie wheeler [facility] 5 09:57:47 Ulcerati ve pharyngi tis 40689095 Active 2024 Tammie wheeler [facility] 5 10:47:18 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 Procedures Surgical History Date Name Laterality Status Provider Name and Address Organization Details Recorded Time 023 anal sphincterorrhaphy for obstetrical laceration completed Megan patel MA [facility] 03/24/2023 15:22:08 022 dilation procedure completed Nicol Cano [facility] 09/16/2021 14:53:39 017 Developmental Screening completed Marilia Singh MA [facility] 01/04/2017 14:02:57 extraction of wisdom tooth completed Megan patel MA [facility] 03/24/2023 15:16:04 Imaging Results None recorded. Procedure [...] 12/29 completed RECORDED 01/09/20 10 8:27AM BY HARIKA RITCHIEC, MEDICATI ON AUTO-NETTIE CTIVATIO N; Not Available [...] Updated DateTime 5 172.72 cm 18.5 kg/m2 05820.2 7 g 100 /min 96 % 97.9 [degF] 120/82 mm[Hg] Shahnaz Jo [facility] 5 14:33:06 Social History Question Answer Notes LastModified by Organizat ion Details LastModified Time Tobacco Smoking Status Never Smoker DEVAN Kumar, [facility] 06/21/2014 16:34:33 Animal Exposure? No No Current Pets Information not available 11/08/2014 What Type Of Diet Are You Following? REGULAR [email or web address] Information not available 06/21/2014 What Is Your Home Situation? Mother Information not available 11/08/2014 Live Alone Or With Others? With Others Mom, 1 Brother [email or web address] Information not available 06/21/2014 Have You Served In The ? No Information not available 03/24/2023 Have You Or Anyone In Your Household Had Any Of The Following Symptoms In The Last 14 Days: Sore Throat, Cough, Chills, Body Aches For Unknown Reasons, Shortness Of Breath For Unknown Reasons, Loss Of Smell, Loss Of Taste, Fever At Or Greater Than 100 Degrees Fahrenheit? No Information not available 04/07/2020 Are You Or Anyone In Your Household A Health Care Provider Or Emergency Responder? No Information not available 04/07/2020 To The Best Of Your Knowledge Have You Been In Close Proximity To Any Individual Who Tested Positive For COVID-19? No [email or web address] Information not available 04/07/2020 What Was The Date Of Your Most Recent Tobacco Screening? 03/27/2024 [email or web address] Information not available 03/27/2024 How Many Children Do You Have? 1 Margret Information not available 03/24/2023 Pool Exposure Yes Informa tion not available 11/08/2014 What Is The Name Of Your School? [employer] Information not available 03/24/2023 Do You Use Your Seat Belt Or Car Seat Routinely? Yes Information not available 11/08/2014 Seat Belts Used Routinely Yes Information not available 06/21/2014 Are You Sexually Active? Yes Information not available 03/24/2023 Do You Have Any Siblings? 3 1 Brother, 2 Sisters Information not available 11/08/2014 Smoke Alarm In Home Yes [email or web address] Information not available 06/21/2014 Do You Have Smoke And Carbon Monoxide Detectors In Your Home? Yes Information not available 11/08/2014 Are You Passively Exposed To Smoke? No [email or web address] Information not available 06/21/2014 General Stress Level Low [email or web address] Information not available 06/21/2014 Do You Use Sunscreen Routinely? Yes [email or web address] Information not available 06/21/2014 Sex: Unknown Functional Status Question Answer Note LastModified by Organizat ion Details LastModified Time Do you use any illicit or recreational drugs? No Information not available 03/24/2023 Do you or have you ever used any other forms of tobacco or nicotine? No Information not available 03/24/2023 What is your level of alcohol consumption? None [email or web address] Information not available 06/21/2014 Are you currently employed? Yes Information not available 03/24/2023 Are you able to walk independently without assistance or assistive devices? [email or web address] Information not available 03/24/2023 Are you able to care for yourself independently? 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 None Information not available 03/24/2023 Mental Status None recorded. 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 Y Obstetrics History GPAL:G 0 P 0 0 0 0 Immunizations Vaccine Type Date Status Note Provider Nam e and Address Organization Details Recorded Time Tdap 5 completed Not Available [facility] 06/09/2019 02:21:44 HPV, quadrivalent 5 completed Not Available [facility] 06/09/2019 02:21:34 COVID-19, mRNA, LNP-S, PF, 30 mcg/0.3 mL dose 1 completed DEVAN Shea, [facility] 05/18/2021 10:56:14 COVID-19, mRNA, LNP-S, PF, 30 mcg/0.3 mL dose 1 completed DEVAN Shea, [facility] 05/18/2021 10:56:14 COVID-19, mRNA, LNP-S, PF, 30 mcg/0.3 mL dose, renato-sucrose 2 completed DEVAN Chen, [facility] 09/09/2022 10:02:15 Tdap 2 completed DEVAN Chen, [facility] 09/09/2022 10:02:15 Influenza, split virus, quadrivalent, PF 2 completed DEVAN Chen, [facility] 09/09/2022 10:02:15 Hep B, adolescent or pediatric 3 completed Not Available [facility] 12/04/2013 13:31:42 pneumococcal conjugate PCV 7 4 completed Not Available [facility] 12/04/2013 13:31:42 DTaP 4 completed Not Available [facility] 12/04/2013 13:31:42 Hib (HbOC) 4 completed Not Available [facility] 12/04/2013 13:31:42 IPV 4 completed Not [...] 12/04/2013 13:31:43 DTaP 4 completed Not Available [facility]2013 13:31:43 Hib (HbOC) 4 completed Not Available [facility]2013 13:31:43 Hib (HbOC) 4 completed Not Available [facility] 12/04/2013 13:31:43 pneumococcal conjugate PCV 7 4 completed Not Available [facility] 12/04/2013 13:31:43 varicella 4 completed Not Available [place]12/04/2013 13:31:43 MMR 4 completed Not Available [facility] 12/04/2013 13:31:43 Hep B, adolescent or pediatric 4 completed Not Available [facility] 12/04/2013 13:31:43 IPV 4 completed Not Available [facility] 12/04/2013 13:31:43 Influenza, split virus, trivalent, preservative 4 completed Not Available [facility] 12/04/2013 13:31:43 DTaP 5 completed Not Available [facility] 13:31:43 Influenza, split virus, trivalent, preservative 6 completed Not Available [facility] 12/04/2013 13:31:43 MMR 7 completed Not Available [facility] 12/04/2013 13:31:43 varicella 7 completed Not Available [facility] 12/04/2013 13:31:43 DTaP 7 completed Not Available [facility] 12/04/2013 13:31:43 IPV 7 completed Not Available [facility] 12/04/2013 13:31:43 Influenza, split virus, trivalent, preservative 7 completed Not Available [facility] 12/04/2013 13:31:43 Influenza, split virus, trivalent, preservative 8 completed Not Available [facility] 12/04/2013 13:31:43 Influenza, split virus, trivalent, preservative 9 completed Not Available [facility] 12/04/2013 13:31:43 Novel [id number], all formulations 9 completed Not Available [facility] 12/04/2013 13:31:43 Novel [id number], all formulations 0 completed Not Available [facility] 12/04/2013 13:31:43 Influenza, split virus, trivalent, preservative 0 completed Not Available [facility] 12/04/2013 13:31:43 Influenza, split virus, trivalent, preservative 1 completed Not Available [facility] 12/04/2013 13:31:43 Influenza, split virus, trivalent, preservative 2 completed Not Available [facility] 12/04/2013 13:31:43 HPV, quadrivalent 3 completed Not Available [facility] 12/04/2013 13:31:43 Influenza, split virus, quadrivalent, PF 6 completed Not Available [facility] 06/09/2019 02:22:08 meningococcal MCV4P 9 completed Not Available [facility] 06/09/2019 02:21:55 Influenza, split virus, quadrivalent, PF 0 completed DEVAN Shea [facility] 04/07/2020 14:40:13 meningococcal MCV4P 0 completed DEVAN Rivera [facility] 04/07/2020 15:35:41 Influenza, split virus, quadrivalent, PF 3 completed DEVAN Shea, [facility] 03/14/2023 11:34:59 Influenza, split virus, trivalent, PF 4 completed BRIGITTE Gillespie [address], [address], [facility] 03/27/2024 11:11:42 Past Encounters Encounter ID Performer Location Encounter Start Date Encounter Closed Date Diagnosis/Indication Diagnosis SNOMED-CT Code Diagnosis ICD10 Code Diagnosis IMO Codes Diagnosis Note [id number] STEVEN AHUMADA Main Office [address] [facility] [address] [place] [address] 04/12/2025 14:23:26 04/12/2025 15:05:32 Contraception care management [id number] Z30.42 urine test is negative. provided refill, pt will return for administra tion.last depo 01/11/25. Health Concerns Section Related Observation LastModified by Organization Detai ls LastModified Time None Recorded Concern Status LastModified by Organization Details LastModified Time None Recorded Payers Encounter Date Sequence Insurance Name Policy Number Policy Zee Covered Member ID Zee Member ID Guarantor Name 04/12/2025 1 [place]: [facility] Eloisa Ribera [id number] Eloisa Ribera Notes Date Note Type Note Provider Name and Address Organization Details Recorded Time 04/12/2025 text/html ROS as noted in the HPI Eloisa is a 20yr old F who presents for contraceptive management f/u. Doing well on the depo shot. No concerns. STEVEN AHUMADA [id number] [address], [place], [address], [facility] 04/12/2025 14:47:48 OBGyn Episode No OBEpisode recorded.
--- OUTSIDE RECORDS SUMMARY | 2025-05-06 20:21 | XMS_ITS | Continuity of Care Document ---
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 Plan of Treatment Reminders Order Date Submit Date Provider Last Modified By Organization Details Last Modified Time Details Appointments None recorded. Lab test, urine 2024 025 CHERYL In-Office Order, Internal Use Only DO Not Attach Compendium DO Not Attach Compendium, Do Not Delete/merge, [id number] 11:54:53 Referral None recorded. Procedures None recorded. Surgeries None recorded. Imaging None recorded. Medication Orders medroxyprog esterone 150 mg/mL intramuscul ar suspension 2024 025 Not available 11:56:00 Patient TargetsNo targets recorded. Patient InstructionsNo instructions recorded. Reason for Referral None Reported. Results Created Date Observation Date Name Description Value Unit Range Abnormal Flag Note LastModifiedBy Organization Detail LastModifiedTime 04/12/2004/12/2025 pregn april test, urine HCG negati ve Not Available In-Office Order Internal Use Only DO Not Attach Compendium DO Not Attach Compendium, Do Not Delete/merge, [id number] 04/12/2025 14:37:12 04/22/20 25 04/22/2025 pregn april test, urine HCG negati ve Not Available In-Office Order Internal Use Only DO Not Attach Compendium DO Not Attach Compendium, Do Not Delete/merge, [id number] 04/20/2025 10:49:22 04/05/20 25 XR, wrist No observ ation record ed. Not Available 2024 08:53:39 04/05/20 25 XR, elbow No observ ation record ed. Not Available 2024 08:54:28 04/05/20 25 XR, [...] and Address Organization Details Recorded Time Eczema 34442230 Active [facility] Keys [facility] [address] [address], [place], [address], [facility] 6 15:26:01 Reduced visual acuity 06030420 Active Jim Keys [facility] [address] [address], [place], [address], [facility] 6 15:26:01 Epigastr ic pain 75933756 Completed 200712/27/2013 RECORDED 03/12/20 08 3:00PM BY INEZ GALE ON/MARVIN Keys [facility] [address] [address], [place], [address], [facility] 6 15:26:01 Conjunct ivitis 1217423 Completed 200712/27/2013 RECORDED 03/12/20 08 2:59PM BY INEZ GALE ON/ADDSILAS Keys [facility] [address] [address], [place], [address], [facility] 6 15:26:01 Dysuria 87101268 Completed 200712/27/2013 RECORDED 03/12/20 08 3:00PM BY INEZ GALE ON/ADDSILAS Keys, [facility] [address], [place], [address], [facility] 6 15:26:01 Fever [id number] Completed 200712/27/2013 RECORDED 03/12/20 08 3:00PM BY INEZ GALE/MARVIN Keys, [facility] [address], [place], [address], [facility] 6 15:26:01 Epigastr ic pain 54217071 Completed 200712/28/2013 RECORDED 03/12/20 08 3:00PM BY INEZ GALE ON/MARVIN eKys, [facility] [address], [place], [address], [facility] 6 15:26:01 Conjunct ivitis 6222474 Completed 200712/28/2013 RECORDED 03/12/20 08 2:59PM BY INEZ GALE/MARVIN Keys, [facility] [address], [place], [address], [facility] 6 15:26:01 Dysuria 73936576 Completed 200712/28/2013 RECORDED 03/12/20 08 3:00PM BY INEZ GALE ON/MARVIN Keys, [facility] [address], [place], [address], [facility] 6 15:26:01 Fever 138170987 Completed 200712/28/2013 RECORDED 03/12/20 08 3:00PM BY INEZ GALE ON/ADDEN ELIZABETH Keys, [facility] [address], [place], [address], [facility] 6 15:26:01 Epigastr ic pain 29840984 Completed 200712/04/2013 RECORDED 03/12/20 08 3:00PM BY INEZ GALE ON/ADDSILAS Keys, [facility] [address], [place], [address], [facility] 6 15:26:01 Conjunct ivitis 3774357 Completed 200712/04/2013 RECORDED 03/12/20 08 2:59PM BY INEZ GALE ON/MARVIN Keys, [facility] [address], [place], [address], [facility] 6 15:26:01 Dysuria 17044484 Completed 200712/04/2013 RECORDED 03/12/20 08 3:00PM BY INEZ GALE ON/MARVIN Keys, [facility] [address] [facility] [address], [place], [address], [facility] 6 15:26:01 Fever 521340493 Completed 200712/04/2013 RECORDED 03/12/20 08 3:00PM BY INEZ GALE/MARVIN Keys, [facility] [address], [place], [address], [facility] 6 15:26:01 Well child 219084578 Completed 200812/04/2013 RECORDED 09/15/19 09 9:09AM BY DEVAN DODGE, ERIKATI ON/ADDEN DUM Megan john [place] [facility] 6 14:37:10 Acute secretor y otitis media 977487080 Completed 200812/27/2013 RECORDED 03/07/20 09 9:27AM BY MEGAN AGUILAR MA, ANNOTATI ON/ADDEN DUM Jim Keys, [facility] [address] [facility] [address], [place], [address], [facility] 6 15:26:01 Influenz a vaccine needed [id number] 06 Completed 200812/27/2013 DATE: 03/07/20; RECORDED 05/15/20 13 8:35AM BY RAMIRO VALLECILLO I, INEZ ON/ADDEN DUM Jim Keys, [facility] [address] [facility] [address], [facility] [place], [address], [facility] 6 15:26:01 Acute secretor y otitis media 930746830 Completed 200812/28/2013 RECORDED 03/07/20 09 9:27AM BY MEGAN AGUILAR MA, ANNOTATI ON/ADDEN DUM Jim Keys, [facility] [address] [facility] [address], [facility] [place], [address], [facility] 6 15:26:01 Influenz a vaccine needed [id number] 06 Completed 200812/28/2013 DATE: 03/07/20 09; RECORDED 05/15/20 13 8:35AM BY INEZ LUND ON/ADDEN DUM Jim Keys, [facility] [address] [facility] [address], [facility] [place], [address], [facility] 6 15:26:01 Acute secretor y otitis media 478750567 Completed 200812/04/2013 RECORDED 03/07/20 09 9:27AM BY MEGAN AGUILAR MA, ERIKATI ON/ADDEN DUM Jim Keys, [facility] [address] [facility] [address], [place], [address], [facility] 6 15:26:01 Influenz a vaccine needed 48982539127 06 Completed 200812/04/2013 DATE: 03/07/20 09; RECORDED 05/15/20 13 8:35AM BY INEZ LUND ON/ADDEN DUM Jim Keys, [facility] [address] [address], [place], [address], [facility] 6 15:26:01 Acute pharyngi tis 650288124 Completed 201112/27/2013 RECORDED 11/30/19 12 8:26AM BY CYNTHIA TORRE PA-C, ERIKATI ON/ADDEN DUM Tammie Peres [facility] 5 09:57:47 Streptoc occal sore throat 09481054 Completed 201112/27/2013 RECORDED 11/30/19 12 8:26AM BY CYNTHIA TORRE PA-C, ANNOTNEGRITA ON/ADDEN DUM Jim Keys, [facility] [address] [address], [place], [address], [facility] 6 15:26:01 Cellulit is and abscess of face 065776197 Completed 201112/27/2013 RECORDED 11/30/19 12 8:26AM BY CYNTHIA TORRE PA-C, INEZ ON/ADDEN DUM Jim Keys, [facility] [address] [facility] [address], [place], [address], [facility] 6 15:26:01 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 712971657 Completed 201112/27/2013 RECORDED 11/30/19 12 8:26AM BY CYNTHIA TORRE PA-C, ANNOTATI ON/ADDEN DUM Jim Keys, [facility] [address] [address], [place], [address], [facility] 6 15:26:01 Impetigo 40748102 Completed 201112/27/2013 RECORDED 11/30/19 12 9:59AM BY CYNTHIA TORRE PA-C, ANNOTATI ON/ADDEN DUM Jim Keys, [facility] [address] [address], [place], [address], [facility] 6 15:26:01 Infestat ion by Gretchen gaelas [id number] Completed 201112/27/2013 RECORDED 11/30/19 12 8:26AM BY CYNTHIA TORRE PA-C, ANNOTATI ON/ADDEN DUM Jim Keys, [facility] [address] [address], [place], [address], [facility] 6 15:26:01 Eruption 476116537 Completed 201112/27/2013 RECORDED 11/30/19 12 8:26AM BY CYNTHIA TORRE PA-C, ANNOTATI ON/ADDEN DUM Jim Keys, [facility] [address] [address], [place], [address], [facility] 6 15:26:01 Acute pharyngi tis 316774960 Completed 201112/28/2013 RECORDED 11/30/19 12 8:26AM BY CYNTHIA TORRE PA-C, ANNOTATI ON/ADDEN DUM Tammie Peres [facility] 5 09:57:47 Streptoc occal sore throat 14604313 Completed 201112/28/2013 RECORDED 11/30/19 12 8:26AM BY CYNTHIA TORRE PA-C, ANNOTATI ON/ADDEN DUM Jim Keys, [facility] [address] [facility] [address], [place], [address], [facility] 6 15:26:01 Cellulit is and abscess of face 140943412 Completed 201112/28/2013 RECORDED 11/30/19 12 8:26AM BY CYNTHIA TORRE PA-C, INEZ ON/ADDEN DUM Jim Keys, [facility] [address] [facility] [address], [place], [address], [facility] 6 15:26:01 Delay in physiolo gical develop ent 311539119 Completed 201112/28/2013 RECORDED 11/30/19 12 8:26AM BY CYNTHIA TORRE PA-C, INEZ ON/ADDEN DUM Jim Keys, [address] [address], [place], [address], [facility] 6 15:26:01 Impetigo 26107914 Completed 201112/28/2013 RECORDED 11/30/19 12 9:59AM BY CYNTHIA TORRE PA-C, INEZ ON/ADDEN DUM Jim Keys, [facility] [address] [place] [address], [place], [address], [facility] 6 15:26:01 Infestat ion by Gretchen galeas [id number] Completed 201112/28/2013 RECORDED 11/30/19 12 8:26AM BY CYNTHIA TORRE PA-C, INEZ ON/ADDEN DUM Jim Keys, [facility] [address] [facility] [address], [place], [address], [facility] 6 15:26:01 Eruption 414190187 Completed 201112/28/2013 RECORDED 11/30/19 12 8:26AM BY CYNTHIA TORRE PA-C, ANNOTATI ON/ADDEN DUM Jim Keys, [facility] [address] [address], [place], [address], [facility] 6 15:26:01 Acute pharyngi tis 098757367 Completed 201112/04/2013 RECORDED 11/30/19 12 8:26AM BY CYNTHIA TORRE PA-C, ANNOTATI ON/ADDEN DUM Tammie Peres [facility] 5 09:57:47 Streptoc occal sore throat 32127037 Completed 201112/04/2013 RECORDED 11/30/19 12 8:26AM BY CYNTHIA TORRE PA-C, ANNOTATI ON/ADDEN DUM Jim Keys, [facility] [address] [address], [place], [address], [facility] 6 15:26:01 Cellulit is and abscess of face 270610651 Completed 201112/04/2013 RECORDED 11/30/19 12 8:26AM BY CYNTHIA TORRE PA-C, ANNOTATI ON/ADDEN DUM Jim Keys, [facility] [address] [address], [place], [address], [facility] 6 15:26:01 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 577840920 Completed 201112/04/2013 RECORDED 11/30/19 12 8:26AM BY CYNTHIA TORRE PA-C, ANNOTATI ON/ADDEN DUM Jim Keys, [facility] [address] [address], [place], [address], [facility] 6 15:26:01 Impetigo 54062745 Completed 201112/04/2013 RECORDED 11/30/19 12 9:59AM BY CYNTHIA TORRE PA-C, ANNOTATI ON/ADDEN DUM Janitza C. Thabet, [address] [address], [place], [address], [facility] 6 15:26:01 Infestat ion by Gretchen galeas [id number] Completed 201112/04/2013 RECORDED 11/30/19 12 8:26AM BY CYNTHIA TORRE PA-C, ANNOTATI ON/ADDEN DUM Jim Keys, [address] [address], [place], [address], [facility] 6 15:26:01 Eruption 431824566 Completed 201112/04/2013 RECORDED 11/30/19 12 8:26AM BY CYNTHIA TORRE PA-C, ANNOTATI ON/ADDEN DUM Jim Keys, [address] [address], [place], [address], [facility] 6 15:26:01 Administ ration of viral vaccine Completed 201212/27/2013 RECORDED 05/15/20 13 2:44PM BY MIKE DYER MD, WELL CHILD VISITS Jim Keys, [address] [address], [place], [address], [facility] 6 15:26:01 Methicil jordan resistan t Staphylo coccus aureus infectio n 161519610 Completed 201212/27/2013 RECORDED 05/15/20 13 8:35AM BY INEZ LUND ON/ADDEN DUM Jim Keys, [address] [address], [place], [address], [facility] 6 15:26:01 Verruca plantari s 31960067 Completed 201212/27/2013 IMPRESSI ON: L HEEL; RECORDED 05/15/20 13 8:35AM BY INEZ LUND ON/ADDEN DUM Jim Keys, [facility] [address] [facility] [address], [place], [address], [facility] 6 15:26:01 Administ ration of viral vaccine Completed 201212/28/2013 RECORDED 05/15/20 13 2:44PM BY MIKE DYER MD, WELL CHILD VISITS Jim Keys, [facility] [address] [facility] [address], [place], [address], [facility] 6 15:26:01 Methicil jordan resistan t Staphylo coccus aureus infectio n 623158531 Completed 201212/28/2013 RECORDED 05/15/20 13 8:35AM BY ERIK LUNDATI ON/ADDEN DUM Jim Keys, [facility] [address] [address], [facility] [place], [address], [facility] 6 15:26:01 Verruca plantari s 62841118 Completed 201212/28/2013 IMPRESSI ON: L HEEL; RECORDED 05/15/20 13 8:35AM BY RAMIRO VALLECILLO I ANNOTATI ON/ADDEN DUM Jim Keys, [facility] [address] [address], [place], [address], [facility] 6 15:26:01 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 539275665 Completed 201209/01/2016 Removal Reason: not specific [facility] 7 13:59:23 Contact dermatit is 26419770 Completed 201208/31/2016 RECORDED 05/15/20 13 1:59PM BY RAMIRO VALLECILLO I, WELL CHILD VISITS [facility] 7 11:30:54 Administ ration of viral vaccine Completed 201212/04/2013 RECORDED 05/15/20 13 2:44PM BY MIKE DYRE MD, WELL CHILD VISITS Jim Keys, [facility] [address] [facility] [address], [facility] [place], [address], [facility] 6 15:26:01 Methicil jordan resistan t Staphylo coccus aureus infectio n 641371877 Completed 201212/04/2013 RECORDED 05/15/20 13 8:35AM BY RAMIRO VALLECILLO I ANNOTATI ON/ADDEN DUM Jim Keys, [facility] [address] [facility] [address], [facility] [place], [address], [facility] 6 15:26:01 Developm ental delay 085185701 Active 2012 [facility] 7 11:30:53 Verruca plantari s 82051115 Completed 201212/04/2013 IMPRESSI ON: L HEEL; RECORDED 05/15/20 13 8:35AM BY ERIK LUNDATI ON/ADDEN DUM Jim Keys, [facility] [address] [address], [facility] [place], [address], [facility] 6 15:26:01 Well child 146045258 Completed 201203/30/2016 RECORDED 05/15/20 13 2:05PM BY RAMIRO VALLECILLO I, WELL CHILD VISITS DEVAN Reagan, [facility] 6 14:37:10 Wears glasses 357430050 Active 2016 DEVAN Kumar, [facility] 7 14:06:39 Scoliosi s of thoracic spine 407422142 Active 2018 7/ seen at [facility] , 26 degree thoracic curve, rec followup 6 months, no bracing/ /Followu p 06/2019, no change in curve, followup prn Lakisha harper null, [facility] 0 10:36:20 Candidia sis of vagina 00970964 Active 2022 Jim Keys, [facility] [address], [place], [address], [facility] 3 15:59:41 Vaginiti s 20895762 Active 2022 Jim Keys, [facility] [address] [facility] [address], [facility] [place], [address], [facility] 3 16:00:20 Pelvic floor dysfunct ion 662212793 Active 2022 Jim Keys, [facility] [address] [facility] [address], [facility] [place], [address], [facility] 3 16:02:45 Third degree perineal lacerati on 36675651 Active 2022 Jim Keys, [facility] [address] [facility] [address], [facility] [place], [address], [facility] 3 16:07:32 Acute right otitis media 455867301 Active 2022 Jim Keys, [facility] [address] [facility] [address], [facility] [place], [address], [facility] 3 16:14:20 Bacteria l vaginosi s 871713121 Active 2022 Jim Keys, [facility] [address] [facility] [address], [place], [address], [facility] 3 15:29:52 Fatigue 23404033 Active 2022 Jim Keys [facility] [address] [facility] [address], [place], [address], [facility] 3 15:30:59 Unable to control flatus 232946482 Active 2022 Jim Keys, [facility] [address], [place], [address], [facility] 3 15:32:02 Anemia due to unknown mechanis m 88535314 Active 2022 Jim Keys, [facility] [address], [place], [address], [facility] 3 15:35:31 Vitamin D deficien cy 61349624 Active 2022 Jim Keys, [facility] [address] [facility] [address], [place], [address], [facility] 3 15:35:49 Cough 91284855 Active 2022 Jim Keys, [facility] [address] [facility] [address], [place], [address], [facility] 3 15:36:35 Allergic rhinitis 82506360 Active 2022 Jim Keys, [facility] [address] [facility] [address], [place], [address], [facility] 3 15:38:34 Pain in pelvis 10334272 Active 2022 Jim Keys [facility] [address] [facility] [address], [place], [address], [facility] 3 15:46:29 Dizzines s 563025396 Active 2023 Jim Keys [facility] [address] [facility] [address], [place], [address], [facility] 4 14:02:08 Anemia 984653907 Active 2023 Jim Keys [facility] [address] [facility] [address], [place], [address], [facility] 4 14:02:26 Urinary tract infectio us disease 87546719 Active 2024 Jim Keys [facility] [address] [facility] [address], [facility] [place], [address], [facility] 5 13:57:20 Right upper quadrant pain 404195088 Active 2024 Jim Keys [facility] [address] [facility] [address], [facility] [place], [address], [facility] 5 13:57:37 Acute vaginiti s 98029274 Active 2024 Jim Keys [facility] [address] [facility] [address], [facility] [place], [address], [facility] 5 12:43:16 Acute pharyngi tis 887259863 Active 2024 RECORDED 11/30/19 12 8:26AM BY CYNTHIA TORRE PA-C, ANNOTATI ON/ADDEN DUM Tammie wheeler [facility] 5 09:57:47 Ulcerati ve pharyngi tis 06914583 Active 2024 Tammie wheeler [facility] 5 10:47:18 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 Procedures Surgical History Date Name Laterality Status Provider Name and Address Organization Details Recorded Time 023 anal sphincterorrhaphy for obstetrical laceration completed Megan patel MA [facility] 03/24/2023 15:22:08 022 dilation procedure completed Nicol Cano [facility] 09/16/2021 14:53:39 017 Developmental Screening completed Marilia Singh MA [facility] 01/04/2017 14:02:57 extraction of wisdom tooth [facility]val[facility]aba [facility] 15:16:04 Imaging Results None recorded. Procedure [...] RECORDED 07/18/19 13 10:21AM BY CYNTHIA TORRE, JORGE, MEDICATI ON AUTO-NETTIE CTIVATIO N; Not Available [...] d Address Organization Details Last Updated DateTime 04/20/2025 172.72 cm DEVAN Shea [facility] 04/20/2025 10:48:52 Social History Question Answer Notes LastModified by Organizat ion Details LastModified Time Tobacco Smoking Status Never Smoker DEVAN Kumar [facility] 06/21/2014 16:34:33 Animal Exposure? No No Current Pets Information not available 11/08/2014 What Type Of Diet Are You Following? REGULAR [email or web address] Information not available 06/21/2014 What Is Your Home Situation? Mother Information not available 11/08/2014 Live Alone Or With Others? With Others Mom, 1 Brother [email or web address] Information not available 06/21/2014 Have You Served In The ? No Information not available 03/24/2023 Have You Or Anyone In Your Household Had Any Of The Following Symptoms In The Last 14 Days: Sore Throat, Cough, Chills, Body Aches For Unknown Reasons, Shortness Of Breath For Unknown Reasons, Loss Of Smell, Loss Of Taste, Fever At Or Greater Than 100 Degrees Fahrenheit? No [email or web address] Information not available 04/07/2020 Are You Or Anyone In Your Household A Health Care Provider Or Emergency Responder? No [email or web address] Information not available 04/07/2020 To The Best Of Your Knowledge Have You Been In Close Proximity To Any Individual Who Tested Positive For COVID-19? No [email or web address] Information not available 04/07/2020 What Was The Date Of Your Most Recent Tobacco Screening? 03/27/2024 [email or web address] Information not available 03/27/2024 How Many Children Do You Have? 1 Dasias Information not available 03/24/2023 Pool Exposure Yes Informa tion not available 11/08/2014 What Is The Name Of Your School? [employer] Graduate Information not available 03/24/2023 Do You Use Your Seat Belt Or Car Seat Routinely? Yes Information not available 11/08/2014 Seat Belts Used Routinely Yes [email or web address] Information not available 06/21/2014 Are You Sexually Active? Yes Information not available 03/24/2023 Do You Have Any Siblings? 3 1 Brother, 2 Sisters Information not available 11/08/2014 Smoke Alarm In Home Yes [email or web address] Information not available 06/21/2014 Do You Have Smoke And Carbon Monoxide Detectors In Your Home? Yes Information not available 11/08/2014 Are You Passively Exposed To Smoke? No [email or web address] Information not available 06/21/2014 General Stress Level Low [email or web address] Information not available 06/21/2014 Do You Use Sunscreen Routinely? Yes [email or web address] Information not available 06/21/2014 Sex: Unknown Functional Status Question Answer Note LastModified by Organizat ion Details LastModified Time Do you use any illicit or recreational drugs? No Information not available 03/24/2023 Do you or have you ever used any other forms of tobacco or nicotine? No Information not available 03/24/2023 What is your level of alcohol consumption? None [email or web address] Information not available 06/21/2014 Are you currently employed? Yes Information not available 03/24/2023 Are you able to walk independently without assistance or assistive devices? [email or web address] Information not available 03/24/2023 Are you able to care for yourself independently? 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 None Information not available 03/24/2023 Mental Status None recorded. Family History Relationship Description Onset Age of this Age Resolved Age Notes LastModified by Organization Details LastModified Time Brother Attention deficit hyperactivit y disorder [email or web address] Not available 06/26 15:15:13 Mother Asthma [email or web address] Not available 1 06/07/2019 14:27:34 Sister Asthma [email or web address] Not available 06/07/2019 14:27:45 Medical History Condition Response Coronary Artery Disease N Gout N Other N Blood Diseases N Kidney Stones N Hyperthyroidism N Breast Cancer N mrsa exposure N COPD N Lung Disease N Hypothyroidism N Depression N Defects or Inherited Disease N Developmental [...] Age at Menarche 13 Current Control Method Depo-Codifier a LMP Unknown Sexually Active? Y Obstetrics History GPAL:G 0 P 0 0 0 0 Immunizations Vaccine Type Date Status Note Provider Nam e and Address Organization Details Recorded Time Tdap 5 completed Not Available [facility] 06/09/2019 02:21:44 HPV, quadrivalent 5 completed Not Available [facility] 06/09/2019 02:21:34 COVID-19, mRNA, LNP-S, PF, 30 mcg/0.3 mL dose [facility] 10:56:14 COVID-19, mRNA, LNP-S, PF, 30 mcg/0.3 mL dose [facility] 10:56:14 COVID-19, mRNA, LNP-S, PF, 30 mcg/0.3 mL dose, renato-sucrose 2 completed DEVAN Chen, [facility] 09/09/2022 10:02:15 Tdap 2 completed DEVAN Chen, [facility] 09/09/2022 10:02:15 Influenza, split virus, quadrivalent, PF 2 completed DEVAN Chen, [facility] 09/09/2022 10:02:15 Hep B, adolescent or pediatric 3 completed Not Available [facility] 12/04/2013 13:31:42 pneumococcal conjugate PCV 7 4 completed Not Available [facility] 12/04/2013 13:31:42 DTaP 4 completed Not Available [facility] 12/04/2013 13:31:42 Hib (HbOC) 4 completed Not Available [facility] 12/04/2013 13:31:42 IPV 4 completed Not Available [facility] 12/04/2013 13:31:42 IPV 4 completed Not Available [facility] 12/04/2013 13:31:42 Hib (HbOC) 4 completed Not Available [facility] 12/04/2013 13:31:42 DTaP 4 completed Not Available [facility] 12/04/2013 13:31:42 pneumococcal conjugate PCV 7 4 [facility] 13:31:42 pneumococcal conjugate PCV 7 4 completed [facility] 12[facility]04[facility]2013 13:31:42 Hep B, adolescent or pediatric 4 completed [facility] 12/04/2013 13:31:43 DTaP 4 completed [facility] 12/04/2013 13:31:43 Hib (HbOC) 4 completed Not Available [facility] 12/04/2013 13:31:43 Hib (HbOC) 4 completed Not Available [facility] 12/04/2013 13:31:43 pneumococcal conjugate PCV 7 4 completed Not Available [facility] 12/04/2013 13:31:43 varicella 4 completed Not Available [facility] 12/04/2013 13:31:43 MMR 4 completed Not Available [facility] 12/04/2013 13:31:43 Hep B, adolescent or pediatric 4 completed Not Available [facility] 12/04/2013 13:31:43 IPV 4 completed Not Available [facility] 12/04/2013 13:31:43 Influenza, split virus, trivalent, preservative 4 completed Not Available [facility] 12/04/2013 13:31:43 DTaP 5 completed Not Available [facility] 12/04/2013 13:31:43 Influenza, split virus, trivalent, preservative 6 completed Not Available [facility] 12/04/2013 13:31:43 MMR 7 completed Not Available [facility] 12/04/2013 13:31:43 varicella 7 completed Not Available [facility] 12/04/2013 13:31:43 DTaP 7 completed Not Available [facility] 12/04/2013 13:31:43 IPV 7 completed Not Available [facility] 12/04/2013 13:31:43 Influenza, split virus, trivalent, preservative 7 completed Not Available [facility] 12/04/2013 13:31:43 Influenza, split virus, trivalent, preservative 8 completed Not Available [facility] 12/04/2013 13:31:43 Influenza, split virus, trivalent, preservative 9 completed Not Available [facility] 12/04/2013 13:31:43 Novel [id number], all formulations 9 completed Not Available [facility] 12/04/2013 13:31:43 Novel [id number], all formulations 0 completed Not Available [facility] 12/04/2013 13:31:43 Influenza, split virus, trivalent, preservative 0 completed Not Available [facility] 12/04/2013 13:31:43 Influenza, split virus, trivalent, preservative 1 completed Not Available [facility] 12/04/2013 13:31:43 Influenza, split virus, trivalent, preservative 2 completed Not Available [facility] 12/04/2013 13:31:43 HPV, quadrivalent 3 completed Not Available [facility] 12/04/2013 13:31:43 Influenza, split virus, quadrivalent, PF 6 completed Not Available [facility] 06/09/2019 02:22:08 meningococcal MCV4P 9 completed Not Available [facility] 06/09/2019 02:21:55 Influenza, split virus, quadrivalent, PF 0 completed DEVAN Shea, [facility] 04/07/2020 14:40:13 meningococcal MCV4P 0 completed DEVAN Rivera, [facility] 04/07/2020 15:35:41 Influenza, split virus, quadrivalent, PF 3 completed DEVAN Shea, [facility] 03/14/2023 11:34:59 Influenza, split virus, trivalent, PF 4 completed SHREYA Gillespie [address] [address], [place], [address], [facility] [place] [facility] 03/27/2024 11:11:42 Past Encounters Encounter ID Performer Location Encounter Start Date Encounter Closed Date Diagnosis/Indication Diagnosis SNOMED-CT Code Diagnosis ICD10 Code Diagnosis IMO Codes Diagnosis Note [id number] STEVEN AHUMADA Main Office [address] [facility] [address] [facility] [place] [address] 04/12/2025 14:23:26 04/12/2025 15:05:32 Contraception care management 498695736 Z30.42 urine test is negative. provided refill, pt will return for administra tion.last depo 01/11/25. [id number] Bronwyn Mitchell MD Main Office [address] [facility] [address] [facility] [place] [address] 04/20/2025 10:47:45 04/20/2025 10:48:30 Contraception care management [id number] Z30.42 Health Concerns Section Related Observation LastModified by Organization Detai ls LastModified Time None Recorded Concern Status LastModified by Organization Details LastModified Time None Recorded Payers Encounter Date Sequence Insurance Name Policy Number Policy Zee Covered Member ID Zee Member ID Guarantor Name 04/20/2025 1 [place] [facility] Eloisa Ribera [id number] Eloisa Ribera OBGyn Episode No OBEpisode recorded.
--- OUTSIDE RECORDS SUMMARY | 2025-05-06 20:21 | XMS_ITS | Data Portability ---
Author Organization [facility], Main Office Address [address] [facility] [address] [place] [address] Care Team Providers Care Radiation Oncology Manager Name Role Phone PORSCHE MARSHALL Orthopedic Surgeon TRIP PADILLA Leg Breaker CARLY SCHWARZ Primary Care Provider Unavailabl e [...] DO Not Attach Compendium, Do Not Delete/merge, [id number] 5 11:54:53 test, urine 2024 025 [email or web address] In-Office Order, Internal Use Only DO Not Attach Compendium DO Not Attach Compendium, Do Not Delete/merge, [id number] 5 14:45:28 test, urine 2024 025 [email or web address] In-Office Order, Internal Use Only DO Not Attach Compendium DO Not Attach Compendium, Do Not Delete/merge, [id number] 5 09:26:01 strep group A, DNA, swab 2024 025 [email or web address] In-Office Order, Internal Use Only DO Not Attach Compendium DO Not Attach Compendium, Do Not Delete/merge, [id number] 5 10:25:05 rapid influenza virus A + B and SARS CoV + SARS CoV 2 Ag panel, [place], upper respirato ry specimen 2024 025 CHERYL In-Office Order, Internal Use Only DO Not Attach Compendium DO Not Attach Compendium, Do Not Delete/merge, [id number] 5 14:06:58 Referral None recorded. Procedures None recorded. Surgeries None recorded. Imaging None recorded. Medication Orders medroxypr ogesteron e 150 mg/mL intramusc ular suspensio n 2024 025 [email or web address] Not available 11:56:00 medroxypr ogesteron e 150 mg/mL intramusc ular suspensio n 2024 025 [id number] [address] [place], [address], 5 14:45:48 medroxypr ogesteron e 150 mg/mL intramusc ular suspensio n 2024 025 [email or web address] Not available 09:26:01 MAGIC MOUTHWASH 2024 025 [id number] [address] [place], [address], 5 14:33:45 valacyclo vir 1 gram tablet 2024 025 [facility] #[id number], [address] [place], [address], 5 05:01:38 MAGIC MOUTHWASH 2024 025 [email or web address] [facility] #[id number], [address] [place], [address], 5 14:33:40 Patient TargetsNo targets recorded. Patient Instructions Encounter Date Encounter Id Patient Instructions Last Modified By Organization Details Last Modified Time 11/09/2024 [id number] sore throat: car e instructions [email or web address] Not available 11/09/2024 10:16:48 Reason for Referral None Reported. Results Created Date Observation Date Name Description Value Unit Range Abnormal Flag Note LastModifiedBy Organization Detail LastModifiedTime 07/25/1907/25/2024 NUSWA B BV KEYON+C AND6+ CT/GC /T... atopobium vaginae Low - 0 score Not Available [facility] ([facility]) [address] [place], [address], 07/26/2024 22:05:47 07/25/19 25 07/25/2024 NUSWA B BV KEYON+C AND6+ CT/GC /T... bvab 2 Low - 0 score Not Available [facility] ([facility]) [address] [place], [address], 07/26/2024 22:05:47 07/25/19 25 07/25/2024 NUSWA B [...] prese nce of BV. Not Available [facility] ([facility]) [address] [place], [address], 07/26/2024 22:05:47 07/25/19 25 07/25/2024 NUSWA B BV KEYON+C AND6+ CT/GC /T... monserrat albicans, KEYON Negati ve negati ve Not Available [facility] ([facility]) [address] [facility], [place], [address], 07/26/2024 22:05:47 07/25/19 25 07/25/2024 NUSWA B BV KEYON+C AND6+ CT/GC /T... monserrat glabrata, KEYON Negati ve negati ve Not Available [facility] ([facility]) [address] [place], [address], 07/26/2024 22:05:47 07/25/19 25 07/25/2024 NUSWA B BV KEYON+C AND6+ CT/GC /T... C parapsilosis /tropicalis Negati ve negati ve This assay does not diffe renti ate C. tropi calis and C. parap el is. Not Available [facility] ([facility]) [address] [facility], [place], [address], 07/26/2024 22:05:47 07/25/19 25 07/25/2024 NUSWA B BV KEYON+C AND6+ CT/GC /T... monserrat lusitaniae, KEYON Negati ve negati ve Not Available [facility] ([facility]) [address] [place], [address], 07/26/2024 22:05:47 07/25/19 25 07/25/2024 NUSWA B BV KEYON+C AND6+ CT/GC /T... monserrat krusei, KEYON Negati ve negati ve Not Available [facility] ([facility]) [address] [place], [address], 07/26/2024 22:05:47 07/25/19 25 07/26/2024 NUSWA B BV KEYON+C AND6+ CT/GC /T... trich vag by KEYON Negati ve negati ve Not Available [facility] ([facility]) [address] [place], [address], 07/26/2024 22:05:47 07/25/19 25 07/26/2024 NUSWA B BV KEYON+C AND6+ CT/GC /T... chlamydia trachomatis, KEYON Negati ve negati ve Not Available [facility] ([facility]) [address] [facility], [place], [address], 07/26/2024 22:05:47 07/25/19 25 07/26/2024 NUSWA B BV KEYON+C AND6+ CT/GC /T... neisseria gonorrhoeae, KEYON Negati ve negati ve Not Available [facility] ([facility]) [address] [facility], [place], [address], 07/26/2024 22:05:47 07/25/19 25 07/26/2024 NUSWA B BV KEYON+C AND6+ CT/GC /T... hsv 1 KEYON Negati ve negati ve Not Available [facility] ([facility]) [address] [facility], [place], [address], 07/26/2024 22:05:47 07/25/19 25 07/26/2024 NUSWA B BV KEYON+C AND6+ CT/GC /T... hsv 2 KEYON Negati ve negati ve Not Available [facility] ([facility]) [address] [facility], [place], [address], 07/26/2024 22:05:47 07/28/19 25 07/27/2024 rapid influ zak virus A + B and SARS CoV + SARS CoV 2 Ag panel , [place], upper respi rator y speci men Unknown Analyte negati ve Not Available In-Office Order Internal Use Only DO Not Attach Compendium DO Not Attach Compendium, Do Not Delete/merge, [id number] 07/27/2024 13:20:59 07/28/19 25 07/27/2024 rapid influ zak virus A + B and SARS CoV + SARS CoV 2 Ag panel , [place], upper respi rator y speci men Unknown Analyte negati ve Not Available In-Office Order Internal Use Only DO Not Attach Compendium DO Not Attach Compendium, Do Not Delete/merge, [id number] 07/27/2024 13:20:59 07/28/19 25 07/27/2024 rapid influ zak virus A + B and SARS CoV + SARS CoV 2 Ag panel , [place], upper respi rator y speci men Unknown Analyte negati ve Not Available In-Office Order Internal Use Only DO Not Attach Compendium DO Not Attach Compendium, Do Not Delete/merge, [id number] 07/27/2024 13:20:59 11/10/19 25 11/09/2024 strep group A, DNA, swab ID NOW Strep A 2 (rapid molecular test) negati ve Not Available In-Office Order Internal Use Only DO Not Attach Compendium DO Not Attach Compendium, Do Not Delete/merge, [id number] 11/09/2024 09:47:12 01/12/20 25 01/11/2025 pregn april test, urine HCG negati ve Not Available In-Office Order Internal Use Only DO Not Attach Compendium DO Not Attach Compendium, Do Not Delete/merge, [id number] 01/11/2025 08:24:27 04/12/20 25 04/12/2025 pregn april test, urine HCG negati ve Not Available In-Office Order Internal Use Only DO Not Attach Compendium DO Not Attach Compendium, Do Not Delete/merge, [id number] 04/12/2025 14:37:12 04/22/20 25 04/22/2025 pregn april test, urine HCG negati ve Not Available In-Office Order Internal Use Only DO Not Attach Compendium DO Not Attach Compendium, Do Not Delete/merge, [id number] 04/20/2025 10:49:22 07/10/19 25 07/10/2024 US, abdom en, limit [...] I agree with this report . WSN: [id number] Orderi ng Physic rin: Massimo HARRIS, Theresa Bowen Dictat ed By: Jose R Kang DO Dictat ed Date/T bhavna: 10:50 a Review ed By: Harshal Pimentel MD Signed By: Harshal Pimentel MD Signed Date/T bhavna: 10:55 am Transc ribed By: MICHAELB Transc ribed Date/T bhavna: 10:31 am Patien t Class: Outpat ient [email or web address] [facility] (Outpt Imaging) [address] [place], [address], 08/02/2024 10:54:59 04/05/20 25 XR, wrist No observ ation record ed. [email or web address] Not Available 2024 08:53:39 04/05/20 25 XR, elbow No observ ation record ed. Not Available 2024 08:54:28 04/05/20 25 XR, wrist No observ ation record ed. [email or web address] Not Available 07/2024 13:16:30 04/05/20 25 XR, elbow No observ ation record ed. [email or web address] Not Available 07/2024 13:16:30 04/08/[address], upper extre mity, w/o contr ast No observ ation record ed. [email or web address] Not Available 2024 09:42:37 Result Notes None recorded. Problems Name Problem SNOMED Code Status Onset Date Resolution Date Notes Provider Name and Address Organization Details Recorded Time Eczema 24696895 Active Jim Keys, [facility] [address], [place], [address], [facility] 6 15:26:01 Reduced visual acuity 78162486 Active Jim Keys, [facility] [address], [place], [address], [facility] 6 15:26:01 Epigastr ic pain 68441439 Completed 200712/27/2013 RECORDED 03/12/20 08 3:00PM BY INEZ GALE ON/ADDEN ELIZABETH [facility], [facility] [address] [facility] [address], [place], [address], [facility] 6 15:26:01 Conjunct ivitis 1716066 Completed 200712/27/2013 RECORDED 03/12/20 08 2:59PM BY INEZ GALE ON/ADDEN ELIZABETH Keys, [facility] [address] [facility] [address], [place], [address], [facility] 6 15:26:01 Dysuria 55658063 Completed 200712/27/2013 RECORDED 03/12/20 08 3:00PM BY INEZ GALE ON/MARVIN Keys, [facility] [address] [facility] [address], [place], [address], [facility] 6 15:26:01 Fever [id number] Completed 200712/27/2013 RECORDED 03/12/20 08 3:00PM BY INEZ GALE/MARVIN Keys, [facility] [address] [facility] [address], [place], [address], [facility] 6 15:26:01 Epigastr ic pain 94925966 Completed 200712/28/2013 RECORDED 03/12/20 08 3:00PM BY DEVAN DODGE, INEZ ON/ADDEN ELIZABETH Keys, [facility] [address], [place], [address], [facility] 6 15:26:01 Conjunct ivitis 8406080 Completed 200712/28/2013 RECORDED 03/12/20 08 2:59PM BY INEZ GALE ON/ADDEN ELIZABETH Keys, [facility] [address] [facility] [address], [place], [address], [facility] 6 15:26:01 Dysuria 97329159 Completed 200712/28/2013 RECORDED 03/12/20 08 3:00PM BY INEZ GALE ON/ADDEN EILZABETH Keys, [facility] [address] [facility] [address], [place], [address], [facility] 6 15:26:01 Fever [id number] Completed 200712/28/2013 RECORDED 03/12/20 08 3:00PM BY INEZ GALE ON/MARVIN Keys, [facility] [address] [facility] [address], [place], [address], [facility] 6 15:26:01 Epigastr ic pain 09179639 Completed 200712/04/2013 RECORDED 03/12/20 08 3:00PM BY INEZ GALE ON/ADDSILAS Keys, [facility] [address] [facility] [address], [place], [address], [facility] 6 15:26:01 Conjunct ivitis 1448697 Completed 200712/04/2013 RECORDED 03/12/20 08 2:59PM BY INEZ GALE ON/ADDEN DUM Jim Keys, [facility] [address] [facility] [address], [place], [address], [facility] 6 15:26:01 Dysuria 62678350 Completed 200712/04/2013 RECORDED 03/12/20 08 3:00PM BY INEZ GALE ON/ADDEN DUM Jim Keys, [facility] [address] [facility] [address], [place], [address], [facility] 6 15:26:01 Fever [id number] Completed 200712/04/2013 RECORDED 03/12/20 08 3:00PM BY INEZ GALE ON/ADDEN DUM Jim Keys, [facility] [address] [facility] [address], [place], [address], [facility] 6 15:26:01 Well child 759882312 Completed 200812/04/2013 RECORDED 09/15/19 09 9:09AM BY INEZ GALE ON/ADDEN DUM Edy john MA [facility] 6 14:37:10 Acute secretor y otitis media 330926820 Completed 200812/27/2013 RECORDED 03/07/20 09 9:27AM BY EDY AGUILAR MA, ANNOTATI ON/ADDEN DUM Jim Keys, [facility] [address] [facility], [place], [address], [facility] 6 15:26:01 Influenz a vaccine needed 91524958209 06 Completed 200812/27/2013 DATE: 03/07/20 09; RECORDED 05/15/20 13 8:35AM BY INEZ LUND ON/ADDEN DUM Jim Keys, [facility] [address] [facility] [address], [place], [address], [facility] 6 15:26:01 Acute secretor y otitis media 764178487 Completed 200812/28/2013 RECORDED 03/07/20 09 9:27AM BY EDY AGUILAR MA, ANNOTATI ON/ADDEN ELIZABETH Keys, [facility] [address] [facility] [address], [place], [address], [facility] 6 15:26:01 Influenz a vaccine needed 95283396659 06 Completed 200812/28/2013 DATE: 03/07/20 09; RECORDED 05/15/20 13 8:35AM BY INEZ LUND ON/ADDSILAS Keys, [facility] [address] [facility] [address], [place], [address], [facility] 6 15:26:01 Acute secretor y otitis media 767562094 Completed 200812/04/2013 RECORDED 03/07/20 09 9:27AM BY EDY AGUILAR MA, ERIKATI ON/MARVIN Keys, [facility] [address] [facility], [place], [address], [facility] 6 15:26:01 Influenz a vaccine needed 67625373764 06 Completed 200812/04/2013 DATE: 03/07/20 09; RECORDED 05/15/20 13 8:35AM BY INEZ LUND ON/MARVIN Keys, [facility] [address] [facility] [address], [place], [address], [facility] 6 15:26:01 Acute pharyngi tis 054881293 Completed 201112/27/2013 RECORDED 11/30/19 12 8:26AM BY CYNTHIA TORRE PA-C, ANNOTATI ON/ADDEN DUM Tammie Ja [facility] 5 09:57:47 Streptoc occal sore throat 69449624 Completed 201112/27/2013 RECORDED 11/30/19 12 8:26AM BY CYNTHIA TORRE PA-C, ANNOTATI ON/ADDEN DUM Jim Keys, [facility] [address] [facility], [place], [address], [facility] 6 15:26:01 Cellulit is and abscess of face 282243212 Completed 201112/27/2013 RECORDED 11/30/19 12 8:26AM BY CYNTHIA TORRE PA-C, ANNOTATI ON/ADDEN DUM Jim Keys, [facility] [address] [address], [place], [address], [facility] 6 15:26:01 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 036429672 Completed 201112/27/2013 RECORDED 11/30/19 12 8:26AM BY CYNTHIA TORRE PA-C, ERIKATI ON/ADDEN DUM Jim Keys, [facility] [address] [address], [place], [address], [facility] 6 15:26:01 Impetigo 79628365 Completed 201112/27/2013 RECORDED 11/30/19 12 9:59AM BY CYNTHIA TORRE PA-C, ANNOTATI ON/ADDEN DUM Jim Keys, [facility] [address] [address], [place], [address], [facility] 6 15:26:01 Infestat ion by Gretchen galeas 03670013 Completed 201112/27/2013 RECORDED 11/30/19 12 8:26AM BY CYNTHIA TORRE PA-C, ANNOTATI ON/ADDEN DUM Jim Keys, [facility] [address] [facility], [place], [address], [facility] 6 15:26:01 Eruption 801886681 Completed 201112/27/2013 RECORDED 11/30/19 12 8:26AM BY CYNTHIA TORRE PA-C, ERIKATI ON/ADDEN DUM Jim Keys, [facility] [address] [facility], [place], [address], [facility] 6 15:26:01 Acute pharyngi tis 755919474 Completed 201112/28/2013 RECORDED 11/30/19 12 8:26AM BY CYNTHIA TORRE PA-C, ANNOTATI ON/ADDEN DUM Tammie Peres [facility] 5 09:57:47 Streptoc occal sore throat 15266018 Completed 201112/28/2013 RECORDED 11/30/19 12 8:26AM BY CYNTHIA TORRE PA-C, INEZ ON/ADDEN DUM Jim Keys, [facility] [address] [address], [place], [address], [facility] 6 15:26:01 Cellulit is and abscess of face 742666516 Completed 201112/28/2013 RECORDED 11/30/19 12 8:26AM BY CYNTHIA TORRE PA-C, ANNOTATI ON/ADDEN DUM Jim Keys, [facility] [address] [address], [place], [address], [facility] 6 15:26:01 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 815736752 Completed 201112/28/2013 RECORDED 11/30/19 12 8:26AM BY CYNTHIA TORRE PA-C, ANNOTATI ON/ADDEN DUM Jim Keys, [facility] [address] [facility] [address], [place], [address], [facility] 6 15:26:01 Impetigo 85256858 Completed 201112/28/2013 RECORDED 11/30/19 12 9:59AM BY CYNTHIA TORRE PA-C, ANNOTATI ON/ADDEN DUM Jim Keys, [facility] [address] [facility] [address], [place], [address], [facility] 6 15:26:01 Infestat ion by Gretchen galeas 20401440 Completed 201112/28/2013 RECORDED 11/30/19 12 8:26AM BY CYNTHIA TORRE PA-C, ANNOTATI ON/ADDEN DUM Jim Keys, [facility] [address] [place] [address], [place], [address], [facility] 6 15:26:01 Eruption 836423982 Completed 201112/28/2013 RECORDED 11/30/19 12 8:26AM BY CYNTHIA TORRE PA-C, ANNOTATI ON/ADDEN DUM Jim Keys, [facility] [address] [place] [address], [place], [address], [facility] 6 15:26:01 Acute pharyngi tis 854768855 Completed 201112/04/2013 RECORDED 11/30/19 12 8:26AM BY CYNTHIA TORRE PA-C, ANNOTATI ON/ADDEN DUM Tammie Peres [facility] 5 09:57:47 Streptoc occal sore throat 49651455 Completed 201112/04/2013 RECORDED 11/30/19 12 8:26AM BY CYNTHIA TORRE PA-C, ANNOTATI ON/ADDEN DUM Jim Keys, [facility] [address] [facility] [address], [place], [address], [facility] 6 15:26:01 Cellulit is and abscess of face 864649080 Completed 201112/04/2013 RECORDED 11/30/19 12 8:26AM BY CYNTHIA TORRE PA-C, ANNOTATI ON/ADDEN DUM Jim Keys, [facility] [address] [facility] [address], [place], [address], [facility] 6 15:26:01 Delay in physiolo gical develop ent 895136790 Completed 201112/04/2013 RECORDED 11/30/19 12 8:26AM BY CYNTHIA TORRE PA-C, ANNOTATI ON/ADDEN DUM Jim Keys, [facility] [address] [address], [place], [address], [facility] 6 15:26:01 Impetigo 37707649 Completed 201112/04/2013 RECORDED 11/30/19 12 9:59AM BY CYNTHIA TORRE PA-C, ANNOTATI ON/ADDEN DUM Jim Keys, [facility] [address] [address], [place], [address], [facility] 6 15:26:01 Infestat ion by Gretchen galeas 68717376 Completed 201112/04/2013 RECORDED 11/30/19 12 8:26AM BY CYNTHIA TORRE PA-C, ANNOTATI ON/ADDEN DUM Jim Keys, [facility] [address] [address], [place], [address], [facility] 6 15:26:01 Eruption 004912499 Completed 201112/04/2013 RECORDED 11/30/19 12 8:26AM BY CYNTHIA TORRE PA-C, ANNOTATI ON/ADDEN DUM Jim Keys, [facility] [address] [address], [place], [address], [facility] 6 15:26:01 Administ ration of viral vaccine Completed 201212/27/2013 RECORDED 05/15/20 13 2:44PM BY MIKE DYER MD, WELL CHILD VISITS Jim Keys, [facility] [address] [facility], [place], [address], [facility] 6 15:26:01 Methicil jordan resistan t Staphylo coccus aureus infectio n 287249921 Completed 201212/27/2013 RECORDED 05/15/20 13 8:35AM BY ERIK LUNDATI ON/ADDEN DUM Jim Keys, [address] [address], [place], [address], [facility] 6 15:26:01 Verruca plantari s 89158583 Completed 201212/27/2013 IMPRESSI ON: L HEEL; RECORDED 05/15/20 13 8:35AM BY ERIK LUNDATI ON/ADDEN DUM Jim Keys, [address] [address], [place], [address], [facility] 6 15:26:01 Administ ration of viral vaccine Completed 201212/28/2013 RECORDED 05/15/20 13 2:44PM BY MIKE DYER MD, WELL CHILD VISITS Jim Keys, [facility] [address] [address], [place], [address], [facility] 6 15:26:01 Methicil jordan resistan t Staphylo coccus aureus infectio n 431236586 Completed 201212/28/2013 RECORDED 05/15/20 13 8:35AM BY RAMIRO VALLECILLO I ANNOTATI ON/ADDEN DUM Jim Keys, [address] [address], [place], [address], [facility] 6 15:26:01 Verruca plantari s 84361270 Completed 201212/28/2013 IMPRESSI ON: L HEEL; RECORDED 05/15/20 13 8:35AM BY RAMIRO VALLECILLO I, ANNOTATI ON/ADDEN DUM Jim Keys, [facility] [address] [facility] [address], [place], [address], [facility] 6 15:26:01 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 976107971 Completed 201209/01/2016 Removal Reason: not specific [facility] 13:59:23 Contact dermatit is 70859816 Completed 201208/31/2016 RECORDED 05/15/20 13 1:59PM BY RAMIRO VALLECILLO I, WELL CHILD VISITS Emilia wheeler, [facility] 7 11:30:54 Administ ration of viral vaccine Completed 201212/04/2013 RECORDED 05/15/20 13 2:44PM BY MIKE DYER MD, WELL CHILD VISITS Jim Keys, [facility] [address] [facility] [address], [place], [address], [facility] 6 15:26:01 Methicil jordan resistan t Staphylo coccus aureus infectio n 950069851 Completed 201212/04/2013 RECORDED 05/15/20 13 8:35AM BY ERIK LUNDATI ON/ADDEN DUM Jim Keys, [facility] [address] [facility] [address], [place], [address], [facility] 6 15:26:01 Developm ental delay 180191261 [facility] 11:30:53 Verruca plantari s 63574086 Completed 201212/04/2013 IMPRESSI ON: L HEEL; RECORDED 05/15/20 13 8:35AM BY RAMIRO VALLECILLO I, ANNOTATI ON/ADDEN DUM Jim Keys, [facility] [address], [place], [address], [facility] 6 15:26:01 Well child 406295611 Completed 201203/30/2016 RECORDED 05/15/20 13 2:05PM BY RAMIRO VALLECILLO I, WELL CHILD VISITS Edy john MA null, [facility] 6 14:37:10 Wears glasses 940094138 Active 2016 Marilia Singh MA null, [facility] 7 14:06:39 Scoliosi s of thoracic spine 620173095 Active 12/08 seen at [facility] , 26 degree thoracic curve, rec followup 6 months, no bracing/ /Followu p 06/2019, no change in curve, followup prn Lakisha [facility] null, [facility] 0 10:36:20 Candidia sis of vagina 56104843 Active 2022 Jim Keys, [facility] [address] [facility] [address], [place], [address], [facility] 3 15:59:41 Vaginiti s 45597604 Active 2022 Jim Keys, [facility] [address], [place], [address], [facility] 3 16:00:20 Pelvic floor dysfunct ion 411411893 Active 2022 Jim Keys, [facility] [address] [facility] [address], [place], [address], [facility] 3 16:02:45 Third degree perineal lacerati on 41383697 Active 2022 BRIGITTE Gillespie [address] [address], [place], [address], [facility] 3 16:07:32 Acute right otitis media 356261911 Active 2022 BRIGITTE Gillespie [address] [place] [address], [place], [address], [facility] 3 16:14:20 Bacteria l vaginosi s 830830871 Active 2022 BRIGITTE Gillespie [address] [place] [address], [place], [address], [facility] 3 15:29:52 Fatigue 16623087 Active 2022 BRIGITTE Gillespie [address] [place] [address], [place], [address], [facility] 3 15:30:59 Unable to control flatus 212471847 Active 2022 BRIGITTE Gillespie [address] [place] [address], [place], [address], [facility] 3 15:32:02 Anemia due to unknown mechanis m 16405115 Active 2022 BRIGITTE Gillespie [facility] [address], [place], [address], [facility] 3 15:35:31 Vitamin D deficien cy [id number] Active 2022 BRIGITTE Gillespie [address] [place] [address], [place], [address], [facility] 3 15:35:49 Cough 75273749 Active 2022 BRIGITTE Gillespie [address] [place] [address], [place], [address], [facility] 3 15:36:35 Allergic rhinitis 99128004 Active 2022 SHREYA GillespieUP [address] [facility] [address], [place], [address], [facility] 3 15:38:34 Pain in pelvis 68113114 Active 2022 SHREYA GillespieUP [address] [facility] [address], [place], [address], [facility] 3 15:46:29 Dizzines s 244158509 Active 2023 [facility], [facility] [address] [facility] [address], [place], [address], [facility] 4 14:02:08 Anemia 579752313 Active 2023 [facility], [facility] [address] [facility] [address], [place], [address], [facility] 4 14:02:26 Urinary tract infectio us disease 65692952 Active 2024 [facility], [facility] [address] [facility] [address], [place], [address], [facility] 5 13:57:20 Right upper quadrant pain 656590977 Active 2024 Jim Keys, [facility] [address] [facility] [address], [place], [address], [facility] 5 13:57:37 Acute vaginiti s 29514688 Active 2024 Jim Keys PAS[facility] [address] [facility] [address], [place], [address], [facility] 5 12:43:16 Acute pharyngi tis 539612631 Active 2024 RECORDED 11/30/19 12 8:26AM BY CYNTHIA TORRE PA-C, ANNOTATI ON/ADDEN DUM [facility] 5 09:57:47 Ulcerati ve pharyngi tis 77660112 Active 2024 Tammie Peres [facility] 5 10:47:18 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 Procedures Surgical History Date Name Laterality Status Provider Name and Address Organization Details Recorded Time 023 anal sphincterorrhaphy for obstetrical laceration completed Edy patel [facility] 03/24/2023 15:22:08 022 dilation procedure completed Nicol Cano [facility] 09/16/2021 14:53:39 017 Developmental Screening completed Marilia Singh [facility] 01/04/2017 14:02:57 extraction of wisdom tooth completed Edy patel [facility] 03/24/2023 15:16:04 Imaging Results None recorded. [...] RECORDED 01/09/20 10 8:27AM BY CYNTHIA TORRE, JORGE, MEDICATI ON AUTO-NETTIE [...] Updated DateTime 5 172.72 cm 17.4 kg/m2 71316.3 3 g 89 /min 98 % 98.1 [degF] 97/64 mm[Hg] Rekha Tapia LPN [facility] [place] 5 13:35:22 Date Recorded Body height Body mass index (BMI) Body weight Heart rate Oxygen saturation Body temperature Systolic And Diastolic Provider Name and Address Organization Details Last Updated DateTime 5 172.72 cm 18.2 kg/m2 48493.2 9 g 94 /min 97 % 98.7 [degF] 100/66 mm[Hg] Rekha Tapia LPN [facility] 5 09:45:25 Date Recorded Body height Body mass index (BMI) Body weight Heart rate Oxygen saturation Body temperature Systolic And Diastolic Provider Name and Address Organization Details Last Updated DateTime 5 172.72 cm 18.5 kg/m2 39182.2 7 g 100 /min 96 % 97.9 [degF] 120/82 mm[Hg] Shahnaz Jo [facility] 5 14:33:06 Date Recorded Body height Provider Name an d Address Organization Details Last Updated DateTime 04/20/2025 172.72 cm Mariela Pinedo MA [facility] Demetria [facility] 04/20/2025 10:48:52 Social History Question Answer Notes LastModified by Organizat ion Details LastModified Time Tobacco Smoking Status Never Smoker DEVAN Kumar, [facility] 06/21/2014 16:34:33 Animal Exposure? No No Current Pets Information not available 11/08/2014 What Type Of Diet Are You Following? REGULAR [email or web address] Information not available 06/21/2014 What Is Your Home Situation? Mother Information not available 11/08/2014 Live Alone Or With Others? With Others Mom, 1 Brother [email or web address] Information not available 06/21/2014 Have You Served In The ? No Information not available 03/24/2023 Have You Or Anyone In Your Household Had Any Of The Following Symptoms In The Last 14 Days: Sore Throat, Cough, Chills, Body Aches For Unknown Reasons, Shortness Of Breath For Unknown Reasons, Loss Of Smell, Loss Of Taste, Fever At Or Greater Than 100 Degrees Fahrenheit? No [email or web address] Information not available 04/07/2020 Are You Or Anyone In Your Household A Health Care Provider Or Emergency Responder? No Information not available 04/07/2020 To The Best Of Your Knowledge Have You Been In Close Proximity To Any Individual Who Tested Positive For COVID-19? No Information not available 04/07/2020 What Was The Date Of Your Most Recent Tobacco Screening? 03/27/2024 [email or web address] Information not available 03/27/2024 How Many Children Do You Have? 1 Margret Information not available 03/24/2023 Pool Exposure Yes Informa tion not available 11/08/2014 What Is The Name Of Your School? [employer] Information not available 03/24/2023 Do You Use Your Seat Belt Or Car Seat Routinely? Yes Information not available 11/08/2014 Seat Belts Used Routinely Yes [email or web address] Information not available 06/21/2014 Are You Sexually Active? Yes Information not available 03/24/2023 Do You Have Any Siblings? 3 1 Brother, 2 Sisters Information not available 11/08/2014 Smoke Alarm In Home Yes [email or web address] Information not available 06/21/2014 Do You Have Smoke And Carbon Monoxide Detectors In Your Home? Yes Information not available 11/08/2014 Are You Passively Exposed To Smoke? No [email or web address] Information not available 06/21/2014 General Stress Level Low [email or web address] Information not available 06/21/2014 Do You Use Sunscreen Routinely? Yes [email or web address] Information not available 06/21/2014 Sex: Unknown Functional Status Question Answer Note LastModified by Organizat ion Details LastModified Time Do you use any illicit or recreational drugs? No Information not available 03/24/2023 Do you or have you ever used any other forms of tobacco or nicotine? No Information not available 03/24/2023 What is your level of alcohol consumption? None [email or web address] Information not available 06/21/2014 Are you currently employed? Yes Information not available 03/24/2023 Are you able to walk independently without assistance or assistive devices? [email or web address] Information not available 03/24/2023 Are you able to care for yourself independently? 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 None Information not available 03/24/2023 Mental Status None recorded. Family History Relationship Description Onset Age of this Age Resolved Age Notes LastModified by Organization Details LastModified Time Brother Attention deficit hyperactivit y disorder [email or web address] Not available 06/26 15:15:13 Mother Asthma [email or web address] Not available 1 06/07/2019 14:27:34 Sister Asthma [email or web address] Not available 06/07/2019 14:27:45 Medical History Condition [...] Age at Menarche 13 Current Control Method Depo-Mother Superior a LMP Unknown Sexually Active? Y Obstetrics History GPAL:G 0 P 0 0 0 0 Immunizations Vaccine Type Date Status Note Provider Homer e and Address Organization Details Recorded Time Tdap 5 completed Not Available [facility] 06/09/2019 02:21:44 HPV, quadrivalent 5 completed Not Available [facility] 06/09/2019 02:21:34 COVID-19, mRNA, LNP-S, PF, 30 mcg/0.3 mL dose 1 completed DEVAN Shea, [facility] 05/18/2021 10:56:14 COVID-19, mRNA, LNP-S, PF, 30 mcg/0.3 mL dose 1 completed DEVAN Shea, [facility] 05/18/2021 10:56:14 COVID-19, mRNA, LNP-S, PF, 30 mcg/0.3 mL dose, renato-sucrose 2 completed DEVAN Chen, [facility] 09/09/2022 10:02:15 Tdap 2 completed DEVAN Chen, [facility] 09/09/2022 10:02:15 Influenza, split virus, quadrivalent, PF 2 completed DEVAN Chen, [facility] 09/09/2022 10:02:15 Hep B, adolescent or pediatric 3 completed Not Available [facility] 12/04/2013 13:31:42 pneumococcal conjugate PCV 7 4 completed Not Available [facility] 12/04/2013 13:31:42 DTaP 4 completed Not Available [facility] 12/04/2013 13:31:42 Hib (HbOC) 4 completed Not Available [facility] 12/04/2013 13:31:42 IPV 4 completed Not [...] 12/04/2013 13:31:43 DTaP 4 completed Not Available [facility]12/04/2013 13:31:43 Hib (HbOC) 4 completed Not Available [facility] 13:31:43 Hib (HbOC) 4 completed Not Available [facility] 13:31:43 pneumococcal conjugate PCV 7 4 completed Not Available [facility] 12/04/2013 13:31:43 varicella 4 completed Not Available [facility] 13:31:43 MMR 4 completed Not Available [facility] 12/04/2013 13:31:43 Hep B, adolescent or pediatric 4 completed Not Available [facility] 13:31:43 IPV 4 completed Not Available [facility] 12/04/2013 13:31:43 Influenza, split virus, trivalent, preservative 4 completed Not Available [facility] 12/04/2013 13:31:43 DTaP 5 completed Not Available [facility] 12/04/2013 13:31:43 Influenza, split virus, trivalent, preservative 6 completed Not Available [facility] 12/04/2013 13:31:43 MMR 7 completed Not Available [facility] 13:31:43 varicella 7 completed Not Available [facility] 12/04/2013 13:31:43 DTaP 7 completed Not Available [facility] 12/04/2013 13:31:43 IPV 7 completed Not Available [facility] 12/04/2013 13:31:43 Influenza, split virus, trivalent, preservative 7 completed Not Available [facility] 12/04/2013 13:31:43 Influenza, split virus, trivalent, preservative 8 completed Not Available [facility] 12/04/2013 13:31:43 Influenza, split virus, trivalent, preservative 9 completed Not Available [facility] 12/04/2013 13:31:43 Novel Rtfsobjnf-[id number], all formulations 9 completed Not Available [facility] 12/04/2013 13:31:43 Novel Zysnqeens-[id number], all formulations 0 completed Not Available [facility] 12/04/2013 13:31:43 Influenza, split virus, trivalent, preservative 0 completed Not Available [facility] 12/04/2013 13:31:43 Influenza, split virus, trivalent, preservative 1 completed Not Available [facility] 12/04/2013 13:31:43 Influenza, split virus, trivalent, preservative 2 completed Not Available [facility] 12/04/2013 13:31:43 HPV, quadrivalent 3 completed Not Available [facility] 12/04/2013 13:31:43 Influenza, split virus, quadrivalent, PF 6 completed Not Available [facility] 06/09/2019 02:22:08 meningococcal MCV4P 9 completed Not Available [facility] 06/09/2019 02:21:55 Influenza, split virus, quadrivalent, PF 0 completed DEVAN Shea, [facility] 04/07/2020 14:40:13 meningococcal MCV4P 0 completed DEVAN Rivera, [facility] 04/07/2020 15:35:41 Influenza, split virus, quadrivalent, PF 3 completed DEVAN Shea, [facility] 03/14/2023 11:34:59 Influenza, split virus, trivalent, PF 4 completed BRIGITTE Gillespie [address], [address], [facility] 03/27/2024 11:11:42 Past Encounters Encounter ID Performer Location Encounter Start Date Encounter Closed Date Diagnosis/Indication Diagnosis SNOMED-CT Code Diagnosis ICD10 Code Diagnosis IMO Codes Diagnosis Note [id number] [facility] [address] [facility] [address] [place] [address] 11/02/2006 00:00:00 [id number] [place] [address] 02/07/2007 00:00:00 [id number] [facility] [address] [place] [address] 09/12/2007 00:00:00 [id number] auto[facility] erce [address] [facility] [address] [place] [address] 10/30/2007 00:00:00 [id number] [facility] erce [address] [place] [address] 04/03/2008 00:00:00 [id number] [facility] erce [address] [facility] [address] [place] [address] 09/14/2008 00:00:00 [id number] [facility] erce [address] [facility] [place] [address] 10/10/2009 00:00:00 [id number] auto[facility] erce [address] [facility],[address] [place] [address] 12/22/2009 00:00:00 [id number] auto[facility] erce [address] [facility],[address] [place] [address] 03/30/2010 00:00:00 [id number] auto[facility] erce [address] [facility],[address] [place] [address] 05/13/2010 00:00:00 [id number] auto[facility] erce [address] [facility],[address] [place] [address] 07/17/2010 00:00:00 [id number] [facility] erce [address] [facility],[address] [place] [address] 11/30/2011 00:00:00 [id number] auto[facility] erce [address] [facility],[address] [place] [address] 05/15/2013 00:00:00 [id number] Jim Keys, [facility] Main [facility] [address] [facility] [address] [place] [address] 06/21/2014 16:13:41 06/21/2014 17:03:10 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 Mom would like to start on a longer acting med- her son takes concerta and she feels this works well. She will give med on school days, encourage pt to eat frequtnly, watch for adverse side effects. F/U in 1 month. 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 Age appropriat e anticipato ry guidance provided. Regular dental care and appropriat e car safety advised. Immunizati on status updated. HPV# 2 and TDAP today, Advised well balanced meals TID, she is on concerta and does not eat much, may try giving the medication after breakfast so that she has an appetite in the morning. Reduced visual acuity 44019266 VA 20/50 and 20/100, should be evaluated for need for glasses. Child atte ntion deficit disorder 118948264 Just had med refills on 11/03/14, doing well on concerta, encouraged to ensure patient is eating frequently . 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 [address] [place] [address] 04/03/2016 10:45:19 04/03/2016 11:00:36 Abdominal pain 36168273 R10.31 Pain elicited in RLQ with leg raise and tenderness in RLQ suspicious for appendicit is. Referred to [facility] ER and an expect called in. 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 F90.0 [id number] Nelson Toribio MD Main Office [address] [address] [place] [address] 11/10/2018 12:50:05 11/10/2018 14:01:16 Requires a meningitis vaccination 709839829 Z23 Well child 174989747 Z00 .129 Reviewed dental care, need to floss, increase calcium in the diet, pt has tried vaping - discourage d use/educat ed, not sex active, will call if need contracept ion, safe sex reviewed, BSE taught Scoliosis of thoracic spine 065588413 M41.34 referral to [facility] [id number] Cherelle martinez MD Main Office [address] [address] [place] [address] 04/07/2020 13:55:56 04/07/2020 15:37:56 Adult health examination 062711086 Z00.00 Child in good general health. Reviewed immunizati ons. Discussed diet, exercise, dental care. Discussed teen issues Needs infl uenza immunization 454138526 Z23 Scoliosis of thoracic spine 046410881 M41.34 pt states no followup needed, has been discharged from [facility] Administra tion of viral vaccine 25293767 Z23 [id number] Bronwyn Mitchell MD Main Office [address] [address] [place] [address] 06/18/2020 12:27:22 06/18/2020 13:35:46 Impetigo 29419777 L01.00 [id number] Mike Ontiveros MD [facility] [address] [address] [place] [address] 05/18/2021 08:28:19 05/18/2021 11:28:22 Acute pharyngitis 933644240 J02.9 Pt. has sore throat and headache with mild congested . Advised on COVID PCR test or at least rapid test. Recommende d to do salt water gargles, Tylenol ES , rest and fluids. Exposure t o viral disease 4584574190 75318 Z20.828 Counseling was provided to pt. phone number given for [facility] for PCR testing. Quarantine recommenda tions discussed. [id number] Mike Ontiveros MD Main Office [address] [address] [place] [address] 08/30/2022 11:27:44 08/30/2022 12:43:12 Contraception care management 733682568 Z30.42 [id number] Mike Ontiveros MD Main Office [address] [place] [address] 11/12/2022 15:12:26 11/12/2022 16:23:31 Vaginitis 05638575 N76.0 will send for testing and tx for BV and yeast. Pelvic ankit or dysfunction 550617589 M62.9 needs to see pelvic floor PT will rfeer as she was told kristina would be 1 year wait. Third degr ee perineal laceration 44066668 O70.20 3rd degree tear repaired 5 months ago, anal sphincter had to be reattached by colorectal surgery. erythemato us friable tissue, with loose tissue noted. will send to [facility] for 2nd opinion as it appears laceration was not well approximat ed. Acute righ t otitis media 115403226 H66.91 Contracept ion care management 514546441 Z30.42 [id number] JUSTINE DUARTE MD Main Office [address] [facility] [address] [place] [address] 11/16/2022 14:01:24 11/16/2022 15:19:09 Contraception care management 883927320 Z30.42 [id number] Mike Ontiveros MD Main Office [address] [facility] [address] [place] [address] 03/24/2023 15:05:07 03/24/2023 15:53:54 Adult health examination 329783906 Z00.00 HM UTD. will check labs Bacterial vaginosis 4197 13776 N76.0 will tx with metronidaz ole and she notes metrogel causes bleeding Vaginitis 68390071 N76.0 Fatigue 78953020 R53.83 Unable to control flatus 023249143 R14.3 would like to see colo rectal in follow-up, she has not been to pelvic floor PT though she does have the referral. Anemia due to unknown mechanism 36648825 D64.9 Vitamin D deficiency 347 42755 E55.9 Cough 41284551 R05.9 Allergic rhinitis 435129 04 J30.9 Pain in pelvis 34804219 R10.2 sharp pelvic pain, will check US Family his tory of Cardiovascular disease 242883625 Z82.49 [id number] Nelson Toribio MD Main Office [address] [facility] [address] [place] [address] 03/14/2023 11:10:23 03/14/2023 12:09:03 Needs influenza immunization 637632172 Z23 Contracept ion care management 527129303 Z30.42 [id number] Bronwyn Mitchell MD Main Office [address] [facility] [address] [place] [address] 06/08/2023 11:37:22 06/08/2023 12:17:58 [id number] STEVEN AHUMADA Main Office [address] [address] [place] [address] 06/24/2023 08:39:35 06/24/2023 09:23:53 Syncope 166628867 R55 -had 2 known episodes of syncope; [...] ng factor or trigger Orthostati c hypotension 05839177 I95.1 -orthostat ic BP readings were completed in the office-tova roximate 25bpm increase and 10 mmHg diastolic decrease when transition ing from supine to standing Ammendment by SB: after discussion of case ordered patient a tilt-table testing [id number] JUSTINE DUARTE MD Main Office [address] [facility] [address] [place] [address] 07/29/2023 13:09:22 07/29/2023 13:41:12 Contraception care management 392792332 Z30.42 [id number] Nelson Toribio MD Main Office [address] [facility] [address] [place] [address] 10/13/2023 12:59:12 10/13/2023 13:11:57 Contraception care management 572931986 Z30.42 [id number] Bronwyn Mitchell MD Main Office [address] [facility] [address] [place] [address] 01/11/2024 09:37:55 01/11/2024 09:38:39 Contraception care management 975318765 Z30.42 [id number] Mike Ontiveros MD Main Office [address] [facility] [address] [place] [address] 03/27/2024 09:44:46 03/27/2024 10:56:58 Adult health examination 940918695 Z00.00 UTD. had labs in November, no concerns. Needs infl uenza immunization 082959868 Z23 19 YEARS AND OLDER ONLY Contracept ion care management 687273692 Z30.42 refill provided, last depo 01/11/24 Eczema 96940470 L30.9 refilled Allergic rhinitis 922084 04 J30.9 start zyrtec daily for allergy sx. [id number] Nelson Toribio MD Main Office [address] [address] 04/13/2024 14:09:16 04/13/2024 14:11:14 Contraception care management 549157099 Z30.42 [id number] Mike Ontiveros MD Main Office [address] [address] 06/14/2024 13:33:11 06/14/2024 14:10:14 Pain in pelvis 05893951 R10.2 will check Urine and vaginitis swab. Urinary tr act infectious disease 22348711 N39.0 urine dip negative, will send out to lab Right uppe r quadrant pain 319418949 R10.11 will check labs and US, may try tums as needed, hydration, ensure she is eating regularly, avoid trigger foods. 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 Take Valacyclov ir 1 g by mouth every 12 hours for 1 day at the first sign of tingling, pain, or lesion. 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 [id number] Nelson Toribio MD Main Office [address] [address] [place] [address] 01/11/2025 08:23:40 01/11/2025 08:26:09 Contraception care management 401517638 Z30.42 [id number] STEVEN AHUMADA Main Office [address] [address] [place] [address] 04/12/2025 14:23:26 04/12/2025 15:05:32 Contraception care management 551412426 Z30.42 urine test is negative. provided refill, pt will return for administra tion.last depo 01/11/25. [id number] Bronwyn Mitchell MD Main Office [address] [address] [place] [address] 04/20/2025 10:47:45 04/20/2025 10:48:30 Contraception care management [id number] Z30.42 Health Concerns Section Related Observation LastModified by Organization Detai ls LastModified Time None Recorded Concern Status LastModified by Organization Details LastModified Time None Recorded Advance Directives Directive None Recorded Payers Insurance Date Sequence Insurance Name Policy Number Policy Zee Covered Member ID Zee Member ID Guarantor Name 04/20/2025 1 [facility] [employer] (MEDICAID HMO) [id number] Eloisa Ribera [id number] Eloisa Ribera 05/10/2014 1 [facility] (HMO) [id number] Mariela Pinedo [id number] Eloisa Ribera 08/19/2014 1 [facility] (PPO) [id number] Mariela Pinedo [id number] Eloisa Ribera 04/30/2025 1 [place] [facility] Eloisa Ribera [id number] Eloisa Ribera 04/20/2025 1 [facility] (MEDICAID HMO) [id number] Eloisa Ribera [id number] Eloisa Ribera Notes Date Note Type Note Provider Name and Address Organization Details Recorded Time 07/27/2024 text/html FeverReported by PatientHPIFor severity, patient [...] 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 JUSTINE DUARTE MD [address] [address], [place], [address], [facility] 07/27/2024 14:28:49 11/09/2024 text/html Throat PainRepor waldemar by [email or web address] presents with sore throat and ulcer on [...] in the HPI Juliane Mittal PA-C [address] [address], [place], [address], [facility] 11/09/2024 13:12:17 04/12/2025 text/html ROS as noted in the HPI Eloisa is a 20yr old F who presents for contraceptive management f/u. Doing well on the depo shot. No concerns. STEVEN AHUMADA [address] [address], [place], [address], [facility] 04/12/2025 14:47:48 OBGyn Episode No OBEpisode recorded.
== END 2025-05-06 16:14 | disposition home or self-care (01) ==
LOC: HO.HOS 13:58
DX: M95.8 Other specified acquired deformities of musculoskeletal system (principal); S52.501A Unspecified fracture of the lower end of right radius, initial encounter for closed fracture
CPT/HCPCS: 99213

== ENCOUNTER → 2025-05-06 14:04 | Outpatient (BNV) | payer OTHER, SELFPAY | PROVIDERS: Visit Provider Radiology Diagnostic Radiology | DX: M25.531 Pain in right wrist (principal) | CPT/HCPCS: 73110 ==